=== PATIENT | female | born 1960 | race Caucasian/White ===

== ENCOUNTER → 2017-03-05 | Outpatient (REF) ==
--- NOTE | 2017-03-05 16:40 | REP ---
Lumbar spine series: Limited study: Three views: History: Degenerative disc disease. Comparison study: 06/11/2014. Findings: Lumbar vertebral body heights are preserved. Discogenic spurring is seen at L3-4 L4-5 and to a lesser extent L1-2 and L2-3. Alignment is normal. Pedicles and posterior elements are intact. There is evidence of bilateral L5 spondylolysis and a grade 1, 3-4 mm L5-S1 spondylolisthesis is seen unchanged from prior study. There is vascular calcification in a normal caliber aorta. Bowel gas pattern normal. Clips are noted in the right upper quadrant consistent with post-cholecystectomy. Impression: Bilateral L5 spondylolysis with grade 1 L5-S1 spondylolisthesis unchanged from the 2013 study. Mild diffuse degenerative disc disease also unchanged radiographically. Signed by Torres Honeycutt MD 03/05/2017 04:48 P
--- NOTE | 2017-03-05 16:41 | REP ---
Right knee series: Five views: History: Degenerative disc disease. No comparison radiographs. Findings: Five views of the right knee demonstrate moderate three compartment osteoarthritis. There is medial compartment joint space narrowing and spur formation. Patellofemoral and to a lesser extent lateral compartment spurring is also noted. Extensive vascular calcification is noted. There are posteromedial periarticular soft tissue calcifications. I cannot exclude loose body formation posteriorly. No evidence of joint effusion. There is some diffuse osteopenia. Impression: Moderate three compartment osteoarthritis most pronounced in the medial compartment. Question loose body. Vascular calcification. Signed by Torres Honeycutt MD 03/05/2017 04:48 P
== END ==
LOC: M SMT 14:33
PROVIDERS: ATTEND Internal Medicine
DX: M54.5 Low back pain (principal)

== ENCOUNTER 2017-05-29 21:16 | Inpatient (IN) | payer OTHER ==
[~2017-05-29] VITALS: Ht 157.5 cm; Wt 88.1 kg
[~2017-05-29 21:16] MED LIST: RIVAROXABAN 15 MG TAB (XARELTO) PO SCH
[2017-05-29] MEDS ORDERED: INSUHUMDS SC (21:38)
[2017-05-29] MEDS ORDERED: METO1TAB33 PO (21:38)
[2017-05-29] MEDS ORDERED: LIPI80TA PO (21:38)
[2017-05-29] MEDS ORDERED: METO-398 PO (21:38)
[2017-05-29] MEDS ORDERED: XARE15TA PO (21:38)
[2017-05-29] MEDS ORDERED: FENO145T PO (21:38)
[2017-05-29] MEDS ORDERED: [UNRECOGNIZED DRUG - OTHER] PO (21:38)
[2017-05-29] MEDS ORDERED: LASI20TA PO (21:38)
[2017-05-29] MEDS ORDERED: FISH100049 PO (21:38)
[2017-05-29] MEDS ORDERED: INSULANT SC (21:38)
[2017-05-29] MEDS ORDERED: DIGO0.12 PO (21:38)
[2017-05-29] MEDS ORDERED: LABETALOL HCL 100 MG/20 ML VIAL IV STA (22:20)
--- NOTE | 2017-05-29 22:32 | REP ---
Clinical: Diabetic ketoacidosis . Comparison: 06/13/2015 . Findings: The mediastinum and cardiac silhouette are stable and within normal limits for portable technique. The lung cameron are clear without acute consolidation, effusion, or pneumothorax. Skeletal structures are intact. Impression: No acute cardiopulmonary process appreciated. Signed by Guille Robins MD 05/29/2017 10:23 P
[2017-05-29 22:35] LABS: VENOUS O2 SATURATION 69.6 % (60.0-80.0); VENOUS PARTIAL PRESSURE CO2 45.9 mmHg (38.0-50.0); VENOUS PARTIAL PRESSURE O2 40.3 mmHg (30.0-50.0); VENOUS STANDARD HCO3 21.5 MEQ/L; VENOUS TOTAL CO2 24.5 MEQ/L (24.0-28.0)
[2017-05-29 22:42] LABS: BASO % 0.5 % (0.0-1.0); EOS # 0.2 K/mm3 (0.0-0.50); EOS % 2.5 % (0.0-3.0); LARGE UNSTAINED CELL # 0.1 K/mm3 (0.0-0.4); LARGE UNSTAINED CELL % 0.8 % (0.0-4.0); MEAN CORPUSCULAR HEMOGLOBIN 28.3 pg (27.0-33.0); MEAN CORPUSCULAR HGB CONC 30.6 g/dl (32.0-36.5); MEAN CORPUSCULAR VOLUME 92.5 fl (80.0-96.0); MONO # 0.3 K/mm3 (0.0-0.8); MONO % 3.4 % (0.0-5.0); NEUTROPHILS # 6.6 K/mm3 (1.8-7.7); NEUTROPHILS % 80.9 % (36.0-66.0); PLATELET COUNT, AUTOMATED 241 k/mm3 (150-450); RED CELL DISTRIBUTION WIDTH 14.5 % (11.5-14.5); WHITE BLOOD COUNT 8.1 K/mm3 (4.0-10.0)
[2017-05-29 22:52] LABS: INR 1.1
[2017-05-29 22:58] LABS: OSMOLALITY SERUM 320 MOSM/KG (275-295)
[2017-05-29 23:20] LABS: ALBUMIN 2.1 GM/DL (3.2-5.2); ALBUMIN/GLOBULIN RATIO 0.53 (1.00-1.93); ALKALINE PHOSPHATASE 44 U/L (45-117); ALT/SGPT 17 U/L (12-78); ANION GAP 9 MEQ/L (8-16); AST/SGOT 11 U/L (15-37); BILIRUBIN,DIRECT < 0.1 MG/DL (0.0-0.2); BILIRUBIN,TOTAL 0.2 MG/DL (0.2-1.0); BLOOD UREA NITROGEN 39 MG/DL (7-18); CALCIUM LEVEL 8.5 MG/DL (8.5-10.1); CARBON DIOXIDE LEVEL 25 MEQ/L (21-32); CHLORIDE LEVEL 98 MEQ/L (98-107); CREATININE FOR GFR 2.96 MG/DL (0.55-1.02); GLOMERULAR FILTRATION RATE 17.4 (>51); MAGNESIUM LEVEL 1.9 MG/DL (1.8-2.4); PHOSPHORUS LEVEL 4.4 MG/DL (2.5-4.9); POTASSIUM SERUM 4.1 MEQ/L (3.5-5.1); SODIUM LEVEL 132 MEQ/L (136-145); TOTAL PROTEIN 6.1 GM/DL (6.4-8.2)
[2017-05-29 23:24] LABS: GLUCOSE, FASTING 640 MG/DL (70-105)
[2017-05-29] MEDS ORDERED: HumuLIN R (REGULAR) INSULIN (NovoLIN R) **100U/ML** PER UNIT IV ONE (23:45)
[2017-05-30] MEDS ORDERED: METO100T5 PO ×2 (00:16)
[2017-05-30] MEDS ORDERED: FENO160T10 PO (00:16)
[2017-05-30] MEDS ORDERED: FISH1000 PO (00:16)
[2017-05-30] MEDS ORDERED: TRAD5TAB PO (00:16)
--- NOTE | 2017-05-30 01:12 | HPEPDOC ---
General Date of Admission Primary Care Physician: Joanna Swan PA-C, LAC Other Providers Admitting Attending: Ramakrishna Baron MD Attending Physician: DELANEY AYALA DO Chief Complaint The patient is a 56-year-old female admitted with a reason for visit of DKA. Source: Patient Exam Limitations: No limitations Timing/Duration: Day(s) (3-4) Associated Symptoms: Nausea History of Present Illness Ms. Gibbons is a 56 y/o female with past medical history of IDDM, a. fib, htn. dlp who present to the ED with CC of fatigue and nausea. The pt states that since Saturday (five days ago) she has been out of her insulin, she states that she attempted to phone her PCP but the office was closed for the holiday . The pt states that four days ago she began having nausea and experiencing fatigue. She denies pain with urination or defecation, blood in urine or stool, abdominal pain, or vomiting, denies CP, palpitations nor SOB. She states her insurance company would not refill her medications without approval and this had her very upset. She has no further active complaints on exam. Home Medications Scheduled Atorvastatin Calcium (Lipitor) 80 Mg Tab, 80 MG PO DAILY, (Reported) Digoxin (Digoxin) 0.125 Mg Tab, 0.125 MG PO DAILY, (Reported) Fenofibrate (Fenofibrate) 160 Mg Tab, 160 MG PO DAILY, (Reported) Fish Oil (Fish Oil) 1,000 Mg Cap, 2,000 MG PO BID, (Reported) Furosemide (Lasix) 20 Mg Tab, 20 MG PO DAILY, (Reported) Insulin Glargine (Lantus) 1 Units/0.01 Ml Susp, 40 UNITS SC BID, (Reported) Insulin Human Lispro (Humalog) 1 Units/0.01 Ml Inj, 7 UNITS SC AC, (Reported) Linagliptin Base (Tradjenta) 5 Mg Tab, 5 MG PO DAILY, (Reported) NORMALLY TAKES IN MORNING, HAD RX REFILLED TONIGHT Metoprolol Tartrate (Metoprolol Tartrate) 100 Mg Tab, 200 MG PO DAILY, (Reported ) Metoprolol Tartrate (Metoprolol Tartrate) 100 Mg Tab, 100 MG PO QHS, (Reported) Rivaroxaban (Xarelto) 15 Mg Tab, 15 MG PO QHS, (Reported) Allergies Coded Allergies: Contrast Media (Verified Allergy, Severe, anaphylaxsis, 05/29/17) Aspirin (Verified Allergy, Unknown, hallucinations, 05/29/17) Pentazocine (Verified Allergy, Unknown, hallucinations, 05/29/17) Uncoded Allergies: opiates (Allergy, Intermediate, hives, lips swell, 05/29/17) Past Medical History Medical History a. fib IDDM htn DLP Family History Significant Family History: No pertinent family hx Social History * Smoker: Denies Alcohol: Denies Drugs: denies Review of Symptoms Constitutional: Reports: Malaise, Weakness, Fatigue, Denies: Chills, Fever, Night Sweats Eyes: Denies: Vision change, Conjunctivae inflammation ENT: Denies: Head Aches Pulmonary: Denies: Dyspnea, Cough Cardiovascular: Denies: Chest Pain, Palpitations, Orthopnea Gastrointestinal: Reports: Nausea, Denies: Vomiting, Abdominal Pain, Diarrhea, Constipation, Melena, Hematochezia Neurological: Reports: Weakness Psych: Reports: Mood Normal Physical Examination General Exam: Positive: Alert, Cooperative, No Acute Distress Eye Exam: Positive: Conjunctiva & lids normal, EOMI, Negative: Sclera icteric ENT Exam: Positive: Pharynx Normal Neck Exam: Positive: Supple Chest Exam: Positive: Clear to auscultation, Normal air movement, Negative: Rales, Rhonchi, Wheezing, Diminished Heart Exam: Positive: Rate Normal, Normal S1, Normal S2, Negative: Gallops, Murmurs Telemetry: Positive: No significant arrhythmia Abdomen Exam: Positive: Normal bowel sounds, Soft, Negative: Tenderness, Hepatospenomegaly Extremity Exam: Positive: Edema (+1 b/l LE) Skin Exam: Negative: Rash Neuro Exam: Positive: Normal Gait, Normal Speech Vital Signs Vital Signs Date Time Temp Pulse Resp B/P (MAP) Pulse Ox O2 Delivery O2 Flow Rate FiO2 05/29/17 23:31 64 148/76 (100) 94 05/29/17 21:17 97.7 18 Room Air Laboratory Data Labs 24H Laboratory Tests 2 05/29/17 22:12: Blood Gas Bicarbonate Standard 21.5, Venous Blood pH 7.320L, Venous Blood Partial Pressure CO2 45.9, Venous Blood Partial Pressure O2 40.3, Venous Blood Total Carbon Dioxide 24.5, Venous Blood HCO3 23.1, Venous Blood Oxygen Saturation 69.6, Venous Blood Base Excess -3.0L 05/29/17 22:13: White Blood Count 8.1, Red Blood Count 3.66L, Hemoglobin 10.4L, Hematocrit 33.9L , Mean Corpuscular Volume 92.5, Mean Corpuscular Hemoglobin 28.3, Mean Corpuscular Hemoglobin Concent 30.6L, Red Cell Distribution Width 14.5, Platelet Count 241, Neutrophils (%) (Auto) 80.9H, Lymphocytes (%) (Auto) 12.0L, Monocytes (%) (Auto) 3.4, Eosinophils (%) (Auto) 2.5, Basophils (%) (Auto) 0.5, Neutrophils # (Auto) 6.6, Lymphocytes # (Auto) 1.0L, Monocytes # (Auto) 0.3, Eosinophils # (Auto) 0.2, Basophils # (Auto) 0.0, Large Unclassified Cells % 0.8 , Large Unclassified Cells # 0.1, Estimated Mean Plasma Glucose 246H, Hemoglobin A1c 10.2H 05/29/17 22:14: Prothrombin Time 14.4, Prothromb Time International Ratio 1.10, Activated Partial Thromboplast Time 26.0L, Anion Gap 9, Glomerular Filtration Rate 17.4L, Osmolality 320H, Calcium Level 8.5, Phosphorus Level 4.4, Magnesium Level 1.9, Aspartate Amino Transf (AST/SGOT) 11L, Alanine Aminotransferase (ALT/SGPT) 17, Alkaline Phosphatase 44L, Total Bilirubin 0.2, Direct Bilirubin < 0.1, Total Protein 6.1L, Albumin 2.1L, Albumin/Globulin Ratio 0.53L, Lipase 228, Digoxin Level 1.0, B-Hydroxybutyrate 1.73 CBC/BMP Laboratory Tests 05/29/17 22:13 Red Blood Count 3.66 L, Mean Corpuscular Volume 92.5, Mean Corpuscular Hemoglobin 28.3, Mean Corpuscular Hemoglobin Concent 30.6 L, Red Cell Distribution Width 14.5, Neutrophils (%) (Auto) 80.9 H, Lymphocytes (%) (Auto) 12.0 L, Monocytes (%) (Auto) 3.4, Eosinophils (%) (Auto) 2.5, Basophils (%) ( Auto) 0.5, Neutrophils # (Auto) 6.6, Lymphocytes # (Auto) 1.0 L, Monocytes # ( Auto) 0.3, Eosinophils # (Auto) 0.2, Basophils # (Auto) 0.0 05/29/17 22:14 Problems (1) Type 2 diabetes mellitus with hyperosmolarity without nonketotic hyperglycemic-hyperosmolar coma (NKHHC) Problem Text: 640 glucose in ED 10.2 HgA1C in ED AG 9 pt received 5 units Insulin in ED Sliding scale 10 Levemir and 20 Lispro x1 (2) Acute renal failure Status: Acute Response to Treatment: Stable Problem Text: 2.96 creatine, baseline around 1-1.5 will hold digoxin, xaralto and diuretic for now fluids NS @ 100 (3) HTN (hypertension) Status: Chronic Response to Treatment: Stable Problem Text: continue home medication (4) Hyperlipidemia Status: Chronic Response to Treatment: Stable Problem Text: continue home medications (5) DVT prophylaxis Status: Acute Response to Treatment: Stable Problem Text: scd teds Plan / VTE VTE Prophylaxis Ordered?: Yes GME ATTESTATION GME ATTESTATION My preceptor for this patient encounter was physically present in the building during the encounter and was fully available. As needed, all aspects of the patient interview, examination, medical decision making process, and medical care plan development were reviewed and approved by the preceptor. Preceptor is aware and concurs with the plan as stated in the body of this note and will attest to such by his/her cosignature. ATTENDING NOTE Pt seen and examined by me. Findings and plan reviewed with resident. Resident note reviewed and agree with documented findings and plan. 1. HHS While pt not acidotic, her persistent hypergylcemia will have made her relatively insulin resistant. Unfortunately, pt has only received 10U of humalog coverage in the ED for her glucose of >500. Pt will need aggressive fluid rescusitation. Will bolus NS 1L and put fluids at 125. Have started humalog SS, but will administer humalog 20U x1 to get her FS closer to 200. (Pt has received 20U with FS going from 550 to 420). Continue tradjenta Pt at baseline has poor glucose control (hba1c is 10.2) 2. LIZANDRO Likely MF from osmotic diuresis, on top of being on lasix Continue fluid rescusitation Avoid nephrotoxic meds (acei/arbs/nsaids) Pt lasix held Serial bmp dose meds to renal fxn 3. Chronic afib Continue bb Dig held will check level before restarting and confirming cre improving Xarelto also held for now due to lizandro ORQUIDEA KELLEY DO May 30, 2017 01:12 Ramakrishna Baron MD May 30, 2017 07:19
[2017-05-30] MEDS ORDERED: GLUCAGON FOR INJ 1 MG VIAL (J1610) SC PRN (02:30)
[2017-05-30] MEDS ORDERED: GLUCOSE 4 GM CHEW TABLET PO PRN (02:30)
[2017-05-30] MEDS ORDERED: DEXTROSE 50% 50 ML SYRINGE IV PRN (02:30)
[2017-05-30 02:35] VITALS: BP 134/74
[2017-05-30] MEDS ORDERED: LEVEMIR (INSULIN DETEMIR) 1 UNITS/0.01ML SC ONE ×2 (03:00→10:45)
[2017-05-30] MEDS ORDERED: HumaLOG INSULIN (NovoLOG) PER UNIT SC ONE ×2 (03:00→05:30)
[2017-05-30 03:20] LABS: BASO % 0.4 % (0.0-1.0); EOS # 0.3 K/mm3 (0.0-0.50); EOS % 3.3 % (0.0-3.0); LARGE UNSTAINED CELL # 0.1 K/mm3 (0.0-0.4); LARGE UNSTAINED CELL % 0.9 % (0.0-4.0); LYMPH # 1.2 K/mm3 (1.5-4.5); LYMPH % 12.5 % (24.0-44.0); MEAN CORPUSCULAR HEMOGLOBIN 27.8 pg (27.0-33.0); MEAN CORPUSCULAR HGB CONC 31.5 g/dl (32.0-36.5); MEAN CORPUSCULAR VOLUME 88.3 fl (80.0-96.0); MONO # 0.4 K/mm3 (0.0-0.8); MONO % 4.9 % (0.0-5.0); NEUTROPHILS # 6.8 K/mm3 (1.8-7.7); PLATELET COUNT, AUTOMATED 212 k/mm3 (150-450); RED CELL DISTRIBUTION WIDTH 14.7 % (11.5-14.5); WHITE BLOOD COUNT 8.8 K/mm3 (4.0-10.0)
[2017-05-30 03:31] LABS: CALCIUM LEVEL 7.9 MG/DL (8.5-10.1); CREATININE FOR GFR 2.86 MG/DL (0.55-1.02); GLOMERULAR FILTRATION RATE 18.1 (>51); POTASSIUM SERUM 3.8 MEQ/L (3.5-5.1)
[2017-05-30] MEDS ORDERED: NS 1,000 ML IV SCH (05:15)
[2017-05-30 05:54] LABS: DIGOXIN LEVEL 0.9 NG/ML (0.5-2.0)
[2017-05-30 06:00] VITALS: BP 124/64
[2017-05-30] MEDS ORDERED: NS 1,000 ML IV ONE (06:45)
[2017-05-30] MEDS: HumaLOG INSULIN (NovoLOG) PER UNIT SC SCH ×4 (08:30→21:55)
[2017-05-30] MEDS: ATORVASTATIN 20 MG TAB PO SCH (08:31)
[2017-05-30] MEDS: METOPROLOL TARTRATE 100 MG TAB PO SCH ×2 (08:57→21:54)
[2017-05-30] MEDS ORDERED: DIGOXIN 0.125 MG TAB PO SCH (09:00)
[2017-05-30] MEDS ORDERED: FUROSEMIDE 20 MG TAB PO SCH (09:00)
[2017-05-30] MEDS: ACETAMINOPHEN TAB 650MG DOSE (2X325MG) PO PRN ×2 (12:25→21:54)
[2017-05-30 14:00] VITALS: BP 145/68
--- NOTE | 2017-05-30 14:28 | IPN ---
DATE: 05/30/2017 SUBJECTIVE: The patient is seen and examined in the room today. The patient stated that she ran out of insulin since last week. The patient has been without insulin for 5 days due to insurance issues. At the time of the encounter, the patient stated the nausea and vomiting is improving. The patient is noted to have lower extremity swelling since the primary care provider discontinued the Lasix. OBJECTIVE: VITAL SIGNS: Temperature 97.5, pulse is 61, respirations 20, blood pressure 124/64, pulse oximetry is 97% on room air. GENERAL: Obese. No acute distress. Alert and oriented times three. HEENT: Normocephalic, atraumatic. Extraocular motors grossly intact. CARDIOVASCULAR: Positive S1, S2. Regular rate. LUNGS: Clear to auscultation bilaterally. ABDOMEN: Soft, nontender, nondistended. Bowel sounds present. No rebound or guarding. EXTREMITIES: Positive edema bilaterally. No sign of cyanosis. LABORATORY DATA: WBC 8.8, hemoglobin 9.4, hematocrit 29.9, platelet count is 212. Sodium is 134, potassium 3.8, chloride is 101, carbon dioxide 25, BUN 40, creatinine 2.86, GFR is 18.1, fasting glucose is 508. Calcium is 7.9. BNP is 360. ASSESSMENT AND PLAN: 1. Severe hyperglycemia for uncontrolled type 2 diabetes. The patient has no supply of insulin for 5 days prior to admission. The patient's A1/c is 10.2. There is no anion gap. We will start the patient back on her long-acting insulin and covered with sliding scale. The patient will be on consistent carbohydrate diet. 2. Acute on chronic renal failure. The patient has a creatinine of 1.14 in October 2016. Currently, the patient's creatinine is 2.86. Due to fluid overload, we will try to adjust the patient's fluid status currently. 3. History of congestive heart failure (CHF). The patient was diagnosed in [place] in December. Echocardiogram was performed. We will follow. 4. History of atrial fibrillation. Currently, heart rate is in satisfactory range. The patient is taking metoprolol tartrate. Xarelto is on hold due to acute kidney injury. 5. History of hypertension. The patient came in with severe hypertensive urgency. Currently, the patient's blood pressure is in the satisfactory range. The patient is on metoprolol. 6. Dyslipidemia. The patient is on Lipitor 80 mg. 7. Deep vein thrombosis (DVT) prophylaxis. The patient is on TEDs and sequential compression device (SCD).
[2017-05-30] MEDS ORDERED: MOM 30ML SUSPENSION UDC PO ONE (21:00)
[2017-05-30] MEDS: APIXABAN 5 MG TAB (ELIQUIS) PO SCH (21:54)
[2017-05-30] MEDS: LEVEMIR (INSULIN DETEMIR) 1 UNITS/0.01ML SC SCH (21:56)
[2017-05-30 22:00] VITALS: BP 164/82
[2017-05-31 06:00] VITALS: BP 117/76
[2017-05-31 06:49] LABS: BASO % 0.4 % (0.0-1.0); EOS # 0.2 K/mm3 (0.0-0.50); EOS % 3.8 % (0.0-3.0); LARGE UNSTAINED CELL # 0.1 K/mm3 (0.0-0.4); LARGE UNSTAINED CELL % 1.1 % (0.0-4.0); LYMPH # 1.4 K/mm3 (1.5-4.5); LYMPH % 20.6 % (24.0-44.0); MEAN CORPUSCULAR HEMOGLOBIN 28.5 pg (27.0-33.0); MEAN CORPUSCULAR HGB CONC 32.9 g/dl (32.0-36.5); MEAN CORPUSCULAR VOLUME 86.6 fl (80.0-96.0); MONO # 0.3 K/mm3 (0.0-0.8); MONO % 4.7 % (0.0-5.0); NEUTROPHILS # 4.6 K/mm3 (1.8-7.7); NEUTROPHILS % 69.3 % (36.0-66.0); PLATELET COUNT, AUTOMATED 219 k/mm3 (150-450); RED CELL DISTRIBUTION WIDTH 14.8 % (11.5-14.5); WHITE BLOOD COUNT 6.6 K/mm3 (4.0-10.0)
[2017-05-31 06:58] LABS: ANION GAP 9 MEQ/L (8-16); BLOOD UREA NITROGEN 43 MG/DL (7-18); CALCIUM LEVEL 8.4 MG/DL (8.5-10.1); CARBON DIOXIDE LEVEL 24 MEQ/L (21-32); CHLORIDE LEVEL 105 MEQ/L (98-107); CHOLESTEROL LEVEL 164 MG/DL (<200); CREATININE FOR GFR 2.76 MG/DL (0.55-1.02); GLOMERULAR FILTRATION RATE 18.9 (>51); GLUCOSE, FASTING 143 MG/DL (70-105); POTASSIUM SERUM 3.9 MEQ/L (3.5-5.1); SODIUM LEVEL 138 MEQ/L (136-145); TRIGLYCERIDES LEVEL 437 MG/DL (<150)
[2017-05-31] MEDS ORDERED: ENOXAPARIN 100MG/1ML SYRINGE (J1650) SC SCH (08:00)
[2017-05-31] MEDS: APIXABAN 5 MG TAB (ELIQUIS) PO SCH ×2 (09:45→20:53)
[2017-05-31] MEDS: ATORVASTATIN 20 MG TAB PO SCH (09:45)
[2017-05-31] MEDS: HumaLOG INSULIN (NovoLOG) PER UNIT SC SCH ×4 (09:46→20:17)
[2017-05-31] MEDS: METOPROLOL TARTRATE 100 MG TAB PO SCH ×2 (09:46→20:53)
[2017-05-31] MEDS: LEVEMIR (INSULIN DETEMIR) 1 UNITS/0.01ML SC SCH ×2 (09:46→20:53)
[2017-05-31 14:00] VITALS: BP 102/55
[2017-05-31] MEDS ORDERED: BASA100I SC (14:57)
--- NOTE | 2017-05-31 15:31 | IPN ---
DATE: 05/31/2017 SUBJECTIVE: The patient is seen and examined in the room today. The patient states she feels weak, low energy; otherwise, no overnight events reported. OBJECTIVE: VITAL SIGNS: Temperature 97.3, pulse is 59, respirations 18, blood pressure 117/76, pulse oximetry 96% on room air. GENERAL: No sign of acute distress. HEENT: Normocephalic, atraumatic. Extraocular motor grossly intact. Decreased visual acuity. CARDIOVASCULAR: Positive S1, S2. Regular rate. LUNGS: Clear to auscultation bilaterally. ABDOMEN: Soft, nontender, nondistended. Bowel sounds present. No rebound, no guarding. EXTREMITIES: Pitting edema bilaterally. No sign of cyanosis. LABORATORY DATA: WBC 6.6, hemoglobin 8.9, hematocrit 27, platelet count is 219. Sodium 138, potassium 3.9, chloride 105, carbon dioxide 24, BUN 43, creatinine 2.76, GFR is 18.9, fasting glucose 143, calcium 8.4. Triglycerides 437. Total cholesterol is 164. ASSESSMENT AND PLAN: 1. Severe hyperglycemia secondary to uncontrolled type 2 diabetes. The patient had A1c of 10.2. The patient did not have a supply of insulin at home due to insurance reason. Also a social media executive has been assisting on the issue, and will try to contact a local pharmacy to see which insulin will be more affordable for the patient. Once the patient has a sufficient supply, then I will discharge the patient home. The patient currently will be on consistent carbohydrate diet. 2. Acute on chronic renal failure. The patient has a baseline creatinine of 1.14 in October 2016. Currently the patient's creatinine is 2.76, and is improving. Will continue to monitor. 3. History of congestive heart failure. It was diagnosed in [place] in December. We do not have an echocardiogram report available. We will follow the report. 4. History of atrial fibrillation, taking metoprolol tartrate currently with Eliquis. The patient's heart rate is in the satisfactory range. 5. History of hypertension. The patient came in with severe hypertensive urgency. With current blood pressure medication regimen, the patient's blood pressure is improving. 6. Dyslipidemia. On Lipitor 80 mg. 7. Deep venous thrombosis (DVT) prophylaxis. The patient is on thromboembolism deterrent stockings (TEDs) and sequential compression devices.
[2017-05-31 20:00] VITALS: BP 175/89
[2017-05-31] MEDS: ACETAMINOPHEN TAB 650MG DOSE (2X325MG) PO PRN (20:54)
[2017-06-01 05:30] VITALS: BP 137/74
[2017-06-01 05:53] LABS: BASO % 0.5 % (0.0-1.0); EOS # 0.2 K/mm3 (0.0-0.50); EOS % 2.8 % (0.0-3.0); LARGE UNSTAINED CELL # 0.1 K/mm3 (0.0-0.4); LARGE UNSTAINED CELL % 1.2 % (0.0-4.0); LYMPH # 1.4 K/mm3 (1.5-4.5); LYMPH % 24.9 % (24.0-44.0); MEAN CORPUSCULAR HEMOGLOBIN 28.5 pg (27.0-33.0); MEAN CORPUSCULAR HGB CONC 32.1 g/dl (32.0-36.5); MEAN CORPUSCULAR VOLUME 88.8 fl (80.0-96.0); MONO # 0.2 K/mm3 (0.0-0.8); MONO % 4.2 % (0.0-5.0); NEUTROPHILS # 3.7 K/mm3 (1.8-7.7); NEUTROPHILS % 66.5 % (36.0-66.0); PLATELET COUNT, AUTOMATED 200 k/mm3 (150-450); WHITE BLOOD COUNT 5.5 K/mm3 (4.0-10.0)
[2017-06-01 06:06] LABS: CALCIUM LEVEL 8.1 MG/DL (8.5-10.1); CREATININE FOR GFR 2.84 MG/DL (0.55-1.02); GLOMERULAR FILTRATION RATE 18.2 (>51)
[2017-06-01] MEDS: METOPROLOL TARTRATE 100 MG TAB PO SCH ×2 (07:53→21:39)
[2017-06-01] MEDS: APIXABAN 5 MG TAB (ELIQUIS) PO SCH ×2 (07:54→21:38)
[2017-06-01] MEDS: ATORVASTATIN 20 MG TAB PO SCH (07:54)
[2017-06-01] MEDS: LEVEMIR (INSULIN DETEMIR) 1 UNITS/0.01ML SC SCH ×2 (07:55→21:39)
[2017-06-01] MEDS: HumaLOG INSULIN (NovoLOG) PER UNIT SC SCH ×4 (07:55→21:40)
[2017-06-01] MEDS ORDERED: ELIQ5TAB PO (11:17)
[2017-06-01] MEDS ORDERED: INSUHUMDS SC (11:17)
--- NOTE | 2017-06-01 12:33 | IPN ---
DATE OF VISIT: 06/01/2017 SUBJECTIVE: Patient seen and examined in the room today. According to the patient, patient has some issue with not only the long-acting but also the short-acting insulin. No overnight events reported. Tolerating diabetic diet well. However, patient does not know how to count the carbohydrates at home. OBJECTIVE: VITAL SIGNS: Temperature 97.4, pulse is 65, respirations 16, blood pressure 137/74, pulse oximetry 97% on room air. GENERAL: No acute distress. Alert and oriented times three. HEENT: Normocephalic, atraumatic. Extraocular motor grossly intact. CARDIOVASCULAR: Positive S1, S2. Regular rate. LUNGS: Clear to auscultation bilaterally. ABDOMEN: Soft, nontender, nondistended. Bowel sounds present. No rebound, no guarding. EXTREMITIES: Pitting edema bilaterally. No sign of cyanosis. LABORATORY DATA: WBC 5.5, hemoglobin 8.6, hematocrit 26.8, platelet count is 200. Sodium is 140, potassium 4, chloride 108, carbon dioxide 24, BUN 44, creatinine is 2.84, GFR is 18.2, fasting glucose 207, calcium is 8.1. ASSESSMENT AND PLAN: 1. Severe hyperglycemia secondary to uncontrolled diabetes. Patient's A1c of 10.2. According to the patient, patient has insurance issue resulting in not able to obtain a supply for long-acting and short-acting insulin. I spoke to [facility] pharmacy, stated she only needs to pay a 3 dollar copay for her short-acting insulin. I also adjusted the long-acting insulin prescription to [facility], should be available upon patients discharge. 2. Acute on chronic renal failure. Patient has a baseline creatinine of 1.14 in October 2016. For the past few days, patient's renal function does not show any significant improvement, is a possibility that due to uncontrolled diabetes, patient has a new baseline. Will continue to monitor. 3. Atrial fibrillation. Patient's rate controlled with some metoprolol tartrate. Due to renal function, Xarelto was discontinued. Patient was switched to Eliquis. The patient has a new creatinine baseline, and Xarelto may not be a good option for patient's anticoagulation. I will send a prescription for Eliquis to the pharmacy, and patient may need preauthorization. 4. History of congestive heart failure, diagnosed in [place] in December. We do not have an echocardiogram report available. Will follow. 5. Dyslipidemia. On Lipitor. 6. Deep venous thrombosis (DVT) prophylaxis. Patient is on thromboembolism deterrent stockings (TEDs) and sequential compression devices. MTDD
[2017-06-01 14:00] VITALS: BP 139/70
[2017-06-01 22:00] VITALS: BP 147/73
[2017-06-02 06:00] VITALS: BP 133/65
[2017-06-02 06:21] LABS: BASO % 0.3 % (0.0-1.0); EOS # 0.2 K/mm3 (0.0-0.50); EOS % 3.4 % (0.0-3.0); LARGE UNSTAINED CELL # 0.1 K/mm3 (0.0-0.4); LARGE UNSTAINED CELL % 0.9 % (0.0-4.0); LYMPH # 1.4 K/mm3 (1.5-4.5); LYMPH % 20.3 % (24.0-44.0); MEAN CORPUSCULAR HEMOGLOBIN 28.7 pg (27.0-33.0); MEAN CORPUSCULAR HGB CONC 32.2 g/dl (32.0-36.5); MEAN CORPUSCULAR VOLUME 89.1 fl (80.0-96.0); MONO # 0.3 K/mm3 (0.0-0.8); NEUTROPHILS # 4.8 K/mm3 (1.8-7.7); NEUTROPHILS % 70.1 % (36.0-66.0); PLATELET COUNT, AUTOMATED 217 k/mm3 (150-450); RED CELL DISTRIBUTION WIDTH 14.7 % (11.5-14.5); WHITE BLOOD COUNT 6.8 K/mm3 (4.0-10.0)
[2017-06-02 06:38] LABS: CALCIUM LEVEL 8.6 MG/DL (8.5-10.1); CREATININE FOR GFR 2.62 MG/DL (0.55-1.02); POTASSIUM SERUM 4.1 MEQ/L (3.5-5.1)
[2017-06-02] MEDS: LEVEMIR (INSULIN DETEMIR) 1 UNITS/0.01ML SC SCH ×2 (09:00→21:18)
[2017-06-02] MEDS: ATORVASTATIN 20 MG TAB PO SCH (09:32)
[2017-06-02] MEDS: APIXABAN 5 MG TAB (ELIQUIS) PO SCH ×2 (09:32→21:16)
[2017-06-02] MEDS: METOPROLOL TARTRATE 100 MG TAB PO SCH ×2 (09:32→21:17)
[2017-06-02] MEDS: HumaLOG INSULIN (NovoLOG) PER UNIT SC SCH ×4 (09:33→21:26)
--- NOTE | 2017-06-02 11:56 | REP ---
Clinical: Acute renal failure. Technique: Real time vuong scale ultrasound examination using curved array transducer. Findings: Bilateral kidneys are normal in contour, size, echogenicity, and reniform shape without hydronephrosis, nephrolithiasis, cystic or renal mass lesion. No perinephric fluid collection identified. Right kidney measures 13.1 x 5.6 x 6.0 cm. Left kidney measures 12.6 x 5.2 x 4.9 cm. Bladder is incompletely distended. Impression: Normal renal ultrasound. No hydronephrosis. Signed by Guille Robins MD 06/02/2017 11:47 A
--- NOTE | 2017-06-02 12:44 | IPN ---
DATE: 06/02/2017 SUBJECTIVE: Patient seen and examined in the room today. Patient stated she is feeling fine, does not have any acute pain. She thinks she still has low extremity swelling, but it is not worsening. No overnight events reported. OBJECTIVE: VITAL SIGNS: Temperature 97.8, pulse 53, respirations 18, blood pressure 133/65, pulse oximetry 96% in room air. GENERAL: No signs of acute distress. Alert and oriented times three. HEENT: Normocephalic, atraumatic. Extraocular motor grossly intact. CARDIOVASCULAR: Positive S1, S2. Regular rate. LUNGS: Clear to auscultation bilaterally. ABDOMEN: Soft, nontender, nondistended. Bowel sounds present. No rebound. No guarding. EXTREMITIES: Patient has compression on there. Still signs of swelling. LABORATORY DATA: WBC 6.8, hemoglobin 8.7, hematocrit 26.9, platelet count 217. Sodium 141, potassium 4.1, chloride 110, carbon dioxide 24, BUN 44, creatinine 2.62, GFR 20, fasting glucose 104, calcium 8.6. ASSESSMENT AND PLAN: 1. Sever hyperglycemia secondary to uncontrolled diabetes. Patient's A1c of 10.2. I am talking to the off-site pharmacy to make sure patient has enough insulin supply and patient is able to afford the medication with a reasonable co-pay. 2. Acute on chronic renal failure. I have consulted nephrology to see if we can improve patient's renal function. Patient currently has a creatinine of 2.62. Patient's Xarelto has been adjusted. Patient's digoxin was also discontinued. 3. Atrial fibrillation. Even without the digoxin, patient's heart rate is able to maintain a satisfactory range with some metoprolol tartrate. Due to the impaired renal function, patient's Xarelto has been discontinued. Patient was switched to Eliquis. We initiated the preauthorization for the Eliquis and will page me for the results. 4. History of congestive heart failure, diagnosed in [place] in December. No echocardiogram report is available. At this point, we will continue to follow. 5. Dyslipidemia. On Lipitor. 6. Deep venous thrombosis (DVT) prophylaxis. On compression devices.
[2017-06-02] MEDS: FUROSEMIDE 40 MG TAB PO SCH (13:21)
[2017-06-02 13:33] LABS: COMPLEMENT C3 165 MG/DL (90-180); COMPLEMENT C4 34.4 MG/DL (10-40); TOTAL PROTEIN 5.3 GM/DL (6.4-8.2)
--- NOTE | 2017-06-02 13:59 | CR ---
DATE OF CONSULTATION: 06/02/2017 REQUESTING PHYSICIAN: Carrie Mcgee DO CONSULTING PHYSICIAN: Beto Masters MD REASON FOR CONSULTATION: Management of acute kidney injury in this patient with a history of diabetes. CHIEF COMPLAINT: Gem Gibbons is a 56-year-old female with a past medical history of insulin dependent diabetes, hypertension, history of hemolytic anemia and hematuria in the past. Patient was admitted to [facility] on May 30, 2017 because of hyperglycemia after missing her insulin dose. She was found to have a creatinine of 2.9 on admission, which was attributed to hyperglycemia and dehydration. Creatinine has been fluctuating around 2.6 to 2.7 ever since her admission. Her hyperglycemia has improved. Her base creatinine as per records was 1.1 in October 2016. Nephrology service was called for further help in the management of acute kidney disease superimposed on chronic kidney disease stage 3. The patient was seen and examined at the bedside today morning. She was sitting on the sofa in no apparent distress at this time. She told me that she was having hematuria in the . At that time, she was seen by Dr. Castellon at [facility]. She got all the workup including imaging with IVP dye that caused a severe reaction. She got a cystoscopy done as well. No particular reason for hematuria was found at that time, that later on self resolved. The patient reports that she never got a biopsy of the kidney done and she does not followup with any manager talent at this time. Of note, the patient is independent diabetic with peripheral neuropathy and diabetic retinopathy causing legal blindness. PAST MEDICAL HISTORY: Patient has a past medical history of insulin dependent diabetes, hematuria in the past, hypertension, history of hemolytic anemia, and she follows up with hematology. History of cancer of the uterus status post hysterectomy. History of mediastinal lymphadenopathy in the past. Biopsy did not show any pathology. Psoriasis. History of atrial fibrillation and atrial flutter. Arthritis. PAST SURGICAL HISTORY: The patient had right ovarian surgery status post total hysterectomy for CA uterus and gallbladder surgery. ALLERGIES: Patient is allergic to: 1. ASPIRIN. 2. IV CONTRAST MEDIA. 3. PENTAZOCINE. 4. OPIATES. 5. CIPROFLOXACIN. FAMILY HISTORY: The patient's father had congenital horseshoe kidney with kidney stones and the patient's mother had end stage renal disease, but she never got dialysis. HOME MEDICATIONS: The patient home medications include atorvastatin 80 mg daily, digoxin 0.125 mg by mouth daily, fenofibrate 160 mg daily, fish oil 2 grams by mouth twice a day, Lasix 20 mg by mouth daily, Lantus 40 units twice a day, lispro 7 units three times a day, Tradjenta 5 mg by mouth daily, metoprolol 200 mg in the morning and 100 mg at nighttime, Xarelto 15 mg by mouth at nighttime. REVIEW OF SYSTEMS: CONSTITUTIONAL: Patient denies any fatigue, fever, or chills. EYES: Patient has legal blindness. ENT: She denies any dysphagia, odynophagia or ear discharge. CARDIOVASCULAR: Patient reports a history of atrial fibrillation and atrial flutter, but she denies any chest pain or palpitations at this time. RESPIRATORY: Patient denies any cough, wheezing or shortness of breath. GASTROINTESTINAL (GI): Patient reports nausea and decreased appetite, but she denies any constipation or melena. WEB SPECIALIST: Patient reports some weakness, but she denies any history of seizures or strokes. She does report legal blindness. PSYCH: Denies any history of anxiety or depression. SKIN: She denies any rashes or ulcers. HEMATOLOGICAL/ONCOLOGIC: Patient reports a history of hemolytic anemia in the past and history of uterine cancer in the past. Right now she denies any easy bruising or bleeding. All other review of systems is negative. PHYSICAL EXAMINATION: GENERAL: Patient is awake, alert and oriented times three, sitting on the sofa in no apparent distress. VITAL SIGNS: Temperature is 97.8 degrees Fahrenheit, blood pressure is 133/65, pulse is 53, respiratory rate of 18, saturating 96% on room air. INTAKE AND OUTPUT: Urine output recorded as 400 mL yesterday, 1350 mL so far today since overnight. Weight on the bed scale is 89.6 kg. HEAD/NECK EXAM: Patient is legally blind. Head is atraumatic, normocephalic. Mucous membranes are moist. Neck is supple. There is no jugular venous distention (JVD). CARDIOVASCULAR: S1 and S2, regular rate. No murmur, rub or gallop. RESPIRATORY: Chest is clear to auscultation bilaterally, bilateral equal air entry. No rales or rhonchi. ABDOMEN: Soft. Positive bowel sounds. Old surgical scars from previous hysterectomy and sections. No organomegaly at this time. MUSCULOSKELETAL: Pulses are 2+. Patient has 1+ edema of the bilateral lower extremities up the thighs. She is wears compression stockings at this time. WEB SPECIALIST: No focal deficit at this time except bilateral legal blindness. Power is 5/5 in all extremities. PSYCH: Normal mood and affect. SKIN: Patient has a psoriatic rash on the back and the scalp. LABORATORY REVIEW: CBC showed WBC 6.8, hemoglobin 8.7, platelets 217. Urinalysis done four days ago on 05/29/2017 showed protein was 3+, glucose was 3+, 1+ ketones, leukocyte esterase and nitrite was negative. BMP done today showed sodium 141, potassium 4.1, chloride 110, bicarb 24, BUN 44, creatinine is 2.6, GFR is 20, glucose 104, calcium is 8.6, BNP was 213 on 05/31/2017. Microbiology: Urine culture done on 05/29/2017 was negative. IMAGING: A renal ultrasound done today showed bilateral kidneys are normal in size and contour. There was no hydronephrosis. CURRENT INPATIENT MEDICATIONS: Patient's inpatient medications include: - Tylenol as needed - Eliquis 5 mg by mouth twice a day - Lipitor 80 mg daily - I have started the patient on Lasix 40 mg by mouth daily - Levemir 40 units subcu twice a day - insulin lispro sliding scale - metoprolol 200 mg by mouth in the morning and 100 mg at bedtime ASSESSMENT: 56-year-old female with past medical history of insulin dependent diabetes, hypertension, psoriasis, remote history of hematuria in past, admitted this time with hyperosmolar nonketotic hyperglycemia. Nephrology service was called for management of acute kidney injury superimposed on chronic kidney disease. Baseline creatinine was around 1.1 six months ago. PLAN: 1. Acute kidney injury superimposed on chronic kidney disease stage 3. Patient does not followup with nephrology as an outpatient, however she has a significant elevation of her creatinine within six months. Her creatinine is fluctuating at 2.6 at this time. There are no signs of dehydration. If anything, patient looks slightly volume overloaded. I have started the patient on Lasix 40 mg daily. Given the patient's 3+ proteinuria on admission, I have ordered a repeat urinalysis and urine protein creatinine ratio. It might be worsening of the diabetic nephropathy since she has severely uncontrolled diabetes with an A1c of 10.2 on admission and diabetic retinopathy, however, given remote history of hematuria in the past and worsening renal function with proteinuria and hematuria, I have also ordered all the proteinuria workup including 24 hour urine protein, SPEP, UPEP, hepatitis, GLORIA, ANCA, antidouble stranded DNA, compliment 3 and compliment 4 levels. Ultrasound is normal. If autoimmune serology is negative, we might consider doing a renal biopsy on this patient. Patient is otherwise hemodynamically stable. No signs or symptoms of uremia and electrolytes are within acceptable limits. 2. Atrial fibrillation/atrial flutter. Currently it is rate controlled with metoprolol 200 mg in the morning, 100 mg in the evening. Okay to continue Eliquis at this time. 3. Insulin dependent diabetes. It is uncontrolled at this time. The patient was not taking insulin. She reports that her insurance was not covering that, however glucose levels have improved now with the current dose of insulin. Rest of the management is as per primary team. 4. Hyperlipidemia. Okay to continue atorvastatin at this time. Patient should not get further doses of fenofibrate because GFR is less than 30 at this time. 5. Lower extremity edema and history of congestive heart failure (CHF). Patient's albumin is also low and that might be contributing to her edema. I have started the patient on Lasix 40 mg by mouth daily. Thank you for involving us in the care of this patient. We shall be happy to follow the patient along with you tomorrow morning. Plan of care was discussed with the hospitalist, Dr. Carrie Mcgee.
[2017-06-02 14:00] VITALS: BP 149/87
[2017-06-02 22:00] VITALS: BP 148/92
[2017-06-03 06:00] VITALS: BP 130/68
[2017-06-03 06:11] LABS: CALCIUM LEVEL 8.3 MG/DL (8.5-10.1); CREATININE FOR GFR 2.9 MG/DL (0.55-1.02); GLOMERULAR FILTRATION RATE 17.8 (>51); POTASSIUM SERUM 4.4 MEQ/L (3.5-5.1)
[2017-06-03 06:23] LABS: BASO % 0.5 % (0.0-1.0); EOS # 0.2 K/mm3 (0.0-0.50); EOS % 2.2 % (0.0-3.0); LARGE UNSTAINED CELL # 0.1 K/mm3 (0.0-0.4); LARGE UNSTAINED CELL % 1.1 % (0.0-4.0); LYMPH # 1.6 K/mm3 (1.5-4.5); LYMPH % 19.9 % (24.0-44.0); MEAN CORPUSCULAR HEMOGLOBIN 28.6 pg (27.0-33.0); MEAN CORPUSCULAR HGB CONC 31.9 g/dl (32.0-36.5); MEAN CORPUSCULAR VOLUME 89.7 fl (80.0-96.0); MONO # 0.4 K/mm3 (0.0-0.8); MONO % 5.1 % (0.0-5.0); NEUTROPHILS # 5.3 K/mm3 (1.8-7.7); NEUTROPHILS % 71.2 % (36.0-66.0); PLATELET COUNT, AUTOMATED 239 k/mm3 (150-450); RED CELL DISTRIBUTION WIDTH 15.1 % (11.5-14.5); WHITE BLOOD COUNT 7.5 K/mm3 (4.0-10.0)
[2017-06-03] MEDS: LEVEMIR (INSULIN DETEMIR) 1 UNITS/0.01ML SC SCH ×2 (08:47→22:02)
[2017-06-03] MEDS: HumaLOG INSULIN (NovoLOG) PER UNIT SC SCH ×4 (08:47→22:01)
[2017-06-03] MEDS: APIXABAN 5 MG TAB (ELIQUIS) PO SCH ×2 (08:48→22:01)
[2017-06-03] MEDS: FUROSEMIDE 40 MG TAB PO SCH (08:48)
[2017-06-03] MEDS: ATORVASTATIN 20 MG TAB PO SCH (08:48)
[2017-06-03] MEDS: METOPROLOL TARTRATE 100 MG TAB PO SCH ×2 (08:48→22:01)
[2017-06-03 10:28] LABS: HEPATITIS B SURFACE ANTIBODY NEGATIVE (POSITIVE)
[2017-06-03 10:38] LABS: ALBUMIN 1.9 GM/DL (3.2-5.2); MAGNESIUM LEVEL 2.3 MG/DL (1.8-2.4); PHOSPHORUS LEVEL 5.3 MG/DL (2.5-4.9)
[2017-06-03 13:43] LABS: ALBUMIN % 49.9 % (55.8-66.1)
[2017-06-03 13:44] LABS: ALBUMIN 2.64 GM/DL (3.29-5.55); GAMMA GLOBULIN % 8.5 % (11.1-18.8)
[2017-06-03 14:00] VITALS: BP 128/65
--- NOTE | 2017-06-03 14:53 | IPN ---
DATE: 06/03/2017 SUBJECTIVE: Patient seen and examined in the room today. Patient stated she has a good appetite. No overnight events are reported. No acute complaints. When I discussed with the patient about her medications, I told her that I found prescription for her to have a low copay for her insulin; however, the patient stated that she has some financial issues and has difficulty affording medications and she might have an issue with maintaining her house (trailer), and she says that life has been difficult for her. She is overwhelmed. OBJECTIVE: VITAL SIGNS: Temperature 96.8, pulse 53, respirations 16, blood pressure 131/68, pulse oximetry 95% in room air. GENERAL: Mildly depressed. No acute distress. Alert and oriented times three. HEENT: Normocephalic, atraumatic. Extraocular motor grossly intact. CARDIOVASCULAR: Positive S1, S2. Regular rate. LUNGS: Clear to auscultation bilaterally. ABDOMEN: Soft, nontender, nondistended. Bowel sounds present. No rebound. No guarding. EXTREMITIES: Slight edema bilaterally. No sign of cyanosis. LABORATORY DATA: WBC 7.5, hemoglobin 8.4, hematocrit 26.4, platelet count is 239. Sodium is 141, potassium 4.4, chloride is 109, carbon dioxide 23, BUN 46, creatinine 2.9, GFR 17.8, fasting glucose 113, calcium 8.3, phosphorous 5.3, magnesium 2.3, albumin 1.9. ASSESSMENT AND PLAN: 1. Acute on chronic renal failure. The patient has a baseline creatinine of 1.14 in October 25, 2016 and within half of a year the patient has shown significant decrease of renal function, not sure whether or not the patient has a new baseline. Besides diabetes, nephrology has been assisting to rule out other possible causes for the patient's decompensation of renal function. Urine studies show the patient may have a nephrotic syndrome. We will refer the diuretic regimen to the nephrology team. 2. Severe hypoglycemia secondary to uncontrolled diabetes. The patient had an A1/c of 10.2. The patient has a history of not able to afford insulin for a long duration. I sent a new prescription to her pharmacy and I found a regimen that is only requirement of a copay for the patient; however, the patient stated that even that she cannot afford the medications. If the patient is not able to continue using her insulin regimen, it will create significant risk for the patient. 3. Atrial fibrillation. The patient's digoxin is on hold because the patient's heart rate has been maintained very well with metoprolol tartrate. Due to impaired renal function, the patient's Xarelto has been switched to Eliquis and we have initiated Eliquis preauthorization. We are waiting for nursing home social worker to assist on the issue. 4. History of congestive heart failure, diagnosed in [place]. We do not have echocardiogram report available. Not certain whether the patient has systolic or diastolic dysfunction. Currently, front office manager is helping assist on the diuretic regimen. 5. Dyslipidemia. On Lipitor. 6. Question of depression. The patient has significant financial issues and there is a lot of changes for the patient. The patient was under significant stress. 7. Deep venous thrombosis (DVT) prophylaxis. On compression devices. Currently the patient is on Eliquis.
[2017-06-03] MEDS: ACETAMINOPHEN TAB 650MG DOSE (2X325MG) PO PRN ×2 (16:09→22:07)
[2017-06-03 22:00] VITALS: BP 148/75
--- NOTE | 2017-06-03 23:05 | IPN ---
DATE: 06/03/2017 SUBJECTIVE: The patient was seen and examined at the bedside today in the morning. She denies any new complaints. The patient was started on Lasix yesterday but creatinine is slightly worse as compared with yesterday. It was 2.6 yesterday; it is up to 2.9 now. Initial labs showed the patient has a protein- creatine ratio of 22 grams. Autoimmune serology is still pending. REVIEW OF SYSTEMS: The patient denies any fever, chills, rigors, headache, nausea, vomiting, chest pain, shortness of breath, pain in abdomen, constipation or diarrhea. The rest of the review of systems is negative. OBJECTIVE: VITAL SIGNS: Temperature is 96.8 degrees Fahrenheit, blood pressure is 130/68, pulse is 63, respiratory rate of 16, saturating 95% on room air. INTAKE/OUTPUT: Urine output recorded as 2.8 liters yesterday, 1300 mL so far today since overnight. Weight on the bed scale is 89.4 kg. PHYSICAL EXAMINATION: GENERAL: The patient is awake, alert, oriented times three, sitting on the sofa, in no apparent distress. HEAD AND NECK EXAM: The patient is legally blind. Mucous membranes are moist. Neck is supple. There is no jugular venous distention (JVD). CARDIOVASCULAR: S1, S2, regular rate. No murmur, rub or gallop. RESPIRATORY: Chest is clear to auscultation bilaterally. Bilateral equal air entry. No rales or rhonchi. ABDOMEN: Abdomen is soft. Positive bowel sounds. Old surgical scars from hysterectomy and section (). No organomegaly. MUSCULOSKELETAL: Pulses are 2+. No cyanosis. The patient has clubbing of the fingernails, and she has trace edema of the bilateral lower extremities and she is wearing compression stockings at this time. CENTRAL NERVOUS SYSTEM: No focal neurological deficit except bilateral legal blindness. Power is 5/5 in bilateral upper extremities. LAB REVIEW: CBC showed a WBC of 7.5, hemoglobin 8.4, platelets are 239. Random protein-creatinine ratio shows a proteinuria of 22 grams. 24-hour urine protein shows 14.8 grams of proteinuria. BNP done today showed sodium 141, potassium 4.4, chloride 109, bicarbonate 23, BUN 46, creatinine is 2.9; it was 2.6 yesterday, calcium 8.3., phosphorus is 5.3. Complementary level is 165, C4 is 34.4, the rest of the autoimmune serology is pending. Hepatitis B surface antigen is negative. Hepatitis C antibody is negative. IMAGING: A renal ultrasound done yesterday showed normal renal ultrasound. No hydronephrosis. CURRENT INPATIENT MEDICATIONS: The patient's medications were all reviewed by me. I have stopped the patient's Lasix 40 mg daily, and I have decreased it to 20 mg by mouth daily. There is no other change in the medications today as compared with yesterday. ASSESSMENT: A 56-year-old female with a past medical history of insulin-dependent diabetes, which is uncontrolled, complicated by diabetic retinopathy and blindness, hypertension, psoriasis, remote history of hematuria in the past, admitted at this time with hyperosmolar nonketotic hyperglycemia. Nephrology service was called for management of acute kidney injury superimposed on chronic kidney disease. The patient was found to have 14 grams of protein on 24-hour urine. PLAN: 1. Acute kidney injury superimposed on chronic kidney disease, stage III. The patient had a baseline creatinine of 1.1 about 6 months ago. It looks like the patient has worsening diabetic nephropathy; however, given nephrotic-range proteinuria, hypoalbuminemia, I am going to work her up for nephrotic syndrome. Autoimmune serology is pending. Hepatitis serology is negative so far. The patient was started on Lasix yesterday that caused a bump in the creatinine. I have decreased the Lasix dose to 20 mg by mouth daily. If no other etiology of renal failure and proteinuria is found, then the patient needs a kidney biopsy. 2. Insulin-dependent diabetes. The patient was likely noncompliant with her insulin. Her A1c was very high when she came in. She was not taking her insulin. She has diabetic retinopathy and most likely she has diabetic nephropathy as well. Continue the insulin as per primary team. Glucose is well controlled in the hospital at this time. She is not a candidate for angiotensin-converting enzyme (IVONNE) inhibitor therapy at this time because of worsening renal function. 3. Atrial fibrillation and atrial flutter. Rate is controlled at this time. Continue current dose of metoprolol. Okay to continue Eliquis for now. 4. Lower extremity edema and history of congestive heart failure. The patient was started on diuretics because of nephrotic-range proteinuria and hypoalbuminemia. However, that caused a bump in creatinine. I have decreased the Lasix dose to 20 mg by mouth daily. The plan of care was discussed with the hospitalist, Dr. Carrie Mcgee. Once the social issues are taken care of, the patient can be discharged home. She needs to followup with nephrology as an outpatient for further workup of nephrotic-range proteinuria.
[2017-06-04 06:00] VITALS: BP 126/64
[2017-06-04 06:35] LABS: BASO % 0.4 % (0.0-1.0); EOS # 0.2 K/mm3 (0.0-0.50); EOS % 3.1 % (0.0-3.0); LARGE UNSTAINED CELL # 0.1 K/mm3 (0.0-0.4); LYMPH # 1.4 K/mm3 (1.5-4.5); LYMPH % 23.6 % (24.0-44.0); MEAN CORPUSCULAR HEMOGLOBIN 30.1 pg (27.0-33.0); MEAN CORPUSCULAR HGB CONC 33.3 g/dl (32.0-36.5); MEAN CORPUSCULAR VOLUME 90.3 fl (80.0-96.0); MONO # 0.3 K/mm3 (0.0-0.8); MONO % 4.6 % (0.0-5.0); NEUTROPHILS # 3.7 K/mm3 (1.8-7.7); NEUTROPHILS % 67.3 % (36.0-66.0); PLATELET COUNT, AUTOMATED 219 k/mm3 (150-450); RED CELL DISTRIBUTION WIDTH 15.2 % (11.5-14.5); WHITE BLOOD COUNT 5.6 K/mm3 (4.0-10.0)
[2017-06-04 06:55] LABS: CALCIUM LEVEL 8.3 MG/DL (8.5-10.1); CREATININE FOR GFR 2.56 MG/DL (0.55-1.02); GLOMERULAR FILTRATION RATE 20.6 (>51); POTASSIUM SERUM 4.3 MEQ/L (3.5-5.1)
[2017-06-04] MEDS: HumaLOG INSULIN (NovoLOG) PER UNIT SC SCH ×2 (08:16→12:25)
[2017-06-04] MEDS ORDERED: FUROSEMIDE 20 MG TAB PO SCH (09:00)
[2017-06-04] MEDS: LEVEMIR (INSULIN DETEMIR) 1 UNITS/0.01ML SC SCH (09:52)
[2017-06-04] MEDS: ATORVASTATIN 20 MG TAB PO SCH (09:53)
[2017-06-04] MEDS: APIXABAN 5 MG TAB (ELIQUIS) PO SCH (09:53)
[2017-06-04 09:54] VITALS: BP 170/79
[2017-06-04] MEDS: METOPROLOL TARTRATE 100 MG TAB PO SCH (09:54)
--- NOTE | 2017-06-04 12:41 | DS.PDOC ---
Discharge Summary General Date of Admission May 30, 2017 at 01:16 Date of Discharge 06/04/17 Specialist/Consultants Involve: NOAM QUAN MD Discharge Summary PROCEDURES PERFORMED DURING STAY: None. ADMITTING DIAGNOSES: 1. . Hyperosmolar nonketotic hyperglycemia 2/2 nonadherence to insulin regimen 2. . Acute renal failure 3. . Nephrotic range proteinuria DISCHARGE DIAGNOSES: 1. . Hyperosmolar nonketotic hyperglycemia 2/2 nonadherence to insulin regimen 2. . Acute renal failure 3. . Nephrotic range proteinuria COMPLICATIONS/CHIEF COMPLAINT: Type Ii Diabetes W Hypersmolar Nonketotic Hypergly. HISTORY OF PRESENT ILLNESS: . 56-year-old female with past medical history of insulin-dependent diabetes mellitus, peripheral neuropathy, diabetic retinopathy, hypertension, atrial fibrillation, and dyslipidemia presented to the ER with a chief complaint of nausea with associated fatigue. The patient noted that she had not taken her insulin medications over the last 4 days prior to her presentation to ER because she ran out of her medications and could not get renewals as it was a holiday weekend. The patient denied any acute complaints of fevers, chills, chest pain, shortness of breath, palpitations, abdominal pain, or any diarrhea/ vomiting. In the ER, the patient was noted to be significantly hyperglycemic (HHNK) with a blood sugar level of 640. In addition the patient did have acute renal failure with a serum creatinine of 2.96 (Baseline 1.1 approximately 6 months ago ). The patient was admitted to the hospitalist service for further evaluation and management. During hospitalization, the patient's blood sugar levels were stabilized with an insulin regimen. In addition the patient was given IV fluid hydration and a nephrology consult was obtained for the acute renal failure. During workup, the patient was noted to have nephrotic range proteinuria. Although the patient's nephrotic proteinuria is likely secondary to underlying diabetes, an autoimmune workup has been ordered to rule out other etiologies in view of the patient's sharp decline in renal function over the last 6 months. Acute hepatitis studies have been negative, and an autoimmune workup is still pending. The patient's renal function has stabilized with a serum creatinine around 2.6. The patient has been advised to follow-up with nephrology as an outpatient for possible renal biopsy for further delineation of other causative sources of progression of kidney disease. Of note, the patient's Xarelto was changed to Eliquis in view of the patient's worsening renal function. At this time, the patient states that she is feeling much better and is eager to return home. Patient has cleared physical therapy. I have advised the patient to follow-up with her primary care physician within one week, in addition the patient is to follow-up with nephrology within 2-3 weeks for further investigation of her nephrotic range proteinuria. DISCHARGE MEDICATIONS: Please see below. ALLERGIES: Please see below. PHYSICAL EXAMINATION ON DISCHARGE: VITAL SIGNS: Please see below. GENERAL: Awake, alert, oriented HEENT: Normocephalic, atraumatic NECK: No JVD CARDIOVASCULAR EXAMINATION: Irregular rhythm, normal S1, S2 RESPIRATORY EXAMINATION: Clear to auscultation bilaterally ABDOMINAL EXAMINATION: Soft, nontender, nondistended EXTREMITIES: No erythema or tenderness LABORATORY DATA: Please see below. IMAGING: Clinical: Acute renal failure. Technique: Real time vuong scale ultrasound examination using curved array transducer. Findings: Bilateral kidneys are normal in contour, size, echogenicity, and reniform shape without hydronephrosis, nephrolithiasis, cystic or renal mass lesion. No perinephric fluid collection identified. Right kidney measures 13.1 x 5.6 x 6.0 cm. Left kidney measures 12.6 x 5.2 x 4.9 cm. Bladder is incompletely distended. Impression: Normal renal ultrasound. No hydronephrosis. PROGNOSIS: Medically stable ACTIVITY: As tolerated. DIET: . 2 g low sodium diet, renal diet DISCHARGE PLAN: DISPOSITION: . Home DISCHARGE INSTRUCTIONS: 1. . Follow-up with primary care physician within one 2. . Follow up with nephrology within 2-3 weeks 3. . Return to the ER if symptoms return or worsen DISCHARGE CONDITION: Stable. TIME SPENT ON DISCHARGE: Greater than 30 minutes. Vital Signs/I&Os Vital Signs Date Time Temp Pulse Resp B/P (MAP) Pulse Ox O2 Delivery O2 Flow Rate FiO2 06/04/17 09:54 74 170/79 06/04/17 06:00 96.4 19 97 Room Air I&O- Last 24 Hours up to 6 AM 06/04/17 06:00 Intake Total 1495 ml Output Total 1000 ml Balance 495 ml Laboratory Data Labs 24H Laboratory Tests 2 06/03/17 16:52: Bedside Glucose (Misc Panel) 211H 06/03/17 19:46: Bedside Glucose (Misc Panel) 276H 06/04/17 06:06: White Blood Count 5.6, Red Blood Count 2.86L, Hemoglobin 8.6L, Hematocrit 25.8L , Mean Corpuscular Volume 90.3, Mean Corpuscular Hemoglobin 30.1, Mean Corpuscular Hemoglobin Concent 33.3, Red Cell Distribution Width 15.2H, Platelet Count 219, Neutrophils (%) (Auto) 67.3H, Lymphocytes (%) (Auto) 23.6L, Monocytes (%) (Auto) 4.6, Eosinophils (%) (Auto) 3.1H, Basophils (%) (Auto) 0.4 , Neutrophils # (Auto) 3.7, Lymphocytes # (Auto) 1.4L, Monocytes # (Auto) 0.3, Eosinophils # (Auto) 0.2, Basophils # (Auto) 0.0, Large Unclassified Cells % 1.0 , Large Unclassified Cells # 0.1, Anion Gap 7L, Glomerular Filtration Rate 20.6L , Blood Urea Nitrogen 47H, Creatinine 2.56H, Sodium Level 141, Potassium Level 4.3, Chloride Level 110H, Carbon Dioxide Level 24, Calcium Level 8.3L 06/04/17 09:48: Bedside Glucose (Misc Panel) 169H CBC/BMP Laboratory Tests 06/04/17 06:06 Red Blood Count 2.86 L, Mean Corpuscular Volume 90.3, Mean Corpuscular Hemoglobin 30.1, Mean Corpuscular Hemoglobin Concent 33.3, Red Cell Distribution Width 15.2 H, Neutrophils (%) (Auto) 67.3 H, Lymphocytes (%) (Auto ) 23.6 L, Monocytes (%) (Auto) 4.6, Eosinophils (%) (Auto) 3.1 H, Basophils (%) (Auto) 0.4, Neutrophils # (Auto) 3.7, Lymphocytes # (Auto) 1.4 L, Monocytes # ( Auto) 0.3, Eosinophils # (Auto) 0.2, Basophils # (Auto) 0.0, Calcium Level 8.3 L FSBS Laboratory Tests Test 06/03/17 16:52 06/03/17 19:46 06/04/17 09:48 Range/Units Bedside Glucose (Misc Panel) 211 276 169 70-105 MG/DL Microbiology Microbiology 05/29/17 Urine Culture - Final, Complete Discharge Medications Scheduled (Jeffery Fernández) 100 Unit/Ml Inj, 40 UNIT SC BID Apixaban Base (Eliquis) 5 Mg Tab, 5 MG PO BID Atorvastatin Calcium (Lipitor) 80 Mg Tab, 80 MG PO DAILY, (Reported) Digoxin (Digoxin) 0.125 Mg Tab, 0.125 MG PO DAILY, (Reported) Fish Oil (Fish Oil) 1,000 Mg Cap, 2,000 MG PO BID, (Reported) Furosemide (Lasix) 20 Mg Tab, 20 MG PO DAILY, (Reported) Insulin Human Lispro (Humalog) 1 Units/0.01 Ml Inj, 7 UNITS SC AC Linagliptin Base (Tradjenta) 5 Mg Tab, 5 MG PO DAILY, (Reported) NORMALLY TAKES IN MORNING, HAD RX REFILLED TONIGHT Metoprolol Tartrate (Metoprolol Tartrate) 100 Mg Tab, 200 MG PO DAILY, (Reported ) Metoprolol Tartrate (Metoprolol Tartrate) 100 Mg Tab, 100 MG PO QHS, (Reported) Allergies Coded Allergies: Contrast Media (Verified Allergy, Severe, anaphylaxsis, 05/29/17) Unclassified Drugs (Verified Allergy, Severe, OPIATES - HIVES AND LIPS SWELL, 06/03/17) Aspirin (Verified Adverse Reaction, Mild, hallucinations, 06/03/17) Pentazocine (Verified Adverse Reaction, Mild, hallucinations, 06/03/17) ERICKA JENNINGS MD Jun 04, 2017 12:41
--- NOTE | 2017-06-04 16:02 | IPN ---
DATE: 06/04/2017 SUBJECTIVE: The patient was seen and examined at the bedside today in the morning. She was sitting on the sofa. No apparent distress at this time. Her renal function is slightly better. Creatinine is down to 2.5 today. REVIEW OF SYSTEMS: The patient denies any fever, chills, rigors, headache, nausea, vomiting, chest pain, shortness of breath, pain in abdomen. She does report slight lower extremity edema. The rest of the review of systems is negative. OBJECTIVE: VITAL SIGNS: Temperature is 96.4 degrees Fahrenheit, blood pressure is 126/64, pulse is 61, respiratory rate of 18, saturating 97% on room air. INTAKE/OUTPUT: Urine output recorded as 1300 mL yesterday, 100 so far today since overnight. Weight on the bed scale is 88.1 kg. PHYSICAL EXAMINATION: GENERAL: The patient is awake, alert, oriented times three, sitting on the sofa, in no apparent distress. HEAD AND NECK EXAM: The patient is legally blind. Mucous membranes are moist. Neck is supple. There is no jugular venous distention (JVD). CARDIOVASCULAR: S1, S2, regular rate. No murmur, rub or gallop. RESPIRATORY: Chest is clear to auscultation bilaterally. Bilateral equal air entry. No rales or rhonchi. ABDOMEN: Abdomen is soft. Positive bowel sounds. Old surgical scars from hysterectomy and section (). No organomegaly. MUSCULOSKELETAL: Pulses are 2+. No cyanosis. The patient has clubbing of the fingernails, and she has trace edema of the bilateral lower extremities and she is wearing compression stockings. CENTRAL NERVOUS SYSTEM: No focal neurological deficit. Power is 5/5 in bilateral upper extremities. The patient is legally blind. LAB REVIEW: CBC showed a WBC of 5.6, hemoglobin 8.6, platelets are 219. Basic metabolic panel (BMP) showed sodium 141, potassium 4.3, chloride 110, bicarbonate 24, BUN 47, creatinine is 2.5; it was 2.9 yesterday, calcium 8.3. Autoimmune serology is pending. CURRENT INPATIENT MEDICATION : The patient's medications are all reviewed by me. Her Lasix has been changed to 20 mg by mouth daily. There is no other change in the medications today as compared with yesterday. ASSESSMENT: A 56-year-old female with a past medical history of insulin-dependent diabetes, which is uncontrolled because of chronic noncompliance. Diabetes is complicated by diabetic retinopathy and legal blindness. She also has hypertension, psoriasis, and remote history of hematuria in the past, admitted to the hospital at this time with hyperosmolar nonketotic hyperglycemia. Nephrology service is managing the patient for acute kidney injury superimposed on chronic kidney disease and nephrotic range proteinuria. PLAN: 1. Acute kidney injury superimposed on chronic kidney disease, stage III. The patient's baseline creatinine was 1.1 six months ago. Creatinine is up to 2.5 now. Most likely worsening diabetic nephropathy, but given nephrotic-range proteinuria, I have ordered all the proteinuria workup. Autoimmune serology is still pending. The patient can be discharged from nephrology standpoint. She can followup as an outpatient. If we need to do a biopsy, it could be done as an outpatient. We will have to hold the anticoagulation as well. 2. Insulin-dependent diabetes. The patient has a history of noncompliance with insulin. Insulin is being arranged as an outpatient. The patient is not a candidate for gadnobormow-tqdghfefet-gbzueo (IVONNE) inhibitor at this time because of worsening renal function. 3. Atrial fibrillation and atrial flutter. It is rate controlled at this time. Okay to continue metoprolol. Okay to continue Eliquis for now. 4. Lower extremity edema and history of congestive heart failure. Continue current dose of Lasix 20 mg by mouth daily. DISCHARGE PLANNING: It is okay to discharge the patient from nephrology standpoint. She will need to followup with nephrology service as an outpatient within 1 to 2 weeks after discharge.
== END 2017-06-04 14:03 | disposition home or self-care (01) | DRG 420 ==
LOC: M ED 21:16 → M ED INP 05-30 01:16 → M MSPAV 05-30 02:30
PROVIDERS: ATTEND Internal Medicine
DX: E11.00 Type 2 diabetes mellitus with hyperosmolarity without nonketotic hyperglycemic-hyperosmolar coma (NKHHC) (principal); N17.9 Acute kidney failure, unspecified; I13.0 Hypertensive heart and chronic kidney disease with heart failure and stage 1 through stage 4 chronic kidney disease, or unspecified chronic kidney disease; N04.9 Nephrotic syndrome with unspecified morphologic changes; I50.9 Heart failure, unspecified; N18.3 Chronic kidney disease, stage 3 (moderate); E11.21 Type 2 diabetes mellitus with diabetic nephropathy; E11.42 Type 2 diabetes mellitus with diabetic polyneuropathy; I48.91 Unspecified atrial fibrillation; E11.22 Type 2 diabetes mellitus with diabetic chronic kidney disease; E78.5 Hyperlipidemia, unspecified; E11.65 Type 2 diabetes mellitus with hyperglycemia; H54.8 Legal blindness, as defined in USA; F32.9 Major depressive disorder, single episode, unspecified; L40.9 Psoriasis, unspecified; I16.0 Hypertensive urgency; Z79.4 Long term (current) use of insulin; Z79.899 Other long term (current) drug therapy; Z91.14 Patient's other noncompliance with medication regimen; Z88.6 Allergy status to analgesic agent; Z91.041 Radiographic dye allergy status; Z88.8 Allergy status to other drugs, medicaments and biological substances; Z88.5 Allergy status to narcotic agent; Z79.01 Long term (current) use of anticoagulants; Z88.1 Allergy status to other antibiotic agents; Z85.42 Personal history of malignant neoplasm of other parts of uterus; Z90.710 Acquired absence of both cervix and uterus; E11.319 Type 2 diabetes mellitus with unspecified diabetic retinopathy without macular edema

== ENCOUNTER → 2017-06-25 | Outpatient (REF) | payer OTHER ==
[~2017-06-25] MED LIST changes: +AMLO5TAB2 PO; +BASA100I SC; +CALC1CAP31 PO; +DIGO0.12 PO; +ELIQ5TAB PO; +FENO145T PO; +FENO160T10 PO; +FERR32TA PO; +FISH1000 PO; +FISH100049 PO; +HUMA100I3 SC; +HYDR25TAB PO; +IMOD2TAB16 PO; +INSUDET SC; +INSUHUMDS SC; +INSULANT SC; +LASI20TA PO; +LIPI80TA PO; +LISI2.5T3 PO; +METO-398 PO; +METO100T5 PO; +METO1TAB33 PO; +NIAC1TAB5 PO; +PANT40TA2 PO; +PEPC10TA6 PO; +POLY150C4 PO; -RIVAROXABAN 15 MG TAB (XARELTO) PO SCH; +SODI325T9 PO; +SUCR1TA PO; +TORS20TA2 PO; +TRAD5TAB PO; +TYLE500T78 PO; +VITA1CAP40 PO; +XARE15TA PO; +[UNRECOGNIZED DRUG - CODE] XX; +[UNRECOGNIZED DRUG - OTHER] PO
[2017-06-25 19:00] LABS: FOLATE > 24.0 NG/ML (>5.4); VITAMIN B12 LEVEL 471 PG/ML (247-911)
[2017-06-25 19:32] LABS: FERRITIN 53 NG/ML (8-252); PERCENT SATURATION 14.8 % (13.2-45.0); TOTAL IRON BINDING CAPACITY 270 UG/DL (250-450)
== END ==
LOC: M LAB REF 16:58
PROVIDERS: ATTEND Internal Medicine Nephrology
DX: D64.9 Anemia, unspecified (principal)

== ENCOUNTER 2017-08-28 21:43 | Inpatient (IN) | payer OTHER ==
[~2017-08-28] VITALS: Ht 157.5 cm; Wt 87.0 kg
[~2017-08-28 21:43] MED LIST changes: -AMLO5TAB2 PO; -CALC1CAP31 PO; -FERR32TA PO; -HUMA100I3 SC; -HYDR25TAB PO; -IMOD2TAB16 PO; -INSUDET SC; -LISI2.5T3 PO; -NIAC1TAB5 PO; -PANT40TA2 PO; -PEPC10TA6 PO; -POLY150C4 PO; -SODI325T9 PO; -SUCR1TA PO; -TORS20TA2 PO; -TYLE500T78 PO; -VITA1CAP40 PO; -[UNRECOGNIZED DRUG - CODE] XX
[2017-08-28] MEDS ORDERED: NS 500 ML IV ONE (22:30)
[2017-08-28] MEDS ORDERED: ONDANSETRON 4MG/2ML VIAL (J2405) IV ONE (22:45)
[2017-08-28 22:55] LABS: BASO # 0.1 10^3/uL (0.0-0.2); BASO % 0.4 % (0.0-1.0); EOS # 0.1 10^3/uL (0.0-0.50); IMMATURE GRANULOCYTE % 0.8 % (0-0); LYMPH # 1.6 10^3/uL (1.5-4.5); MEAN CORPUSCULAR HEMOGLOBIN 27.4 pg (27.0-33.0); MEAN CORPUSCULAR HGB CONC 32.1 g/dl (32.0-36.5); MEAN CORPUSCULAR VOLUME 85.2 fl (80.0-96.0); MONO # 0.4 10^3/uL (0.0-0.8); MONO % 3.2 % (0.0-5.0); NEUTROPHILS % 81.6 % (36.0-66.0); PLATELET COUNT, AUTOMATED 290 10^3/uL (150-450); RED CELL DISTRIBUTION WIDTH 15.5 % (11.5-14.5); WHITE BLOOD COUNT 12.2 10^3/uL (4.0-10.0)
[2017-08-28 23:26] LABS: ALBUMIN 2.5 GM/DL (3.2-5.2); ALBUMIN/GLOBULIN RATIO 0.52 (1.00-1.93); ALKALINE PHOSPHATASE 70 U/L (45-117); ALT/SGPT 23 U/L (12-78); AMYLASE 52 U/L (25-115); ANION GAP 10 MEQ/L (8-16); AST/SGOT 16 U/L (15-37); BILIRUBIN,DIRECT < 0.1 MG/DL (0.0-0.2); BILIRUBIN,TOTAL 0.4 MG/DL (0.2-1.0); BLOOD UREA NITROGEN 59 MG/DL (7-18); CALCIUM LEVEL 9.1 MG/DL (8.5-10.1); CARBON DIOXIDE LEVEL 24 MEQ/L (21-32); CHLORIDE LEVEL 103 MEQ/L (98-107); CREATININE FOR GFR 3.52 MG/DL (0.55-1.02); DIGOXIN LEVEL 0.9 NG/ML (0.5-2.0); GLOMERULAR FILTRATION RATE 14.2 (>51); GLUCOSE, FASTING 351 MG/DL (70-105); POTASSIUM SERUM 3.7 MEQ/L (3.5-5.1); SODIUM LEVEL 137 MEQ/L (136-145); TOTAL PROTEIN 7.3 GM/DL (6.4-8.2)
[2017-08-29] MEDS ORDERED: NS 500 ML IV ONE (01:15)
[2017-08-29] MEDS ORDERED: HumuLIN R (REGULAR) INSULIN (NovoLIN R) **100U/ML** PER UNIT IV ONE (01:15)
[2017-08-29] MEDS ORDERED: CALC1CAP31 PO (02:23)
[2017-08-29] MEDS ORDERED: NIAC1TAB5 PO (02:23)
[2017-08-29] MEDS ORDERED: POLY150C4 PO (02:23)
[2017-08-29] MEDS ORDERED: LISI2.5T3 PO (02:23)
[2017-08-29] MEDS ORDERED: HUMA100I3 SC (02:23)
[2017-08-29] MEDS ORDERED: ELIQ5TAB PO (02:23)
[2017-08-29] MEDS ORDERED: IMOD2TAB16 PO (02:23)
[2017-08-29] MEDS ORDERED: TYLE500T78 PO (02:23)
[2017-08-29] MEDS ORDERED: PEPC10TA6 PO (02:23)
[2017-08-29] MEDS ORDERED: VITA1CAP40 PO (02:23)
[2017-08-29] MEDS ORDERED: TORS20TA2 PO (02:23)
[2017-08-29] MEDS ORDERED: BASA100I SC (02:23)
[2017-08-29] MEDS ORDERED: METOCLOPRAMIDE INJ 10MG/2ML VIAL (J2765) IV ONE (04:30)
[2017-08-29 07:28] LABS: BASO % 0.3 % (0.0-1.0); EOS # 0.1 10^3/uL (0.0-0.50); EOS % 0.9 % (0.0-3.0); IMMATURE GRANULOCYTE % 0.8 % (0-0); LYMPH # 1.3 10^3/uL (1.5-4.5); LYMPH % 11.8 % (24.0-44.0); MEAN CORPUSCULAR HEMOGLOBIN 27.2 pg (27.0-33.0); MEAN CORPUSCULAR HGB CONC 32.1 g/dl (32.0-36.5); MEAN CORPUSCULAR VOLUME 84.8 fl (80.0-96.0); MONO # 0.4 10^3/uL (0.0-0.8); MONO % 3.9 % (0.0-5.0); NEUTROPHILS % 82.3 % (36.0-66.0); PLATELET COUNT, AUTOMATED 221 10^3/uL (150-450); RED CELL DISTRIBUTION WIDTH 15.4 % (11.5-14.5); WHITE BLOOD COUNT 10.9 10^3/uL (4.0-10.0)
[2017-08-29 07:54] LABS: ALBUMIN 2.1 GM/DL (3.2-5.2); ALBUMIN/GLOBULIN RATIO 0.54 (1.00-1.93); BILIRUBIN,TOTAL 0.3 MG/DL (0.2-1.0); CREATININE FOR GFR 3.14 MG/DL (0.55-1.02); GLOMERULAR FILTRATION RATE 16.2 (>51); POTASSIUM SERUM 3.2 MEQ/L (3.5-5.1)
[2017-08-29] MEDS ORDERED: DEXTROSE 50% 50 ML SYRINGE IV PRN (09:30)
--- NOTE | 2017-08-29 09:43 | HPEPDOC ---
General Date of Admission Aug 29, 2017 at 03:29 Primary Care Physician: NOAM QUAN MD Attending Physician: KATHRYN RAMIREZ MD Chief Complaint The patient is a 56-year-old female admitted with a reason for visit of Acute Renal Failure. Source: Patient, Family Timing/Duration: 24 hours Associated Symptoms: Loss of appetite, Malaise, Nausea, Vomiting History of Present Illness 56-year-old female, history of diabetes mellitus, atrial fibrillation on Eliquis CHF, presented with nausea, vomiting, abdominal pain. She has history of uterine cancer status post hysterectomy. She denies any noncompliance with medicines in our physician follow-up. Denies any constipation or diarrhea or chest pain, shortness of breath, palpitation. He denies any recent travel or sick contact. And denies any dysuria, hematuria, hemoptysis, hematemesis, melena. Home Medications Scheduled (Basaglar Kwikpen) 100 Unit/Ml Inj, 40 UNIT SC BID, (Reported) Apixaban Base (Eliquis) 5 Mg Tab, 5 MG PO BID, (Reported) Atorvastatin Calcium (Lipitor) 80 Mg Tab, 80 MG PO DAILY, (Reported) Calcitriol (Calcitriol) 0.25 Mcg Cap, 0.25 MCG PO ASDIRECTED, (Reported) TAKES SATURDAY, SATURDAY AND SATURDAY IN THE MORNING Digoxin (Digoxin) 0.125 Mg Tab, 0.125 MG PO ASDIRECTED, (Reported) TAKES EVERY OTHER DAY IN THE MORNING Ergocalciferol (Vitamin D) 50,000 Unit Cap, 50,000 UNIT PO ASDIRECTED, (Reported ) TAKES ON THURSDAYS IN THE MORNING Fish Oil (Fish Oil) 1,000 Mg Cap, 2,000 MG PO BID, (Reported) Insulin Human Lispro (Humalog) 100 Unit/Ml Inj, 7 UNITS SC AC, (Reported) Lisinopril (Lisinopril) 2.5 Mg Tab, 2.5 MG PO DAILY, (Reported) Metoprolol Tartrate (Metoprolol Tartrate) 100 Mg Tab, 200 MG PO DAILY, (Reported ) Metoprolol Tartrate (Metoprolol Tartrate) 100 Mg Tab, 100 MG PO QHS, (Reported) Niacin (Niacin ER) 1,000 Mg Tab, 1,000 MG PO DAILY, (Reported) Polysaccharide Iron (Poly-Iron 150) 150 Mg Cap, 150 MG PO DAILY, (Reported) Torsemide (Torsemide) 20 Mg Tab, 20 MG PO BID, (Reported) Scheduled PRN Acetaminophen (Tylenol Extra Strength) 500 Mg Tab, 1,000 MG PO Q6H PRN for PAIN, (Reported) Famotidine (Pepcid AC) 10 Mg Tab, 10 MG PO DAILY PRN for ACID REFLUX, (Reported) Loperamide Hcl (Imodium A-D) 2 Mg Tab, 2 MG PO ASDIRECTED PRN for DIARRHEA, ( Reported) Allergies Coded Allergies: Contrast Media (Verified Allergy, Severe, anaphylaxsis, 05/29/17) Unclassified Drugs (Verified Allergy, Severe, OPIATES - HIVES AND LIPS SWELL, 06/03/17) Ciprofloxacin (Verified Allergy, Unknown, 08/28/17) Citalopram (Unverified Adverse Reaction, Intermediate, NAUSEA, VOMITING, DIARRHEA, 08/29/17) Aspirin (Verified Adverse Reaction, Mild, hallucinations, 06/03/17) Pentazocine (Verified Adverse Reaction, Mild, hallucinations, 06/03/17) Past Medical History Medical History Active fremitus and uterine cancer, diabetes mellitus CHF Surgical History Hysterectomy, cholecystectomy Family History Significant Family History: Diabetes, Heart disease Social History * Smoker: Denies Alcohol: Denies Drugs: denies Recent Travel/Sick Contacts: Denies: Recent travel, Recent sick contacts Psychosocial History: No pertinent psych hx Review of Symptoms Constitutional: Denies: Chills, Fever, Night Sweats Eyes: Denies: Pain, Vision change ENT: Denies: Head Aches, Ear Pain, Dysphagia Skin: Denies: Rash, Lesions, Breakdown Pulmonary: Denies: Dyspnea, Cough Cardiovascular: Reports: Palpitations, Orthopnea, Paroxysmal Noc. Dyspnea, Denies: Chest Pain, Lt Headedness Gastrointestinal: Reports: Nausea, Vomiting, Abdominal Pain, Denies: Diarrhea Genitourinary: Denies: Dysuria, Frequency, Incontinence, Retention Hematologic: Denies: Bruising, Bleeding Excessively Musculoskeletal: Denies: Neck Pain, Back Pain, Joint Pain, Muscle Pain, Spasms Neurological: Denies: Weakness, Numbness, Change in speech, Confusion Psych: Reports: Mood Normal, Denies: Depression, Memory Issues Physical Examination General Exam: Positive: Alert, Moderate Distress Eye Exam: Positive: PERRLA, Conjunctiva & lids normal, EOMI, Negative: Sclera icteric ENT Exam: Positive: Atraumatic, Mucous membr. moist/pink, Pharynx Normal Neck Exam: Positive: Supple, Negative: JVD, thyromegaly Chest Exam: Positive: Rhonchi, Wheezing, Diminished Heart Exam: Positive: Rate Normal, Regular Rhythm, Normal S1, Normal S2, Negative: Murmurs, Rubs Telemetry: Positive: No significant arrhythmia Abdomen Exam: Positive: BS Hypoactive, Soft, Tenderness, Other (diffusely tender), Negative: Hepatospenomegaly Extremity Exam: Positive: Normal pulses, Negative: Clubbing, Cyanosis, Edema Skin Exam: Positive: Nl turgor and temperature, Negative: Breakdown, Lesion Neuro Exam: Positive: Normal Speech, Cranial Nerves 3-12 NL, Reflexes 2+ Psych Exam: Positive: Mental status NL, Mood NL, Oriented x 3 Vital Signs Vital Signs Date Time Temp Pulse Resp B/P (MAP) Pulse Ox O2 Delivery O2 Flow Rate FiO2 08/29/17 04:42 98.0 78 18 134/63 (86) 97 Room Air Laboratory Data Labs 24H Laboratory Tests 2 08/28/17 22:36: Immature Granulocyte % (Auto) 0.8H, White Blood Count 12.2H, Red Blood Count 3.91L, Hemoglobin 10.7L, Hematocrit 33.3L, Mean Corpuscular Volume 85.2, Mean Corpuscular Hemoglobin 27.4, Mean Corpuscular Hemoglobin Concent 32.1, Red Cell Distribution Width 15.5H, Platelet Count 290, Neutrophils (%) (Auto) 81.6H, Lymphocytes (%) (Auto) 13.0L, Monocytes (%) (Auto) 3.2, Eosinophils (%) (Auto) 1.0, Basophils (%) (Auto) 0.4, Neutrophils # (Auto) 10.0H, Lymphocytes # (Auto) 1.6, Monocytes # (Auto) 0.4, Eosinophils # (Auto) 0.1, Basophils # (Auto) 0.1, Immature Granulocyte # (Auto) 0.1H, Nucleated Red Blood Cells % (auto) 0.0, Anion Gap 10, Glomerular Filtration Rate 14.2L, Calcium Level 9.1, Aspartate Amino Transf (AST/SGOT) 16, Alanine Aminotransferase (ALT/SGPT) 23, Alkaline Phosphatase 70, Total Bilirubin 0.4, Direct Bilirubin < 0.1, Total Protein 7.3, Albumin 2.5L, Albumin/Globulin Ratio 0.52L, Amylase Level 52, Lipase 509H, Digoxin Level 0.9 08/28/17 22:38: Lactic Acid Level 1.4 08/29/17 02:35: Bedside Glucose (Misc Panel) 237H 08/29/17 07:03: Immature Granulocyte % (Auto) 0.8H, White Blood Count 10.9H, Red Blood Count 3.49L, Hemoglobin 9.5L, Hematocrit 29.6L, Mean Corpuscular Volume 84.8, Mean Corpuscular Hemoglobin 27.2, Mean Corpuscular Hemoglobin Concent 32.1, Red Cell Distribution Width 15.4H, Platelet Count 221, Neutrophils (%) (Auto) 82.3H, Lymphocytes (%) (Auto) 11.8L, Monocytes (%) (Auto) 3.9, Eosinophils (%) (Auto) 0.9, Basophils (%) (Auto) 0.3, Neutrophils # (Auto) 9.0H, Lymphocytes # (Auto) 1.3L, Monocytes # (Auto) 0.4, Eosinophils # (Auto) 0.1, Basophils # (Auto) 0.0, Immature Granulocyte # (Auto) 0.1H, Nucleated Red Blood Cells % (auto) 0.0, Anion Gap 14, Glomerular Filtration Rate 16.2L, Calcium Level 8.0L, Aspartate Amino Transf (AST/SGOT) 13L, Alanine Aminotransferase (ALT/SGPT) 20, Alkaline Phosphatase 54, Total Bilirubin 0.3, Total Protein 6.0L, Albumin 2.1L, Albumin/ Globulin Ratio 0.54L, Blood Urea Nitrogen 57H, Creatinine 3.14H, Sodium Level 141, Potassium Level 3.2L, Chloride Level 107, Carbon Dioxide Level 20L CBC/BMP Laboratory Tests 08/28/17 22:36 Red Blood Count 3.91 L, Mean Corpuscular Volume 85.2, Mean Corpuscular Hemoglobin 27.4, Mean Corpuscular Hemoglobin Concent 32.1, Red Cell Distribution Width 15.5 H, Neutrophils (%) (Auto) 81.6 H, Lymphocytes (%) (Auto ) 13.0 L, Monocytes (%) (Auto) 3.2, Eosinophils (%) (Auto) 1.0, Basophils (%) ( Auto) 0.4, Neutrophils # (Auto) 10.0 H, Lymphocytes # (Auto) 1.6, Monocytes # ( Auto) 0.4, Eosinophils # (Auto) 0.1, Basophils # (Auto) 0.1 08/29/17 07:03 Red Blood Count 3.49 L, Mean Corpuscular Volume 84.8, Mean Corpuscular Hemoglobin 27.2, Mean Corpuscular Hemoglobin Concent 32.1, Red Cell Distribution Width 15.4 H, Neutrophils (%) (Auto) 82.3 H, Lymphocytes (%) (Auto ) 11.8 L, Monocytes (%) (Auto) 3.9, Eosinophils (%) (Auto) 0.9, Basophils (%) ( Auto) 0.3, Neutrophils # (Auto) 9.0 H, Lymphocytes # (Auto) 1.3 L, Monocytes # ( Auto) 0.4, Eosinophils # (Auto) 0.1, Basophils # (Auto) 0.0, Calcium Level 8.0 L , Aspartate Amino Transf (AST/SGOT) 13 L, Alanine Aminotransferase (ALT/SGPT) 20 , Alkaline Phosphatase 54, Total Bilirubin 0.3, Total Protein 6.0 L, Albumin 2.1 L Assessment/Plan 46-year-old female, history of diverticulitis, atrial fibrillation on Eliquis CHF on torsemide, presented to the emergency room for nausea, vomiting, abdominal pain and generalized weakness Plan / VTE VTE Prophylaxis Ordered?: Yes Plan Plan Acute on chronic kidney injury BU and 59, creatinine 2.5 to get nephrology consult renal ultrasound. Follow creatinine. Restriction due to history of CHF. Diabetes mellitus type 2, uncontrolled blood glucose 351. Continue Levemir 20 units every 12 and sliding scale insulin. Pancreatitis. Lipase was 509. Get CT scan of the abdomen and pelvis without contrast due to high creatinine. Follow-up lipase, triglycerides, TSH, ultrasound of the abdomen. Chronic atrial fibrillation, rate controlled with the Lopressor and digoxin and to anticoagulation with Eliquis. CHF. Continue with Lopressor, lisinopril IV Lasix. Continue with fluid restriction. Daily intake and output get echocardiogram. Leukocytosis, elevated 12.2. We will get the chest x-ray, urinalysis and CT scan of the abdomen and pelvis to find out the source of infection hold antibiotics for now. DVT prophylaxis heparin subcutaneous. 10. Cardiac diabetic diet Disposition Pending PT and OT evaluation and medical stability IVF: Discontinue Diet: Continue Current Activity: Continue Current Diagnostics: TTE Anticipated Discharge: Home With Services BONNY NICOLE MD Aug 29, 2017 09:43
[2017-08-29] MEDS ORDERED: FUROSEMIDE 40 MG/4 ML VIAL (J1940) IV SCH (10:00)
[2017-08-29] MEDS: DIGOXIN 0.125 MG TAB PO SCH (10:25)
[2017-08-29] MEDS: LEVEMIR (INSULIN DETEMIR) 1 UNITS/0.01ML SC SCH ×2 (10:25→22:02)
[2017-08-29] MEDS: APIXABAN 5 MG TAB (ELIQUIS) PO SCH ×2 (10:27→22:03)
[2017-08-29] MEDS: LISINOPRIL *2.5 MG* TAB PO SCH (10:27)
[2017-08-29] MEDS: METOPROLOL TARTRATE 100 MG TAB PO SCH ×2 (10:27→22:02)
[2017-08-29] MEDS: ATORVASTATIN 20 MG TAB PO SCH (10:27)
--- NOTE | 2017-08-29 10:47 | REP ---
Portable chest x-ray: Sitting AP view. History: Leukocytosis. Comparison study: May 29, 2017. Findings: EKG monitoring electrodes overlie the chest. The heart size is borderline unchanged. Pulmonary vasculature is not increased. Pleural angles are sharp. There is a linear opacity in the left base along the left heart border which appears to be present although less prominently on the June 13, 2017 study. This is consistent with an area of linear fibrosis. No acute infiltrate. Impression: No acute infiltrate seen. Linear fibrosis left base. Borderline heart size unchanged. Signed by Torres Honeycutt MD 08/29/2017 11:24 A
--- NOTE | 2017-08-29 10:54 | REP ---
CT abdomen and pelvis without IV or oral contrast: Renal stone protocol. History: Leukocytosis. Abdominal pain. Comparison study: June 13, 2015. CT findings: Digital preliminary neon tube bender radiograph demonstrates central abdominal small bowel nondilated air-filled loops and right upper quadrant clips. The lung bases are clear. On axial CT images, there is a small quantity of pericardial fluid. This is a new finding. A small sliding-type hiatal hernia is noted. No pleural effusion is seen. No focal hepatic or splenic lesion is observed. No adrenal lesion is observed. Pancreas is unremarkable. Gallbladder is surgically absent. There is vascular calcification bilaterally in the renal arteries. No hydronephrosis or calculus is seen. Small and large intestinal bowel loops are normal in the abdomen and pelvis. There are scattered left colonic diverticulosis changes without CT evidence of diverticulitis. Uterus is surgically absent. Postoperative changes are seen in the anterior midline. No abdominal wall defect is observed. Bilateral L5 spondylolysis and a grade 1 L5-S1 spondylolisthesis are again noted unchanged from June 13, 2015 prior study. No bony destructive lesion is seen. Impression: Post cholecystectomy and hysterectomy. Small sliding-type hiatal hernia. Vascular calcification and left colonic diverticulosis changes. No acute intra-abdominal abnormality. Small pericardial effusion. Signed by Torres Honeycutt MD 08/29/2017 11:25 A
[2017-08-29 11:25] LABS: CHOLESTEROL LEVEL 197 MG/DL (<200); TRIGLYCERIDES LEVEL 489 MG/DL (<150)
[2017-08-29] MEDS: HumaLOG INSULIN (NovoLOG) PER UNIT SC SCH ×2 (12:38→17:58)
[2017-08-29 14:30] VITALS: BP 137/70
[2017-08-29] MEDS: POTASSIUM CHLORIDE 10% LIQ 20 MEQ/15 ML UDC PO ONE ×2 (14:30→14:39)
[2017-08-29] MEDS: ACETAMINOPHEN TAB 650MG DOSE (2X325MG) PO PRN (14:39)
[2017-08-29] MEDS ORDERED: POTASSIUM CHLORIDE 10 MEQ SR TABLET PO ONE (15:00)
--- NOTE | 2017-08-29 15:52 | REP ---
ULTRASOUND ABDOMEN: Real-time sonographic evaluation of the abdomen is performed. The patient has had a prior cholecystectomy. There is not significant biliary dilatation. Common bile duct has a maximum diameter of 7 mm. The liver is grossly unremarkable. Visualized pancreas is grossly unremarkable but not optimally seen due to overlying bowel gas. There is mild splenomegaly, the spleen measuring 12.4 x 5.2 x 13.0 cm, splenic index is 838 mL. The kidneys are normal in size and echotexture, the right kidney measuring 13.2 x 5.8 x 6.2 cm and the left kidney 11.0 x 5.4 x 6.7 cm. Calcified renal vasculature is noted without evidence of hydronephrosis. Proximal abdominal aorta is obscured by bowel gas. Mid and distal abdominal aorta are normal in caliber with no evidence of aneurysm measuring 1.9 x 1.8 cm. No free fluid is seen in the abdomen or pelvis. IMPRESSION: Status post cholecystectomy. Mild splenomegaly. No biliary dilatation or free fluid. Signed by Ant Butt MD 08/29/2017 07:16 P
[2017-08-29 16:00] VITALS: BP 128/60
[2017-08-29 20:10] VITALS: BP 176/90
[2017-08-30] VITALS (7 sets, daily range): BP systolic 135–180; BP diastolic 65–94
--- NOTE | 2017-08-30 02:23 | CR ---
DATE OF CONSULTATION: 08/29/2017 REQUESTING PROVIDER: Maxine Herring MD. REASON FOR CONSULTATION: Management of progressive renal insufficiency with nephrotic syndrome in this patient with a history of longstanding diabetes. HISTORY OF PRESENT ILLNESS: Gem Gibbons is a 57-year-old female with a past medical history of insulin-dependent diabetes, longstanding, diagnosed with diabetes age 35 with subsequent diabetic neuropathy, history of hypertension, history of hemolytic anemia and hematuria in the past. She is legally blind. She has recently been admitted to [facility] in May 2017 for acute kidney injury. Her creatinine was in the high 2s at that time. She had a baseline creatinine in the low 1s previously. During that admission, the patient had nephrotic range proteinuria. She had a 24-hour urine collection with 14 grams of protein. Serologies were sent out including GLORIA, double stranded deoxyribonucleic acid (DNA), serum protein electrophoresis (SPEP), urine protein electrophoresis (UPEP), ANCA, hepatitis B, hepatitis C, glomerular basement membrane antibody, C3, and C4. Serologies all returned back negative. The patient was discharged with a creatinine in the mid 2s for outpatient setup of kidney biopsy, which she has not had as of yet. This is all complicated by the fact that she is on chronic Eliquis. The patient now presents to the emergency room with complaint of nausea, vomiting, and abdominal pain. Labs reveal worsening of her renal function and nephrology is consulted for the same. She received a bolus of normal saline and her creatinine did improve from 3.5 to 3.1. PAST MEDICAL HISTORY: Patient has a past medical history of: 1. Longstanding diabetes, insulin-dependent diabetic since age 35. 2. History of remote episode of hematuria with workup in the with no particular etiology found. 3. Hypertension. 4. History of hemolytic anemia. 5. History of uterine cancer status post hysterectomy. 6. History of mediastinal lymph adenopathy in the past with unrevealing biopsy. 7. History of atrial fibrillation on Eliquis. 8. Legally blind PAST SURGICAL HISTORY: 1. Status post total hysterectomy for uterine cancer. 2. Gallbladder surgery. ALLERGIES: Patient is allergic to ASPIRIN, CIPROFLOXACIN, CITALOPRAM, CONTRAST, PENTAZOCINE. FAMILY HISTORY: The patient's father had a congenital horseshoe kidney with kidney stones. Patient's mother had end-stage renal disease and refused dialysis. HOME MEDICATIONS: Include: - Eliquis 5 mg by mouth twice a day - atorvastatin - insulin - calcitriol 0.25 mcg Saturday, Saturday, Saturday - digoxin 0.125 every other day - lisinopril 2.5 mg daily - fish oil - metoprolol 200 mg in the morning, 100 mg in the evening - iron - torsemide 20 mg by mouth twice a day PHYSICAL EXAMINATION: Temperature 97.2, pulse 72, blood pressure 121/64, saturating 98% on room air. GENERAL: Awake, alert, oriented, in no acute distress. HEAD AND NECK: Legally blind. Moist mucous membranes. Neck is supple. No jugular venous distention (JVD). CHEST: S1, S2, irregular, trace to 1+ edema in the lower extremities. RESPIRATORY: Bilateral audible air entry diminished at bases without rale. ABDOMEN: Soft, obese, nontender. + bowel sounds NEUROLOGIC: Appropriately interactive and conversational. No focal deficit. PSYCHIATRIC: Appropriate mood and affect. EXTREMITIES: no edema REVIEW OF SYSTEMS: Positive for nausea, vomiting, abdominal discomfort. Negative for chest pain, palpitations, headache, dizziness, diarrhea. Remainder of review of systems is negative. LABORATORIES: White count 10.9, hemoglobin 9.5, platelets 221. Sodium 141, potassium 3.2, bicarbonate 20, BUN 57, creatinine 3.1, glucose 233, A1c 8.4%, corrected calcium 9.7, albumin 2.1. IMAGING: CT of the abdomen and pelvis no hydronephrosis. Small and large intestinal bowel loops are normal. Chest x-ray 08/29: No acute infiltrate. INPATIENT MEDICATIONS: - patient received a bolus of normal saline - she is on Eliquis 5 mg by mouth twice a day - atorvastatin 80 mg by mouth daily - calcitriol 0.25 mcg by mouth Saturday, Saturday, Saturday - digoxin 0.125 mg every other day - her intravenous (IV) Lasix is discontinued by myself - she continues on insulin - continues on lisinopril 2.5 mg by mouth daily - metoprolol 200 mg by mouth every morning and 100 mg by mouth nightly ASSESSMENT AND PLAN: 57-year-old female with past medical history of longstanding poorly controlled diabetes with A1c over the summer of 10.2% and current A1c 8.4%, diabetic neuropathy, diabetic retinopathy, legally blind, atrial fibrillation on Eliquis, who has had over the past year progressive impairment of her renal function from baseline creatinine in the mid 1s to currently in the low 3s. 1. Nephrotic syndrome. The patient's urine studies are ordered and pending. Record review shows 24-hour urine collection in May with 14 grams of proteinuria. Patient had a serological workup at the time with GLORIA, ANCA, double stranded deoxyribonucleic acid (DNA), serum protein electrophoresis (SPEP), urine protein electrophoresis (UPEP), C3, C4, anti-glomerular basement membrane (GBM) antibody. Serologic workup was negative. With her marked proteinuria, patient is experiencing a progressive decline in renal function. Her creatinine currently 3.1 from 2.5 three months ago. It may very well likely all be from diabetic nephropathy; however, she needs a renal biopsy given the rapidity with which her renal function has declined and the marked nature of her proteinuria. She would have to stop Eliquis 3 days prebiopsy and remain off of it 3 days postbiopsy. I expect her biopsy should be scheduled within the next 2 weeks. Further treatment of her nephrotic syndrome will depend upon the results of the renal biopsy. Prior serologic workup did not include [place]/ lambda ratio and I have ordered that now. Continue low-dose lisinopril for now for proteinuric chronic kidney disease. 2. Insulin-dependent diabetes, longstanding with diabetic neuropathy. A1c has improved from 10.2% in May to 8.4% currently. Likely due to the longer half-life of insulin with worsening renal insufficiency. Patient continues on insulin. She likely has gastroparesis as well. She received a dose of Reglan for her nausea and vomiting. 3. Atrial fibrillation, rate controlled with metoprolol and on Eliquis 5 mg twice a day. Continue Eliquis for now. We will instruct the patient to hold the Eliquis once a definitive date for her renal biopsy is set up. 4. Lower extremity edema and history of congestive heart failure. Will continue patient's home diuretic regimen at this time, torsemide 20 mg by mouth twice a day. Hold off on intravenous (IV) diuretics at this time given nausea, vomiting and improvement in renal function with gentle hydration earlier. Thank you for involving us in the care of this patient. We will continue to follow the patient with you. DAYNA
[2017-08-30] MEDS ORDERED: SLF 3 ML SYR IV PRN (04:00)
[2017-08-30] MEDS ORDERED: GLUCAGON FOR INJ 1 MG VIAL (J1610) SC PRN (04:15)
[2017-08-30] MEDS ORDERED: GLUCOSE 4 GM CHEW TABLET PO PRN (04:15)
[2017-08-30] MEDS: ONDANSETRON 4MG/2ML VIAL (J2405) IV PRN (04:56)
[2017-08-30] MEDS: SLF 3 ML SYR IV SCH ×3 (04:57→20:44)
[2017-08-30 06:10] LABS: MEAN CORPUSCULAR HEMOGLOBIN 27.3 pg (27.0-33.0); MEAN CORPUSCULAR HGB CONC 31.3 g/dl (32.0-36.5); MEAN CORPUSCULAR VOLUME 87.3 fl (80.0-96.0); RED CELL DISTRIBUTION WIDTH 15.8 % (11.5-14.5); WHITE BLOOD COUNT 7.7 10^3/uL (4.0-10.0)
[2017-08-30 06:23] LABS: INR 1.41
[2017-08-30 06:44] LABS: ALBUMIN 2.2 GM/DL (3.2-5.2); ALBUMIN/GLOBULIN RATIO 0.55 (1.00-1.93); BILIRUBIN,TOTAL 0.3 MG/DL (0.2-1.0); CALCIUM LEVEL 8.4 MG/DL (8.5-10.1); CREATININE FOR GFR 3.36 MG/DL (0.55-1.02); MAGNESIUM LEVEL 1.7 MG/DL (1.8-2.4); POTASSIUM SERUM 3.9 MEQ/L (3.5-5.1); TOTAL PROTEIN 6.2 GM/DL (6.4-8.2)
[2017-08-30] MEDS: SUCRALFATE 1 GM TAB PO SCH ×4 (07:30→20:43)
[2017-08-30] MEDS ORDERED: METOCLOPRAMIDE 5 MG TAB PO SCH (07:30)
[2017-08-30] MEDS: PANTOPRAZOLE 40MG INJ (PROTONIX) (C9113) IV SCH ×2 (08:16→20:44)
[2017-08-30] MEDS: LEVEMIR (INSULIN DETEMIR) 1 UNITS/0.01ML SC SCH ×2 (08:16→20:44)
[2017-08-30] MEDS: HumaLOG INSULIN (NovoLOG) PER UNIT SC SCH ×3 (08:16→17:26)
--- NOTE | 2017-08-30 08:16 | REP ---
Chest x-ray: Two views. History: Shortness of breath. Comparison study: August 29, 2017. Findings: There is a small zone of linear fibrosis in the left lower lung zone unchanged. Lungs are otherwise well inflated and clear. Pleural angles are sharp. Cardiomediastinal silhouette is unremarkable. There are clips in the right upper quadrant of the abdomen. Impression: Mild linear fibrosis left base. Otherwise no acute disease. Signed by Torres Honeycutt MD 08/30/2017 08:41 A
[2017-08-30] MEDS: METOPROLOL TARTRATE 100 MG TAB PO SCH ×2 (08:17→20:43)
[2017-08-30] MEDS: CALCITRIOL 0.25 MCG CAP (S0169) PO SCH (08:18)
[2017-08-30] MEDS: LISINOPRIL *2.5 MG* TAB PO SCH (08:18)
[2017-08-30] MEDS: APIXABAN 5 MG TAB (ELIQUIS) PO SCH (08:18)
[2017-08-30] MEDS: ATORVASTATIN 20 MG TAB PO SCH (08:18)
[2017-08-30] MEDS ORDERED: TORSEMIDE 20 MG TAB PO SCH (09:00)
[2017-08-30] MEDS ORDERED: NS 0.45% 1,000 ML IV SCH (09:30)
[2017-08-30] MEDS ORDERED: MAG SULF 1GM/100ML (MAG RUN) 1 GM in APPROPRIATE DILUENT 1 EA IV ONE (10:00)
--- NOTE | 2017-08-30 10:02 | IPN ---
DATE OF SERVICE: 08/30/2017 SUBJECTIVE: Patient seen and examined at the bedside. Chart has been reviewed. This morning, the patient complains of epigastric abdominal pain. CT of abdomen and pelvis yesterday showed hiatal hernia. The patient was offered Protonix and Carafate. She has declined Reglan as well for gastroparesis. She has no complaints of chest pain, pressure or tightness, but still with some shortness of breath. Urine output overnight was 350. VITALS: Temperature 97, pulse 74, respiratory rate 18, blood pressure 180/94, 96% in room air. GENERAL: Awake, alert, oriented to person, place and time. Answering questions appropriately. No jugular venous distention. No thyromegaly. No cervical lymphadenopathy. Moist mucous membranes. LUNGS: Diminished. No wheezing or rales. HEART: S1, S2, sinus rhythm. ABDOMEN: Soft. Slightly tender epigastric region. No rebound, guarding. Positive bowel sounds. EXTREMITIES: 1+ pitting edema. LABORATORY DATA: CBC and metabolic panel have been reviewed. ASSESSMENT AND PLAN: This is a 57-year-old female with history of long standing diabetes insulin dependent since age 35, hypertension, hemolytic anemia, mediastinal lymphadenopathy with negative biopsy, on chronic Eliquis, status post hysterectomy for uterine cancer and gallbladder surgery, with baseline creatinine of 2 since May 2017 that had previously been 1, with nephrotic range proteinuria on 24-hour urine of 14 grams of protein. The patient presented to the emergency room with abdominal pain, nausea and vomiting and worsening renal function. The patient was on normal saline. Creatinine improved to 3.1. CURRENT ISSUES: 1. Nephrotic syndrome. The patient had a full workup, SPEP, UPEP, complement levels, serologic workup which were all negative. The patient will need a renal biopsy at some point and will need to hold her Eliquis three days before biopsy and three days post biopsy, which can be scheduled in the next two weeks by nephrology. 2. Defer to Dr. Reid for management of the patient's chronic failure with acute decompensation. 3. Abdominal pain. Small hiatal hernia found on CT. The patient will be given Carafate, proton pump inhibitor (PPI). She most likely also has gastroparesis, although she is declining Reglan at this time. Encourage small frequent meals, liquid to pureed diet if worsens. 4. Insulin dependent diabetes with diabetic neuropathy, retinopathy and legally blind. A1c has improved to 8.4 in May. The patient has declined using Reglan as she feels it gives her diarrhea. She is currently on Levemir insulin with glucose of 237 to 250 with goal preprandial of 90 to 130 and postprandial at 180 or lower. 5. Anemia of chronic disease. No acute indication for red blood cell transfusion. 6. Hypernatremia and worsening renal dysfunction. Defer to nephrology for management of fluids and diuretics.
[2017-08-30] MEDS: APIXABAN 2.5 MG TAB (ELIQUIS) PO SCH (20:43)
--- NOTE | 2017-08-30 22:30 | IPN ---
DATE: 08/30/2017 SUBJECTIVE: The patient was seen this morning at the bedside. She complains of recurrent nausea and vomiting, three episodes of vomiting reported overnight. She is tearful throughout the entire encounter, and when I ask her if she is depressed, she replies back, "yes, very depressed." she ambulated to the bathroom with no respiratory distress, although she did have issue due to being in a new environment and being blind. She also reports thirstiness. REVIEW OF SYSTEMS: Positive for nausea, vomiting, thirst, and depression. Negative for shortness of breath, chest pain, palpitations, diarrhea. Remainder of review of systems is negative. OBJECTIVE: VITAL SIGNS: Blood pressure is noted to be labile, systolic from 130s to 180s, and diastolic 70s to 80s. Pulse 74, saturating 98% on room air. INTAKE AND OUTPUT: Not fully recorded. Weight in the bed scale today 84.3 kg. PHYSICAL EXAMINATION: GENERAL: The patient is awake, alert, and oriented, tearful and in mild emotional distress. She is tearful during the encounter. HEAD/NECK: Legally blind. Moist mucous membranes. Neck is supple without jugular venous distention. LUNGS: No crackle or wheeze. Symmetrical air entry seen on room air. HEART: S1, S2. Two plus radial pulse. One plus pitting edema in the feet and calves. ABDOMEN: Soft, tender in the epigastrium. Positive bowel sounds. EXTREMITIES: One plus pitting edema below the knees. No dependent edema. NEUROLOGIC: No focal deficit. PSYCHIATRIC: Depressed, tearful. LABORATORY DATA: White count 7.7, platelets 216. Sodium 147 increased from 141 yesterday, potassium 3.9, bicarbonate 23, creatinine 3.3, BUN 56, corrected calcium 9.9, magnesium 1.7, albumin 2.2. Urine studies are pending for spot ratio for proteinuria. Glucose 222. IMAGING: Chest x-ray today: Lungs are inflated and clear with sharp pleural angles. INPATIENT MEDICATIONS: The patient's torsemide is discontinued by myself, and she is placed on half normal saline at 50 mL an hour. I have reduced her Eliquis dose to 2.5 mg by mouth twice a day, and given her a dose of intravenous (IV) magnesium. The remainder of her medications are unchanged in the past 24 hours. ASSESSMENT AND PLAN: 1. Nephrotic syndrome. The patient has had much proteinuria for the past several months with an expected progressive decline in renal function. This is most likely a sequela of diabetic nephropathy; however, given the rapidity of the decline in renal function and the marked nature of proteinuria, a renal biopsy is being planned for tentatively 09/05 or 09/12, depending on scheduling availability. This can be done as an outpatient with a three-day hold of Eliquis pre and postbiopsy. If he biopsy is consistent with diabetic nephropathy, she will likely be dialysis dependent within the next six months or so. Alternative diagnoses include membranous nephropathy and minimal change disease. Continue lisinopril 2.5 mg for now. Urine [id number] ratio was ordered yesterday and is still pending collection. [place]/ lambda ratio pending. 2. Recurrent nausea and vomiting, likely diabetic gastroparesis. The patient does seem to have spikes in her blood pressure with episodic nausea and vomiting. She also complains of diarrhea from Reglan and complains of thirst. She is being started on gentle hypotonic fluid. 3. Hypernatremia due to nausea, vomiting, reported diarrhea, impaired access to oral fluids as she is legally blind. Place beverages within easy reach of the patient and encourage oral intake. For now we will put her on half normal saline (NS) at 50 mL an hour for one liter. 4. Atrial fibrillation, rate controlled with metoprolol. Eliquis dose reduced to 2.5 mg by mouth twice a day, given glomerular filtration rate (GFR) of about 15 mL per minute at this time. 5. Lower extremity edema and history of congestive heart failure. Hold diuretics given free water deficit, nausea, vomiting, reported diarrhea, decreased oral intake. The patient is respiring comfortably on room air with clear lungs. Will start hypotonic fluid for one liter. The patient will be reassessed daily for resumption of diuretic. Plan for renal biopsy has been discussed with Dr. Masters, the patient's primary mold holder. DAYNA
[2017-08-31] MEDS: ONDANSETRON 4MG/2ML VIAL (J2405) IV PRN (05:12)
[2017-08-31] MEDS: SLF 3 ML SYR IV SCH ×3 (05:12→21:09)
[2017-08-31 05:41] LABS: INR 0.93
[2017-08-31 06:00] VITALS: BP 156/90
[2017-08-31] MEDS ORDERED: MAG SULF 1GM/100ML (MAG RUN) 1 GM in APPROPRIATE DILUENT 1 EA IV ONE (07:00)
[2017-08-31] MEDS: PANTOPRAZOLE 40MG INJ (PROTONIX) (C9113) IV SCH ×2 (07:55→21:09)
[2017-08-31] MEDS: LEVEMIR (INSULIN DETEMIR) 1 UNITS/0.01ML SC SCH ×2 (07:55→21:09)
[2017-08-31] MEDS: SUCRALFATE 1 GM TAB PO SCH ×4 (07:55→21:09)
[2017-08-31] MEDS: HumaLOG INSULIN (NovoLOG) PER UNIT SC SCH ×4 (07:55→22:42)
[2017-08-31] MEDS: METOPROLOL TARTRATE 100 MG TAB PO SCH ×2 (07:56→21:09)
[2017-08-31] MEDS: APIXABAN 2.5 MG TAB (ELIQUIS) PO SCH ×2 (07:56→21:09)
[2017-08-31] MEDS: ATORVASTATIN 20 MG TAB PO SCH (07:56)
[2017-08-31] MEDS: DIGOXIN 0.125 MG TAB PO SCH (07:56)
[2017-08-31] MEDS: LISINOPRIL *2.5 MG* TAB PO SCH (07:57)
[2017-08-31 09:18] LABS: CALCIUM LEVEL 8.1 MG/DL (8.5-10.1); CREATININE FOR GFR 2.98 MG/DL (0.55-1.02); GLOMERULAR FILTRATION RATE 17.2 (>51); POTASSIUM SERUM 3.4 MEQ/L (3.5-5.1)
[2017-08-31] MEDS ORDERED: POTASSIUM CHLORIDE 10% LIQ 20 MEQ/15 ML UDC PO ONE (11:00)
[2017-08-31 14:00] VITALS: BP 140/60
[2017-08-31] MEDS ORDERED: POTASSIUM CHLORIDE 10 MEQ SR TABLET PO ONE (15:00)
--- NOTE | 2017-08-31 21:58 | IPN ---
DATE: 08/31/2017 SUBJECTIVE: The patient is seen this morning at the bedside. Her and her son are both present. I had a long discussion with the patient and her family regarding kidney biopsy. We will schedule her for kidney biopsy on 09/04. The patient and her both agree for biopsy at this time. She complains of ongoing nausea and vomiting. Her renal function improved back to her current baseline with intravenous (IV) fluids. REVIEW OF SYSTEMS: Positive for depression, nausea, vomiting. Negative for shortness of breath, chest pain, palpitations, diarrhea. Remainder or review of systems is negative. OBJECTIVE: VITAL SIGNS: Temperature 98.7, pulse 78, respiratory rate 18, blood pressure 156/90, saturating 96% on room air. INTAKE AND OUTPUT: Oral input 1.2 liters. Urine output 2.6 liters. Weight in the bed scale 84.3 kg yesterday. No weight recorded today. PHYSICAL EXAMINATION: GENERAL: The patient is awake, alert, oriented. Her and her son are both present in the room. She is in no acute distress. HEAD/NECK: Legally blind. Moist mucous membranes. Neck is supple. No jugular venous distention. LUNGS: Clear without crackle or wheezes. She is comfortable on room air. HEART: S1, S2. Two plus radial pulse. She has 1+ pitting edema in the feet and lower extremities. No dependent edema. ABDOMEN: Soft, tender in the epigastrium. Positive bowel sounds. EXTREMITIES: One plus pitting edema below the knee. NEUROLOGIC: Legally blind. Otherwise no focal deficit. PSYCHIATRIC: Depressed. LABORATORY DATA: Sodium 141, potassium 3.4, bicarbonate 21, BUN 47, creatinine 2.9, calcium 8.1, lipase down trending 428. WBC 7.7, hemoglobin 9.0, platelets 216. Glucose 340. INPATIENT MEDICATIONS: Reviewed by myself. Her Eliquis dose was reduced to 2.5 mg by mouth twice a day by myself. She received supplementation of potassium. Her insulin was adjusted by the primary team. She was started on Protonix 40 mg IV twice a day. There are no other changes in the previous 24 hours. ASSESSMENT AND PLAN: 1. Nephrotic syndrome, most likely due to diabetic nephropathy. Alternative diagnoses include membranous nephropathy and minimal change disease. The patient is scheduled for a needle renal biopsy on Saturday, 09/04. She and her both consent for the same. I have discussed her long-term renal prognosis with her if the biopsy is consistent with diabetic nephropathy. She remains on low-dose lisinopril. The urine studies I ordered were canceled. They are reordered now. [place] lambda ratio is pending. 2. Acute on chronic renal failure. The patient's creatinine has returned to her known baseline from May of 2017. We will hold IV fluids at this time as well as hold her home diuretics, given that she is still with nausea and vomiting. 3. Nausea, vomiting, abdominal pain. The patient remains on proton pump inhibitor (PPI). She likely has diabetic gastroparesis. Her lipase level is down trending. 4. Longstanding type 2 diabetes poorly controlled with multiple sequelae. Her sugars are labile from 200 to 300. She is on insulin. 5. Atrial fibrillation, rate controlled with metoprolol. Her last dose of Eliquis will be on the morning of 09/01, and her Eliquis will be resumed on 09/07, status post planned renal biopsy on 09/04. 6. Lower extremity edema with history of congestive heart failure. Hold further IV fluids. Renal function has returned to baseline. Will continue to hold her diuretics at this time as well, however, given that patient has nausea and vomiting. The patient remains respiring comfortably on room air with clear lungs. MTDD
[2017-08-31 22:00] VITALS: BP 137/87
[2017-09-01 00:06] LABS: FREE KAPPA LIGHT CHAINS SERUM 1114.8 mg/L (3.3-19.4); FREE LAMBDA LIGHT CHAINS SERUM 35.4 mg/L (5.7-26.3); KAPPA/LAMBDA RATIO SERUM 31.49 (0.26-1.65)
[2017-09-01] MEDS: SLF 3 ML SYR IV SCH ×3 (05:28→20:11)
[2017-09-01 06:00] VITALS: BP 161/84
[2017-09-01 06:26] LABS: INR 1.06
[2017-09-01 07:15] LABS: BASO % 0.3 % (0.0-1.0); EOS # 0.2 10^3/uL (0.0-0.50); EOS % 1.9 % (0.0-3.0); IMMATURE GRANULOCYTE % 0.8 % (0-0); LYMPH # 1.3 10^3/uL (1.5-4.5); LYMPH % 17.2 % (24.0-44.0); MEAN CORPUSCULAR HEMOGLOBIN 27.2 pg (27.0-33.0); MEAN CORPUSCULAR HGB CONC 31.4 g/dl (32.0-36.5); MEAN CORPUSCULAR VOLUME 86.9 fl (80.0-96.0); MONO # 0.4 10^3/uL (0.0-0.8); MONO % 4.5 % (0.0-5.0); NEUTROPHILS # 5.8 10^3/uL (1.8-7.7); NEUTROPHILS % 75.3 % (36.0-66.0); PLATELET COUNT, AUTOMATED 188 10^3/uL (150-450); RED CELL DISTRIBUTION WIDTH 15.9 % (11.5-14.5); WHITE BLOOD COUNT 7.7 10^3/uL (4.0-10.0)
[2017-09-01] MEDS: ACETAMINOPHEN TAB 650MG DOSE (2X325MG) PO PRN ×2 (07:15→20:14)
[2017-09-01 07:21] LABS: ADD MANUAL DIFFER NO; DIFF SLIDE NUMBER 96
[2017-09-01 07:22] LABS: CALCIUM LEVEL 8.6 MG/DL (8.5-10.1); CREATININE FOR GFR 2.68 MG/DL (0.55-1.02); GLOMERULAR FILTRATION RATE 19.4 (>51)
[2017-09-01] MEDS: HumaLOG INSULIN (NovoLOG) PER UNIT SC SCH ×4 (08:25→20:23)
[2017-09-01] MEDS: SUCRALFATE 1 GM TAB PO SCH ×4 (08:25→20:11)
[2017-09-01] MEDS: APIXABAN 2.5 MG TAB (ELIQUIS) PO SCH ×2 (08:26→20:11)
[2017-09-01] MEDS: PANTOPRAZOLE 40MG INJ (PROTONIX) (C9113) IV SCH ×2 (08:26→20:11)
[2017-09-01] MEDS: LEVEMIR (INSULIN DETEMIR) 1 UNITS/0.01ML SC SCH ×2 (08:26→20:14)
[2017-09-01] MEDS: ATORVASTATIN 20 MG TAB PO SCH (08:27)
[2017-09-01 08:28] LABS: RETIC HEMOGLOBIN EQUIVALENT 35.4 pg (24-36); RETICULOCYTE % 3.2 % (0.5-1.5)
[2017-09-01] MEDS: LISINOPRIL *2.5 MG* TAB PO SCH (08:31)
[2017-09-01] MEDS: METOPROLOL TARTRATE 100 MG TAB PO SCH ×2 (08:31→20:12)
[2017-09-01] MEDS ORDERED: ACETAMINOPHEN 500 MG TAB PO ONE (09:00)
[2017-09-01 09:02] LABS: REASON FOR REVIEW COMPREHENSIVE REVIEW
[2017-09-01 09:14] LABS: PERCENT SATURATION 14.2 % (13.2-45.0)
[2017-09-01 11:29] LABS: IMMUNOGLOBULIN G 392 MG/DL (681-1648); IMMUNOGLOBULIN M 35.8 MG/DL (40-230); TOTAL PROTEIN 4.9 GM/DL (6.4-8.2)
--- NOTE | 2017-09-01 11:39 | IPN ---
DATE: 09/01/2017 The patient's urine light chains were abnormal, concerning for multiple myeloma. Therefore, we will consult Dr. Sarah Maynard for bone marrow biopsy. We will also obtain skeletal survey, quantitative immunoglobulin, beta 2 microglobulin, 24 hour urine protein, and we will repeat the urine protein electrophoresis, serum protein electrophoresis, as well as urine immunofixation.
--- NOTE | 2017-09-01 11:39 | IPN ---
DATE: 08/31/2017 SUBJECTIVE: Patient seen and examined at the bedside. Chart has been reviewed. The patient continues to complain of feeling nauseated with low mood. No chest pain, pressure, abdominal pain. Noted to have a hiatal hernia but refusing Reglan, as it causes her diarrhea. VITALS: Temperature 98.7, pulse 78, respiratory rate 18, blood pressure 156/90. 96% in room air. GENERAL: THe patient appears to be in low mood, very soft voice when she speaks but appropriate. No respiratory distress. No jugular venous distention (JVD). No thyromegaly. No cervical lymphadenopathy. Dry mucous membranes. LUNGS: Clear. No wheezing or rales. HEART: S1, S2, sinus rhythm. ABDOMEN: Soft. Slightly tender epigastric region. No rebound, guarding. Positive bowel sounds times four quadrants. EXTREMITIES: No cyanosis or clubbing. No dependent edema. Laboratory data and imaging studies have been reviewed. ASSESSMENT AND PLAN: This is a 57-year-old female with history of diabetes since age 35, hypertension, hemolytic anemia, mediastinal lymphadenopathy with negative biopsy, on chronic Eliquis, status post hysterectomy for uterine cancer and gallbladder surgery, with nephrotic range proteinuria and depression presented to the emergency room with abdominal pain, nausea and vomiting and worsening renal function. CURRENT ISSUES: 1. Nephrotic syndrome. Had a full workup as an outpatient. The patient will need a renal biopsy at some point and will need to hold her Eliquis three days prior and after the biopsy. Defer to Dr. Reid for management of the patient's chronic renal failure with acute decompensation. 2. Hiatal hernia with possible gastritis. The patient has refused Reglan for gastroparesis. She is currently on proton pump inhibitor and Carafate, Zofran. Encourage small frequent meals, liquid to pureed diet if worsens. 3. Insulin dependent diabetes with diabetic neuropathy, retinopathy and legally blind. A1c is 8.4. Glucose levels are uncontrolled, peak of 250. Currently on Levemir at 22 units subcutaneous twice a day. We will adjust for better glycemic control. Goal glucose of 90 to 130 preprandial and postprandial of less than 180. 4. Anemia of chronic disease, stable and asymptomatic. No acute indication for red blood cell transfusion. 5. Depression. No suicidal or homicidal thoughts. Psychiatric consult, the patient is agreeable for starting low dose selective serotonin reuptake inhibitors (SSRIs).
--- NOTE | 2017-09-01 11:43 | IPN ---
DATE: 09/01/2017 SUBJECTIVE: The patient is seen this morning at the bedside. Chart has been reviewed. The patient still complains of abdominal pain, better slightly with Tylenol. She was found to have abnormal light chains, concerning for myeloma. No other issues per nursing overnight. OBJECTIVE: VITAL SIGNS: Temperature 98.2, pulse 73, respiratory rate 17, blood pressure 161/84, 97% on room air. GENERAL: The patient is awake, alert, oriented. Answering questions appropriately. LUNGS: Clear to auscultation. No wheezing, rales or rhonchi. HEART: S1, S2. Sinus rhythm. ABDOMEN: Soft, slightly tender in the epigastric region. No rebound or guarding. Positive bowel sounds times four quadrants. EXTREMITIES: No significant edema. Laboratory data, microbiology and imaging studies have been reviewed and notable for positive light chains with elevated free [place] light chains, concerning for myeloma. ASSESSMENT AND PLAN: This is a 57-year-old female with history of diabetes, hypertension, hemolytic anemia, mediastinal lymphadenopathy with negative biopsy, on chronic Eliquis, hysterectomy for uterine cancer and gallbladder surgery, with baseline creatinine of 2 since May 2017 that had previously been 1, with nephrotic range proteinuria on 24-hour urine of 14 grams of protein. The patient presented to the emergency room with abdominal pain, nausea and vomiting and worsening renal function. CURRENT ISSUES: 1. Nephrotic syndrome. Rule out multiple myeloma due to positive findings of elevated light chains. We will obtain a repeat SPEP and UPEP, 24 hour urine for protein, beta 2 microglobulin, skeletal survey. Calcium appears to be normal. Urine immunofixation, quantitative immunoglobulin and hematology/oncology consult for bone marrow biopsy, which will be done tomorrow by Dr. Sarah Maynard. Eliquis has been held prior to renal biopsy. 2. Small hiatal hernia with abdominal pain on proton pump inhibitor. Carafate for declining Reglan for gastroparesis. 3. Insulin-dependent diabetes. Levemir insulin. Goals are for preprandial glucose of 90 to 130 and postprandial 180. 4. Anemia of chronic disease. Most likely secondary to multiple myeloma. Obtain skeletal survey and repeat SPEP and UPEP. No acute indication for RBC transfusion. No signs of infection. Calcium level is normal. No complaints of bone pain.
--- NOTE | 2017-09-01 13:31 | ECHO ---
DATE OF PROCEDURE: 08/31/2017 DATE OF : 1960 AGE: 57 REFERRING PROVIDER: Dr. Tariq Morocho PATIENT LOCATION: Room 4236 REASON FOR THE ECHOCARDIOGRAM: Shortness of breath. 2D MEASUREMENTS: IVS: 1.2 cm LV: 4.5 cm LVPW: 1.2 cm LA: 4.1 cm Aorta: 3.1 cm IVC: 2.1 cm DOPPLER MEASUREMENTS: Peak velocity across the aortic valve: 1.3 m/s Peak velocity across the LVOT: 0.87 m/s Mitral E: 1.1, Mitral A: 0.42, with a ratio of 2.6 Maximum tricuspid valve velocity: 3.0 m/s 2D COMMENTS: 1. Normal left ventricular size, wall thickness, and global left ventricular systolic function. The estimated left ventricular systolic ejection fraction is 65-70%. 2. Mildly enlarged left atrium. The right atrium and the right ventricle appear to be normal. 3. The atrial septum appeared to be normal without evidence of defect or shunt. 4. Normal aortic root. 5. Small pericardial effusion was noted, no evidence of cardiac tamponade. 6. Normal aortic valve. Mildly calcified mitral annulus with normal anterior mitral valve leaflet motion. Normal tricuspid valve and pulmonic valve. The proximal pulmonary artery branches were not well visualized. 7. The inferior vena cava was mildly enlarged, central venous pressure might be elevated. DOPPLER: It detects mild mitral regurgitation and mild tricuspid regurgitation. The calculated pulmonary artery systolic pressure however, varied between 40-50 mmHg. Assessment of the left ventricular diastolic function appeared to be normal. IMPRESSION: 1. Normal global left ventricular systolic function. Left ventricular diastolic function also appeared to be normal. 2. Mildly dilated left atrium with mild mitral regurgitation. 3. Mild tricuspid regurgitation, probably moderate pulmonary hypertension. 4. There were findings consistent with elevated central venous pressure. 5. Small pericardial effusion noted. No evidence of cardiac tamponade. [facility]
[2017-09-01 14:00] VITALS: BP 169/88
--- NOTE | 2017-09-01 14:05 | REP ---
REASON: Assess for lytic lesions. The patient has renal failure. AP LATERAL VIEWS OF THE SKULL: FINDINGS: No acute fracture or destructive osseous lesion. AP LATERAL VIEWS OF THE CERVICAL SPINE: FINDINGS: No acute fracture or destructive osseous lesion. AP LEFT HUMERUS: FINDINGS: No acute fracture or destructive osseous lesion. RIGHT HUMERUS: FINDINGS: No acute fracture or destructive osseous lesion. AP PELVIS: A single AP view of the pelvis was performed. The hip joint spaces are symmetric and relatively well maintained. There is no acute fracture or destructive osseous lesion. There are soft tissue calcifications. AP RIGHT FEMUR: FINDINGS: No acute fracture or destructive osseous lesion. Degenerative changes seen involving the knee. AP LEFT FEMUR: FINDINGS: No acute fracture or destructive osseous lesion. Degenerative changes seen involving the knee. AP LATERAL VIEWS LUMBAR SPINE: There is bilateral L5 spondylolysis and a grade 1 L5 upon S1 spondylolisthesis. There is posterior disc space narrowing at every level. Vertebral body height is within normal limits. There are no lytic lesions. AP LATERAL VIEWS OF THE THORACIC SPINE: There is anterior lipping and disc space narrowing at every level. Vertebral body height and alignment is within normal limits. There are no lytic lesions. OVERALL IMPRESSION OF THE SKELETAL SURVEY: Findings as described above. No evidence of a lytic lesion. Signed by Jake Lock DO 09/01/2017 02:10 P
[2017-09-01 22:00] VITALS: BP 150/72
[2017-09-02] MEDS: SLF 3 ML SYR IV SCH ×3 (05:05→22:00)
[2017-09-02 05:49] LABS: MEAN CORPUSCULAR HGB CONC 30.9 g/dl (32.0-36.5); MEAN CORPUSCULAR VOLUME 87.4 fl (80.0-96.0); RED CELL DISTRIBUTION WIDTH 15.7 % (11.5-14.5)
[2017-09-02 06:00] VITALS: BP 149/82
[2017-09-02 06:08] LABS: INR 1.05
[2017-09-02 06:15] LABS: CALCIUM LEVEL 8.7 MG/DL (8.5-10.1); CREATININE FOR GFR 2.78 MG/DL (0.55-1.02); GLOMERULAR FILTRATION RATE 18.6 (>51); POTASSIUM SERUM 4.3 MEQ/L (3.5-5.1)
[2017-09-02] MEDS: HumaLOG INSULIN (NovoLOG) PER UNIT SC SCH ×4 (08:05→21:00)
[2017-09-02] MEDS: PANTOPRAZOLE 40MG INJ (PROTONIX) (C9113) IV SCH ×2 (08:06→20:42)
[2017-09-02] MEDS: LISINOPRIL *2.5 MG* TAB PO SCH (08:06)
[2017-09-02] MEDS: CALCITRIOL 0.25 MCG CAP (S0169) PO SCH (08:06)
[2017-09-02] MEDS: METOPROLOL TARTRATE 100 MG TAB PO SCH ×2 (08:07→20:41)
[2017-09-02] MEDS: ATORVASTATIN 20 MG TAB PO SCH (08:07)
[2017-09-02] MEDS: DIGOXIN 0.125 MG TAB PO SCH (08:07)
[2017-09-02] MEDS: SUCRALFATE 1 GM TAB PO SCH ×4 (08:08→20:41)
[2017-09-02] MEDS: APIXABAN 2.5 MG TAB (ELIQUIS) PO SCH (08:08)
[2017-09-02] MEDS: LEVEMIR (INSULIN DETEMIR) 1 UNITS/0.01ML SC SCH ×2 (08:08→20:48)
--- NOTE | 2017-09-02 08:44 | IPN ---
DATE: 09/01/2017 SUBJECTIVE: The patient is seen this morning at the bedside. I discussed the results of some further blood work testing with her including abnormal paraproteinemia and need for bone marrow biopsy. She is scheduled for a bone marrow biopsy tomorrow with hematology/oncology. The patient otherwise has no specific complaints. She remains nauseated on and off, but reports tolerating oral intake. She denies any shortness of breath. REVIEW OF SYSTEMS: Positive for depression, nausea and abdominal pain. Negative for shortness of breath. Remainder of review of systems is negative. VITAL SIGNS: Temperature 98.2, pulse 73, respiratory rate 17, blood pressure 161/84, saturating 97% on room air. INTAKE AND OUTPUT: Urine output yesterday 1900 mL. PHYSICAL EXAMINATION: The patient is seen at the bedside, awake, alert, oriented, conversational. She is depressed. She asked appropriate questions regarding her condition. CARDIOVASCULAR: S1, S2. 2+ radial pulse. Trace pedal edema. LUNGS: Clear to auscultation without crackle or wheeze. ABDOMEN: Soft. Tender in the epigastrium. Positive bowel sounds. EXTREMITIES: With pedal edema. NEUROLOGIC: Legally blind. Otherwise no focal deficits. PSYCHIATRIC: Depressed. LABS: White count 7.7, hemoglobin 8.5, platelets 188. Sodium 139, potassium 4.0, creatinine 2.6, BUN 46, calcium 8.6. Protein on spot ratio about 22 grams. Elevated kappa lambda ratio of 31. IMAGING: Bone survey with no evidence of lytic lesion. INPATIENT MEDICATIONS: Reviewed by myself. There are no significant changes in the last 24 hours. ASSESSMENT/PLAN: 57-year-old female with history of long standing diabetes, hypertension, history of hemolytic anemia, mediastinal lymphadenopathy with reported negative biopsy, history of uterine cancer, with nephrotic range proteinuria and progressive deterioration in renal function. 1. Nephrotic syndrome. The patient has an elevated kappa lambda ratio. Repeat SPEP, UPEP with immunofixation and electrophoresis is ordered. She is pending evaluation by safety aide and bone marrow biopsy, plan for renal biopsy likely 09/04/17. Eliquis to be held. 2. History of congestive heart failure. The patient is currently without any signs of volume overload. Her renal function has returned to her baseline in May of 2017. Her diuretics remain on hold at this time. 3. Atrial fibrillation. The patient continues on Eliquis for anticoagulation and metoprolol for rate control. MTDD
[2017-09-02 10:52] LABS: ALBUMIN 2.39 GM/DL (3.29-5.55); ALBUMIN % 48.7 % (55.8-66.1); GAMMA GLOBULIN % 8.8 % (11.1-18.8)
[2017-09-02 14:00] VITALS: BP 176/82
--- NOTE | 2017-09-02 14:08 | IPN ---
DATE: 09/02/2017 Patient seen and examined at the bedside. Chart has been reviewed. This morning, the patient has persistent complaints of abdominal discomfort slightly improved with Carafate and Protonix. She has a history of hiatal hernia and possible gastroparesis, but denies any nausea or vomiting. The patient has no bony complaints. Denies any bone pain. Afebrile overnight. Temperature 98.7, pulse 76, respiratory rate 16, blood pressure 149/82, 95% on room air. Generally, patient appears to be depressed with low mood. Speaks very softly. No respiratory distress. Speaks in full sentences. Lungs are clear to auscultation. No wheezing, rales or rhonchi. Heart: S1, S2. Sinus rhythm. No murmurs, rubs or gallops. Abdomen is soft, slightly tender epigastric region. No rebound or guarding. Positive bowel sounds times four quadrants. No hepatosplenomegaly. Extremities: No edema. Laboratory data, microbiology and imaging studies have been reviewed. ASSESSMENT AND PLAN: This is a 57-year-old female with history of diabetes, hypertension, hemolytic anemia and mediastinal lymphadenopathy with negative biopsy, on chronic Eliquis which has been held for a bone marrow biopsy today, hysterectomy for uterine cancer, gallbladder surgery, with baseline creatinine of 2 since May 2017 and previously had been 1, with nephrotic range proteinuria with abnormal light chain suspicious for multiple myeloma. The patient presented to the emergency room (ER) with abdominal pain, nausea, vomiting, and worsening renal dysfunction. CURRENT ISSUES: 1. Nephrotic syndrome, rule out multiple myeloma due to positive findings of elevated light chains. We have repeated patient's serum protein electrophoresis , urine protein electrophoresis, 24-hour urine for protein, beta 2 microglobulin. Skeletal survey negative for lytic lesions. Calcium is normal. She has no complaints of bone pain. Awaiting bone marrow biopsy today with Dr. Sarah Maynard, hematology/oncology. We are also awaiting urine immunofixation and quantitative immunoglobulin levels. Eliquis has been held for bone marrow biopsy. 2. Small hiatal hernia with abdominal pain. On proton pump inhibitor (PPI), Carafate, declining Reglan for gastroparesis. 3. Insulin dependent type 2 diabetes. Levemir insulin, preprandial glucose of 98-130, postprandial 180. 4. Anemia of chronic disease most likely secondary to multiple myeloma. Skeletal survey is negative. Await bone marrow biopsy. No acute indication for red blood cell transfusion at this time as patient is asymptomatic. 5. Acute on chronic renal failure secondary to most likely multiple myeloma. To renal dose all medications. Managed by explosive ordnance handler, Dr. Reid. Avoid nephrotoxins. Obtaining a bone marrow biopsy today to rule out multiple myeloma. Defer to Dr. Sarah Maynard for treatment as outpatient. Physical therapy (PT) evaluation and treat. MTDD
--- NOTE | 2017-09-02 18:34 | CR ---
DATE OF CONSULTATION: 09/02/2017 Maxine Herring MD requested inpatient oncology/hematology consult in a 57-year-old woman with elevated free light chain ratio, acute renal insufficiency, and nephrotic proteinuria. Gem Gibbons is a 57-year-old woman with long history of type 2 diabetes, legally blind from same, history of congestive heart failure (CHF), renal insufficiency, atrial fibrillation for many years on anticoagulation. She presented to the emergency room August 29, with complaint of anorexia, malaise, nausea and vomiting. She has been found to have nephrotic range proteinuria up to 14 grams over 24 hours, anemia, hemoglobin 10 on admission, renal insufficiency, creatinine 3.52 without hypercalcemia. Albumin is 2.2 to 2.5. According to Gem, for many years she has had CHF. She sleeps with two pillows. She can say exactly why. She does not attribute it to orthopnea. She gets leg swelling. This is also for many years. She has had atrial fibrillation for many years. She lives in [place] with her and son and has primary care in [place]. She has a personal history notable for uterine cancer diagnosed about 20 years ago status post total hysterectomy with bilateral salpingo-oophorectomy (THBSO) and a family history notable for uterine and colon cancer in her maternal grandmother, colon cancer in some other relatives, and a blood cancer in her mother. During this admission creatinine has ranged from 3.52 to 2.78 currently with hydration. Echocardiogram shows normal left ventricular size, wall thickness and global the left ventricular function with ejection fraction (EF) 65% mildly enlarged left atrium normal appearing right atrium and ventricle and a small pericardial effusion not consistent with CHF. After discussing the case yesterday with Dr. Herring, additional labs were obtained including quantitative immunoglobulins notable for elevated IgE 144, mild elevation of IgM 35, negative urine immunofixation, serum free kappa at 1114, free lambda 35 and kappa lambda ratio 31. Quantitative IgG mildly low at 392, serum protein electrophoresis is nonspecific consistent with hypogammaglobulinemia, no M spike and serum immunofixation is negative. UPEP has not clearly been done or is pending. The patient has a normocytic anemia, hemoglobin currently 8.6, normal WBC and normal platelets, mild reticulocytosis. Skeletal survey is negative for lytic lesions. Abdomen and pelvis CT shows a hiatal hernia, some diverticulosis, no other suspicious abnormality, though small pericardial effusion seen. Chest x-ray is negative for infiltrate or effusions. The borderline heart size is stable. On exam vital signs are normal save for blood pressure of 176/82, otherwise the patient has been afebrile with normal heart rate good oxygenation. At the bedside she is an overweight middle aged woman speaking in a rather flat monotone voice answers all questions articulately. Struggles to remember details. There is 1+ pitting edema involving the legs. No splenomegaly and a regular pulse on abdominal exam. IMPRESSION: Nereyda Gibbons is a 57-year-old woman presenting with acute renal failure, nephrotic range proteinuria, evidence of clinical mild fluid overload or third spacing, no evidence of heart failure or cardiomyopathy. Her labs are quite notable for normocytic anemia, hypoalbuminemia without hypercalcemia, negative SPEP and serum immunofixation in the setting of elevated serum free kappa light chains. [place]/lambda ratio is elevated but not to a lesser degree than might be expected in poorly controlled multiple myeloma , and there is no evidence of bone related myeloma lytic lesions at least on plain X-ray. Interestingly, quantitative immunoglobulin E is elevated. The overall clinical picture to me is suggestive of amyloidosis more than multiple myeloma though they can coexist. I spoke with Dr. Reid of nephrology recommending renal biopsy. In amyloidosis, the affected organ has the highest yield for biopsy--in this case the kidney. [place] red stain must be done to rule out birefringent amyloid. The second most sensitive test this in this clinical setting would be a fat pad biopsy. Involved organ biopsies by far are the most sensitive specific and much preferred. Because multiple myeloma can coexist with amyloidosis, I recommend bone marrow biopsy and will work with pathology department and nursing to schedule this. The patient is anticoagulated will need to have a brief hiatus of anticoagulation for renal biopsy, not necessarily for bone marrow biopsy. The risk of hematoma is greater but it remains a fairly safe procedure on anticoagulation. RECOMMENDATIONS: As outlined above. 1. Renal biopsy with [place] red stain to rule out amyloidosis. 2. Bone marrow biopsy. I will work with path department and nursing to schedule this. 3. Will continue to follow this interesting case. [facility]
[2017-09-02] MEDS: ACETAMINOPHEN TAB 650MG DOSE (2X325MG) PO PRN (20:41)
[2017-09-02 22:00] VITALS: BP 159/77
--- NOTE | 2017-09-02 23:44 | IPN ---
DATE: 09/02/2017 SUBJECTIVE: The patient is seen this morning at the bedside. She denies any acute complaints overnight. She continues to have some nausea on and off and loose stool. She denies any shortness of breath. There was no family present at the bedside today during my visit. REVIEW OF SYSTEMS: Negative for chest pain, palpitations, shortness of breath. Positive for nausea, unsettled stomach. Remainder of review of systems is negative. VITAL SIGNS: Temperature 98.7, pulse 76, respiratory rate 16, blood pressure 149/82, saturating 95% on room air. INTAKE AND OUTPUT: Oral intake 840 mL, urine output 1750 mL, in net negative fluid balance. PHYSICAL EXAMINATION: General: The patient is lying inj bed. She appears depressed. She is oriented, in no acute distress. Soft, low voice. Head and Neck: Legally blind. Moist tongue. No jugular venous distention. Respiratory: Lungs are clear to auscultation. Heart: S1, S2. Trace edema in the extremities. Abdomen: Soft, tender in the epigastrium. Neurologic: No focal deficit, appropriately interactive, conversational. Psychiatric: Depressed. LABORATORY: White count 7.0, hemoglobin 8.6, platelets 180. Sodium 140, potassium 4.3, bicarbonate 21, BUN 44, creatinine 2.7, calcium 8.7. Serum immunotyping: No monoclonal bands, kappa lambda ratio 31. Urine 24-hour collection pending. INPATIENT MEDICATIONS: The patient's Eliquis is held. There are no other changes in the past 24 hours. ASSESSMENT AND PLAN: 1. Nephrotic syndrome. I had a discussion with the consulting twenty one dealer, Dr. Sarah Maynard, today. The plan is for the patient to have both a renal and bone marrow biopsy. The patient's Eliquis is held. Plan for renal biopsy is on . Given her severe proteinuria and elevated kappa-lambda ratio with negative UPEP and SPEP in the past she may likely have a kappa light chain amyloidosis. Further prognosis and treatment will depend upon the results of her bone marrow and renal biopsies. [facility]
[2017-09-03] MEDS: SLF 3 ML SYR IV SCH ×3 (05:58→22:28)
[2017-09-03 06:00] VITALS: BP 138/57
[2017-09-03 07:15] LABS: MEAN CORPUSCULAR HEMOGLOBIN 27.7 pg (27.0-33.0); MEAN CORPUSCULAR HGB CONC 31.5 g/dl (32.0-36.5); MEAN CORPUSCULAR VOLUME 87.9 fl (80.0-96.0)
[2017-09-03 07:29] LABS: INR 1.02
[2017-09-03 07:37] LABS: CALCIUM LEVEL 8.9 MG/DL (8.5-10.1); CREATININE FOR GFR 2.6 MG/DL (0.55-1.02); GLOMERULAR FILTRATION RATE 20.1 (>51)
[2017-09-03] MEDS: HumaLOG INSULIN (NovoLOG) PER UNIT SC SCH ×4 (08:01→20:50)
[2017-09-03] MEDS: SUCRALFATE 1 GM TAB PO SCH ×4 (08:04→20:33)
[2017-09-03 08:15] VITALS: BP 140/90
[2017-09-03] MEDS: PANTOPRAZOLE 40MG INJ (PROTONIX) (C9113) IV SCH ×2 (08:58→20:33)
[2017-09-03] MEDS: ATORVASTATIN 20 MG TAB PO SCH (08:58)
[2017-09-03] MEDS: METOPROLOL TARTRATE 100 MG TAB PO SCH ×2 (08:59→20:32)
[2017-09-03] MEDS: LEVEMIR (INSULIN DETEMIR) 1 UNITS/0.01ML SC SCH ×2 (08:59→20:42)
[2017-09-03] MEDS ORDERED: LIDOCAINE 2% MDV 20 ML VIAL SC SCH (10:15)
[2017-09-03] MEDS: LISINOPRIL *2.5 MG* TAB PO SCH (11:16)
[2017-09-03 14:00] VITALS: BP 130/76
--- NOTE | 2017-09-03 15:23 | IPN ---
DATE: 09/03/2017 SUBJECTIVE: The patient is seen and examined in the room today. The patient is complaining about nonspecific left ear pain. Otherwise, denies any acute complaints or acute changes. Vital signs within normal range. OBJECTIVE: VITAL SIGNS: Temperature is 97.9, pulse is 74, respirations 19, blood pressure is 140/90, pulse oximetry is 98% on room air. GENERAL: No sign of acute distress. Alert and oriented times three. HEENT: Normocephalic, atraumatic. Extraocular movements are grossly intact. CARDIOVASCULAR: Positive S1, S2. Irregularly irregular. LUNGS: Clear to auscultation bilaterally. ABDOMEN: Soft, nontender, nondistended. Bowel sounds present. EXTREMITIES: No edema. LABORATORY DATA: WBC 9, hemoglobin 8.7, hematocrit 27.6, platelet count is 184. Sodium is 141, potassium 5, chloride is 112, carbon dioxide 21, BUN is 43, creatinine 2.6, GFR is 20.1, fasting glucose 202, calcium is 8.9. ASSESSMENT AND PLAN: 1. Nephrotic syndrome. The patient had a finding of elevated light chains. [place] Flaker and chicken boner/oncologist have been consulted. There is a plan for a bone marrow biopsy and renal biopsy. The patient's Eliquis has been on hold since yesterday morning. The patient had a skeletal survey, which is negative for lytic lesions. 2. Anemia of chronic disease. Hemoglobin and hematocrit are stable. No indication for blood transfusion at this moment. The patient is asymptomatic. Continue to follow. 3. Acute on chronic renal failure. The patient is scheduled for the renal biopsy and bone marrow biopsy. In the process of ruling out amyloidosis versus multiple myeloma. 4. Insulin dependent diabetes. On Levemir. On sliding scale and consistent carbohydrate diet. 5. History of hiatal hernia with abdominal pain. The patient is on proton pump inhibitor, Carafate. 6. History of atrial fibrillation. Eliquis is on hold in preparation for the renal and bone marrow biopsies. Heart rate in the satisfactory range. The patient is on metoprolol and Digoxin. 7. Deep vein thrombosis (DVT) prophylaxis. Eliquis will be on hold. The patient will be on TEDs, sequential compression device (SCD). [facility]
[2017-09-03] MEDS: ACETAMINOPHEN TAB 650MG DOSE (2X325MG) PO PRN (20:34)
[2017-09-03 20:36] VITALS: BP 210/110
[2017-09-03 22:10] VITALS: BP 210/110
[2017-09-03] MEDS ORDERED: METOPROLOL TART 25 MG TABLET PO ONE (22:30)
[2017-09-03 23:58] VITALS: BP 162/90
[2017-09-04] MEDS ORDERED: METOPROLOL TART 25 MG TABLET PO ONE (00:15)
[2017-09-04 00:20] LABS: BETA 2 MICROGLOBULIN 6.3 mg/L (0.6-2.4); IMMUNOGLOBULIN D 3.01 mg/dL (<14.11)
[2017-09-04 02:29] VITALS: BP 160/90
--- NOTE | 2017-09-04 06:20 | IPN ---
DATE: 09/03/2017 SUBJECTIVE: The patient is seen this morning at the bedside. She complains of nasal congestion. She otherwise denies any complaints. I had a discussion with her regarding renal biopsy planned on . REVIEW OF SYSTEMS: Negative for headaches, dizziness, vomiting, chest pain, palpitations, shortness of breath. Review of systems positive for nasal congestion, nausea. Remainder of review of systems is negative. VITAL SIGNS: Temperature 97.4, pulse 74, respiratory rate 19, blood pressure 138/57, saturating 98% on room air. INTAKE AND OUTPUT: Remains in net negative fluid balance. PHYSICAL EXAMINATION: The patient is seen at the bedside. She is in no acute distress lying in bed. HEAD AND NECK: Legally blind. Moist mucous membranes. No jugular venous distention. CARDIOVASCULAR: S1, S2. 2+ radial pulse. No edema in the extremities. LUNGS: Clear to auscultation bilaterally. ABDOMEN: Soft. Nontender. Positive bowel sounds. NEUROLOGIC: Legally blind. Otherwise no focal deficits. PSYCHIATRIC: She remains quiet and soft spoken, but generally asks appropriate questions regarding her medical issues. LABS: White count 9.0, hemoglobin 8.7 and platelets 184. Sodium 141, potassium 5.0, bicarbonate 21, BUN 43, creatinine 2.6, glucose 202, calcium 8.9. 24-hour urine collection with approximately 25 grams of protein. ASSESSMENT AND PLAN: 1. Nephrotic syndrome. The patient's 24-hour urine collection seemed to be appropriately corrected with a urine creatinine of 1 gram which is appropriate given her weight in kg. She had an immense amount of protein, 25 grams, on collection. Her Eliquis has been held and she is scheduled for pilot station kidney biopsy on , 09/05/2017, at 10:00 a.m. 2. Progressive deterioration renal function over the course of several months in the setting of nephrotic range proteinuria. Further treatment will depend upon kidney biopsy results. The patient continues on low dose IVONNE inhibitor. 3. History of atrial fibrillation. Eliquis can be resumed on 09/08/2017, three days post kidney biopsy. The patient remains on metoprolol and digoxin. 5. Hyperkalemia - mild, K of 5.0. Pt's diet is changed to 2gm potassium. MTDD
[2017-09-04] MEDS: SLF 3 ML SYR IV SCH ×3 (06:44→21:05)
[2017-09-04 08:19] LABS: INR 0.96
[2017-09-04] MEDS: SUCRALFATE 1 GM TAB PO SCH ×4 (08:41→21:04)
[2017-09-04] MEDS: HumaLOG INSULIN (NovoLOG) PER UNIT SC SCH ×4 (08:41→21:00)
[2017-09-04] MEDS: CALCITRIOL 0.25 MCG CAP (S0169) PO SCH (08:42)
[2017-09-04] MEDS: ATORVASTATIN 20 MG TAB PO SCH (08:42)
[2017-09-04] MEDS: METOPROLOL TARTRATE 100 MG TAB PO SCH ×2 (08:42→21:05)
[2017-09-04] MEDS: LEVEMIR (INSULIN DETEMIR) 1 UNITS/0.01ML SC SCH ×2 (08:43→21:05)
[2017-09-04] MEDS: DIGOXIN 0.125 MG TAB PO SCH (08:43)
[2017-09-04] MEDS: PANTOPRAZOLE 40MG INJ (PROTONIX) (C9113) IV SCH ×2 (08:44→21:05)
[2017-09-04] MEDS ORDERED: LISINOPRIL 5 MG TAB PO SCH (09:00)
[2017-09-04] MEDS ORDERED: LORazepam 1 MG TAB As Ordered ONE (10:41)
[2017-09-04] MEDS ORDERED: LORazepam 0.5 MG TAB PO SCH (11:00)
--- NOTE | 2017-09-04 11:42 | IPN ---
MEDICAL ONCOLOGY PROCEDURE NOTE: DATE OF SERVICE: 09/04/2017 Bone marrow aspirate and biopsy attempt. The patient was given information regarding risks, benefits and side effects of bone marrow aspirate and biopsy. Written and informed consent was obtained after explaining risks of infection, bleeding or pain at the site. The patient was prepped and draped in usual sterile fashion in a left lateral decubitus position. Time-out was taken to identify site. PROCEDURE: Bone marrow aspirate was performed at the right posterior superior iliac crest without complication. Bone marrow biopsy was attempted three times and despite subjective contact with bone and penetration into cortex, no core was obtained in trochanter. Overall, the patient tolerated procedure well with slight bleeding and slight pain. A pressure bandage was placed she was placed in supine position for 15 to 20-minute rest period. Specimens sent to lab. I have also spoke with lab about absence of core and differential diagnosis including amyloidosis. 09/05/[address] Vaughn of pathology confirms no core obtained but marrow was retrieved in aspirate. NO EVIDENCE of amyloid fibril/ deposition. Marrow appeared hypercellular, normal trilinear hematepoeisis. Final molecular and heme-path results to follow likely next week. I still recommend renal biopsy based on clinical suspicion for amyloidosis and high yield of affected organ. [facility]
[2017-09-04] MEDS: ACETAMINOPHEN TAB 650MG DOSE (2X325MG) PO PRN (13:49)
[2017-09-04 14:00] VITALS: BP 167/88
[2017-09-04 15:58] VITALS: BP 170/90
--- NOTE | 2017-09-04 18:00 | IPN ---
DATE: 09/04/2017 SUBJECTIVE: The patient is seen and examined in the room today. The patient is complaining about significant fatigue, not able to stay awake in the morning, but does not complain about any specific pain. Yesterday evening time, the patient did have uncontrolled blood pressure, systolic blood pressure was above 200s. OBJECTIVE: VITAL SIGNS: Temperature is 98.5, pulse is 72, respirations 18, blood pressure is 160/90, pulse oximetry 100% on room air. GENERAL: Fatigued, no sign of distress, alert and oriented times three, having difficulty maintaining prolonged wakefulness. HEENT: Normocephalic, atraumatic. Extraocular muscles intact. CARDIOVASCULAR : Positive S1, S2. Irregularly irregular heart rate in the target range. LUNGS: Clear to auscultation bilaterally. ABDOMEN: Soft, nontender, nondistended. Bowel sounds present. EXTREMITIES: No edema. ASSESSMENT AND PLAN: 1. Nephrotic syndrome. The patient had a finding of elevated light chains. Computer Help Desk Specialist and hematology/oncology have been consulted. The patient had a bone marrow biopsy today. The patient is scheduled to have a renal biopsy tomorrow. Eliquis has been on hold since Saturday. The patient had a skeletal survey, which showed negative for lytic lesions. Currently we are trying to rule out amyloidosis. 2. Anemia of chronic disease. Hemoglobin and hematocrit have been stable. Follow with a complete blood count (CBC) tomorrow. 3. Uncontrolled hypertension. The patient is already on significant metoprolol tartrate, which includes 200 mg by mouth in the morning and metoprolol tartrate 100 mg by mouth at night. The patient is also on Lisinopril. [facility] today to see if we can get better control of the patient's blood pressures. 4. History of hiatal hernia with abdominal pain. On proton pump inhibitor and Carafate. 5. History of atrial fibrillation. Eliquis has been on hold for the preparation of biopsy. Rate is in the satisfactory range. The patient is currently on metoprolol and digoxin. 6. Deep vein thrombosis (DVT) prophylaxis. Eliquis is on hold in preparation for the biopsy. The patient is currently on thromboembolic compression stockings (TEDS), sequential compression device (SCD).
[2017-09-04 21:00] VITALS: BP 164/92
[2017-09-04] MEDS: amLODIPine 5 MG TAB PO SCH (21:05)
[2017-09-05] VITALS (9 sets, daily range): BP systolic 142–168; BP diastolic 72–92
[2017-09-05] MEDS: ACETAMINOPHEN TAB 650MG DOSE (2X325MG) PO PRN ×2 (05:37→19:37)
[2017-09-05] MEDS: SLF 3 ML SYR IV SCH ×3 (05:38→20:58)
--- NOTE | 2017-09-05 06:23 | IPN ---
DATE: 09/04/2017 SUBJECTIVE: The patient is seen this morning at the bedside. She is having a bone marrow biopsy with Dr. Maynard. She denies any acute complaints. She is scheduled for kidney biopsy tomorrow at 10 a.m. her platelets and hemoglobin and international normalized ratio (INR) are all stable and she remains off Eliquis. REVIEW OF SYSTEMS: Positive for fatigue. Otherwise, no chest pain, palpitations, shortness of breath, vomiting or diarrhea. Review of systems is positive for chronic nausea, unchanged from prior. OBJECTIVE: VITAL SIGNS: Temperature 98.8, pulse 80, respiratory rate 18, blood pressure 167/88, saturating 100% on room air. INTAKE AND OUTPUT: Urine output yesterday 2300 mL. Weight in the bed scale today 82.9 kg. PHYSICAL EXAMINATION: GENERAL: The patient is seen lying prone, about to have a bone marrow biopsy in no acute distress. HEAD/NECK: Legally blind. Moist mucous membranes. Neck is supple. CARDIOVASCULAR: S1, S2.. 2+ radial pulse. No edema in the extremities. LUNGS: Clear to auscultation bilaterally. ABDOMEN: Soft, obese, doughy, nontender with bowel sounds. EXTREMITIES: No edema. LABORATORY DATA: White count 9.0, hemoglobin 8.7, platelets 184. Sodium 141, potassium 5.0, bicarbonate 21, calcium 8.9. ASSESSMENT AND PLAN: 1. Nephrotic syndrome. The patient is status post bone marrow biopsy today. She is scheduled for kidney biopsy tomorrow at 10 a.m. her oral Eliquis can be resumed on Saturday, barring any complications from biopsy. 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 2. Chronic kidney disease in the setting of nephrotic syndrome. Over the past several months, the patient has had steady deterioration in glomerular filtration rate (GFR) with concomitant nephrotic range proteinuria. Her GFR remains fairly stable at present. 3. Anemia of chronic kidney disease. Hemoglobin has been in the eight's. Her platelet count is stable and her INR is not elevated. Daily CBC after renal biopsy. 4. History of atrial fibrillation. Rate is well controlled. Eliquis is currently on hold. [facility]
[2017-09-05 06:53] LABS: MEAN CORPUSCULAR HEMOGLOBIN 27.5 pg (27.0-33.0); MEAN CORPUSCULAR HGB CONC 31.8 g/dl (32.0-36.5); MEAN CORPUSCULAR VOLUME 86.6 fl (80.0-96.0); RED CELL DISTRIBUTION WIDTH 16.1 % (11.5-14.5); WHITE BLOOD COUNT 8.3 10^3/uL (4.0-10.0)
[2017-09-05 07:04] LABS: INR 0.94
[2017-09-05 07:19] LABS: ALBUMIN 1.8 GM/DL (3.2-5.2); ALBUMIN/GLOBULIN RATIO 0.5 (1.00-1.93); BILIRUBIN,TOTAL 0.3 MG/DL (0.2-1.0); CALCIUM LEVEL 8.9 MG/DL (8.5-10.1); CREATININE FOR GFR 3.05 MG/DL (0.55-1.02); GLOMERULAR FILTRATION RATE 16.7 (>51); POTASSIUM SERUM 5.1 MEQ/L (3.5-5.1); TOTAL PROTEIN 5.4 GM/DL (6.4-8.2)
[2017-09-05] MEDS: SUCRALFATE 1 GM TAB PO SCH ×4 (07:52→20:52)
[2017-09-05] MEDS: LEVEMIR (INSULIN DETEMIR) 1 UNITS/0.01ML SC SCH ×2 (07:53→20:56)
[2017-09-05] MEDS: ATORVASTATIN 20 MG TAB PO SCH (08:14)
[2017-09-05] MEDS: HumaLOG INSULIN (NovoLOG) PER UNIT SC SCH ×4 (08:14→20:54)
[2017-09-05] MEDS: METOPROLOL TARTRATE 100 MG TAB PO SCH ×2 (08:14→20:53)
[2017-09-05] MEDS: PANTOPRAZOLE 40MG INJ (PROTONIX) (C9113) IV SCH ×2 (08:15→22:02)
[2017-09-05] MEDS ORDERED: LISINOPRIL 10 MG TAB PO SCH (09:00)
--- NOTE | 2017-09-05 12:22 | IPN ---
DATE OF SERVICE: 09/05/2017 Ms. Gibbons is seen this morning on her bedside. She is feeling well and denies any new complaints other than discomfort at this site of her bone marrow biopsy yesterday. The patient has worsening kidney function and nephrotic syndrome. She is felt to have either multiple myeloma amyloidosis in view of elevated light chains of gammaglobulins. The patient denies any dyspnea or chest pain. She has no nausea, vomiting, headache, fever or chills. PHYSICAL EXAMINATION: Temperature 98.8 degrees Fahrenheit, heart rate 72 per minute and respiratory rate 18 per minute. Blood pressure 156/80 mmHg and oxygen saturation 98% on room air. Head is atraumatic. She is pale looking but not in any acute distress. Pupils are equal and reactive to light. Sclera is anicteric. Heart sounds are regular and lungs clear to auscultation. Abdomen soft and nontender. There is no palpable organomegaly and bowel sounds are normal. Extremities have no cyanosis or clubbing. Skin has no rash or ulcers. Neurologically she is awake, alert and oriented times three. She is legally blind due to diabetic retinopathy. Today's labs show WBC count 8.3, hemoglobin 8.4 and hematocrit 26.4. Platelets 199. Sodium 137 and potassium 5.1. BUN 47 and creatinine 3.0. Glucose 164 and calcium 8.9. Her albumin is only 1.8 and total protein 5.4. PROBLEMS: 1. Acute kidney injury superimposed on chronic kidney disease. The patient does have significant underlying chronic kidney disease. Her creatinine was 3.5 on admission which improved to 2.6. However, it is back to 3.0 again today. She has no uremic symptoms. She is likely to require dialysis in near future unless we find a treatable cause of her kidney failure. 2. Nephrotic syndrome. The patient has elevated light chains and we suspect multiple myeloma or amyloidosis. A diagnostic kidney biopsy is scheduled for today. 3. Hypertension. Blood pressure control is somewhat suboptimal. Lisinopril dose is being increased to 10 mg daily. She is already on high-dose beta radhika and calcium channel radhika. We will continue to monitor her blood pressure closely and make further adjustments. 4. Anemia. This is a chronic issue and she does have iron deficiency. Iron supplement will need to be continued. She is currently not on any iron supplement, so I am adding it.
[2017-09-05] MEDS: FERROUS GLUCONATE 324 MG TAB PO SCH ×2 (13:37→20:54)
--- NOTE | 2017-09-05 17:43 | IPN ---
DATE: 09/05/2017 SUBJECTIVE: The patient is seen and examined in the room after her renal biopsy. The patient stated she tolerated the renal biopsy well. No significant pain afterwards. The patient does still complain about some soreness at the bone biopsy site. Denies any acute complaint or acute changes. OBJECTIVE: VITAL SIGNS: Temperature is 97.9, pulse is 66, respirations 18, blood pressure is 168/86, pulse oximetry is 99% in room air. GENERAL: No sign of distress, alert and oriented times three. HEENT: Normocephalic, atraumatic. Extraocular motor grossly intact. CARDIOVASCULAR : Positive S1, S2, irregularly irregular. LUNGS: Clear to auscultation bilaterally. ABDOMEN: Soft, nontender, nondistended. Bowel sounds present. EXTREMITIES: No edema. No sign of cyanosis. LABORATORY DATA: WBC is 8.3, hemoglobin is 8.4, hematocrit is 26.4, platelet count is 199. Sodium is 137, potassium is 5.1, carbon dioxide 20, BUN is 47, creatinine 3.07, GFR is 16.7, fasting glucose 164, calcium is 8.9, total bilirubin 0.3, AST is 13, ALT is 17, alkaline phosphatase is 46, total protein is 5.4, albumin 1.8. ASSESSMENT AND PLAN: 1. Nephrotic syndrome. The patient had a bone marrow biopsy performed on 09/04/2017. The patient had a renal biopsy performed on 09/05/2017. We will follow with the pathologist's report. The patient's Eliquis has been on hold. The patient had a skeletal survey which showed negative for lesion. Currently, we will try to rule out amyloidosis. 2. Uncontrolled hypertension. Blood pressure medications are being adjusted. The patient is on metoprolol tartrate, lisinopril and Norvasc. 3. History of hiatal hernia with abdominal pain. Continue with proton pump inhibitor (PPI) and Carafate. 4. History of atrial fibrillation. Eliquis on hold in preparation for the biopsy. Rate in the satisfactory range. The patient is currently on metoprolol and digoxin. 5. Deep vein thrombosis (DVT) prophylaxis. The patient is on thromboembolic compression stockings (TEDS), sequential compression device (SCD).
--- NOTE | 2017-09-05 19:06 | RO ---
DATE OF PROCEDURE: 09/05/2017 PREPROCEDURE DIAGNOSIS: Nephrotic syndrome. POSTPROCEDURE DIAGNOSIS: Nephrotic syndrome. SURGEON: Ghada Reid MD STUDENT CAREER DEVELOPMENT SPECIALIST: ANESTHESIA: PROCEDURE: Left kidney biopsy under ultrasound guidance. DESCRIPTION: Informed consent is obtained from the patient for a left kidney biopsy. Procedure was explained to her. The patient was brought to ultrasound room and put in prone position. Left kidney was identified with ultrasound. Skin was cleaned and prepped in usual sterile fashion. 1% lidocaine was used for local anesthesia. Under direct ultrasound guidance, left kidney biopsy was performed and good sample of kidney tissue was obtained, which is being sent to pathology. The patient tolerated the procedure very well. There were no immediate complications. After the procedure, ultrasound was done and only minimal amount of perinephric hematoma was noted. The patient is being transferred to recovery room and back to her room.
[2017-09-05] MEDS: amLODIPine 5 MG TAB PO SCH (20:54)
[2017-09-06 04:57] VITALS: BP 148/62
[2017-09-06] MEDS: SLF 3 ML SYR IV SCH ×3 (05:22→20:38)
[2017-09-06 06:59] LABS: MEAN CORPUSCULAR HEMOGLOBIN 27.3 pg (27.0-33.0); MEAN CORPUSCULAR HGB CONC 31.5 g/dl (32.0-36.5); MEAN CORPUSCULAR VOLUME 86.7 fl (80.0-96.0); RED CELL DISTRIBUTION WIDTH 15.8 % (11.5-14.5)
[2017-09-06 07:10] LABS: CREATININE FOR GFR 3.06 MG/DL (0.55-1.02); GLOMERULAR FILTRATION RATE 16.7 (>51)
[2017-09-06 07:11] LABS: POTASSIUM SERUM 5.7 MEQ/L (3.5-5.1)
[2017-09-06] MEDS ORDERED: SOD POLYSTYRENE SULFONATE SUSP 15 GM/60 ML UD PO ONE (08:00)
[2017-09-06] MEDS: PANTOPRAZOLE 40MG INJ (PROTONIX) (C9113) IV SCH ×2 (08:42→20:37)
[2017-09-06] MEDS: FERROUS GLUCONATE 324 MG TAB PO SCH ×2 (08:42→20:36)
[2017-09-06] MEDS: HumaLOG INSULIN (NovoLOG) PER UNIT SC SCH ×4 (08:42→20:38)
[2017-09-06] MEDS: ATORVASTATIN 20 MG TAB PO SCH (08:43)
[2017-09-06] MEDS: hydroCHLOROthiazide 12.5 MG CAPSULE PO SCH (08:43)
[2017-09-06] MEDS: SUCRALFATE 1 GM TAB PO SCH ×4 (08:43→20:36)
[2017-09-06] MEDS: CALCITRIOL 0.25 MCG CAP (S0169) PO SCH (08:44)
[2017-09-06] MEDS: METOPROLOL TARTRATE 100 MG TAB PO SCH ×2 (08:44→20:37)
[2017-09-06] MEDS: LEVEMIR (INSULIN DETEMIR) 1 UNITS/0.01ML SC SCH ×2 (08:45→20:38)
[2017-09-06] MEDS: DIGOXIN 0.125 MG TAB PO SCH (08:47)
--- NOTE | 2017-09-06 13:39 | IPN ---
DATE: 09/06/2017 Ms. Gibbons is seen this morning on her bedside. She underwent left kidney biopsy yesterday without any complications. She is feeling well and denies any pain at the site of biopsy. She did not have any gross hematuria. She denies any nausea, vomiting, dyspnea or chest pain. She is legally blind and her activities are limited. She remains mostly in her bed. On physical examination, temperature 98.9 degrees Fahrenheit, heart rate 74 per minute and respiratory rate 18 per minute. Blood pressure 148/62 mmHg and oxygen saturation 99% on room air. Her head is atraumatic. Neck is supple and jugular venous distention (JVD) seems to be mildly elevated. Ears, nose and throat are unremarkable. Heart sounds are regular and lungs clear to auscultation. Abdomen is soft, obese and nontender. On the back, she has a dressing at the site of bone marrow biopsy and at the site of kidney biopsy. Both dressings are intact and dry. There is no hematoma or bleeding noticed. Extremities have no cyanosis or clubbing. Neurologically, she has no focal deficit. Today's labs show WBC count 8.0, hemoglobin 9.0 and hematocrit 28.6. Sodium 137 and potassium is 5.7. BUN 51 and creatinine 3.06. Glucose 206 and calcium 9.0. PROBLEMS: 1. Acute kidney injury superimposed on chronic kidney disease. This is most likely related to elevated free light chains. We suspect that she might have amyloidosis or multiple myeloma. The patient underwent a diagnostic kidney biopsy yesterday and results are pending. She is currently not being treated pending biopsy results. She is not dehydrated and she is currently not on any nephrotoxic medication. 2. Hyperkalemia. Most likely this is a result of IVONNE inhibitor use and probably some hematoma caused by kidney biopsy yesterday. I am going to stop her lisinopril for now and will give her one dose of Kayexalate 15 grams today. Electrolytes will be checked again tomorrow morning. I am also starting her on low dose of hydrochlorothiazide 25 mg daily which will help with hypertension in addition to prevention of hyperkalemia. 3. Hypertension. Blood pressure seems to be better controlled with increased dose of lisinopril given yesterday; however, she has developed hyperkalemia. Lisinopril is being stopped and hydrochlorothiazide 25 mg once a day is being added. She will continue with amlodipine and metoprolol as previously. 4. Anemia. Her anemia is stable and we will continue to monitor closely. This is most likely related to bone marrow problem in addition to her chronic kidney disease. She had a bone marrow biopsy done a couple of days ago and I will defer any further treatment to oncology. She has been started on ferrous gluconate due to iron deficiency. 5. Disposition. At this point, the patient is not completely ready for discharge. We will recheck her electrolytes tomorrow and consider for discharge. 6. Proteinuria. The patient is known to have massive proteinuria with elevated free light chains in her serum. We have a suspicion for amyloidosis or multiple myeloma. The patient underwent kidney biopsy yesterday. Unfortunately, she is not suitable for IVONNE inhibitor or angiotensin receptor radhika due to hyperkalemia. She is not receiving any other therapies for proteinuria pending biopsy results.
[2017-09-06 14:00] VITALS: BP 140/71
--- NOTE | 2017-09-06 17:16 | IPN ---
DATE: 09/06/2017 SUBJECTIVE: The patient is seen and examined in the room today. The patient continues to complain about persistent fatigue. Denies any acute changes. The pain at the bone marrow biopsy site has improved. Tolerated the diet well. No issues with bowel movement or urination. OBJECTIVE: VITAL SIGNS: Temperature is 98.9, pulse is 74, respirations 18, blood pressure 148/62, pulse oximetry is 99% in room air. GENERAL: Fatigued. No sign of acute distress. Alert and oriented times three. HEENT: Normocephalic, atraumatic. Extraocular motor grossly intact. CARDIOVASCULAR: Positive S1, S2, irregular irregular. LUNGS: Clear to auscultation bilaterally. ABDOMEN: Soft, nontender, nondistended. Bowel sounds present. No rebound, no guarding. EXTREMITIES: No edema, no cyanosis. LABORATORY DATA: WBC 8, hemoglobin 9, hematocrit 28.6, platelet count is 216. Sodium is 137, potassium 5.7, chloride is 110, carbon dioxide 20, BUN 51, creatinine 3.06, GFR is 16.7, fasting glucose is 206, calcium is 9. ASSESSMENT AND PLAN: 1. Nephrotic syndrome. Patient had a bone marrow biopsy performed on 09/04/2017. Renal biopsy performed on 09/05/2017. Will continue to follow with pathology report. Patient's Eliquis has been on hold. Currently, we are in the process of ruling out amyloidosis versus multiple myelomas. 2. Uncontrolled blood pressure. Currently the patient's blood pressure medication is being adjusted actively. We appreciate the shactor helper's assistance for patient's medication adjustment. 3. History of hiatal hernia with abdominal pain. On proton pump inhibitor (PPI) and Carafate and currently does not have a complaint about abdominal pain. 4. Atrial fibrillation. Eliquis was on hold in preparation of the biopsy. We will resume at appropriate time. The patient's heart rate is in satisfactory range. The patient is on metoprolol and digoxin. 5. Deep vein thrombosis (DVT) prophylaxis. On thromboembolism deterrents (TEDs), sequential compression device.
[2017-09-06 20:34] VITALS: BP 145/74
[2017-09-06] MEDS: amLODIPine 5 MG TAB PO SCH (20:36)
[2017-09-07] MEDS: SLF 3 ML SYR IV SCH ×3 (05:33→21:58)
[2017-09-07 06:00] VITALS: BP 153/80
[2017-09-07 06:40] LABS: MEAN CORPUSCULAR HEMOGLOBIN 27.7 pg (27.0-33.0); MEAN CORPUSCULAR VOLUME 86.5 fl (80.0-96.0); RED CELL DISTRIBUTION WIDTH 15.9 % (11.5-14.5); WHITE BLOOD COUNT 8.2 10^3/uL (4.0-10.0)
[2017-09-07 07:06] LABS: CREATININE FOR GFR 3.23 MG/DL (0.55-1.02); GLOMERULAR FILTRATION RATE 15.7 (>51)
[2017-09-07] MEDS: PANTOPRAZOLE 40MG INJ (PROTONIX) (C9113) IV SCH (08:29)
[2017-09-07] MEDS: FERROUS GLUCONATE 324 MG TAB PO SCH ×2 (08:30→21:56)
[2017-09-07] MEDS: LEVEMIR (INSULIN DETEMIR) 1 UNITS/0.01ML SC SCH ×2 (08:30→21:58)
[2017-09-07] MEDS: HumaLOG INSULIN (NovoLOG) PER UNIT SC SCH ×4 (08:30→21:58)
[2017-09-07] MEDS: hydroCHLOROthiazide 12.5 MG CAPSULE PO SCH (08:30)
[2017-09-07] MEDS: SUCRALFATE 1 GM TAB PO SCH ×4 (08:31→21:56)
[2017-09-07] MEDS: METOPROLOL TARTRATE 100 MG TAB PO SCH ×2 (08:31→21:57)
[2017-09-07] MEDS: ATORVASTATIN 20 MG TAB PO SCH (08:31)
--- NOTE | 2017-09-07 11:56 | REP ---
Ultrasound guidance for left renal biopsy. Sonographic guidance is provided to Dr. Reid who performed ultrasound-guided needle biopsy of the lower pole left kidney. Signed by Torres Honeycutt MD 09/07/2017 02:18 P
[2017-09-07 14:55] VITALS: BP 130/58
--- NOTE | 2017-09-07 15:03 | IPN ---
DATE: 09/07/2017 SUBJECTIVE: Patient seen and examined in the room today. Patient continues to complain of persistent fatigue and low energy. No issues with oral intake. No fever. No chills. No chest pain. No difficulty breathing. No issues with urination or bowel movements. OBJECTIVE: VITAL SIGNS: Temperature is 98.8, pulse 77, respirations 16, blood pressure is 153/80, pulse oximetry 98% in room air. Morbidly obese. No acute distress. Alert and oriented times three. HEENT: Normocephalic, atraumatic. Extraocular motor grossly intact. CARDIOVASCULAR: Positive S1, S2, irregularly irregular. LUNGS: Clear to auscultation bilaterally. ABDOMEN: Soft, nontender, nondistended. Bowel sounds present. EXTREMITIES: No edema. No sign of cyanosis. LABORATORY DATA: WBC is 8.2, hemoglobin is 8.2, hemoglobin 25.6, platelet count is 193. Sodium is 138, potassium 5, chloride 110, carbon dioxide 20, BUN 63, creatinine is 2.23, GFR is 15.7, fasting glucose is 170, calcium is 9. ASSESSMENT AND PLAN: 1. Nephrotic syndrome. Patient continues to have slow decline of renal function. Bone marrow biopsy was performed 09/04/2017, and renal biopsy performed 09/05/2017. They are waiting for official report. Patient's Eliquis has been on hold. Currently we are in the process ruling out amyloidosis versus multiple myeloma. 2. Uncontrolled blood pressure. Medication has been adjusted actively. The patient's blood pressure is improving. Appreciate nephrology's assistance. 3. History of hiatal hernia with abdominal pain. On proton pump inhibitor (PPI) and Carafate. Currently does not complain about any abdominal pain. 4. Atrial fibrillation. Eliquis on hold. Will restart at appropriate time. Rate in the satisfactory range on metoprolol and digoxin. 5. Deep vein thrombosis (DVT) prophylaxis. Thromboembolic deterrents (TEDs) and sequential compression devices. DISPOSITION: Currently we are still waiting for the pathology report for the bone marrow biopsy and renal biopsy. Patient had physical therapy on 09/06/2017; however, patient still determined not safe for discharge.
--- NOTE | 2017-09-07 21:33 | IPN ---
DATE: 09/07/2017 SUBJECTIVE: Ms. Gibbons is seen this morning on her bedside. She is lying in the bed comfortably. She denies any nausea, vomiting, fever, chills, dyspnea, chest pain or leg edema. She denies any pain at the kidney biopsy or bone marrow biopsy site. PHYSICAL EXAMINATION: VITAL SIGNS: Temperature 98.8 degrees Fahrenheit, heart rate 77 per minute and respiratory rate 16 per minute. Blood pressure 153/80 mmHg and oxygen saturation 98% on room air. HEENT: Head is atraumatic. She is blind from both eyes. Neck veins are not abnormally distended. Her neck is supple and without any thyroid enlargement. Trachea is midline. CARDIORESPIRATORY: Heart sounds are regular and lungs sound clear to auscultation. ABDOMEN: Soft, nontender and without a palpable organomegaly. She has dressing on the back where she had her kidney biopsy and bone marrow biopsy and both dressings are dry and intact. EXTREMITIES: Have no cyanosis or clubbing. NEUROLOGIC: She is awake, alert and oriented times three. She is blind from both eyes. LABORATORY DATA: Today's labs show hemoglobin 8.2 and hematocrit 25.6. Platelets 193. Sodium 138 and potassium 5.0. BUN 63 and creatinine 3.26. Glucose 117, calcium 9.0. PROBLEMS: 1. Acute kidney injury superimposed on chronic kidney disease. Kidney function has worsened slightly since yesterday. Her angiotension-converting enzyme (IVONNE) inhibitor has already been stopped and she is not on any nephrotoxic medications. Low-dose hydrochlorothiazide was started yesterday and her urine output was only 900 mL while intake was 1330 mL. At this point we will recheck her kidney function tomorrow. She has no uremic symptoms and there is no indication for urgent dialysis. 2. Hyperkalemia most likely related to acute and chronic kidney disease and use of use of IVONNE inhibitor. We stopped lisinopril yesterday and she was treated with Kayexelate. Electrolytes will be checked again tomorrow morning. 3. Anemia. There is no blood loss. Anemia is stable at about baseline. Iron supplement has already been started due to iron deficiency. 4. Hypertension. Blood pressure is reasonably well-controlled on current antihypertensive medications. 5. Disposition: The patient is not stable for discharge due to worsening kidney function.
[2017-09-07] MEDS: PANTOPRAZOLE 40MG TAB (PROTONIX) PO SCH (21:56)
[2017-09-07] MEDS: amLODIPine 5 MG TAB PO SCH (21:57)
[2017-09-07 22:00] VITALS: BP 147/66
[2017-09-08 06:00] VITALS: BP 130/60
[2017-09-08] MEDS: SLF 3 ML SYR IV SCH ×3 (06:00→21:50)
[2017-09-08 06:24] LABS: MEAN CORPUSCULAR HEMOGLOBIN 26.9 pg (27.0-33.0); MEAN CORPUSCULAR HGB CONC 30.9 g/dl (32.0-36.5); MEAN CORPUSCULAR VOLUME 86.9 fl (80.0-96.0); RED CELL DISTRIBUTION WIDTH 15.9 % (11.5-14.5); WHITE BLOOD COUNT 8.2 10^3/uL (4.0-10.0)
[2017-09-08 06:36] LABS: CALCIUM LEVEL 8.6 MG/DL (8.5-10.1); CREATININE FOR GFR 3.29 MG/DL (0.55-1.02); GLOMERULAR FILTRATION RATE 15.3 (>51)
[2017-09-08] MEDS: HumaLOG INSULIN (NovoLOG) PER UNIT SC SCH ×4 (07:30→21:50)
[2017-09-08] MEDS: LEVEMIR (INSULIN DETEMIR) 1 UNITS/0.01ML SC SCH ×2 (09:00→21:00)
[2017-09-08 09:17] LABS: REASON FOR REVIEW COMPREHENSIVE REVIEW
[2017-09-08 09:27] LABS: MAGNESIUM LEVEL 1.9 MG/DL (1.8-2.4); PERCENT SATURATION 17.3 % (13.2-45.0); RETIC HEMOGLOBIN EQUIVALENT 33.4 pg (24-36)
[2017-09-08] MEDS: PANTOPRAZOLE 40MG TAB (PROTONIX) PO SCH ×2 (09:30→21:48)
[2017-09-08] MEDS: DIGOXIN 0.125 MG TAB PO SCH (09:30)
[2017-09-08] MEDS: ATORVASTATIN 20 MG TAB PO SCH (09:30)
[2017-09-08] MEDS: METOPROLOL TARTRATE 100 MG TAB PO SCH ×2 (09:30→21:47)
[2017-09-08] MEDS: FERROUS GLUCONATE 324 MG TAB PO SCH ×2 (09:31→21:47)
[2017-09-08] MEDS: SUCRALFATE 1 GM TAB PO SCH ×4 (09:33→21:48)
[2017-09-08] MEDS: ONDANSETRON 4MG/2ML VIAL (J2405) IV PRN (12:07)
[2017-09-08] MEDS: hydroCHLOROthiazide 12.5 MG CAPSULE PO SCH (12:07)
[2017-09-08] MEDS: SODIUM BICARBONATE 325 MG TAB PO SCH ×2 (15:02→21:47)
--- NOTE | 2017-09-08 16:54 | IPN ---
DATE: 09/08/2017 SUBJECTIVE: Ms. Gibbons is seen this afternoon on her bedside. She is feeling tired and is currently receiving blood transfusion. She denies any nausea or vomiting. However, did have some abdominal discomfort this morning. She denies any rectal bleeding or history of hemorrhoids. She has no dyspnea, chest pain, fever or chills. PHYSICAL EXAMINATION: VITAL SIGNS: Temperature 97.5 degrees Fahrenheit, heart rate 69 per minute and respiratory rate 16 per minute. Blood pressure 130/60 mmHg this morning and 162/76 mmHg at 09:30 a.m. HEAD/NECK: Her head is atraumatic. Neck is supple and without jugular venous distention (JVD) or thyroid enlargement. Ears, nose and throat are unremarkable. CARDIORESPIRATORY: Heart sounds are regular and lungs clear to auscultation bilaterally. ABDOMEN: Soft, nontender and without a palpable organomegaly. Bowel sounds are normal. EXTREMITIES: Have no cyanosis or clubbing. She has no peripheral edema at present. LABORATORY DATA: Today's labs show WBC count 8.2, hemoglobin 7.6 and hematocrit 24.6. Platelets 190. Reticulocyte count is 80.7. Her chemistry showed a sodium level 136 and potassium 5.0. BUN is up to 69 and creatinine 3.29. Calcium 8.6, magnesium 1.9, iron 44, saturation 17.9 and ferritin 97. LDH is normal at 216. PROBLEMS: 1. Acute kidney injury superimposed on chronic kidney disease. She has gradual worsening of kidney function. She does have history of proteinuria with elevated free light chains. We suspect that she has multiple myeloma or amyloidosis causing her worsening kidney function. Kidney biopsy has been performed and results are pending. At this point, she does not have any overt uremic symptoms and there is no urgent indication for dialysis. It is quite possible that she might require dialysis in near future. 2. Metabolic acidosis. Her acidosis is getting worse as the kidney function is declining. Sodium bicarbonate 650 mg twice a day is being started by mouth. 3. Anemia. She has worsening anemia without any evidence of acute blood loss. Lactate dehydrogenase (LDH) is normal and her liver function tests (LFTs) were normal just couple of days ago. She had a bone marrow biopsy done and results are pending. There is no clinical evidence for hemolysis or acute blood loss. Stool for occult blood has already been ordered. Worsening anemia is also possibly related to bone marrow issues. We will wait for bone biopsy results. She also has iron deficiency and continues with oral iron supplement. 4. Hypertension. Blood pressure is reasonable and we will continue with current antihypertensive medications. I do not feel that low-dose hydrochlorothiazide is affecting her kidney function. DISPOSITION: At this point the patient is not safe for discharge. She has declining kidney function and worsening anemia and it is quite possible that she might require dialysis soon.
--- NOTE | 2017-09-08 17:25 | IPN ---
DATE: 09/08/2017 SUBJECTIVE: Patient is seen and examined in the room today. Patient continues to complain about fatigue. Patient does not know the color of her stool because of visual impairment. Patient did mention that she had a low hemoglobin and hematocrit previously and patient was diagnosed with a hemolytic anemia by Dr. May many years ago. No overnight events reported. OBJECTIVE: VITAL SIGNS: Temperature 97.5, pulse 69, respirations 16, blood pressure 130/60, pulse oximetry 96% in room air. GENERAL: Fatigued, no sign of acute distress, alert and oriented times three. HEENT: Normocephalic, atraumatic. Extraocular motors grossly intact. CARDIOVASCULAR: Irregularly irregular, positive S1, S2. LUNGS: Clear to auscultation bilaterally. ABDOMEN: Soft, nontender, nondistended. Bowel sounds present. EXTREMITIES: No edema. No cyanosis. LABORATORY DATA: WBC 8.2, hemoglobin 7.6, hematocrit 24.6, platelet count 190. Sodium 136, potassium 5, chloride 109, carbon dioxide 17, BUN 69, creatinine 3.29, GFR 15.3, fasting glucose 217, calcium 8.6, magnesium 1.9, iron 44, TIBC 255, ferritin 97, LDH 216. ASSESSMENT AND PLAN: 1. Symptomatic anemia. Blood consent was obtained from the patient. Patient will receive one pack of red blood cell transfusion in the morning. Patient's hemoglobin is 7.6, hematocrit of 24.6. Peripheral smear is ordered. Anemia workup is also ordered. 2. Nephrotic syndrome. Currently, patient had a renal biopsy performed on 09/05/2017, and patient also had a bone marrow biopsy performed on 09/04/2017. Awaiting for the official report. Currently, will try to rule out amyloidosis versus multiple myeloma. 3. Uncontrolled blood pressure. Blood pressures show better improvement. On 09/03/2017, patient had multiple episodes of blood pressure over 210. Currently, systolic blood pressure is wandering between 130-160s. 4. History of hiatal hernia with abdominal pain. Patient is on proton pump inhibitor (PPI) and Carafate. No recurrence of abdominal pain. 5. Atrial fibrillation. Eliquis has been on hold in preparation for the biopsy. Currently, with concern for acute bleeding, will continue to hold Eliquis. Patient is currently rate controlled with metoprolol and digoxin. 6. Deep venous thrombosis (DVT) prophylaxis. On thromboembolism deterrents (TEDs) and sequential compression device.
[2017-09-08] MEDS: ACETAMINOPHEN TAB 650MG DOSE (2X325MG) PO PRN (21:48)
[2017-09-08] MEDS: amLODIPine 5 MG TAB PO SCH (21:48)
[2017-09-08 22:00] VITALS: BP 150/76
[2017-09-09] MEDS: SLF 3 ML SYR IV SCH ×3 (05:22→21:36)
[2017-09-09 06:00] VITALS: BP 114/60
[2017-09-09 06:06] LABS: MEAN CORPUSCULAR HEMOGLOBIN 27.2 pg (27.0-33.0); MEAN CORPUSCULAR HGB CONC 31.3 g/dl (32.0-36.5); RED CELL DISTRIBUTION WIDTH 15.9 % (11.5-14.5); WHITE BLOOD COUNT 6.9 10^3/uL (4.0-10.0)
[2017-09-09 06:22] LABS: CALCIUM LEVEL 8.7 MG/DL (8.5-10.1); CREATININE FOR GFR 3.39 MG/DL (0.55-1.02); GLOMERULAR FILTRATION RATE 14.8 (>51)
[2017-09-09 06:26] LABS: POTASSIUM SERUM 5.4 MEQ/L (3.5-5.1)
[2017-09-09] MEDS: HumaLOG INSULIN (NovoLOG) PER UNIT SC SCH ×4 (08:17→21:35)
[2017-09-09] MEDS: SUCRALFATE 1 GM TAB PO SCH ×4 (08:17→21:34)
[2017-09-09] MEDS: SODIUM BICARBONATE 325 MG TAB PO SCH ×2 (08:18→21:34)
[2017-09-09] MEDS: PANTOPRAZOLE 40MG TAB (PROTONIX) PO SCH ×2 (08:18→21:35)
[2017-09-09] MEDS: FERROUS GLUCONATE 324 MG TAB PO SCH ×2 (08:18→21:35)
[2017-09-09] MEDS: CALCITRIOL 0.25 MCG CAP (S0169) PO SCH (08:18)
[2017-09-09] MEDS: ATORVASTATIN 20 MG TAB PO SCH (08:18)
[2017-09-09] MEDS: LEVEMIR (INSULIN DETEMIR) 1 UNITS/0.01ML SC SCH ×2 (08:18→21:00)
[2017-09-09] MEDS: METOPROLOL TARTRATE 100 MG TAB PO SCH ×2 (08:20→21:34)
[2017-09-09] MEDS: hydroCHLOROthiazide 12.5 MG CAPSULE PO SCH (08:35)
[2017-09-09 09:27] LABS: FOLATE 11.3 NG/ML (>5.4)
--- NOTE | 2017-09-09 12:25 | IPN ---
DATE OF VISIT: 09/09/2017 Ms. Gibbons is seen this morning on her bedside. She is lying in the bed without any acute distress. She reports feeling tired but denies any nausea, vomiting, dyspnea or chest pain. On physical exam, temperature 97.7 degrees Fahrenheit, heart rate 72 per minute and respiratory rate 16 per minute. Blood pressure 114/60 mmHg and oxygen saturation 99% on room air. Intake and output records from yesterday showed total intake 1330 and output 2500. Her head is atraumatic. Neck is supple and without jugular venous distention (JVD) or thyroid enlargement. She is legally blind. Heart sounds are regular and without a pericardial friction rub. Lungs sound clear to auscultation bilaterally. Abdomen soft and nontender and without palpable organomegaly. Bowel sounds are normal. Extremities have no cyanosis or clubbing. Skin has no rash or ulcers. Neurologically she is awake, alert and oriented times three. Today's labs show WBC count 6.9, hemoglobin 8.8 and hematocrit 28.1. Platelets 210. Sodium 139 and potassium 5.4, CO2 19, BUN 73 and creatinine 3.39. Calcium level 8.7. PROBLEMS: 1. Acute kidney injury superimposed on chronic kidney disease. She has gradual decline in her kidney function. She has no overt uremic symptoms. However, her glomerular filtration rate (GFR) is now less than 15. I have discussed with the patient about potential need for dialysis unless her kidney function starts improving. We will continue to monitor closely. We are waiting for results of her kidney biopsy. 2. Hyperkalemia. This is mild and most likely related to blood transfusion that she received yesterday. At this point. we will monitor without any intervention. She is already on low-dose diuretic, which will be continued. Electrolytes will be checked again tomorrow morning. 3. Metabolic acidosis related to acute and chronic kidney disease. She is on sodium bicarbonate supplement and her acidosis is stable. 4. Recurrent anemia. Patient received 1 unit of packed red blood cells (RBCs) yesterday. Complete blood count (CBC) be checked again tomorrow morning. At this point, there is no need for further transfusion. She has remote history of hemolytic anemia, however does not have any evidence for hemolysis at this point. Stool occult blood was negative on 09/02/2017. 5. Hypertension. Blood pressure is very well controlled on current antihypertensive medications. No changes are being made today. 6. Proteinuria. Patient has significant amount of proteinuria and a kidney biopsy has been done. Results are pending. She does have elevated free light chains. We suspect amyloidosis or multiple myeloma. She also had a bone marrow biopsy done and results that are also pending.
[2017-09-09 14:00] VITALS: BP 130/62
[2017-09-09 15:28] LABS: MEAN CORPUSCULAR HEMOGLOBIN 28.3 pg (27.0-33.0); MEAN CORPUSCULAR HGB CONC 32.1 g/dl (32.0-36.5); MEAN CORPUSCULAR VOLUME 88.2 fl (80.0-96.0); RED CELL DISTRIBUTION WIDTH 16.1 % (11.5-14.5); WHITE BLOOD COUNT 8.4 10^3/uL (4.0-10.0)
--- NOTE | 2017-09-09 16:54 | IPN ---
DATE: 09/09/2017 SUBJECTIVE: The patient is seen and examined in the room today. Still complained about fatigue. No acute events reported. OBJECTIVE: VITAL SIGNS: Temperature 97.7, pulse is 73, respirations 16, blood pressure 114/60, pulse oximetry is 99% in room air. GENERAL: No sign of acute distress, alert and oriented times three. HEENT: Normocephalic, atraumatic. Extraocular motor grossly intact. Sign of visual impairment. CARDIOVASCULAR: Irregularly irregular, positive S1, S2. LUNGS: Clear to auscultation bilaterally. ABDOMEN: Soft, nontender, nondistended. Bowel sounds present. EXTREMITIES: No edema. No sign of cyanosis. LABORATORY DATA: WBC 8.4, hemoglobin 9.8, hematocrit 30.5, platelet count is 237. Sodium is 139, potassium 5.4, chloride is 112, carbon dioxide 19, BUN is 73, creatinine is 3.39, GFR is 14.8, fasting glucose 180. ASSESSMENT AND PLAN: 1. Acute on chronic kidney failure. Now, the patient's glomerular filtration rate (GFR) is only 14%. The patient continues to have decreased renal functions. Per Dr. Reid, renal biopsy result came back for diabetic nephropathy. I have consulted Dr. Mansfield for temporary dialysis catheter placement and for arteriovenous (AV) fistula. The patient will be planned for hemodialysis in the near future. Due to the finding for the light chains, we will try to rule out amyloidosis versus multiple myeloma. Bone marrow biopsy was performed. We will also followup with the result of the official report. 2. Symptomatic anemia. Consent received. The patient received one pack of red blood cell. We will follow with a repeat hemoglobin and hematocrit. 3. Uncontrolled blood pressure. The patient still has a large fluctuation of blood pressure. Today, blood pressure is under better improvement than previously. We will continue to monitor. 4. Atrial fibrillation. Eliquis was on hold a few days before and after the procedure. Now, we will restart the patient's Eliquis. The patient rate is controlled with metoprolol and digoxin. 5. Hiatal hernia with abdominal pain. Proton pump inhibitor (PPI) and Carafate. No recurrence. 6. Deep venous thrombosis (DVT) prophylaxis. The patient has thromboembolism deterrents (TEDs) and sequential compression device and the patient was restarted on Eliquis.
[2017-09-09] MEDS: APIXABAN 5 MG TAB (ELIQUIS) PO SCH (21:34)
[2017-09-09] MEDS: amLODIPine 5 MG TAB PO SCH (21:35)
[2017-09-09 22:00] VITALS: BP 168/90
[2017-09-10] MEDS: SLF 3 ML SYR IV SCH ×3 (05:13→21:56)
[2017-09-10 06:00] VITALS: BP 132/60
[2017-09-10 06:14] LABS: MEAN CORPUSCULAR HEMOGLOBIN 27.9 pg (27.0-33.0); MEAN CORPUSCULAR HGB CONC 32.1 g/dl (32.0-36.5); RED CELL DISTRIBUTION WIDTH 15.7 % (11.5-14.5); WHITE BLOOD COUNT 7.2 10^3/uL (4.0-10.0)
[2017-09-10 06:43] LABS: CALCIUM LEVEL 9.1 MG/DL (8.5-10.1); CREATININE FOR GFR 3.33 MG/DL (0.55-1.02); GLOMERULAR FILTRATION RATE 15.1 (>51)
[2017-09-10 06:45] LABS: POTASSIUM SERUM 5.3 MEQ/L (3.5-5.1)
[2017-09-10] MEDS: HumaLOG INSULIN (NovoLOG) PER UNIT SC SCH ×4 (07:30→21:00)
[2017-09-10] MEDS: ATORVASTATIN 20 MG TAB PO SCH (08:36)
[2017-09-10] MEDS: FERROUS GLUCONATE 324 MG TAB PO SCH ×2 (08:36→21:54)
[2017-09-10] MEDS: SODIUM BICARBONATE 325 MG TAB PO SCH ×2 (08:37→21:54)
[2017-09-10] MEDS: METOPROLOL TARTRATE 100 MG TAB PO SCH ×2 (08:37→21:55)
[2017-09-10] MEDS: SUCRALFATE 1 GM TAB PO SCH ×4 (08:37→21:55)
[2017-09-10] MEDS: LEVEMIR (INSULIN DETEMIR) 1 UNITS/0.01ML SC SCH ×2 (08:38→21:00)
[2017-09-10] MEDS: hydroCHLOROthiazide 12.5 MG CAPSULE PO SCH (08:38)
[2017-09-10] MEDS: PANTOPRAZOLE 40MG TAB (PROTONIX) PO SCH ×2 (08:38→21:54)
[2017-09-10] MEDS: DIGOXIN 0.125 MG TAB PO SCH (08:38)
[2017-09-10] MEDS: APIXABAN 5 MG TAB (ELIQUIS) PO SCH ×2 (09:00→21:54)
[2017-09-10 14:00] VITALS: BP 158/72
--- NOTE | 2017-09-10 16:54 | IPN ---
DATE: 09/10/2017 SUBJECTIVE: The patient tells me she is feeling well. She feels tired. She is a little bit down, as this morning she found out she was evicted from her apartment. She denies any chest pain, fevers, chills, nausea, vomiting, or diarrhea. OBJECTIVE: VITAL SIGNS: Temperature 97.3, pulse 71, respiratory rate 18, blood pressure 132/60, oxygen saturation 99% on room air. GENERAL: She is a middle aged female laying in bed flat on her left side. She does not appear to be in any distress whatsoever. She does appear to be pale. HEENT: Cranial nerves II-XII are grossly intact. She has moist mucous membranes. No appreciable elevation in central venous pressure (CVP). CARDIOVASCULAR: S1, S2, regularly irregular. No additional heart sounds appreciated. She is not tachycardic. RESPIRATORY EXAM: Clear. ABDOMINAL EXAM: Quite benign. EXTREMITIES: No clubbing, cyanosis, or edema. LABORATORY STUDIES: WBC 7.2, hemoglobin 9.2, hematocrit 28.7, platelet count 206. Chemistry panel: Sodium 138, potassium 5.3, stable from yesterday, chloride 112, bicarbonate 19, BUN 72, creatinine 3.3, stable. Stool occult for blood from 09/09/2017 was positive, on 09/02/2017 it was negative. No new imaging. No new pathology. ASSESSMENT AND PLAN: This is a 57-year-old female with acute on chronic kidney injury. 1. Acute on chronic kidney injury. She had significant proteinuria. There was concern for amyloidosis, multiple myeloma versus light chain deposition disease. Preliminary biopsy results are revealing for diabetic nephropathy. As such, Dr. Reid is contacting Dr. Mansfield for potential placement of an arteriovenous (AV) fistula. She does not have an emergent need for hemodialysis at this time. Should that need arise, would consider placement of a hemodialysis catheter if needed. For the time being, we will continue to monitor her potassium. Continue her on sodium bicarbonate, diuretic, calcitriol. Control her blood pressure. 2. Hyperkalemia, felt to be related to blood transfusion, is relatively stable. We will continue to monitor. 3. Hypertension. Fairly well controlled at the present time with hydrochlorothiazide, amlodipine, and metoprolol. Should she be hypertensive, would recommend increasing her amlodipine to 10 mg. 4. Anemia, likely multifactorial, improved with transfusions. No further need for transfusion at this time. Likely related to chronic kidney disease as well as possibly some iron deficiency. Nephrology's help is appreciated. 5. Atrial fibrillation. We have restarted her Eliquis. She did have an occult stool for blood that was positive. For the time being, we will simply monitor her hemoglobin and hematocrit as she is remaining in hospital. She is rate controlled with metoprolol. The patient is on digoxin as well. 6. Hiatal hernia. She is on a proton pump inhibitor and Carafate. She does not have any symptoms at the present time. 7. Deep venous thrombosis (DVT) prophylaxis. She is on Eliquis. 8. Type 2 diabetes. She is on sliding scale insulin and hypoglycemic protocol. DISPOSITION: Pending placement of her fistula, arrangement for hemodialysis outpatient potentially, and arranging for a new living environment as she is now homeless.
--- NOTE | 2017-09-10 19:12 | IPN ---
DATE: 09/10/2017 Ms. Gibbons is seen this morning on her bedside. She is feeling very depressed today as she heard the news about conviction of her family. She reports that her son and has no place to live anymore and she does not have any place to go her self. She remains weak and more depressed today. She has no dyspnea, chest pain, nausea or vomiting. She has no fever or chills. Her kidney biopsy results were reported over the phone with a preliminary results. She has basically diabetic nephropathy. There was no evidence of amyloidosis or light chain deposition disease. I have reviewed her kidney biopsy results with her and answered her questions. PHYSICAL EXAMINATION: Temperature 97.3 degrees Fahrenheit, heart rate 70 per minute and respiratory rate 18 per minute. Blood pressure 132/60 mmHg and oxygen saturation 99% on room air. Head: Is atraumatic. She is blind from both eyes. Neck: is supple and without JVD or thyroid enlargement. Heart: Sounds are regular and lungs clear to auscultation. Abdomen: Soft and nontender and without a palpable organomegaly. Bowel sounds are normal. Extremities: Have no cyanosis or clubbing. She has no peripheral edema. Neurologically: She is awake, alert and oriented times three. She is blind from both eyes. Today's labs show WBC count 7.2, hemoglobin 9.2 and hematocrit 28.7. Platelets 206. Sodium 138 and potassium 5.3. BUN 72 and creatinine 3.39. Glucose 223 and calcium 9.1. PROBLEMS: 1. Acute renal failure superimposed on chronic kidney disease. The patient has known history of advanced stage IV of chronic kidney disease at baseline. Her serum creatinine has fluctuated between 3.0 and 3.4. Her kidney function is only slightly worse than her baseline. Kidney biopsy is consistent with diabetic nephropathy. Unfortunately, at this point there is no reversible element to her kidney function. I have discussed with the patient and explained to her about potential need for dialysis in near future. She is not a suitable candidate for IVONNE inhibitor or angiotensin receptor radhika due to hyperkalemia and advanced chronic kidney disease. 2. Hyperkalemia. She does have mild hyperkalemia with slight improvement since yesterday. This is related to advanced chronic kidney disease and recent blood transfusion. At this point, we will continue to monitor without any intervention as her hyperkalemia is likely to improve over next few days. She continues with low-dose diuretic. 3. Hypertension. Blood pressure is now well-controlled on current antihypertensive medications. No changes are being made today. 4. Anemia. Most likely her anemia is related to iron deficiency and advanced chronic kidney disease. We will give her one dose of intravenous Venofer 400 mg and continue with oral iron supplement. We will also consider giving her a dose of Aranesp 100 mcg once a week.
[2017-09-10 21:00] VITALS: BP 170/86
[2017-09-10] MEDS: amLODIPine 5 MG TAB PO SCH (21:55)
[2017-09-11] MEDS: SLF 3 ML SYR IV SCH ×3 (05:54→20:46)
[2017-09-11 06:00] VITALS: BP 131/60
[2017-09-11 06:13] LABS: MEAN CORPUSCULAR HEMOGLOBIN 27.4 pg (27.0-33.0); MEAN CORPUSCULAR VOLUME 85.5 fl (80.0-96.0); RED CELL DISTRIBUTION WIDTH 15.6 % (11.5-14.5); WHITE BLOOD COUNT 6.5 10^3/uL (4.0-10.0)
[2017-09-11 06:32] LABS: CALCIUM LEVEL 9.3 MG/DL (8.5-10.1); CREATININE FOR GFR 3.17 MG/DL (0.55-1.02); POTASSIUM SERUM 5.1 MEQ/L (3.5-5.1)
[2017-09-11] MEDS: LEVEMIR (INSULIN DETEMIR) 1 UNITS/0.01ML SC SCH ×2 (08:46→20:45)
[2017-09-11] MEDS: PANTOPRAZOLE 40MG TAB (PROTONIX) PO SCH ×2 (08:58→20:44)
[2017-09-11] MEDS: METOPROLOL TARTRATE 100 MG TAB PO SCH ×2 (08:59→20:44)
[2017-09-11] MEDS: SODIUM BICARBONATE 325 MG TAB PO SCH ×2 (08:59→20:44)
[2017-09-11] MEDS: FERROUS GLUCONATE 324 MG TAB PO SCH ×2 (09:00→20:44)
[2017-09-11] MEDS: SUCRALFATE 1 GM TAB PO SCH ×4 (09:00→20:44)
[2017-09-11] MEDS: hydroCHLOROthiazide 12.5 MG CAPSULE PO SCH (09:00)
[2017-09-11] MEDS: ATORVASTATIN 20 MG TAB PO SCH (09:00)
[2017-09-11] MEDS: APIXABAN 5 MG TAB (ELIQUIS) PO SCH ×2 (09:00→20:44)
[2017-09-11] MEDS: CALCITRIOL 0.25 MCG CAP (S0169) PO SCH (09:00)
[2017-09-11] MEDS: HumaLOG INSULIN (NovoLOG) PER UNIT SC SCH ×4 (09:01→20:45)
[2017-09-11] MEDS ORDERED: IRON SUCROSE 25 MG in NS 50 ML IV ONE (10:00)
[2017-09-11] MEDS ORDERED: IRON SUCROSE 375 MG in NS 250 ML IV ONE (11:15)
--- NOTE | 2017-09-11 12:25 | IPN ---
DATE: 09/11/2017 Ms. Gibbons is seen this morning on her bedside. She is lying in the bed as usual without any distress. She denies any nausea, vomiting, dyspnea or chest pain. PHYSICAL EXAMINATION: Temperature 97.9 degrees Fahrenheit, heart rate 72 per minute and respiratory rate 18 per minute. Blood pressure 136/75 mmHg and oxygen saturation 97% on room air. Head is atraumatic. Neck is supple and without jugular venous distention (JVD) or thyroid enlargement. Ears, nose and throat are unremarkable. She is legally blind in both eyes. Heart sounds are regular and without a pericardial friction rub. Lungs sound clear to auscultation bilaterally. Abdomen is soft, obese and nontender and without palpable organomegaly. Bowel sounds are normal. Extremities have no cyanosis or clubbing. Skin has no rash or ulcers. Neurologically, she is awake, alert and oriented times three. Today's labs show WBC count 6.5, hemoglobin 9.1 and hematocrit 29.4. Sodium 141 and potassium 5.1. CO2 of 20, BUN 70 and creatinine 3.17. Glucose 146 and calcium 9.3. PROBLEMS: 1. Acute renal failure superimposed on chronic kidney disease. The patient has slight improvement in her kidney function since yesterday. She has no uremic symptoms at this point and there is no emergent indication for dialysis. I have talked to Dr. Mansfield and have requested to go ahead and schedule her for AV fistula creation, as she has advanced disease and likely to require dialysis in near future. 2. Hyperkalemia. Her hyperkalemia has improved and potassium is in normal range. We will continue to monitor her electrolytes as needed. 3. Anemia. Anemia is stable since her recent transfusion. At this point, we will treat her with Aranesp 100 mcg once a week and also give her a dose of intravenous Venofer 400 mg. Her anemia is at least partly related to advanced chronic kidney disease and iron deficiency. 4. Hypertension. Blood pressure is well-controlled on current antihypertensive medications. No changes are being made today. 5. Proteinuria, most likely she has significant proteinuria related to diabetic nephropathy. However, she did have elevated free light chain. She also had a bone marrow biopsy done, the results of which are pending. Her kidney biopsy is consistent with diabetic nephropathy.
--- NOTE | 2017-09-11 12:54 | IPNPDOC ---
Date Seen The patient was seen on 09/11/17. Progress Note SUBJECTIVE: Patient reports feeling well she denies any complaints at this time she is in a better mood than she was yesterday she is currently working on obtaining housing for her and the rest of her family OBJECTIVE PHYSICAL EXAMINATION: VITAL SIGNS: Please see below. GENERAL: [Pleasant female appears older than stated age lying on her left side she does not appear to be in any acute distress] HEENT: Pupils equally round she does not appear to have any elevation in her central venous pressure she has moist mucous membranes CARDIOVASCULAR: S1-S2 regular. RESPIRATORY: Clear to auscultation. ABDOMINAL: Obese benign exam EXTREMITIES: no cyanosis or edema LABORATORY DATA: Please see below. MICROBIOLOGY: Please see below. Echocardiogram: [1. Normal global left ventricular systolic function. Left ventricular diastolic function also appeared to be normal. 2. Mildly dilated left atrium with mild mitral regurgitation. 3. Mild tricuspid regurgitation, probably moderate pulmonary hypertension. 4. There were findings consistent with elevated central venous pressure. 5. Small pericardial effusion noted. No evidence of cardiac tamponade.]. DVT prophylaxis ordered?: [Eliquis] ASSESSMENT AND PLAN: This is a 57-year-old female with acute on chronic kidney injury. 1. Acute on chronic kidney injury. She had significant proteinuria. There was concern for amyloidosis, multiple myeloma versus light chain deposition disease. Preliminary biopsy results are revealing for diabetic nephropathy. As such, Dr. Reid is contacting Dr. Mansfield for potential placement of an arteriovenous (AV) fistula. She does not have an emergent need for hemodialysis at this time. Should that need arise, would consider placement of a hemodialysis catheter Continue her on sodium bicarbonate, diuretic, calcitriol. Control her blood pressure. 2. Hyperkalemia, improving, felt to be related to blood transfusion, is relatively stable. We will continue to monitor. 3. Hypertension. Fairly well controlled at the present time with hydrochlorothiazide, amlodipine, and metoprolol. Nephrologies help is greatly appreciated 4. Anemia, likely multifactorial, improved with transfusions. No further need for transfusion at this time. Likely related to chronic kidney disease as well as possibly some iron deficiency. She is set to start aranesp and IV iron. Nephrology's help is appreciated. 5. Atrial fibrillation. We have restarted her Eliquis. She did have an occult stool for blood that was positive. For the time being, we will simply monitor her hemoglobin and hematocrit as she is remaining in hospital. She is rate controlled with metoprolol. The patient is on digoxin as well. 6. Hiatal hernia. She is on a proton pump inhibitor and Carafate. She does not have any symptoms at the present time. 7. Deep venous thrombosis (DVT) prophylaxis. She is on Eliquis. 8. Type 2 diabetes. She is on sliding scale insulin and hypoglycemic protocol. DISPOSITION: Pending placement of her fistula, arrangement for hemodialysis outpatient potentially, and arranging for a new living environment as she is now homeless. VS, I&O, 24H, Fishbone Vital Signs/I&O Vital Signs Date Time Temp Pulse Resp B/P (MAP) Pulse Ox O2 Delivery O2 Flow Rate FiO2 09/11/17 08:59 72 136/75 09/11/17 06:00 97.9 18 97 09/10/17 14:00 Room Air I&O- Last 24 Hours up to 6 AM 09/12/17 06:00 Intake Total 480 ml Output Total 0 ml Balance 480 ml Laboratory Data 24H LABS Laboratory Tests 2 09/10/17 16:56: Bedside Glucose (Misc Panel) 202H 09/10/17 20:34: Bedside Glucose (Misc Panel) 214H 09/11/17 06:04: Nucleated Red Blood Cells % (auto) 0.0, Anion Gap 7L, Glomerular Filtration Rate 16.0L, Blood Urea Nitrogen 70H, Creatinine 3.17H, Sodium Level 141, Potassium Level 5.1, Chloride Level 114H, Carbon Dioxide Level 20L, Calcium Level 9.3 CBC/BMP Laboratory Tests 09/11/17 06:04 Red Blood Count 3.32 L, Mean Corpuscular Volume 85.5, Mean Corpuscular Hemoglobin 27.4, Mean Corpuscular Hemoglobin Concent 32.0, Red Cell Distribution Width 15.6 H, Calcium Level 9.3 Microbiology Microbiology 09/09/17 Stool Occult Blood ([facility]) - Final, Complete 09/02/17 Stool Occult Blood ([facility]) - Final, Complete GARY SOTOMAYOR MD Sep 11, 2017 12:54
[2017-09-11] MEDS: DARBEPOETIN 100 MCG/0.5 ML *NON-DIALYSIS* SYRINGE (J0881) SC SCH (13:52)
[2017-09-11 14:00] VITALS: BP 144/74
[2017-09-11] MEDS: amLODIPine 5 MG TAB PO SCH (20:44)
[2017-09-11 22:00] VITALS: BP 160/98
[2017-09-11 23:00] VITALS: BP 146/73
[2017-09-12] MEDS: SLF 3 ML SYR IV SCH ×3 (05:19→21:20)
[2017-09-12 06:00] VITALS: BP 130/64
[2017-09-12 06:11] LABS: MEAN CORPUSCULAR HEMOGLOBIN 27.4 pg (27.0-33.0); MEAN CORPUSCULAR HGB CONC 31.9 g/dl (32.0-36.5); MEAN CORPUSCULAR VOLUME 85.7 fl (80.0-96.0); RED CELL DISTRIBUTION WIDTH 15.5 % (11.5-14.5); WHITE BLOOD COUNT 6.6 10^3/uL (4.0-10.0)
[2017-09-12 06:23] LABS: CALCIUM LEVEL 8.9 MG/DL (8.5-10.1); CREATININE FOR GFR 3.22 MG/DL (0.55-1.02); GLOMERULAR FILTRATION RATE 15.7 (>51); POTASSIUM SERUM 4.8 MEQ/L (3.5-5.1)
[2017-09-12] MEDS: ATORVASTATIN 20 MG TAB PO SCH (08:16)
[2017-09-12] MEDS: SODIUM BICARBONATE 325 MG TAB PO SCH ×2 (08:16→21:20)
[2017-09-12] MEDS: DIGOXIN 0.125 MG TAB PO SCH (08:17)
[2017-09-12] MEDS: PANTOPRAZOLE 40MG TAB (PROTONIX) PO SCH ×2 (08:17→21:19)
[2017-09-12] MEDS: FERROUS GLUCONATE 324 MG TAB PO SCH ×2 (08:17→21:19)
[2017-09-12] MEDS: SUCRALFATE 1 GM TAB PO SCH ×4 (08:17→21:19)
[2017-09-12] MEDS: METOPROLOL TARTRATE 100 MG TAB PO SCH ×2 (08:17→21:21)
[2017-09-12] MEDS: hydroCHLOROthiazide 12.5 MG CAPSULE PO SCH (08:17)
[2017-09-12] MEDS: APIXABAN 5 MG TAB (ELIQUIS) PO SCH ×2 (08:18→21:19)
[2017-09-12] MEDS: HumaLOG INSULIN (NovoLOG) PER UNIT SC SCH ×4 (08:18→21:14)
[2017-09-12] MEDS: LEVEMIR (INSULIN DETEMIR) 1 UNITS/0.01ML SC SCH ×2 (08:19→21:20)
[2017-09-12] MEDS: ACETAMINOPHEN TAB 650MG DOSE (2X325MG) PO PRN ×2 (08:47→21:19)
--- NOTE | 2017-09-12 10:58 | IPN ---
DATE OF VISIT: 09/12/2017 Ms. Gibbons is seen this morning on her bedside. She is feeling better today but does complain of arthritic pains and aches. She denies any nausea, vomiting, dyspnea or chest pain. On physical exam, temperature 97.8 degrees Fahrenheit, heart rate 68 per minute and respiratory rate 18 per minute. Blood pressure 130/64 mmHg and oxygen saturation 96% on room air. Head is atraumatic. Neck is supple and without jugular venous distention (JVD) or thyroid enlargement. She is blind from both eyes. Ears, nose and throat are unremarkable. Heart sounds regular and lungs clear to auscultation. Abdomen soft and nontender. Bowel sounds are normal. Extremities have no cyanosis or clubbing. Neurologically she is awake, alert and oriented times three. Today's labs show WBC count 6.6, hemoglobin 9.2 and hematocrit 28.8. Platelets 206. Sodium 138 and potassium 4.8. BUN 65 and creatinine 3.22. PROBLEMS: 1. Acute on chronic kidney disease. Mostly her kidney dysfunction is chronic and related to diabetic nephropathy according to her kidney biopsy. She did have slight fluctuations in kidney function but overall it has been essentially unchanged. She does not have any uremic symptoms and there is no urgent indication for dialysis. We are hoping to get an AV fistula created during this admission. 2. Anemia. Her anemia is stable and does not need transfusion at this point. She does have borderline iron deficiency and has been on iron supplement. We also give her Aranesp 100 mcg once a week. 3. Hypertension. Blood pressure is reasonably well-controlled on current antihypertensive medications. 4. Proteinuria. Mostly related to diabetic nephropathy. She also had elevated free light chains but no evidence of amyloidosis, multiple myeloma or light chain deposition on the kidney biopsy. DISPOSITION: Patient is likely to stay here in the hospital as she has no place to go at this point.
--- NOTE | 2017-09-12 13:03 | IPNPDOC ---
Date Seen The patient was seen on 09/12/17. Progress Note SUBJECTIVE: Patient reports feeling well she denies any complaints at this time. OBJECTIVE PHYSICAL EXAMINATION: VITAL SIGNS: Please see below. GENERAL: Pleasant female appears older than stated age lying on her left side as she usually does, she does not appear to be in any acute distress HEENT: Pupils equally round she does not appear to have any elevation in her central venous pressure she has moist mucous membranes CARDIOVASCULAR: S1-S2 regular. RESPIRATORY: Clear to auscultation. ABDOMINAL: Obese benign exam EXTREMITIES: no cyanosis or edema LABORATORY DATA: Please see below. MICROBIOLOGY: Please see below. Echocardiogram: 1. Normal global left ventricular systolic function. Left ventricular diastolic function also appeared to be normal. 2. Mildly dilated left atrium with mild mitral regurgitation. 3. Mild tricuspid regurgitation, probably moderate pulmonary hypertension. 4. There were findings consistent with elevated central venous pressure. 5. Small pericardial effusion noted. No evidence of cardiac tamponade.. DVT prophylaxis ordered?: Eliquis ASSESSMENT AND PLAN: This is a 57-year-old female with acute on chronic kidney injury. 1. Acute on chronic kidney injury. She had significant proteinuria. Preliminary biopsy results are revealing for diabetic nephropathy. As such, Dr. Reid is contacting Dr. Mansfield for potential placement of an arteriovenous (AV) fistula this admission. She does not have an emergent need for hemodialysis at this time. Should that need arise, would consider placement of a hemodialysis catheter Continue her on sodium bicarbonate, diuretic, calcitriol. 2. Hyperkalemia, related to blood transfusion, resolved. We will continue to monitor. 3. Hypertension. Fairly well controlled at the present time with hydrochlorothiazide, amlodipine, and metoprolol. Nephrologies help is greatly appreciated 4. Anemia, likely multifactorial, improved with transfusions. No further need for transfusion at this time. Likely related to chronic kidney disease as well as possibly some iron deficiency. She is set to start aranesp weekly and IV iron. Nephrology's help is appreciated. 5. Atrial fibrillation. We have restarted her Eliquis. She did have an occult stool for blood that was positive. For the time being, we will simply monitor her hemoglobin and hematocrit as she is remaining in hospital thus far has been quite stable. She is rate controlled with metoprolol. The patient is on digoxin as well. 6. Hiatal hernia. She is on a proton pump inhibitor and Carafate. She does not have any symptoms at the present time. 7. Deep venous thrombosis (DVT) prophylaxis. She is on Eliquis. 8. Type 2 diabetes. She is on sliding scale insulin and hypoglycemic protocol. DISPOSITION: Pending placement of her fistula, she can be dispositioned to a hotel where her and son are currently living, when she is ready fro discharge. VS, I&O, 24H, Fishbone Vital Signs/I&O Vital Signs Date Time Temp Pulse Resp B/P (MAP) Pulse Ox O2 Delivery O2 Flow Rate FiO2 09/12/17 08:17 68 167/77 09/12/17 06:00 97.8 17 96 Room Air I&O- Last 24 Hours up to 6 AM 09/13/17 05:59 Intake Total 660 ml Output Total 1000 ml Balance -340 ml Laboratory Data 24H LABS Laboratory Tests 2 09/11/17 16:36: Bedside Glucose (Misc Panel) 263H 09/12/17 05:38: Nucleated Red Blood Cells % (auto) 0.0, Anion Gap 9, Glomerular Filtration Rate 15.7L, Blood Urea Nitrogen 65H, Creatinine 3.22H, Sodium Level 138, Potassium Level 4.8, Chloride Level 109H, Carbon Dioxide Level 20L, Calcium Level 8.9 CBC/BMP Laboratory Tests 09/12/17 05:38 Red Blood Count 3.36 L, Mean Corpuscular Volume 85.7, Mean Corpuscular Hemoglobin 27.4, Mean Corpuscular Hemoglobin Concent 31.9 L, Red Cell Distribution Width 15.5 H, Calcium Level 8.9 Microbiology Microbiology 09/09/17 Stool Occult Blood (ZAIRA) - Final, Complete 09/02/17 Stool Occult Blood (ZAIRA) - Final, Complete GARY SOTOMAYOR MD Sep 12, 2017 13:03
[2017-09-12 14:00] VITALS: BP 140/85
[2017-09-12] MEDS: amLODIPine 5 MG TAB PO SCH (21:21)
[2017-09-12 22:00] VITALS: BP 150/82
[2017-09-13] MEDS: SLF 3 ML SYR IV SCH ×3 (05:42→21:18)
[2017-09-13 06:00] VITALS: BP 140/78
[2017-09-13] MEDS: SODIUM BICARBONATE 325 MG TAB PO SCH ×2 (07:56→20:48)
[2017-09-13] MEDS: SUCRALFATE 1 GM TAB PO SCH ×4 (07:56→20:49)
[2017-09-13] MEDS: ATORVASTATIN 20 MG TAB PO SCH (07:56)
[2017-09-13] MEDS: PANTOPRAZOLE 40MG TAB (PROTONIX) PO SCH ×2 (07:57→20:48)
[2017-09-13] MEDS: APIXABAN 5 MG TAB (ELIQUIS) PO SCH ×2 (07:57→20:49)
[2017-09-13] MEDS: hydroCHLOROthiazide 12.5 MG CAPSULE PO SCH (07:57)
[2017-09-13] MEDS: METOPROLOL TARTRATE 100 MG TAB PO SCH ×2 (07:57→20:50)
[2017-09-13] MEDS: FERROUS GLUCONATE 324 MG TAB PO SCH ×2 (07:57→20:49)
[2017-09-13] MEDS: CALCITRIOL 0.25 MCG CAP (S0169) PO SCH (07:58)
[2017-09-13] MEDS: HumaLOG INSULIN (NovoLOG) PER UNIT SC SCH ×4 (07:58→20:52)
[2017-09-13] MEDS: LEVEMIR (INSULIN DETEMIR) 1 UNITS/0.01ML SC SCH ×3 (07:58→20:52)
[2017-09-13 09:39] LABS: MEAN CORPUSCULAR HEMOGLOBIN 27.5 pg (27.0-33.0); MEAN CORPUSCULAR HGB CONC 31.9 g/dl (32.0-36.5); PLATELET COUNT, AUTOMATED 207 10^3/uL (150-450); RED CELL DISTRIBUTION WIDTH 15.4 % (11.5-14.5); WHITE BLOOD COUNT 6.8 10^3/uL (4.0-10.0)
[2017-09-13 10:17] LABS: CALCIUM LEVEL 8.7 MG/DL (8.5-10.1); CREATININE FOR GFR 3.27 MG/DL (0.55-1.02); GLOMERULAR FILTRATION RATE 15.4 (>51)
[2017-09-13 10:20] LABS: POTASSIUM SERUM 5.2 MEQ/L (3.5-5.1)
--- NOTE | 2017-09-13 11:57 | IPN ---
DATE: 09/13/2017 Ms. Gibbons is seen this morning on her bedside. She denies any dyspnea, chest pain, nausea or vomiting. She has no fever or chills. Her only complaint is pain in her knees and hands. REVIEW OF SYSTEMS: Otherwise is unremarkable. PHYSICAL EXAMINATION: Temperature 97.4 degrees Fahrenheit, heart rate 64 per minute and respiratory rate 18 per minute. Blood pressure 168/94 mmHg and oxygen saturation 96% on room air. Head: Is atraumatic. 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 Neck is supple and JVD is moderately elevated today. Nose and throat are unremarkable. Heart: Sounds are regular and lungs sound clear to auscultation. Abdomen: Soft and benign. Bowel sounds are normal. Extremities have no cyanosis or clubbing. Neurologically she is at her baseline mentation without a focal deficit. She is legally blind due to diabetic retinopathy. Today's labs show WBC count 6.8, hemoglobin 9.2 and hematocrit 28.8. Sodium 138 and potassium 5.2. BUN is 62 and creatinine 3.27. Calcium level is 8.7. PROBLEMS: 1. Advanced chronic kidney disease. The patient is almost in stage V of chronic kidney disease. Her kidney biopsy was consistent with diabetic nephropathy. There is no emergent need for dialysis at this point, however, she is likely to require dialysis in near future. We have requested Dr. Mansfield to place an AV fistula. 2. Anemia. Her anemia is mostly related to iron deficiency and advanced renal failure. She is now on iron supplement and Aranesp which will be continued. Her anemia seems to be stable. 3. Hypertension. Blood pressure control is slightly suboptimal. Her volume status also seems to be slightly decompensated. I am going to increase her hydrochlorothiazide dose to 25 mg daily. 4. Arthritis. This is chronic degenerative arthritis and she is using Tylenol as needed. 5. Proteinuria with elevated free light chains. We are waiting for bone marrow biopsy results. Her kidney biopsy was negative for amyloidosis or light chain deposition disease. 6. Diabetes. Her diabetes seems reasonably well-controlled and she will continue with current management.
--- NOTE | 2017-09-13 12:37 | IPNPDOC ---
Date Seen The patient was seen on 09/13/17. Progress Note SUBJECTIVE: Patient reports feeling well she complains of some arthritic pain this AM but otherwise well. OBJECTIVE PHYSICAL EXAMINATION: VITAL SIGNS: Please see below. GENERAL: Pleasant female appears older than stated age lying on her left side as she usually does, not appear to be in any acute distress HEENT: Pupils equally round, she does not appear to have any elevation in her central venous pressure she has moist mucous membranes CARDIOVASCULAR: S1-S2 regular. RESPIRATORY: Clear to auscultation. ABDOMINAL: Obese benign exam EXTREMITIES: no cyanosis or edema LABORATORY DATA: Please see below. MICROBIOLOGY: Please see below. Echocardiogram: 1. Normal global left ventricular systolic function. Left ventricular diastolic function also appeared to be normal. 2. Mildly dilated left atrium with mild mitral regurgitation. 3. Mild tricuspid regurgitation, probably moderate pulmonary hypertension. 4. There were findings consistent with elevated central venous pressure. 5. Small pericardial effusion noted. No evidence of cardiac tamponade.. DVT prophylaxis ordered?: Eliquis ASSESSMENT AND PLAN: This is a 57-year-old female with acute on chronic kidney injury. 1. Acute on chronic kidney injury. She had significant proteinuria. Preliminary biopsy results are revealing for diabetic nephropathy. As such, Dr. Reid is contacting Dr. Mansfield for potential placement of an arteriovenous (AV) fistula this admission. She does not have an emergent need for hemodialysis at this time. Should that need arise, would consider placement of a hemodialysis catheter Continue her on sodium bicarbonate, diuretic, calcitriol. 2. Hyperkalemia, mild stable We will continue to monitor. 3. Hypertension. Fairly well controlled at the present time. Nephrology has increased hydrochlorothiazide con't with amlodipine, and metoprolol. Nephrologies help is greatly appreciated 4. Anemia, likely multifactorial, improved with transfusions. No further need for transfusion at this time. Likely related to chronic kidney disease as well as possibly some iron deficiency. She is on aranesp weekly and IV iron. Nephrology's help is appreciated. 5. Atrial fibrillation. We have restarted her Eliquis. She did have an occult stool for blood that was positive. For the time being, we will simply monitor her hemoglobin and hematocrit as she is remaining in hospital thus far has been quite stable. She is rate controlled with metoprolol. The patient is on digoxin as well. 6. Hiatal hernia. She is on a proton pump inhibitor and Carafate. She does not have any symptoms at the present time. 7. Deep venous thrombosis (DVT) prophylaxis. She is on Eliquis. 8. Type 2 diabetes. She is on sliding scale insulin and hypoglycemic protocol. DISPOSITION: Pending placement of her fistula, she can be dispositioned to a hotel where her and son are currently living, when she is ready fro discharge. VS, I&O, 24H, Fishbone Vital Signs/I&O Vital Signs Date Time Temp Pulse Resp B/P (MAP) Pulse Ox O2 Delivery O2 Flow Rate FiO2 09/13/17 07:57 64 168/94 09/13/17 06:00 97.4 18 96 Room Air I&O- Last 24 Hours up to 6 AM 09/14/17 06:00 Intake Total 340 ml Output Total 800 ml Balance -460 ml Laboratory Data 24H LABS Laboratory Tests 2 09/12/17 16:34: Bedside Glucose (Misc Panel) 203H 09/12/17 20:46: Bedside Glucose (Misc Panel) 216H 09/13/17 09:11: Nucleated Red Blood Cells % (auto) 0.0, Anion Gap 9, Glomerular Filtration Rate 15.4L, Blood Urea Nitrogen 62H, Creatinine 3.27H, Sodium Level 138, Potassium Level 5.2H, Chloride Level 109H, Carbon Dioxide Level 20L, Calcium Level 8.7 09/13/17 11:40: Bedside Glucose (Misc Panel) 200H CBC/BMP Laboratory Tests 09/13/17 09:11 Red Blood Count 3.35 L, Mean Corpuscular Volume 86.0, Mean Corpuscular Hemoglobin 27.5, Mean Corpuscular Hemoglobin Concent 31.9 L, Red Cell Distribution Width 15.4 H, Calcium Level 8.7 Microbiology Microbiology 09/09/17 Stool Occult Blood (ZAIRA) - Final, Complete GARY SOTOMAYOR MD Sep 13, 2017 12:37
[2017-09-13 14:00] VITALS: BP 144/80
[2017-09-13] MEDS: CAPSAICIN 0.025% CR 60 GM TOP SCH ×2 (14:34→20:49)
--- NOTE | 2017-09-13 15:53 | REP ---
BILATERAL UPPER EXTREMITY DOPPLER VENOUS ULTRASOUND 09/12/2017: Clinical history: Evaluate upper extremity vessels for AVF creation. Findings: No prior study. The deep venous system bilaterally was studied. RIGHT BASILIC CEPHALIC Upper humerus 3 mm 3 mm Lower humerus 2.6 mm 2.6 mm Antecubital 2.8 mm 4.6 mm. Upper forearm 1.6 mm 2 mm. Lower forearm 0.7 mm 2.2 mm Wrist 0.9 mm 2.0 mm Median cubital basilic 4.9 mm ARTERIAL PSV WAVE FORM SIZE Axillary 92.5 cm/s Triphasic 6.7 mm Brachial 113 cm/s Triphasic 4.6 mm Radial 94.1 cm/s Triphasic 1.4 mm Ulnar 64.1 cm/s Triphasic 1.5 mm LEFT BASILIC CEPHALIC Upper humerus 2.3 mm 3.4 mm Lower humerus 1.9 mm 2.6 mm Antecubital 2.1 mm 3.8 mm Upper forearm 1.0 mm 2.9 mm Lower forearm 1.1 mm 2.2 mm Wrist 1.6 mm 1.3 mm Median cubital 5.4 mm ARTERIAL PSV WAVE FORM SIZE Axillary 73.2 cm/s Triphasic 5.5 mm Brachial 83.2 cm/s Triphasic 3.8 mm Radial 75.2 cm/s Triphasic 1.5 mm Ulnar 93.6 cm/s Triphasic 1.7 mm Signed by Abdoulaye Carson MD 09/13/2017 05:06 P
--- NOTE | 2017-09-13 20:26 | IPNPDOC ---
Text Note Date of Service The patient was seen on 09/13/17. NOTE Evening resident and attending were contacted regarding patient having chest pain with shortness of breath. A stat CXR and EKG was ordered and a cardiac marker was added as well. Chart was reviewed. Patient was examined at beside. She stated she started having chest tightness while she was about to sleep and also started having shortness of breath, it has improve at this point. She stated she had chest tightness in the past when she had heart failure, and she had some stomach cramp earlier today. EKG did showed non-specific ST-T changes in the inferior leads and she has atrial fibrillation with VR of 70 which is not new for her. Will repeat another EKG in half an hour to see if there is any more marked ST-T waves changes. Otherwise, continue to monitor will give patient a trail of Zantac to see if this is GI in nature. CXR didn't show abnormality either. Otherwise, vital signs stable, no change in BP, no fever, no increased RR. Addendum: Patient's EKG after half hour was reviewed and again showed non- specific ST changes. Will repeat another EKG in the morning and follow up with cardiac markers. Patient has been discussed with Dr. Jennings. GME ATTESTATION My preceptor for this patient encounter was physically present in the building during the encounter and was fully available. As needed, all aspects of the patient interview, examination, medical decision making process, and medical care plan development were reviewed and approved by the preceptor. Preceptor is aware and concurs with the plan as stated in the body of this note and will attest to such by his/her cosignature. VS,Fishbone, I+O VS, Fishbone, I+O Laboratory Tests 09/13/17 09:11 Red Blood Count 3.35 L, Mean Corpuscular Volume 86.0, Mean Corpuscular Hemoglobin 27.5, Mean Corpuscular Hemoglobin Concent 31.9 L, Red Cell Distribution Width 15.4 H, Calcium Level 8.7 Vital Signs Date Time Temp Pulse Resp B/P (MAP) Pulse Ox O2 Delivery O2 Flow Rate FiO2 09/13/17 14:00 97.3 63 16 144/80 (101) 97 Room Air I&O- Last 24 Hours up to 6 AM 09/14/17 06:00 Intake Total 1960 ml Output Total 1800 ml Balance 160 ml FARIDA LEMON DO Sep 13, 2017 20:26 ERICKA JENNINGS MD Sep 22, 2017 16:04
[2017-09-13] MEDS ORDERED: raNITIdine SYRUP 150 MG/10 ML UDC PO ONE (20:30)
[2017-09-13] MEDS ORDERED: FAMOTIDINE 20 MG TAB PO ONE (20:45)
[2017-09-13] MEDS: amLODIPine 5 MG TAB PO SCH (20:49)
[2017-09-13] MEDS ORDERED: ASPIRIN 81 MG CHEW TABLET PO ONE (21:00)
[2017-09-13] MEDS ORDERED: NITROGLYCERIN 0.4 MG SUBL TABLET SL PRN (21:00)
--- NOTE | 2017-09-13 21:00 | REPUSA ---
CLINICAL HISTORY; CHEST TIGHTNESS. TECHNIQUE; frontal portable chest x-ray.. FINDINGS; The heart is borderline enlarged but there is no evidence of failure. Aorta is tortuous. No mediastinal mass lesion is seen. Lung cameron are clear of acute alveolar infiltrates. . IMPRESSION: Borderline cardiomegaly without failure or acute alveolar infiltrates .
[2017-09-13 21:40] VITALS: BP 140/80
[2017-09-14 03:39] LABS: MEAN CORPUSCULAR HEMOGLOBIN 27.7 pg (27.0-33.0); MEAN CORPUSCULAR HGB CONC 32.3 g/dl (32.0-36.5); PLATELET COUNT, AUTOMATED 209 10^3/uL (150-450); RED CELL DISTRIBUTION WIDTH 15.3 % (11.5-14.5); WHITE BLOOD COUNT 7.2 10^3/uL (4.0-10.0)
[2017-09-14 04:03] LABS: CALCIUM LEVEL 9.2 MG/DL (8.5-10.1); CREATININE FOR GFR 3.09 MG/DL (0.55-1.02); GLOMERULAR FILTRATION RATE 16.5 (>51)
[2017-09-14 05:15] VITALS: BP 140/78
[2017-09-14] MEDS: SLF 3 ML SYR IV SCH ×3 (05:45→21:11)
[2017-09-14] MEDS: ATORVASTATIN 20 MG TAB PO SCH (08:16)
[2017-09-14] MEDS: HumaLOG INSULIN (NovoLOG) PER UNIT SC SCH ×4 (08:16→20:49)
[2017-09-14] MEDS: LEVEMIR (INSULIN DETEMIR) 1 UNITS/0.01ML SC SCH ×2 (08:16→20:50)
[2017-09-14] MEDS: PANTOPRAZOLE 40MG TAB (PROTONIX) PO SCH ×2 (08:17→20:48)
[2017-09-14] MEDS: FERROUS GLUCONATE 324 MG TAB PO SCH ×2 (08:17→20:48)
[2017-09-14] MEDS: hydroCHLOROthiazide 25 MG TAB PO SCH (08:17)
[2017-09-14] MEDS: DIGOXIN 0.125 MG TAB PO SCH (08:17)
[2017-09-14] MEDS: SUCRALFATE 1 GM TAB PO SCH ×4 (08:17→20:48)
[2017-09-14] MEDS: APIXABAN 5 MG TAB (ELIQUIS) PO SCH ×2 (08:17→20:48)
[2017-09-14] MEDS: SODIUM BICARBONATE 325 MG TAB PO SCH ×2 (08:17→20:47)
[2017-09-14] MEDS: CAPSAICIN 0.025% CR 60 GM TOP SCH ×2 (08:20→20:49)
[2017-09-14] MEDS: METOPROLOL TARTRATE 100 MG TAB PO SCH ×2 (08:20→20:48)
--- NOTE | 2017-09-14 11:35 | ECGEPIP ---
Stationary ECG Study [facility] Test Date: 2017-09-13 Pat Name: JOSE GAY Department: Room: [place] [address] Gender: F Collaborating Supervising Physician: : 1960 Requested By: FARIDA LEMON Order Number: [id number] Reading MD: Keyonna Kwok Measurements Intervals [place] Rate: 64 P: [place]: 0 QRS: -35 QRSD: 98 T: 69 QT: 402 QTc: 416 Interpretive Statements ATRIAL FIBRILLATION POOR R WAVE PROGRESSION CANNOT R/O ANTERIOR AND INFERIOR MYOCARDIAL INFARCTION OF INDETERMINED AGE SINCE 06/13/2015 ATRIAL FIBRILLATION IS NEW Electronically Signed On 09-14-2017 11:34:48 EDT by Keyonna Kwok
--- NOTE | 2017-09-14 11:37 | ECGEPIP ---
Stationary ECG Study [facility] Test Date: 2017-09-14 Pat Name: JOSE GAY Department: Room: [place] [address] Gender: F Unit Aide: : 1960 Requested By: FARIDA LEMON Order Number: [id number] Reading MD: Keyonna Kwok Measurements Intervals [place] Rate: 58 P: [place]: 0 QRS: -14 QRSD: 96 T: 77 QT: 416 QTc: 411 Interpretive Statements ATRIAL FIBRILLATION WITH SLOW VENTRICULAR RESPONSE POOR R WAVE PROGRESSION CANNOT R/O INFERIOR AND ANTERIOR [place] SINCE 09/13/17 HR IS SLOWER Electronically Signed On 09-14-2017 11:36:50 EDT by Keyonna Kwok
--- NOTE | 2017-09-14 13:17 | IPNPDOC ---
Date Seen The patient was seen on 09/14/17. Progress Note SUBJECTIVE: Patient reports feeling well she says overnight she had some chest tightness that was short lived, not exertional, spontaneously resolved after some Zantac. She tells me she did not have any associated shortness of breath and that now she has a dry cough and sore throat. OBJECTIVE PHYSICAL EXAMINATION: VITAL SIGNS: Please see below. GENERAL: Pleasant female appears older than stated age lying on her left side as she usually does, not appear to be in any acute distress HEENT: Pupils equally round, she does not appear to have any elevation in her central venous pressure she has moist mucous membranes, no cervical LAD CARDIOVASCULAR: S1-S2 irregular. RESPIRATORY: Clear to auscultation. ABDOMINAL: Obese benign exam EXTREMITIES: no cyanosis or edema LABORATORY DATA: Please see below. MICROBIOLOGY: Please see below. Echocardiogram: 1. Normal global left ventricular systolic function. Left ventricular diastolic function also appeared to be normal. 2. Mildly dilated left atrium with mild mitral regurgitation. 3. Mild tricuspid regurgitation, probably moderate pulmonary hypertension. 4. There were findings consistent with elevated central venous pressure. 5. Small pericardial effusion noted. No evidence of cardiac tamponade.. DVT prophylaxis ordered?: Eliquis ASSESSMENT AND PLAN: This is a 57-year-old female with acute on chronic kidney injury. 1. Acute on chronic kidney injury. She had significant proteinuria. Preliminary biopsy results are revealing for diabetic nephropathy. As such, Dr. Reid is contacting Dr. Mansfield for potential placement of an arteriovenous (AV) fistula this admission, I did reach out to him today and he will try to place this, this coming week. She does not have an emergent need for hemodialysis at this time. Should that need arise, would consider placement of a hemodialysis catheter Continue her on sodium bicarbonate, diuretic, calcitriol. 2. Hyperkalemia, mild We will continue to monitor. 3. Hypertension. Fairly well controlled at the present time. Nephrology has increased hydrochlorothiazide con't with amlodipine, and metoprolol. Nephrologies help is greatly appreciated 4. Anemia, likely multifactorial, improved with transfusions. No further need for transfusion at this time. Likely related to chronic kidney disease as well as possibly some iron deficiency. She is on aranesp weekly and IV iron. Nephrology's help is appreciated. 5. Atrial fibrillation. We have restarted her Eliquis. She did have an occult stool for blood that was positive. For the time being, we will simply monitor her hemoglobin and hematocrit as she is remaining in hospital thus far has been quite stable. She is rate controlled with metoprolol. The patient is on digoxin as well. 6. Hiatal hernia. She is on a proton pump inhibitor and Carafate. She does not have any symptoms at the present time. 7. Deep venous thrombosis (DVT) prophylaxis. She is on Eliquis. 8. Type 2 diabetes. She is on sliding scale insulin and hypoglycemic protocol. 9. Cough and sore throat: Will provide her with cepacol and check resp pcr. This does not sound cardiac, I do not appreciate significant ekg changes and she has 2 sets of negative cardiac enzymes. DISPOSITION: Pending placement of her fistula, she can be dispositioned to a hotel where her and son are currently living, when she is ready fro discharge. VS, I&O, 24H, Fishbone Vital Signs/I&O Vital Signs Date Time Temp Pulse Resp B/P (MAP) Pulse Ox O2 Delivery O2 Flow Rate FiO2 09/14/17 08:20 63 152/90 09/14/17 08:15 Room Air 09/14/17 05:15 98.0 16 96 I&O- Last 24 Hours up to 6 AM 09/15/17 06:00 Intake Total 580 ml Output Total 1000 ml Balance -420 ml Laboratory Data 24H LABS Laboratory Tests 2 09/13/17 16:37: Bedside Glucose (Misc Panel) 231H 09/13/17 20:20: Total Creatine Kinase 66, Creatine Kinase MB 3.6, Creatine Kinase MB Relative Index 5.45H, Troponin I < 0.02 09/14/17 03:34: Total Creatine Kinase 51, Creatine Kinase MB 2.7, Creatine Kinase MB Relative Index 5.29H, Troponin I 0.02, Nucleated Red Blood Cells % (auto) 0.0, Anion Gap 8, Glomerular Filtration Rate 16.5L, Blood Urea Nitrogen 63H, Creatinine 3.09H, Sodium Level 140, Potassium Level 5.0, Chloride Level 111H, Carbon Dioxide Level 21, Calcium Level 9.2 09/14/17 11:42: Bedside Glucose (Misc Panel) 200H CBC/BMP Laboratory Tests 09/14/17 03:34 Red Blood Count 3.28 L, Mean Corpuscular Volume 86.0, Mean Corpuscular Hemoglobin 27.7, Mean Corpuscular Hemoglobin Concent 32.3, Red Cell Distribution Width 15.3 H, Calcium Level 9.2, Total Creatine Kinase 51 Microbiology Microbiology 09/09/17 Stool Occult Blood (ZAIRA) - Final, Complete GARY SOTOMAYOR MD Sep 14, 2017 13:17
[2017-09-14 14:00] VITALS: BP 132/86
[2017-09-14] MEDS: CEPACOL LOZENGE PO PRN ×2 (14:32→20:56)
[2017-09-14] MEDS: amLODIPine 5 MG TAB PO SCH (20:48)
[2017-09-14 22:00] VITALS: BP 148/82
[2017-09-15] MEDS: SLF 3 ML SYR IV SCH ×3 (05:00→20:55)
[2017-09-15 06:00] VITALS: BP 156/82
[2017-09-15 06:22] LABS: MEAN CORPUSCULAR HEMOGLOBIN 27.9 pg (27.0-33.0); MEAN CORPUSCULAR HGB CONC 32.3 g/dl (32.0-36.5); MEAN CORPUSCULAR VOLUME 86.5 fl (80.0-96.0); PLATELET COUNT, AUTOMATED 206 10^3/uL (150-450); RED CELL DISTRIBUTION WIDTH 15.4 % (11.5-14.5)
[2017-09-15 06:55] LABS: CALCIUM LEVEL 9.2 MG/DL (8.5-10.1); CREATININE FOR GFR 3.1 MG/DL (0.55-1.02); GLOMERULAR FILTRATION RATE 16.4 (>51)
[2017-09-15 06:57] LABS: POTASSIUM SERUM 5.4 MEQ/L (3.5-5.1)
[2017-09-15] MEDS: SUCRALFATE 1 GM TAB PO SCH ×4 (08:30→20:50)
[2017-09-15] MEDS: ATORVASTATIN 20 MG TAB PO SCH (08:31)
[2017-09-15] MEDS: SODIUM BICARBONATE 325 MG TAB PO SCH ×3 (08:31→20:50)
[2017-09-15] MEDS: HumaLOG INSULIN (NovoLOG) PER UNIT SC SCH ×4 (08:31→20:54)
[2017-09-15] MEDS: METOPROLOL TARTRATE 100 MG TAB PO SCH ×2 (08:32→20:51)
[2017-09-15] MEDS: PANTOPRAZOLE 40MG TAB (PROTONIX) PO SCH ×2 (08:32→20:51)
[2017-09-15] MEDS: hydroCHLOROthiazide 25 MG TAB PO SCH (08:32)
[2017-09-15] MEDS: APIXABAN 5 MG TAB (ELIQUIS) PO SCH ×2 (08:32→20:51)
[2017-09-15] MEDS: FERROUS GLUCONATE 324 MG TAB PO SCH ×2 (08:32→20:51)
[2017-09-15] MEDS: LEVEMIR (INSULIN DETEMIR) 1 UNITS/0.01ML SC SCH ×2 (08:33→20:52)
[2017-09-15] MEDS: CAPSAICIN 0.025% CR 60 GM TOP SCH ×2 (08:33→20:52)
[2017-09-15] MEDS ORDERED: SOD POLYSTYRENE SULFONATE SUSP 15 GM/60 ML UD PO ONE (09:30)
--- NOTE | 2017-09-15 13:22 | IPNPDOC ---
Date Seen The patient was seen on 09/15/17. Progress Note SUBJECTIVE: Patient reports that her sugars shortness of breath chest tightness or throat and stuffiness is all resolved she has had no further symptoms of that since yesterday she does not complain of having diarrhea early this morning several episodes but is now slow down. She is otherwise well without any acute complaints OBJECTIVE PHYSICAL EXAMINATION: VITAL SIGNS: Please see below. GENERAL: Pleasant female appears older than stated age lying on her left side as she usually does, not appear to be in any acute distress HEENT: Pupils equally round, she does not appear to have any elevation in her central venous pressure she has moist mucous membranes, no cervical LAD CARDIOVASCULAR: S1-S2 irregular. RESPIRATORY: Clear to auscultation. ABDOMINAL: Obese benign exam EXTREMITIES: no cyanosis or edema LABORATORY DATA: Please see below. MICROBIOLOGY: Please see below. Echocardiogram: 1. Normal global left ventricular systolic function. Left ventricular diastolic function also appeared to be normal. 2. Mildly dilated left atrium with mild mitral regurgitation. 3. Mild tricuspid regurgitation, probably moderate pulmonary hypertension. 4. There were findings consistent with elevated central venous pressure. 5. Small pericardial effusion noted. No evidence of cardiac tamponade.. DVT prophylaxis ordered?: Eliquis ASSESSMENT AND PLAN: This is a 57-year-old female with acute on chronic kidney injury. 1. Acute on chronic kidney injury. She had significant proteinuria. Preliminary biopsy results are revealing for diabetic nephropathy. As such, Dr. Reid is contacting Dr. Mansfield for potential placement of an arteriovenous (AV) fistula this admission, I did reach out to him and he will try to place this, this coming week. She does not have an emergent need for hemodialysis at this time. Should that need arise, would consider placement of a hemodialysis catheter Continue her on sodium bicarbonate, diuretic, calcitriol. 2. Hyperkalemia, mild We will continue to monitor.Nephrologies help is appreciated 3. Hypertension. Fairly well controlled at the present time. Nephrology has increased hydrochlorothiazide con't with amlodipine, and metoprolol. Nephrologies help is greatly appreciated 4. Anemia, likely multifactorial, improved with transfusions. No further need for transfusion at this time. Likely related to chronic kidney disease as well as possibly some iron deficiency. She is on aranesp weekly and IV iron. Nephrology's help is appreciated. 5. Atrial fibrillation. We have restarted her Eliquis. She did have an occult stool for blood that was positive. For the time being, we will simply monitor her hemoglobin and hematocrit as she is remaining in hospital thus far has been quite stable. She is rate controlled with metoprolol. The patient is on digoxin as well. 6. Hiatal hernia. She is on a proton pump inhibitor and Carafate. She does not have any symptoms at the present time. 7. Deep venous thrombosis (DVT) prophylaxis. She is on Eliquis. 8. Type 2 diabetes. She is on sliding scale insulin and hypoglycemic protocol. 9. Cough and sore throat: resolved 10: Diarrhe: Will check a GI PCR panel, if negative would consider immodium however at this time does appear to be spontaneously be resolving. DISPOSITION: Pending placement of her fistula, she can be dispositioned to a hotel where her and son are currently living, when she is ready fro discharge. VS, I&O, 24H, Fishbone Vital Signs/I&O Vital Signs Date Time Temp Pulse Resp B/P (MAP) Pulse Ox O2 Delivery O2 Flow Rate FiO2 09/15/17 08:32 64 156/82 09/15/17 06:00 97.1 18 100 09/14/17 20:00 Room Air Laboratory Data 24H LABS Laboratory Tests 2 09/14/17 16:41: Bedside Glucose (Misc Panel) 303H 09/14/17 20:34: Bedside Glucose (Misc Panel) 334H 09/15/17 06:12: Nucleated Red Blood Cells % (auto) 0.0, Anion Gap 7L, Glomerular Filtration Rate 16.4L, Blood Urea Nitrogen 61H, Creatinine 3.10H, Sodium Level 137, Potassium Level 5.4H, Chloride Level 110H, Carbon Dioxide Level 20L, Calcium Level 9.2 09/15/17 11:48: Bedside Glucose (Misc Panel) 187H CBC/BMP Laboratory Tests 09/15/17 06:12 Red Blood Count 3.40 L, Mean Corpuscular Volume 86.5, Mean Corpuscular Hemoglobin 27.9, Mean Corpuscular Hemoglobin Concent 32.3, Red Cell Distribution Width 15.4 H, Calcium Level 9.2 Microbiology Microbiology 09/09/17 Stool Occult Blood ([facility]) - Final, Complete 09/14/17 Respiratory Virus Panel (PCR) ([facility]) - Final, Complete GARY SOTOMAYOR MD Sep 15, 2017 13:22
[2017-09-15 14:00] VITALS: BP 136/74
--- NOTE | 2017-09-15 20:38 | IPN ---
DATE: 09/15/2017 SUBJECTIVE: The patient is seen this morning at the bedside. She has no acute complaints except for diarrhea overnight, two episodes. She denies any shortness of breath or dyspnea on exertion. Her potassium was elevated at 5.4 this morning and she received a dose of Kayexalate. REVIEW OF SYSTEMS: Negative for headache, dizziness, chest pain, palpitations, shortness of breath, nausea, vomiting. Positive for diarrhea. Remainder of review of systems is negative. PHYSICAL EXAMINATION: Temperature 97.1, pulse 64, respiratory rate 18, blood pressure 156/82, saturating 100% on room air. Intake and output: Urine output yesterday 1250 mL with three recorded bowel movements. GENERAL: The patient is seen lying in bed in no acute distress. She was awake, alert, oriented times three. HEAD and NECK: Legally blind. Moist tongue. Neck supple. Jugular veins are not distended. CARDIAC: S1, S2. 2+ pulse. No edema in the peripheries or in the dependent areas. LUNGS: Clear to auscultation bilaterally. ABDOMEN: Soft, nontender, nondistended. Bowel sounds are present. EXTREMITIES: Without edema. NEUROLOGIC: She is oriented, legally blind, no focal deficits. PSYCHIATRIC: Appropriate mood and affect. LABORATORY DATA: White count 8.0, hemoglobin 9.5, platelets 206. Sodium 137, potassium 5.4, bicarbonate 20, creatinine 3.1, BUN 61, calcium 9.2. Microbiology: Gastrointestinal (GI) tract polymerase chain reaction (PCR) is pending. INPATIENT MEDICATIONS: Reviewed by myself. No changes in the past 24 hours except sodium bicarbonate is increased to 650 mg by mouth three times a day and the patient received a one time dose of 15 grams of Kayexalate. ASSESSMENT AND PLAN: 1. Advanced chronic kidney disease (CKD). The patient is approaching chronic kidney disease (CKD) stage V. Potassium has been an intermittent issue. As an outpatient we will start her on Veltassa. She is no longer on lisinopril due to recurrent hyperkalemia. She continues to have a mild metabolic acidosis likely due to advanced chronic kidney disease (CKD) and recurrent diarrhea. I have increased her oral sodium bicarbonate for the same reason. The patient is pending fistula placement with Dr. Mansfield this week, likely in the left upper extremity. Vein mapping was completed last week in anticipation of fistula creation. 2. Hypertension. The patient's blood pressure remains close to goal with most systolics being in the 130s and 140s. She continued on hydrochlorothiazide 25 mg daily along with amlodipine 5 mg and metoprolol. Despite her proteinuric chronic kidney disease, angiotensin converting enzyme (IVONNE) inhibitor had to be discontinued due to recurrent hyperkalemia. 2. Anemia of chronic kidney disease. The patient continues on oral iron and weekly Aranesp. Hemoglobin is close to goal. 3. Non gapped metabolic acidosis due to advanced chronic kidney disease as well as recurrent diarrhea. The patient's sodium bicarbonate was increased to 650 mg three times a day. 4. Hyperkalemia, intermittent. Patient continues on hydrochlorothiazide for kaliuresis. She is on a 2 gram potassium restricted diet. We will start her on Veltassa as an outpatient. She received a one time dose of Kayexalate today. MTDD
[2017-09-15] MEDS: amLODIPine 5 MG TAB PO SCH (20:51)
[2017-09-15 22:00] VITALS: BP 146/70
[2017-09-16] MEDS: SLF 3 ML SYR IV SCH ×3 (05:48→21:04)
[2017-09-16 06:00] VITALS: BP 145/70
[2017-09-16 06:14] LABS: MEAN CORPUSCULAR HEMOGLOBIN 27.6 pg (27.0-33.0); MEAN CORPUSCULAR HGB CONC 31.8 g/dl (32.0-36.5); MEAN CORPUSCULAR VOLUME 86.9 fl (80.0-96.0); PLATELET COUNT, AUTOMATED 201 10^3/uL (150-450); RED CELL DISTRIBUTION WIDTH 15.8 % (11.5-14.5); WHITE BLOOD COUNT 7.3 10^3/uL (4.0-10.0)
[2017-09-16 06:22] LABS: CREATININE FOR GFR 3.13 MG/DL (0.55-1.02); GLOMERULAR FILTRATION RATE 16.2 (>51); POTASSIUM SERUM 4.2 MEQ/L (3.5-5.1)
[2017-09-16] MEDS: CAPSAICIN 0.025% CR 60 GM TOP SCH ×2 (09:00→21:04)
[2017-09-16] MEDS: LEVEMIR (INSULIN DETEMIR) 1 UNITS/0.01ML SC SCH ×2 (09:00→21:04)
[2017-09-16] MEDS: ACETAMINOPHEN TAB 650MG DOSE (2X325MG) PO PRN (09:30)
[2017-09-16] MEDS: HumaLOG INSULIN (NovoLOG) PER UNIT SC SCH ×4 (09:31→20:49)
[2017-09-16] MEDS: SUCRALFATE 1 GM TAB PO SCH ×4 (09:32→21:02)
[2017-09-16] MEDS: PANTOPRAZOLE 40MG TAB (PROTONIX) PO SCH ×2 (09:33→21:02)
[2017-09-16] MEDS: ATORVASTATIN 20 MG TAB PO SCH (09:33)
[2017-09-16] MEDS: SODIUM BICARBONATE 325 MG TAB PO SCH ×3 (09:33→21:02)
[2017-09-16] MEDS: CALCITRIOL 0.25 MCG CAP (S0169) PO SCH (09:33)
[2017-09-16] MEDS: hydroCHLOROthiazide 25 MG TAB PO SCH (09:34)
[2017-09-16] MEDS: FERROUS GLUCONATE 324 MG TAB PO SCH ×2 (09:34→21:02)
[2017-09-16] MEDS: APIXABAN 5 MG TAB (ELIQUIS) PO SCH ×2 (09:34→21:02)
[2017-09-16] MEDS: DIGOXIN 0.125 MG TAB PO SCH (10:41)
[2017-09-16] MEDS: METOPROLOL TARTRATE 100 MG TAB PO SCH ×2 (10:42→21:03)
--- NOTE | 2017-09-16 12:38 | IPNPDOC ---
Date Seen The patient was seen on 09/16/17. Progress Note SUBJECTIVE: Patient reports feeling well, no diarrhea, no CP, SBO, n/v/d, no sore throat this AM either. OBJECTIVE PHYSICAL EXAMINATION: VITAL SIGNS: Please see below. GENERAL: Pleasant female appears older than stated age lying on her left side as she usually does, not appear to be in any acute distress HEENT: Pupils equally round, she does not appear to have any elevation in her central venous pressure she has moist mucous membranes, no cervical LAD CARDIOVASCULAR: S1-S2 irregular. RESPIRATORY: Clear to auscultation. ABDOMINAL: Obese benign exam EXTREMITIES: no cyanosis or edema LABORATORY DATA: Please see below. MICROBIOLOGY: Please see below. Echocardiogram: 1. Normal global left ventricular systolic function. Left ventricular diastolic function also appeared to be normal. 2. Mildly dilated left atrium with mild mitral regurgitation. 3. Mild tricuspid regurgitation, probably moderate pulmonary hypertension. 4. There were findings consistent with elevated central venous pressure. 5. Small pericardial effusion noted. No evidence of cardiac tamponade.. DVT prophylaxis ordered?: Eliquis ASSESSMENT AND PLAN: This is a 57-year-old female with acute on chronic kidney injury. 1. Acute on chronic kidney injury. She had significant proteinuria secondary to diabetic nephropathy. Dr. Mansfield plans on placing AV fistula early this week. The patient is progressing to ESRD and will likely require HD in the near future, no indication that this time. con't to monitor. 2. Hyperkalemia, mild We will continue to monitor.Nephrologies help is appreciated 3. Hypertension. Fairly well controlled at the present time. Nephrology has increased hydrochlorothiazide con't with amlodipine, and metoprolol. Nephrologies help is greatly appreciated 4. Anemia, likely multifactorial, improved with transfusions. No further need for transfusion at this time. Likely related to chronic kidney disease as well as possibly some iron deficiency. She is on aranesp weekly and IV iron. Nephrology's help is appreciated. 5. Atrial fibrillation. We have restarted her Eliquis. She did have an occult stool for blood that was positive. For the time being, we will simply monitor her hemoglobin and hematocrit as she is remaining in hospital thus far has been quite stable. She is rate controlled with metoprolol. The patient is on digoxin as well. 6. Hiatal hernia. She is on a proton pump inhibitor and Carafate. She does not have any symptoms at the present time. 7. Deep venous thrombosis (DVT) prophylaxis. She is on Eliquis. 8. Type 2 diabetes. She is on sliding scale insulin and hypoglycemic protocol. DISPOSITION: Pending placement of her fistula VS, I&O, 24H, Fishbone Vital Signs/I&O Vital Signs Date Time Temp Pulse Resp B/P (MAP) Pulse Ox O2 Delivery O2 Flow Rate FiO2 09/16/17 10:42 72 138/78 09/16/17 09:00 Room Air 09/16/17 06:00 97.7 18 99 I&O- Last 24 Hours up to 6 AM 09/17/17 06:00 Intake Total 360 ml Output Total 650 ml Balance -290 ml Laboratory Data 24H LABS Laboratory Tests 2 09/15/17 16:55: Bedside Glucose (Misc Panel) 208H 09/15/17 20:31: Bedside Glucose (Misc Panel) 279H 09/16/17 05:46: Nucleated Red Blood Cells % (auto) 0.0, Anion Gap 10, Glomerular Filtration Rate 16.2L, Blood Urea Nitrogen 61H, Creatinine 3.13H, Sodium Level 139, Potassium Level 4.2#, Chloride Level 109H, Carbon Dioxide Level 20L, Calcium Level 9.0 09/16/17 11:57: Bedside Glucose (Misc Panel) 230H CBC/BMP Laboratory Tests 09/16/17 05:46 Red Blood Count 3.44 L, Mean Corpuscular Volume 86.9, Mean Corpuscular Hemoglobin 27.6, Mean Corpuscular Hemoglobin Concent 31.8 L, Red Cell Distribution Width 15.8 H, Calcium Level 9.0 Microbiology Microbiology 09/15/17 Gastrointestinal Tract Panel (PCR) - Final, Complete 09/09/17 Stool Occult Blood ([facility]) - Final, Complete 09/14/17 Respiratory Virus Panel (PCR) ([facility]) - Final, Complete GARY SOTOMAYOR MD Sep 16, 2017 12:38
[2017-09-16 14:00] VITALS: BP 127/67
[2017-09-16] MEDS: amLODIPine 5 MG TAB PO SCH (21:03)
[2017-09-16 22:00] VITALS: BP 170/102
--- NOTE | 2017-09-16 23:28 | IPN ---
DATE: 09/16/2017 SUBJECTIVE: The patient is seen at the bedside. She complains of transient chest tightness overnight. She received a dose of aspirin and Zantac per the primary team. The discomfort spontaneously resolved and did not recur. She otherwise feels well with no acute complaint. REVIEW OF SYSTEMS: Positive for depression, resolved sensation of chest tightness. Her review of systems is negative for headache, dizziness, palpitations, chest pressure, nausea, vomiting, dysuria. Remainder of review of systems is negative. VITAL SIGNS: Temperature 96.5, pulse 64, respiratory rate 16, blood pressure 132/86, saturating 100% on room air. Intake and output: Urine output yesterday was 3500 mL with two recorded bowel movements. There is no weight recorded today. The patient was net negative 1 liter in the past 24 hours. PHYSICAL EXAMINATION: The patient is seen lying in bed, comfortable. No acute distress. Lateral recumbent. Head and neck: Legally blind. Moist tongue. No jugular venous distention. Cardiovascular: S1, S2. Irregular. 2+ radial pulse. No edema in the lower extremities or in the dependent area. Respiratory: Clear to auscultation bilaterally. Abdomen: Soft, obese. Nontender. Positive bowel sounds. Extremities: Are without cyanosis or edema. Neurological: Legally blind, otherwise no focal deficits. Psychiatric: Depressed. LABS: White count 7.2, hemoglobin 9.1, platelet 209. Sodium 140, potassium 5.0, bicarbonate 21, BUN 63, creatinine 3.0. Microbiology: Respiratory panel: Negative 09/14/2017. Imaging: Chest x-ray 09/13. Clear lung cameron without acute infiltrate. INPATIENT MEDICATIONS: Reviewed by myself. The patient received a dose of aspirin and Zantac yesterday per the primary team as well as Depakote as needed (p.r.n.) . Her hydrochlorothiazide dose is increased to 25 mg daily. There is otherwise no significant change in the medications. ASSESSMENT AND PLAN: 1. Advance chronic kidney disease, approaching chronic kidney disease (CKD), stage V. Biopsies consistent with diabetic nephropathy and the patient has marked proteinuria with progressive deterioration and GFR over the past several months. She is pending fistula placement with Dr. Mansfield next week. Her electrolytes are fairly stable at this time and there is no acute indication for dialysis at present. Her volume status is fairly compensated on a thiazide diuretic. The patient understands her renal prognosis and the certainty of dialysis in the upcoming future well. 2. Anemia. The patient continues on oral iron supplements and weekly Aranesp. Her hemoglobin has been fairly stable in the 9s. Target hemoglobin is 10 to 11. 3. Hypertension. Blood pressure is acceptable at this time. She is on hydrochlorothiazide 25 mg daily. Will also help with kaliuresis. 4. Non-gapped metabolic acidosis secondary to advanced chronic kidney disease (CKD) and chronic diarrhea. The patient is on a sodium bicarbonate supplement. 5. 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 Her kidney biopsy was consistent with advanced diabetic changes and podocyte effacement and was negative for amyloids or light chain deposition. Her lisinopril is on hold at this time due to intermittent hyperkalemia. MTDD
--- NOTE | 2017-09-16 23:36 | IPN ---
DATE: 09/16/2017 SUBJECTIVE: The patient is seen this morning at the bedside. Her is present at the time of my visit. She complains of fatigue, otherwise no complaints, no recurrent diarrhea. She has been ambulating to the bathroom without any dyspnea on exertion. She is pending fistula placement with Dr. Mansfield tomorrow. Her potassium is stable this morning at 4.2. REVIEW OF SYSTEMS: Negative for headache, dizziness, chest pain, palpitations, shortness of breath, dyspnea on exertion, nausea, vomiting, abdominal pain, dysuria. Review of systems positive for fatigue and depression. Remainder of the review of systems is negative. PHYSICAL EXAMINATION: Temperature 97.7, pulse 72, respiratory rate 18, blood pressure 145/70, saturating 99% on room air. INTAKE AND OUTPUT: Urine output yesterday was 2050, oral intake was 1120, net negative fluid balance 930 mL; there were 3 recorded bowel movements. PHYSICAL EXAMINATION: The patient is seen in bed in no acute distress. Her is present. HEAD AND NECK: Extraocular muscles are intact. She is legally blind. Her tongue is moist. Neck veins are not elevated. CARDIOVASCULAR: S1, S2, irregular, 2+ radial pulse. No edema in the dependent areas or in the lower extremities. ABDOMEN: Soft, obese, nontender. LUNGS: Clear to auscultation bilaterally. The patient is seen on room air. NEUROLOGIC: She is legally blind; otherwise no focal deficits. PSYCHIATRIC: She appears depressed. LABORATORY: White count 7.3, hemoglobin 9.5, platelets 201. Sodium 139, potassium 4.2, bicarbonate 20, BUN 61, creatinine 3.1, calcium 9.0, glucose 147. Microbiology: Gastrointestinal (GI) tract PCR negative. INPATIENT MEDICATION: Reviewed by myself. No significant changes in the past 24 hours. ASSESSMENT AND PLAN: 1. Advanced chronic kidney disease, approaching chronic kidney disease V but no indication for urgent hemodialysis at this time. The patient is pending fistula placement with Dr. Mansfield tomorrow. She has had progressive deterioration in renal function over the past several months associated with marked proteinuria. Recent renal biopsy was consistent with advanced diabetic changes. She is expected to be hemodialysis dependent in the near future. At present, her electrolytes are fairly stable. She does have mild recurrent hyperkalemia. On discharge, we will prescribe her with Veltassa. She also has mild non-gap acidosis and continues on sodium bicarbonate for the same. 2. Hyperkalemia. The patient received a dose of Kayexalate yesterday. I am loath to give her Kayexalate because she already has chronic intermittent diarrhea. She was counseled regarding renal diet and potassium restriction, and to continue with the same when ultimately discharged. [facility]. 3. Hypertension. Blood pressure is acceptable at this time, and the patient continues on amlodipine 5 mg, hydrochlorothiazide 25 mg daily and metoprolol. Her angiotensin-converting enzyme (IVONNE) inhibitor is held due to advanced chronic kidney disease and recurrent hyperkalemia. 4. Anemia of chronic kidney disease. The patient continues on iron supplementation and weekly Aranesp. Hemoglobin is "to goal." 5. Atrial fibrillation. The patient continues on rate control with metoprolol, as well as every other day digoxin, and she is being anticoagulated with apixaban. 6. 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 The patient will followup with hematology/oncology as an outpatient for further evaluation.
[2017-09-16] MEDS ORDERED: cloNIDine 0.1 MG TAB PO ONE (23:45)
[2017-09-16 23:57] VITALS: BP 180/90
[2017-09-17 00:45] VITALS: BP 170/80
[2017-09-17 03:20] VITALS: BP 156/82
[2017-09-17] MEDS: SLF 3 ML SYR IV SCH ×3 (05:29→21:09)
[2017-09-17 06:00] VITALS: BP 134/76
[2017-09-17 06:03] LABS: MEAN CORPUSCULAR HEMOGLOBIN 28.2 pg (27.0-33.0); MEAN CORPUSCULAR HGB CONC 32.6 g/dl (32.0-36.5); MEAN CORPUSCULAR VOLUME 86.5 fl (80.0-96.0); PLATELET COUNT, AUTOMATED 204 10^3/uL (150-450); RED CELL DISTRIBUTION WIDTH 15.6 % (11.5-14.5); WHITE BLOOD COUNT 7.4 10^3/uL (4.0-10.0)
[2017-09-17 06:24] LABS: CALCIUM LEVEL 8.9 MG/DL (8.5-10.1); CREATININE FOR GFR 3.16 MG/DL (0.55-1.02); GLOMERULAR FILTRATION RATE 16.1 (>51); POTASSIUM SERUM 4.3 MEQ/L (3.5-5.1)
--- NOTE | 2017-09-17 08:38 | ECGEPIP ---
Stationary ECG Study [facility] Test Date: 2017-09-16 Pat Name: JOSE GAY Department: Room: [place] [address] Gender: F [employer]: : 1960 Requested By: FARIDA LEMON Order Number: [id number] Reading MD: Darwin Maria Measurements Intervals [place] Rate: 62 P: SD: 0 QRS: -43 QRSD: 95 T: 78 QT: 413 QTc: 422 Interpretive Statements Underlying atrial fibrillation with controlled ventricular response Marked leftward axis - left anterior hemiblock Low voltages with slow precordial R-wave progression, persistent S waves in V5 and V6, and inferior Q waves; body habitus versus pulmonary disease. Rule out prior AWMI/IWMI. Nonspecific ST/T-wave abnormalities. No change from 09/14/17 Electronically Signed On 09-17-2017 8:38:03 EDT by Darwin Maria
[2017-09-17] MEDS: CAPSAICIN 0.025% CR 60 GM TOP SCH ×2 (08:57→21:09)
[2017-09-17] MEDS: SUCRALFATE 1 GM TAB PO SCH ×4 (09:00→21:08)
[2017-09-17] MEDS: PANTOPRAZOLE 40MG TAB (PROTONIX) PO SCH ×2 (09:00→21:08)
[2017-09-17] MEDS: LEVEMIR (INSULIN DETEMIR) 1 UNITS/0.01ML SC SCH ×2 (09:00→21:00)
[2017-09-17] MEDS: ATORVASTATIN 20 MG TAB PO SCH (09:01)
[2017-09-17] MEDS: FERROUS GLUCONATE 324 MG TAB PO SCH ×2 (09:01→21:07)
[2017-09-17] MEDS: SODIUM BICARBONATE 325 MG TAB PO SCH ×3 (09:01→21:06)
[2017-09-17] MEDS: hydroCHLOROthiazide 25 MG TAB PO SCH (09:02)
[2017-09-17] MEDS: APIXABAN 5 MG TAB (ELIQUIS) PO SCH ×3 (09:02→21:08)
[2017-09-17] MEDS: HumaLOG INSULIN (NovoLOG) PER UNIT SC SCH ×4 (09:03→21:09)
[2017-09-17] MEDS: METOPROLOL TARTRATE 100 MG TAB PO SCH ×2 (09:03→21:08)
[2017-09-17] MEDS: ACETAMINOPHEN TAB 650MG DOSE (2X325MG) PO PRN (10:47)
--- NOTE | 2017-09-17 11:25 | IPN ---
DATE OF SERVICE: 09/17/2017 SUBJECTIVE: The patient is seen this morning at the bedside. Her blood pressure was elevated overnight 180/90 at midnight. She received a dose of clonidine 0.1 mg. This morning, she complained of dizziness while she was toileting in the bathroom, which subsequently resolved. No other acute events. No chest tightness or chest pain. She is eating breakfast at the time of my visit and is planned for fistula creation later this afternoon as an add on case. REVIEW OF SYSTEMS: Positive for elevated blood pressure overnight and dizziness this morning which was transient. Negative for headache, chest pain, palpitations, shortness of breath at rest, dyspnea on exertion, nausea, vomiting. Remainder of review of systems is negative. VITAL SIGNS: Temperature this morning 97.5, pulse 67, respiratory rate 18, blood pressure this morning 134/76, saturating 98% on room air. INTAKE AND OUTPUT: Urine output yesterday was 2400 mL, net negative 1680, with no recorded bowel movements. PHYSICAL EXAMINATION: The patient is seen in bed lying in bed in no acute distress. HEAD AND NECK: She is legally blind. Her tongue is moist. There is no distention of the jugular veins. CARDIAC: S1, S2. 2+ radial pulse. Trace edema in the lower extremities. LUNGS: Diminished breath sounds at bases, otherwise clear air entry. ABDOMEN: Soft. Obese. Nontender on exam. Bowel sounds are present. EXTREMITIES: Trace edema bilaterally in the lower extremities. NEUROLOGIC: Legally blind, but otherwise with no focal deficit. PSYCHIATRIC: Depressed, but otherwise mood is appropriate as is affect. LABORATORY: White count 7.4, hemoglobin 9.4, platelets 204. Sodium 141, potassium 4.3, bicarbonate 24, BUN 55, creatinine 3.1, glucose 143, calcium 8.9. Troponin overnight 0.02. INPATIENT MEDICATIONS: Reviewed by myself. The patient received a dose of clonidine 0.1 mg overnight when blood pressure was elevated. There is otherwise no change in her medications. ASSESSMENT AND PLAN: 1. Advanced chronic kidney disease, approaching chronic kidney disease V secondary to biopsy proven diabetic nephropathy. The patient is pending fistula placement with Dr. Mansfield this afternoon. She is expected to be hemodialysis dependent in the near future. At present, her electrolytes remain fairly stable. She does have mild recurrent hyperkalemia. Her IVONNE inhibitor was discontinued. She is on a 2 gram potassium diet and she is on sodium bicarbonate to help with acidosis and hyperkalemia. She will follow up closely as an outpatient for optimum initiation of hemodialysis and for close monitoring of her electrolytes and volume status. 2. Hypertension. Blood pressure was elevated overnight. The patient received a one time dose of clonidine. Blood pressure subsequently improved. She continues on amlodipine, hydrochlorothiazide and metoprolol. She intermittently receives a loop diuretic as needed for compensation of her volume status. 3. Anemia of chronic kidney disease. The patient continues on iron supplementation and weekly Aranesp. Goal hemoglobin in advanced CKD is 10 to 11. The patient continues with current therapy. 4. Atrial fibrillation. The patient continues on rate control with metoprolol and every other day digoxin. She is being anticoagulated with apixaban. 5. 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 No significant monoclonal deposition was seen on recent renal biopsy. The patient will followup with hematology/oncology as an outpatient for further evaluation and treatment as indicated.
[2017-09-17 14:00] VITALS: BP 143/71
--- NOTE | 2017-09-17 15:36 | IPN ---
please return to the full note MTDD
--- NOTE | 2017-09-17 15:56 | IPN ---
DATE: 09/17/2017 The patient is seen and examined. No acute events overnight. Reported generalized weakness and lightheadedness with physical therapy. Denies any chest pain, pressure or discomfort, fever, or chills. VITAL SIGNS: Temperature 97.1, pulse 63, respirations 18, blood pressure 143/71, pulse oximetry 96% on room air. LABORATORY DATA: WBC 7.4, hemoglobin and hematocrit 9.4/28.8, platelets 204. Chemistry: Sodium 141, potassium 4.3, chloride 108, bicarbonate 24, BUN 55, creatinine 3.16. PHYSICAL EXAMINATION: GENERAL: The patient is frail, alert and oriented times three, in no acute distress. HEENT: Normocephalic, atraumatic. PULMONARY: Bilaterally clear to auscultation. CARDIAC: Irregular, S1, S2. ABDOMEN: Soft, obese. EXTREMITIES: No clubbing, cyanosis, or edema. ASSESSMENT AND PLAN: This is a 57-year-old female patient with underlying medical history of diabetes insulin-dependent since age 35, hypertension, hemolytic anemia, mediastinal lymphadenopathy with negative biopsy, on chronic Eliquis status post hysterectomy for uterine cancer, bladder surgery, baseline chronic kidney disease (CKD) with baseline creatinine of 4 with proteinuria who presented with abdominal pain, nausea, vomiting, worsening renal function. PROBLEMS: 1. Acute on chronic renal failure, currently chronic kidney disease (CKD) stage V. The patient has significant proteinuria secondary to diabetic nephropathy. Nephrology has been consulted. Dr. Mansfield has been consulted for arteriovenous (AV) fistula arrangements. Currently cannot be done due to no operating room (OR) availability. As per Dr. Mansfield, procedure can be done as inpatient or outpatient. Followup nephrology recommendation. Continue Norvasc, clonidine, sodium bicarbonate, hydrochlorothiazide, Lopressor. Followup urine output. Followup blood urea nitrogen (BUN) and creatinine. 2. Hyperkalemia. Nephrology consulted. Continue to monitor. 3. Hypertension. The patient is currently on Norvasc, hydrochlorothiazide, metoprolol, and clonidine. Appreciate nephrology's assistance. Blood pressure controlled. 4. Anemia, likely multifactorial. The patient was transfused. The patient was on Aranesp. Likely anemia of chronic disease due to chronic kidney disease. Followup nephrology recommendation. 5. Atrial fibrillation. The patient is on Eliquis. Occult blood was positive. Monitor hemoglobin and hematocrit which has been quite stable in the hospital course. Continue digoxin and metoprolol. 6. Hiatal hernia. Proton pump inhibitor (PPI), Carafate. 7. Diabetes. Insulin as per protocol. 8. Deep vein thrombosis (DVT) prophylaxis. The patient is on Eliquis. DISPOSITION: The patient is homeless, social work has been consulted, physical therapy, possible discharge over the next 24 hours.
[2017-09-17] MEDS ORDERED: TORSEMIDE 5MG TABLET PO ONE (18:00)
[2017-09-17] MEDS: amLODIPine 5 MG TAB PO SCH (21:08)
[2017-09-17 22:00] VITALS: BP 152/80
[2017-09-18] MEDS: SLF 3 ML SYR IV SCH ×2 (05:43→13:22)
[2017-09-18 05:55] LABS: MEAN CORPUSCULAR HGB CONC 32.1 g/dl (32.0-36.5); PLATELET COUNT, AUTOMATED 221 10^3/uL (150-450); RED CELL DISTRIBUTION WIDTH 15.6 % (11.5-14.5); WHITE BLOOD COUNT 9.1 10^3/uL (4.0-10.0)
[2017-09-18 06:00] VITALS: BP 132/70
[2017-09-18 06:28] LABS: CALCIUM LEVEL 9.2 MG/DL (8.5-10.1); CREATININE FOR GFR 3.42 MG/DL (0.55-1.02); DIGOXIN LEVEL 0.7 NG/ML (0.5-2.0); GLOMERULAR FILTRATION RATE 14.7 (>51); POTASSIUM SERUM 4.3 MEQ/L (3.5-5.1)
[2017-09-18] MEDS: HumaLOG INSULIN (NovoLOG) PER UNIT SC SCH ×2 (08:22→12:26)
[2017-09-18] MEDS: LEVEMIR (INSULIN DETEMIR) 1 UNITS/0.01ML SC SCH (08:23)
[2017-09-18] MEDS: CALCITRIOL 0.25 MCG CAP (S0169) PO SCH (08:24)
[2017-09-18] MEDS: CAPSAICIN 0.025% CR 60 GM TOP SCH (08:24)
[2017-09-18] MEDS: ATORVASTATIN 20 MG TAB PO SCH (08:24)
[2017-09-18] MEDS: APIXABAN 5 MG TAB (ELIQUIS) PO SCH (08:25)
[2017-09-18] MEDS: SUCRALFATE 1 GM TAB PO SCH ×2 (08:25→12:26)
[2017-09-18] MEDS: hydroCHLOROthiazide 25 MG TAB PO SCH (08:25)
[2017-09-18] MEDS: PANTOPRAZOLE 40MG TAB (PROTONIX) PO SCH (08:25)
[2017-09-18] MEDS: DIGOXIN 0.125 MG TAB PO SCH (08:25)
[2017-09-18 08:26] VITALS: BP 132/70
[2017-09-18] MEDS: SODIUM BICARBONATE 325 MG TAB PO SCH (08:26)
[2017-09-18] MEDS: FERROUS GLUCONATE 324 MG TAB PO SCH (08:26)
[2017-09-18] MEDS: METOPROLOL TARTRATE 100 MG TAB PO SCH (08:26)
[2017-09-18] MEDS ORDERED: [UNRECOGNIZED DRUG - CODE] XX (11:12)
[2017-09-18] MEDS ORDERED: INSUDET SC (11:12)
[2017-09-18] MEDS ORDERED: HYDR25TAB PO (11:12)
[2017-09-18] MEDS ORDERED: PANT40TA2 PO (11:12)
[2017-09-18] MEDS ORDERED: SUCR1TA PO (11:12)
[2017-09-18] MEDS ORDERED: AMLO5TAB2 PO (11:12)
[2017-09-18] MEDS ORDERED: FERR32TA PO (11:12)
[2017-09-18] MEDS ORDERED: SODI325T9 PO (11:12)
[2017-09-18] MEDS: DARBEPOETIN 100 MCG/0.5 ML *NON-DIALYSIS* SYRINGE (J0881) SC SCH (12:27)
[2017-09-18] MEDS ORDERED: BASA100I SC (13:25)
[2017-09-18 14:00] VITALS: BP 131/62
--- NOTE | 2017-09-19 11:53 | IPN ---
DATE: 09/18/2017 SUBJECTIVE: The patient is seen this morning at the bedside. She is discharge pending. She is tearful at the time of my visit. We had a lengthy discussion regarding what the future holds for her in terms of her renal prognosis and anticipated dialysis needs and with plan for outpatient placement of fistula. Her family recently lost their home last week due to foreclosure and the patient will go to stay with her and son in a motel. The patient denies any headache, dizziness, chest pain, shortness of breath, palpitations, nausea, vomiting, abdominal pain, dysuria. She complains of chronic depression. The remainder of the review of systems is negative. VITAL SIGNS: Temperature 97, pulse 64, respiratory rate 18, blood pressure 132/70, saturating 98% on room air. Intake and output: Urine output yesterday was 1500 mL. PHYSICAL EXAMINATION: The patient is seen in bed in mild emotional distress, tearful. Extraocular muscles intact. Legally blind. Neck is supple. No jugular venous distention. Oral mucosal is moist. Cardiac: S1, S2, irregularly irregular. 2+ radial pulse. No edema in the extremities. Abdomen is soft, obese, nontender. Lungs are clear to auscultation. She is seen on room air. Neurologic: No focal deficits. Legally blind. Psychiatric: Depressed. LABS: White count 9.1, hemoglobin 9.9, platelet 221. Sodium 139, potassium 4.3, bicarbonate 23, BUN 59, creatinine 3.4, calcium 9.2, glucose 181. Digoxin 0.7. Inpatient medications reviewed by myself. No significant change in the past 24 hours. ASSESSMENT/PLAN: Advanced chronic kidneys disease secondary to biopsy proven diabetic nephropathy approaching hemodialysis needs in the near future. The patient is cleared for discharge from renal point of view today. She will followup with me in the office on 09/23/2017 with repeat blood work. Her discharge medications are reviewed by myself and appropriately include: Hydrochlorothiazide 25 mg by mouth daily, sodium bicarbonate 650 mg by mouth three times a day for control of her hyperkalemia and control of acidemia. I discussed a 2 gram potassium diet with the patient. She will also see Dr. Mansfield for fistula placement. She may require hemodialysis prior to the fistula maturation at which point, we would place a PermaCath. Hypertension: Blood pressure is controlled at this time. Her discharge antihypertensive regimen is reviewed by myself and includes amlodipine, hydrochlorothiazide and metoprolol. Given her advanced chronic kidney disease (CKD), IVONNE is held. Anemia chronic kidney disease: The patient continues on iron supplementation and she will receive erythropoietin stimulating agent in the outpatient clinic until she is hemodialysis dependent. Atrial fibrillation: The patient continues on metoprolol and digoxin. Her digoxin level was appropriate. She is being anticoagulated with Eliquis. 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 Sarah Reno as an outpatient. Non-gap metabolic acidosis secondary to intermittent diarrhea and chronic renal failure. The patient is optimized on oral sodium bicarbonate. Intermittent hyperkalemia: The patient's potassium level has been stable on thiazide and 2 gram potassium diet and control of acidemia. We will provide her with Veltassa samples as an outpatient. Plan of care was discussed with Dr. Dawson Laura. DAYNA
--- NOTE | 2017-09-20 08:29 | IPN ---
MEDICAL ONCOLOGY BRIEF NOTE, BONE MARROW BIOPSY FOLLOWUP: DATE OF SERVICE: 09/13/2017. The final addendum to 09/04/2017 bone marrow biopsy notes a small population of kappa restricted plasma cells (approximately 2%) with numerous cytogenetics/ FISH abnormalities supporting diagnosis of plasma cell dyscrasia. The presence of a 17p deletion suggestive of adverse course. The correct interpretation of this is a possible very low grade MGUS and/or extremely early finding of a CLL. This does not require urgent re-evaluation. I repeat this does not require urgent hematologic reassessment or followup. It does, however, mean that in the future, on an outpatient basis, Gem should be referred for routine hematologic surveillance following this up unless her other comorbidities vastly out strip in acuity her clinical situation. Currently, she is being planned for AVR placement for dialysis for diabetic nephropathy. This clearly takes precedence. I view the bone marrow findings as incidental, not of primary clinical importance currently. DAYNA
== END 2017-09-18 17:16 | disposition home health service (06) | DRG 468 ==
LOC: M ED 21:43 → M ED INP 08-29 03:29 → M PCU 08-29 20:06 → M MSPAV 08-30 10:53 → M MS4PR 09-03 08:23 → M MSPAV 09-07 14:32
PROVIDERS: ADMIT Internal Medicine; ATTEND Hospitalist
PROC: 0QB23ZX Excision of Right Pelvic Bone, Percutaneous Approach, Diagnostic (ICD-10-PCS; 2017-09-04)
PROC: 0TB13ZX Excision of Left Kidney, Percutaneous Approach, Diagnostic (ICD-10-PCS; principal; 2017-09-05)
PROC: 30233N1 Transfusion of Nonautologous Red Blood Cells into Peripheral Vein, Percutaneous Approach (ICD-10-PCS; 2017-09-08)
DX: E11.21 Type 2 diabetes mellitus with diabetic nephropathy (principal); K85.90 Acute pancreatitis without necrosis or infection, unspecified; N17.9 Acute kidney failure, unspecified; E87.0 Hyperosmolality and hypernatremia; E87.2 Acidosis; N18.4 Chronic kidney disease, stage 4 (severe); I50.9 Heart failure, unspecified; E11.43 Type 2 diabetes mellitus with diabetic autonomic (poly)neuropathy; I13.0 Hypertensive heart and chronic kidney disease with heart failure and stage 1 through stage 4 chronic kidney disease, or unspecified chronic kidney disease; E87.5 Hyperkalemia; I48.2 Chronic atrial fibrillation; D75.9 Disease of blood and blood-forming organs, unspecified; D63.1 Anemia in chronic kidney disease; H54.8 Legal blindness, as defined in USA; Z85.42 Personal history of malignant neoplasm of other parts of uterus; Z90.710 Acquired absence of both cervix and uterus; Z91.14 Patient's other noncompliance with medication regimen; Z79.01 Long term (current) use of anticoagulants; Z79.4 Long term (current) use of insulin; Z79.899 Other long term (current) drug therapy; Z88.1 Allergy status to other antibiotic agents; Z88.6 Allergy status to analgesic agent; Z88.8 Allergy status to other drugs, medicaments and biological substances; Z91.041 Radiographic dye allergy status; Z90.49 Acquired absence of other specified parts of digestive tract; E11.319 Type 2 diabetes mellitus with unspecified diabetic retinopathy without macular edema

== ENCOUNTER → 2017-09-05 | Outpatient (CLI) | payer OTHER ==
[~2017-09-05] MED LIST changes: -BASA100I SC; -DIGO0.12 PO; -ELIQ5TAB PO; -FENO145T PO; -FENO160T10 PO; -FISH1000 PO; -FISH100049 PO; -INSUHUMDS SC; -INSULANT SC; -LASI20TA PO; +LIDOCAINE 1% MDV 20ML VIAL As Ordered; -LIPI80TA PO; -METO-398 PO; -METO100T5 PO; -METO1TAB33 PO; -TRAD5TAB PO; -XARE15TA PO; -[UNRECOGNIZED DRUG - OTHER] PO
== END ==
LOC: M RADPRO 10:00
DX: E11.21 Type 2 diabetes mellitus with diabetic nephropathy (principal); Z53.9 Procedure and treatment not carried out, unspecified reason

== ENCOUNTER 2017-10-07 13:50 | Emergency (ER) | payer OTHER ==
[~2017-10-07] VITALS: Ht 157.5 cm; Wt 81.8 kg
[~2017-10-07 13:50] MED LIST changes: +AMLO5TAB2 PO; +BASA100I SC; +CALC1CAP31 PO; +DIGO0.12 PO; +ELIQ5TAB PO; +FENO145T PO; +FENO160T10 PO; +FERR32TA PO; +FISH1000 PO; +FISH100049 PO; +HUMA100I3 SC; +HYDR25TAB PO; +IMOD2TAB16 PO; +INSUDET SC; +INSUHUMDS SC; +INSULANT SC; +LASI20TA PO; -LIDOCAINE 1% MDV 20ML VIAL As Ordered; +LIPI80TA PO; +LISI2.5T3 PO; +METO-398 PO; +METO100T5 PO; +METO1TAB33 PO; +NIAC1TAB5 PO; +PANT40TA2 PO; +PEPC10TA6 PO; +POLY150C4 PO; +SODI325T9 PO; +SUCR1TA PO; +TORS20TA2 PO; +TRAD5TAB PO; +TYLE500T78 PO; +VITA1CAP40 PO; +XARE15TA PO; +[UNRECOGNIZED DRUG - CODE] XX; +[UNRECOGNIZED DRUG - OTHER] PO
[2017-10-07] MEDS ORDERED: ONDANSETRON 4MG/2ML VIAL (J2405) IV ONE (14:45)
[2017-10-07] MEDS ORDERED: NS 1,000 ML IV ONE (14:45)
[2017-10-07] MEDS ORDERED: NS 250 ML IV ONE (15:00)
[2017-10-07 15:31] LABS: BASO % 0.3 % (0.0-1.0); EOS # 0.2 10^3/uL (0.0-0.50); EOS % 2.7 % (0.0-3.0); IMMATURE GRANULOCYTE % 1.2 % (0-0); LYMPH # 0.9 10^3/uL (1.5-4.5); LYMPH % 13.6 % (24.0-44.0); MEAN CORPUSCULAR HEMOGLOBIN 28.3 pg (27.0-33.0); MEAN CORPUSCULAR HGB CONC 31.8 g/dl (32.0-36.5); MONO # 0.6 10^3/uL (0.0-0.8); MONO % 9.5 % (0.0-5.0); NEUTROPHILS # 4.8 10^3/uL (1.8-7.7); NEUTROPHILS % 72.7 % (36.0-66.0); PLATELET COUNT, AUTOMATED 164 10^3/uL (150-450); RED CELL DISTRIBUTION WIDTH 16.1 % (11.5-14.5); WHITE BLOOD COUNT 6.6 10^3/uL (4.0-10.0)
--- NOTE | 2017-10-07 15:42 | REP ---
Chest one-view HISTORY: Vomiting Comparison: 09/13/2017 Linear density is present in the left lower lobe consistent with scar. The right lung is clear. The heart is upper limits of normal in size. The pulmonary vasculature is normal in appearance. Impression: Left lower lobe scar. Signed by Jac Cervantes MD 10/07/2017 03:33 P
[2017-10-07 15:54] LABS: ALBUMIN 1.9 GM/DL (3.2-5.2); ALBUMIN/GLOBULIN RATIO 0.51 (1.00-1.93); BILIRUBIN,DIRECT 0.1 MG/DL (0.0-0.2); BILIRUBIN,TOTAL 0.5 MG/DL (0.2-1.0); CALCIUM LEVEL 8.4 MG/DL (8.5-10.1); CREATININE FOR GFR 2.57 MG/DL (0.55-1.02); GLOMERULAR FILTRATION RATE 20.4 (>51); TOTAL PROTEIN 5.6 GM/DL (6.4-8.2)
[2017-10-07 16:05] LABS: DIGOXIN LEVEL 0.7 NG/ML (0.5-2.0); FREE T4 0.91 NG/DL (0.76-1.46)
[2017-10-07 16:40] VITALS: BP 154/63
--- NOTE | 2017-10-07 18:37 | ECGEPIP ---
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
== END 2017-10-07 17:35 | disposition home or self-care (01) ==
LOC: M ED 13:50 → EDBD 13:50 → M ED 17:35
DX: I10 Essential (primary) hypertension (principal); H54.8 Legal blindness, as defined in USA; I48.91 Unspecified atrial fibrillation; E11.9 Type 2 diabetes mellitus without complications; I25.2 Old myocardial infarction; Z79.4 Long term (current) use of insulin; Z88.1 Allergy status to other antibiotic agents; Z88.8 Allergy status to other drugs, medicaments and biological substances; Z87.891 Personal history of nicotine dependence
CPT/HCPCS: 36415; 71010; 80048; 80076; 80162; 81001; 82550; 82553; 83605; 83690; 84439; 84443; 85025; 87040; 93000; 93041; 96374; 99285; J2405

== ENCOUNTER 2017-10-11 11:11 | Day surgery (SDC) | payer OTHER ==
[~2017-10-11] VITALS: Ht 162.6 cm; Wt 78.5 kg
[2017-10-11] MEDS ORDERED: NS 1,000 ML IV ONE (11:30)
[2017-10-11] MEDS ORDERED: LIDOCAINE 1% MDV 20ML VIAL SQ PRN (11:30)
[2017-10-11] MEDS ORDERED: BUPIVACAINE HCL 0.5% 30 ML VIAL As Ordered ONE (14:15)
[2017-10-11] MEDS ORDERED: BUPIVACAINE HCL 0.25% 30 ML VIAL As Ordered ONE (14:15)
[2017-10-11] MEDS ORDERED: ISOVUE-300 61% 50ML VIAL (Q9967) As Ordered ONE (14:15)
[2017-10-11] MEDS ORDERED: LIDOCAINE 1% SDV INJ 30 ML VIAL As Ordered ONE (14:15)
[2017-10-11] MEDS ORDERED: HEPARIN SOD (PORCINE) 5000 UNITS/ML VIAL As Ordered ONE (14:15)
[2017-10-11] MEDS ORDERED: LIDOCAINE 2% INJ 100 MG/5 ML SDV (FOR ANES.) As Ordered ONE (15:37)
[2017-10-11] MEDS ORDERED: PROPOFOL 200 MG/20 ML VIAL As Ordered ONE (15:37)
[2017-10-11] MEDS ORDERED: ONDANSETRON 4MG/2ML VIAL (J2405) As Ordered ONE (15:37)
[2017-10-11] MEDS ORDERED: KETAMINE HCL 200 MG/20 ML VIAL As Ordered ONE (15:37)
[2017-10-11] MEDS ORDERED: MIDAZOLAM INJ 2 MG/2 ML VIAL (J2250) As Ordered ONE (15:37)
[2017-10-11 16:40] VITALS: BP 120/70
--- NOTE | 2017-11-14 15:24 | RO ---
DATE OF PROCEDURE: 10/11/2017 PREPROCEDURE DIAGNOSIS: Chronic renal insufficiency nearing end stage renal disease. POSTPROCEDURE DIAGNOSIS: Chronic renal insufficiency nearing end stage renal disease. PROCEDURE: Left brachiocephalic arteriovenous fistula creation. ATTENDING SURGEON: Dr. Peyton Mansfield SODA COLUMN OPERATOR: None. INDICATION: The patient is a 57-year-old female with chronic renal insufficiency nearing end stage renal disease, who will require access for hemodialysis in the future. The patient will undergo creation of a left brachiocephalic arteriovenous fistula. Risks, benefits and alternative treatment options were discussed with the patient. ANESTHESIA: Local MAC. ESTIMATED BLOOD LOSS: 30 mL. IV FLUIDS: 50 mL HEPARIN: None. COMPLICATIONS: None. DRAINS: None. SPECIMENS: None. IMPLANTS: None. PROCEDURE: The patient was taken to the operating room and placed supine on the operating room table and the left upper extremity was prepped and draped in the standard surgical fashion. The transverse incision was made at the antecubital fossa after anesthetizing the overlying skin with 1% lidocaine mixed with 0.5% Marcaine. The brachial artery was sharply dissected proximally and distally and encircled with Vesseloops. Cephalic vein was identified, sharply dissected, transected as far distal as possible and ligated with an #0 silk suture. The cephalic vein was then dilated with heparinized saline. Cephalic vein was noted to be fairly sclerotic and small and difficult to dilate with the heparinized saline, but the heparinized saline did flow through the systolic vein with no evidence of obstruction higher in the arm. The cephalic vein was then anastomosed to the brachial artery in an end to side fashion using #6-0 Prolene suture with good flow noted through the cephalic vein with Doppler ultrasound evaluation after completion of the anastomosis. Hemostasis was obtained. The incisions were closed using #2-0 Vicryl to approximate the deeper layers and #3-0 Monocryl to approximate the skin in a running subcuticular fashion. Steri-Strips and dressings were applied. The patient tolerated the procedure well. All instrument, sponge and needle counts were correct at the end of the case. There were no complications. Dr. Mansfield was present for and directed the entire case. The patient was transferred to the recovery room and subsequently discharged in stable condition.
== END 2017-10-11 16:54 | disposition home or self-care (01) ==
LOC: M SDC 11:11
PROVIDERS: ATTEND Surgery Vascular Surgery
DX: N18.5 Chronic kidney disease, stage 5 (principal); I48.0 Paroxysmal atrial fibrillation; R07.9 Chest pain, unspecified; I12.0 Hypertensive chronic kidney disease with stage 5 chronic kidney disease or end stage renal disease; E78.2 Mixed hyperlipidemia; E11.40 Type 2 diabetes mellitus with diabetic neuropathy, unspecified; K21.9 Gastro-esophageal reflux disease without esophagitis; C55 Malignant neoplasm of uterus, part unspecified; R06.02 Shortness of breath; M12.9 Arthropathy, unspecified; H54.8 Legal blindness, as defined in USA; I65.23 Occlusion and stenosis of bilateral carotid arteries; R60.9 Edema, unspecified; R94.31 Abnormal electrocardiogram [ECG] [EKG]; E66.9 Obesity, unspecified; Z88.1 Allergy status to other antibiotic agents; Z88.5 Allergy status to narcotic agent; Z88.6 Allergy status to analgesic agent; Z88.8 Allergy status to other drugs, medicaments and biological substances; Z91.041 Radiographic dye allergy status; Z79.899 Other long term (current) drug therapy; Z79.4 Long term (current) use of insulin; Z79.01 Long term (current) use of anticoagulants; Z96.1 Presence of intraocular lens; Z87.891 Personal history of nicotine dependence

== ENCOUNTER 2017-11-23 16:21 | Inpatient (IN) | payer OTHER ==
[2017-11-23 15:18] LABS: BEDSIDE GLUCOSE 107 MG/DL (70-105)
[2017-11-23 15:59] LABS: BASO % 0.4 % (0.0-1.0); EOS # 0.2 10^3/uL (0.0-0.50); EOS % 2.5 % (0.0-3.0); HEMATOCRIT 25.3 % (36.0-47.0); HEMOGLOBIN 7.5 g/dl (12.0-16.0); IMMATURE GRANULOCYTE % 0.6 % (0-0); LYMPH # 0.8 10^3/uL (1.5-4.5); LYMPH % 11.3 % (24.0-44.0); MEAN CORPUSCULAR HEMOGLOBIN 29.1 pg (27.0-33.0); MEAN CORPUSCULAR HGB CONC 29.6 g/dl (32.0-36.5); MEAN CORPUSCULAR VOLUME 98.1 fl (80.0-96.0); MONO # 0.4 10^3/uL (0.0-0.8); MONO % 5.8 % (0.0-5.0); NEUTROPHILS # 5.8 10^3/uL (1.8-7.7); NEUTROPHILS % 79.4 % (36.0-66.0); PLATELET COUNT, AUTOMATED 228 10^3/uL (150-450); RED BLOOD COUNT 2.58 10^6/uL (4.00-5.40); RED CELL DISTRIBUTION WIDTH 17.6 % (11.5-14.5); WHITE BLOOD COUNT 7.2 10^3/uL (4.0-10.0)
[2017-11-23 16:27] LABS: LACTIC ACID SEPSIS PROTOCOL 0.9 MMOL/L (0.4-2.0)
[2017-11-23 16:30] LABS: ALBUMIN 2.5 GM/DL (3.2-5.2); ALBUMIN/GLOBULIN RATIO 0.64 (1.00-1.93); ALKALINE PHOSPHATASE 72 U/L (45-117); ALT/SGPT 24 U/L (12-78); ANION GAP 8 MEQ/L (8-16); AST/SGOT 10 U/L (7-37); BILIRUBIN,DIRECT < 0.1 MG/DL (0.0-0.2); BILIRUBIN,TOTAL 0.3 MG/DL (0.2-1.0); BLOOD UREA NITROGEN 76 MG/DL (7-18); CALCIUM LEVEL 8.6 MG/DL (8.5-10.1); CARBON DIOXIDE LEVEL 23 MEQ/L (21-32); CHLORIDE LEVEL 113 MEQ/L (98-107); CK-MB VALUE MASS 5.4 NG/ML (0.0-3.6); CPK CREATINE PHOSPHOKINASE 104 U/L (26-192); CREATININE FOR GFR 3.13 MG/DL (0.55-1.02); GLOMERULAR FILTRATION RATE 16.2 (>51); GLUCOSE, FASTING 107 MG/DL (70-105); MB/CK RELATIVE INDEX 5.19 (< OR =4); NT-PRO BNP 17602 PG/ML (<125); SODIUM LEVEL 144 MEQ/L (136-145); TOTAL PROTEIN 6.4 GM/DL (6.4-8.2); TROPONIN I 0.02 NG/ML (< 0.10)
[2017-11-23 16:38] LABS: DIGOXIN LEVEL 0.3 NG/ML (0.5-2.0)
[2017-11-23 17:01] LABS: POTASSIUM SERUM 5.4 MEQ/L (3.5-5.1)
[2017-11-23] MEDS: FUROSEMIDE 20 MG/2 ML VIAL (J1940) IV (18:28)
[2017-11-23] MEDS ORDERED: GLUCOSE 4 GM CHEW TABLET PO (19:45)
[2017-11-23] MEDS ORDERED: GLUCAGON FOR INJ 1 MG VIAL (J1610) SC (19:45)
[2017-11-23] MEDS ORDERED: DEXTROSE 50% 50 ML SYRINGE IV (19:45)
[2017-11-23] MEDS ORDERED: ONDANSETRON 4MG/2ML VIAL (J2405) IV (19:45)
[2017-11-23] MEDS: HumaLOG INSULIN (NovoLOG) PER UNIT SC ×2 (20:26)
[2017-11-23 20:28] LABS: BEDSIDE GLUCOSE 70 MG/DL (70-105)
[2017-11-23] MEDS: ATORVASTATIN 20 MG TAB PO (20:42)
[2017-11-23] MEDS: OMEGA-3 1050MG CAPSULE PO (20:43)
[2017-11-23] MEDS: PANTOPRAZOLE 40MG TAB (PROTONIX) PO (20:43)
[2017-11-23] MEDS: FERROUS GLUCONATE 324 MG TAB PO (20:43)
[2017-11-23] MEDS: APIXABAN 5 MG TAB (ELIQUIS) PO (20:43)
[2017-11-23] MEDS: SOD POLYSTYRENE SULFONATE SUSP 15 GM/60 ML UD PO (20:44)
[2017-11-23] MEDS: ACETAMINOPHEN TAB 650MG DOSE (2X325MG) PO (20:44)
[2017-11-23] MEDS: METOPROLOL SUCC (TopROL XL) 50MG **XL** TAB PO (20:44)
[2017-11-23] MEDS: FUROSEMIDE 100 MG/10 ML VIAL (J1940) IV (20:46)
[2017-11-23] MEDS: SUCRALFATE 1 GM TAB PO (20:49)
[2017-11-23] MEDS: SODIUM BICARBONATE 325 MG TAB PO (20:50)
[2017-11-23] MEDS: NIACIN SR (NIASPAN) 500 MG TAB PO (20:50)
[2017-11-23 21:01] LABS: ESTIMATED AVERAGE GLUCOSE 160 MG/DL (60-110); HEMOGLOBIN A1c 7.2 %
[2017-11-23] MEDS: diphenhydrAMINE 25 MG CAP PO (22:12)
[2017-11-23 22:20] LABS: CK-MB VALUE MASS 6.1 NG/ML (0.0-3.6); CPK CREATINE PHOSPHOKINASE 109 U/L (26-192); MB/CK RELATIVE INDEX 5.59 (< OR =4); TROPONIN I < 0.02 NG/ML (< 0.10)
[2017-11-23 23:12] LABS: ANION GAP 12 MEQ/L (8-16)
[2017-11-23 23:14] LABS: ALBUMIN 2.6 GM/DL (3.2-5.2); BLOOD UREA NITROGEN 76 MG/DL (7-18); CALCIUM LEVEL 8.7 MG/DL (8.5-10.1); CHLORIDE LEVEL 113 MEQ/L (98-107); CREATININE FOR GFR 3.06 MG/DL (0.55-1.02); GLOMERULAR FILTRATION RATE 16.7 (>51); GLUCOSE, FASTING 91 MG/DL (70-105); SODIUM LEVEL 144 MEQ/L (136-145)
[2017-11-23 23:28] LABS: CARBON DIOXIDE LEVEL 19 MEQ/L (21-32); POTASSIUM SERUM 5.2 MEQ/L (3.5-5.1)
[2017-11-24] MEDS ORDERED: SLF 3 ML SYR IV (02:30)
[2017-11-24 04:12] LABS: HEMATOCRIT 23.4 % (36.0-47.0); HEMOGLOBIN 7.1 g/dl (12.0-16.0); MEAN CORPUSCULAR HEMOGLOBIN 29.8 pg (27.0-33.0); MEAN CORPUSCULAR HGB CONC 30.3 g/dl (32.0-36.5); MEAN CORPUSCULAR VOLUME 98.3 fl (80.0-96.0); PLATELET COUNT, AUTOMATED 204 10^3/uL (150-450); RED BLOOD COUNT 2.38 10^6/uL (4.00-5.40); RED CELL DISTRIBUTION WIDTH 17.3 % (11.5-14.5); WHITE BLOOD COUNT 7.5 10^3/uL (4.0-10.0)
[2017-11-24 04:29] LABS: ALBUMIN 2.2 GM/DL (3.2-5.2); ANION GAP 12 MEQ/L (8-16); BLOOD UREA NITROGEN 76 MG/DL (7-18); CALCIUM LEVEL 8.3 MG/DL (8.5-10.1); CARBON DIOXIDE LEVEL 21 MEQ/L (21-32); CHLORIDE LEVEL 111 MEQ/L (98-107); CHOLESTEROL LEVEL 159 MG/DL (<200); CHOLESTEROL RISK RATIO 2.239 (<5); CK-MB VALUE MASS 5.6 NG/ML (0.0-3.6); CPK CREATINE PHOSPHOKINASE 119 U/L (26-192); CREATININE FOR GFR 3.09 MG/DL (0.55-1.02); GLOMERULAR FILTRATION RATE 16.5 (>51); GLUCOSE, FASTING 98 MG/DL (70-105); HDL CHOLESTEROL 71 MG/DL (>40); LDL CHOLESTEROL 45.4 MG/DL (<100); NON-HDL-C 88 MG/DL; PHOSPHORUS LEVEL 7.4 MG/DL (2.5-4.9); POTASSIUM SERUM 4.8 MEQ/L (3.5-5.1); SODIUM LEVEL 144 MEQ/L (136-145); TRIGLYCERIDES LEVEL 213 MG/DL (<150); TROPONIN I 0.02 NG/ML (< 0.10)
[2017-11-24] MEDS: SLF 3 ML SYR IV ×3 (06:00→21:11)
[2017-11-24] MEDS: HumaLOG INSULIN (NovoLOG) PER UNIT SC ×4 (07:13→21:11)
[2017-11-24] MEDS: SUCRALFATE 1 GM TAB PO ×2 (08:15→21:10)
[2017-11-24] MEDS: NIACIN SR (NIASPAN) 500 MG TAB PO (08:15)
[2017-11-24] MEDS: SODIUM BICARBONATE 325 MG TAB PO ×3 (08:15→21:10)
[2017-11-24] MEDS: FERROUS GLUCONATE 324 MG TAB PO ×2 (08:17→21:10)
[2017-11-24] MEDS: ATORVASTATIN 20 MG TAB PO (08:17)
[2017-11-24] MEDS: PANTOPRAZOLE 40MG TAB (PROTONIX) PO (08:17)
[2017-11-24] MEDS: APIXABAN 5 MG TAB (ELIQUIS) PO ×2 (08:17→21:10)
[2017-11-24] MEDS: OMEGA-3 1050MG CAPSULE PO ×2 (08:17→21:10)
[2017-11-24] MEDS: DIGOXIN 0.125 MG TAB PO (08:18)
[2017-11-24] MEDS: METOPROLOL SUCC (TopROL XL) 50MG **XL** TAB PO (08:18)
[2017-11-24] MEDS: FUROSEMIDE 100 MG/10 ML VIAL (J1940) IV ×2 (10:25→17:44)
[2017-11-24 12:35] LABS: BEDSIDE GLUCOSE 135 MG/DL (70-105)
[2017-11-24 17:11] LABS: BEDSIDE GLUCOSE 214 MG/DL (70-105)
[2017-11-24 20:07] LABS: IMMEDIATE SPIN CROSSMATCH 1 3
[2017-11-24 21:12] LABS: BEDSIDE GLUCOSE 281 MG/DL (70-105)
[2017-11-25 05:36] LABS: HEMATOCRIT 30.1 % (36.0-47.0); MEAN CORPUSCULAR HGB CONC 30.9 g/dl (32.0-36.5); MEAN CORPUSCULAR VOLUME 93.8 fl (80.0-96.0); PLATELET COUNT, AUTOMATED 204 10^3/uL (150-450); RED BLOOD COUNT 3.21 10^6/uL (4.00-5.40); RED CELL DISTRIBUTION WIDTH 17.8 % (11.5-14.5); WHITE BLOOD COUNT 6.6 10^3/uL (4.0-10.0)
[2017-11-25 05:46] LABS: HEMOGLOBIN 9.3 g/dl (12.0-16.0)
[2017-11-25 05:57] LABS: ALBUMIN 2.2 GM/DL (3.2-5.2); ANION GAP 9 MEQ/L (8-16); BLOOD UREA NITROGEN 79 MG/DL (7-18); CALCIUM LEVEL 8.5 MG/DL (8.5-10.1); CARBON DIOXIDE LEVEL 20 MEQ/L (21-32); CHLORIDE LEVEL 110 MEQ/L (98-107); CREATININE FOR GFR 3.52 MG/DL (0.55-1.02); GLOMERULAR FILTRATION RATE 14.2 (>51); GLUCOSE, FASTING 240 MG/DL (70-105); PHOSPHORUS LEVEL 6.3 MG/DL (2.5-4.9); POTASSIUM SERUM 4.5 MEQ/L (3.5-5.1); SODIUM LEVEL 139 MEQ/L (136-145)
[2017-11-25] MEDS: SLF 3 ML SYR IV ×3 (06:00→20:45)
[2017-11-25] MEDS: (RENVELA) SEVELAMER **CARBONate** 800 MG TAB PO ×4 (08:00→18:13)
[2017-11-25] MEDS: DARBEPOETIN 100 MCG/0.5 ML *NON-DIALYSIS* SYRINGE (J0881) SC (08:23)
[2017-11-25] MEDS: HumaLOG INSULIN (NovoLOG) PER UNIT SC ×4 (08:24→20:44)
[2017-11-25] MEDS: NIACIN SR (NIASPAN) 500 MG TAB PO (08:24)
[2017-11-25] MEDS: APIXABAN 5 MG TAB (ELIQUIS) PO ×2 (08:25→20:44)
[2017-11-25] MEDS: OMEGA-3 1050MG CAPSULE PO ×2 (08:25→20:44)
[2017-11-25] MEDS: FERROUS GLUCONATE 324 MG TAB PO ×2 (08:25→20:44)
[2017-11-25] MEDS: SODIUM BICARBONATE 325 MG TAB PO ×3 (08:25→20:44)
[2017-11-25] MEDS: CALCITRIOL 0.25 MCG CAP (S0169) PO (08:25)
[2017-11-25] MEDS: SUCRALFATE 1 GM TAB PO ×2 (08:25→20:44)
[2017-11-25] MEDS: ATORVASTATIN 20 MG TAB PO (08:25)
[2017-11-25] MEDS: PANTOPRAZOLE 40MG TAB (PROTONIX) PO (08:25)
[2017-11-25] MEDS: METOPROLOL SUCC (TopROL XL) 50MG **XL** TAB PO (08:27)
[2017-11-25] MEDS: FUROSEMIDE 100 MG/10 ML VIAL (J1940) IV (08:27)
[2017-11-25 11:14] LABS: HEPATITIS B SURFACE ANTIGEN NEGATIVE (NEGATIVE)
[2017-11-25 11:42] LABS: HEPATITIS C VIRUS ABY INDEX < 0.0 INDEX (<0.8)
[2017-11-25 11:42] LABS: HEPATITIS B CORE ANTIBODY IGM NEGATIVE (NEGATIVE)
[2017-11-25 11:43] LABS: HEPATITIS A ANTIBODY IGM NEGATIVE (NEGATIVE)
[2017-11-25 11:52] LABS: BEDSIDE GLUCOSE 160 MG/DL (70-105)
[2017-11-25] MEDS: ACETAMINOPHEN TAB 650MG DOSE (2X325MG) PO (11:53)
[2017-11-25 16:40] LABS: BEDSIDE GLUCOSE 204 MG/DL (70-105)
[2017-11-25 20:47] LABS: BEDSIDE GLUCOSE 220 MG/DL (70-105)
[2017-11-26] MEDS: SLF 3 ML SYR IV ×3 (06:00→20:59)
[2017-11-26 06:38] LABS: HEMOGLOBIN 8.9 g/dl (12.0-16.0); MEAN CORPUSCULAR HEMOGLOBIN 29.3 pg (27.0-33.0); MEAN CORPUSCULAR HGB CONC 31.8 g/dl (32.0-36.5); MEAN CORPUSCULAR VOLUME 92.1 fl (80.0-96.0); PLATELET COUNT, AUTOMATED 186 10^3/uL (150-450); RED BLOOD COUNT 3.04 10^6/uL (4.00-5.40); RED CELL DISTRIBUTION WIDTH 17.5 % (11.5-14.5); WHITE BLOOD COUNT 6.4 10^3/uL (4.0-10.0)
[2017-11-26 06:57] LABS: ALBUMIN 2.2 GM/DL (3.2-5.2); ANION GAP 10 MEQ/L (8-16); BLOOD UREA NITROGEN 70 MG/DL (7-18); CALCIUM LEVEL 8.5 MG/DL (8.5-10.1); CARBON DIOXIDE LEVEL 23 MEQ/L (21-32); CHLORIDE LEVEL 109 MEQ/L (98-107); CREATININE FOR GFR 3.37 MG/DL (0.55-1.02); GLOMERULAR FILTRATION RATE 14.9 (>51); GLUCOSE, FASTING 242 MG/DL (70-105); PHOSPHORUS LEVEL 5.5 MG/DL (2.5-4.9); POTASSIUM SERUM 4.2 MEQ/L (3.5-5.1); SODIUM LEVEL 142 MEQ/L (136-145)
[2017-11-26] MEDS: HumaLOG INSULIN (NovoLOG) PER UNIT SC ×4 (08:18→20:22)
[2017-11-26] MEDS: FERROUS GLUCONATE 324 MG TAB PO ×2 (08:19→20:22)
[2017-11-26] MEDS: ACETAMINOPHEN TAB 650MG DOSE (2X325MG) PO ×2 (08:19→21:51)
[2017-11-26] MEDS: ATORVASTATIN 20 MG TAB PO (08:20)
[2017-11-26] MEDS: METOPROLOL SUCC (TopROL XL) 50MG **XL** TAB PO (08:20)
[2017-11-26] MEDS: APIXABAN 5 MG TAB (ELIQUIS) PO ×2 (08:20→20:22)
[2017-11-26] MEDS: SODIUM BICARBONATE 325 MG TAB PO ×3 (08:20→20:22)
[2017-11-26] MEDS: NIACIN SR (NIASPAN) 500 MG TAB PO (08:20)
[2017-11-26] MEDS: PANTOPRAZOLE 40MG TAB (PROTONIX) PO (08:20)
[2017-11-26] MEDS: OMEGA-3 1050MG CAPSULE PO ×2 (08:20→20:22)
[2017-11-26] MEDS: DIGOXIN 0.125 MG TAB PO (08:21)
[2017-11-26] MEDS: (RENVELA) SEVELAMER **CARBONate** 800 MG TAB PO ×3 (08:21→17:24)
[2017-11-26] MEDS: TORSEMIDE 20 MG TAB PO (08:25)
[2017-11-26] MEDS: SUCRALFATE 1 GM TAB PO ×2 (08:25→17:24)
[2017-11-26 12:24] LABS: BEDSIDE GLUCOSE 198 MG/DL (70-105)
[2017-11-26 12:30] LABS: IMMEDIATE SPIN CROSSMATCH 1 1
[2017-11-26 16:46] LABS: BEDSIDE GLUCOSE 284 MG/DL (70-105)
[2017-11-26 19:55] LABS: BEDSIDE GLUCOSE 265 MG/DL (70-105)
[2017-11-27] MEDS: SLF 3 ML SYR IV ×3 (05:21→20:42)
[2017-11-27 05:42] LABS: HEMATOCRIT 31.2 % (36.0-47.0); HEMOGLOBIN 9.9 g/dl (12.0-16.0); MEAN CORPUSCULAR HEMOGLOBIN 28.9 pg (27.0-33.0); MEAN CORPUSCULAR HGB CONC 31.7 g/dl (32.0-36.5); PLATELET COUNT, AUTOMATED 172 10^3/uL (150-450); RED BLOOD COUNT 3.43 10^6/uL (4.00-5.40); RED CELL DISTRIBUTION WIDTH 17.1 % (11.5-14.5); WHITE BLOOD COUNT 6.3 10^3/uL (4.0-10.0)
[2017-11-27 06:05] LABS: ALBUMIN 2.3 GM/DL (3.2-5.2); ANION GAP 10 MEQ/L (8-16); BLOOD UREA NITROGEN 72 MG/DL (7-18); CALCIUM LEVEL 8.2 MG/DL (8.5-10.1); CARBON DIOXIDE LEVEL 22 MEQ/L (21-32); CHLORIDE LEVEL 109 MEQ/L (98-107); GLOMERULAR FILTRATION RATE 14.8 (>51); GLUCOSE, FASTING 283 MG/DL (70-105); PHOSPHORUS LEVEL 4.6 MG/DL (2.5-4.9); SODIUM LEVEL 141 MEQ/L (136-145)
[2017-11-27] MEDS: HumaLOG INSULIN (NovoLOG) PER UNIT SC ×4 (08:07→20:23)
[2017-11-27] MEDS: SUCRALFATE 1 GM TAB PO ×2 (08:08→17:01)
[2017-11-27] MEDS: TORSEMIDE 20 MG TAB PO (08:08)
[2017-11-27] MEDS: SODIUM BICARBONATE 325 MG TAB PO ×3 (08:08→20:30)
[2017-11-27 08:09] LABS: HEPATITIS B CORE ANTIBODY IGG Negative (Negative)
[2017-11-27] MEDS: NIACIN SR (NIASPAN) 500 MG TAB PO (08:09)
[2017-11-27] MEDS: CALCITRIOL 0.25 MCG CAP (S0169) PO (08:09)
[2017-11-27] MEDS: ATORVASTATIN 20 MG TAB PO (08:09)
[2017-11-27] MEDS: (RENVELA) SEVELAMER **CARBONate** 800 MG TAB PO ×3 (08:09→17:01)
[2017-11-27] MEDS: APIXABAN 5 MG TAB (ELIQUIS) PO ×2 (08:09→20:30)
[2017-11-27] MEDS: METOPROLOL SUCC (TopROL XL) 50MG **XL** TAB PO (08:09)
[2017-11-27] MEDS: FERROUS GLUCONATE 324 MG TAB PO ×2 (08:09→20:30)
[2017-11-27] MEDS: OMEGA-3 1050MG CAPSULE PO ×2 (08:09→20:29)
[2017-11-27] MEDS: PANTOPRAZOLE 40MG TAB (PROTONIX) PO (08:10)
[2017-11-27 11:46] LABS: BEDSIDE GLUCOSE 209 MG/DL (70-105)
[2017-11-27 16:56] LABS: BEDSIDE GLUCOSE 203 MG/DL (70-105)
[2017-11-27] MEDS: ACETAMINOPHEN TAB 650MG DOSE (2X325MG) PO (20:29)
[2017-11-27 20:47] LABS: BEDSIDE GLUCOSE 216 MG/DL (70-105)
[2017-11-28] MEDS: SLF 3 ML SYR IV (05:26)
[2017-11-28 05:49] LABS: HEMATOCRIT 30.8 % (36.0-47.0); HEMOGLOBIN 9.7 g/dl (12.0-16.0); MEAN CORPUSCULAR HEMOGLOBIN 28.8 pg (27.0-33.0); MEAN CORPUSCULAR HGB CONC 31.5 g/dl (32.0-36.5); MEAN CORPUSCULAR VOLUME 91.4 fl (80.0-96.0); PLATELET COUNT, AUTOMATED 179 10^3/uL (150-450); RED BLOOD COUNT 3.37 10^6/uL (4.00-5.40); RED CELL DISTRIBUTION WIDTH 16.8 % (11.5-14.5); WHITE BLOOD COUNT 6.6 10^3/uL (4.0-10.0)
[2017-11-28] MEDS: PANTOPRAZOLE 40MG TAB (PROTONIX) PO (06:01)
[2017-11-28] MEDS: ATORVASTATIN 20 MG TAB PO (06:01)
[2017-11-28] MEDS: FERROUS GLUCONATE 324 MG TAB PO ×2 (06:02→20:50)
[2017-11-28] MEDS: OMEGA-3 1050MG CAPSULE PO ×2 (06:02→20:49)
[2017-11-28] MEDS: (RENVELA) SEVELAMER **CARBONate** 800 MG TAB PO ×3 (06:02→17:17)
[2017-11-28] MEDS: SODIUM BICARBONATE 325 MG TAB PO ×3 (06:02→20:49)
[2017-11-28] MEDS: NIACIN SR (NIASPAN) 500 MG TAB PO (06:03)
[2017-11-28] MEDS: APIXABAN 5 MG TAB (ELIQUIS) PO ×2 (06:03→20:50)
[2017-11-28] MEDS: DIGOXIN 0.125 MG TAB PO (06:03)
[2017-11-28] MEDS: SUCRALFATE 1 GM TAB PO ×2 (06:03→17:17)
[2017-11-28] MEDS: TORSEMIDE 20 MG TAB PO (06:04)
[2017-11-28] MEDS: METOPROLOL SUCC (TopROL XL) 50MG **XL** TAB PO (06:04)
[2017-11-28 06:17] LABS: ALBUMIN 2.1 GM/DL (3.2-5.2); ANION GAP 9 MEQ/L (8-16); BLOOD UREA NITROGEN 66 MG/DL (7-18); CALCIUM LEVEL 8.3 MG/DL (8.5-10.1); CARBON DIOXIDE LEVEL 24 MEQ/L (21-32); CHLORIDE LEVEL 107 MEQ/L (98-107); CREATININE FOR GFR 3.31 MG/DL (0.55-1.02); GLOMERULAR FILTRATION RATE 15.2 (>51); GLUCOSE, FASTING 266 MG/DL (70-105); PHOSPHORUS LEVEL 4.2 MG/DL (2.5-4.9); POTASSIUM SERUM 3.6 MEQ/L (3.5-5.1); SODIUM LEVEL 140 MEQ/L (136-145)
[2017-11-28] MEDS: HumaLOG INSULIN (NovoLOG) PER UNIT SC ×4 (06:56→20:53)
[2017-11-28 07:12] LABS: BEDSIDE GLUCOSE 245 MG/DL (70-105)
[2017-11-28] MEDS ORDERED: HEPARIN 1,000 UNITS/ML 10ML VIAL (FOR RADIOLOGY& DIALYSIS ONLY) As Ordered (07:25)
[2017-11-28] MEDS ORDERED: LIDOCAINE 2% MDV 20 ML VIAL As Ordered (07:59)
[2017-11-28] MEDS: VITAMIN D 50,000 UNITS CAPSULE (ERGOCALCIFEROL 1.25MG) PO (09:02)
[2017-11-28] MEDS: ACETAMINOPHEN TAB 650MG DOSE (2X325MG) PO ×2 (09:54→20:50)
[2017-11-28 11:41] LABS: BEDSIDE GLUCOSE 262 MG/DL (70-105)
[2017-11-28 16:41] LABS: BEDSIDE GLUCOSE 281 MG/DL (70-105)
[2017-11-28 21:05] LABS: BEDSIDE GLUCOSE 254 MG/DL (70-105)
[2017-11-29] MEDS: ACETAMINOPHEN TAB 650MG DOSE (2X325MG) PO (03:51)
[2017-11-29 05:33] LABS: HEMATOCRIT 31.3 % (36.0-47.0); HEMOGLOBIN 9.9 g/dl (12.0-16.0); MEAN CORPUSCULAR HGB CONC 31.6 g/dl (32.0-36.5); MEAN CORPUSCULAR VOLUME 91.8 fl (80.0-96.0); PLATELET COUNT, AUTOMATED 189 10^3/uL (150-450); RED BLOOD COUNT 3.41 10^6/uL (4.00-5.40); RED CELL DISTRIBUTION WIDTH 16.4 % (11.5-14.5); WHITE BLOOD COUNT 7.9 10^3/uL (4.0-10.0)
[2017-11-29 05:46] LABS: ALBUMIN 2.3 GM/DL (3.2-5.2); ANION GAP 10 MEQ/L (8-16); BLOOD UREA NITROGEN 66 MG/DL (7-18); CALCIUM LEVEL 8.2 MG/DL (8.5-10.1); CARBON DIOXIDE LEVEL 23 MEQ/L (21-32); CHLORIDE LEVEL 107 MEQ/L (98-107); GLOMERULAR FILTRATION RATE 15.8 (>51); GLUCOSE, FASTING 238 MG/DL (70-105); PHOSPHORUS LEVEL 3.8 MG/DL (2.5-4.9); POTASSIUM SERUM 3.6 MEQ/L (3.5-5.1); SODIUM LEVEL 140 MEQ/L (136-145)
[2017-11-29] MEDS: SUCRALFATE 1 GM TAB PO ×2 (06:30→19:28)
[2017-11-29] MEDS: APIXABAN 5 MG TAB (ELIQUIS) PO ×2 (06:31→21:33)
[2017-11-29] MEDS: SODIUM BICARBONATE 325 MG TAB PO ×3 (06:31→21:33)
[2017-11-29] MEDS: CALCITRIOL 0.25 MCG CAP (S0169) PO (06:31)
[2017-11-29] MEDS: ATORVASTATIN 20 MG TAB PO (06:31)
[2017-11-29] MEDS: FERROUS GLUCONATE 324 MG TAB PO ×2 (06:31→21:33)
[2017-11-29] MEDS: NIACIN SR (NIASPAN) 500 MG TAB PO (06:31)
[2017-11-29] MEDS: (RENVELA) SEVELAMER **CARBONate** 800 MG TAB PO ×3 (06:32→18:06)
[2017-11-29] MEDS: PANTOPRAZOLE 40MG TAB (PROTONIX) PO (06:32)
[2017-11-29] MEDS: OMEGA-3 1050MG CAPSULE PO ×2 (06:32→21:33)
[2017-11-29] MEDS: METOPROLOL SUCC (TopROL XL) 50MG **XL** TAB PO (07:42)
[2017-11-29] MEDS: HumaLOG INSULIN (NovoLOG) PER UNIT SC ×4 (07:43→21:33)
[2017-11-29 09:42] LABS: FERRITIN 183 NG/ML (8-252); IRON (FE) 44 UG/DL (50-170); PERCENT SATURATION 15.9 % (13.2-45.0); TOTAL IRON BINDING CAPACITY 276 UG/DL (250-450)
[2017-11-29 10:00] LABS: PTH INTACT 131.4 PG/ML (14.0-72.0)
[2017-11-29] MEDS ORDERED: [UNRECOGNIZED DRUG - OTHER] IM (10:00)
[2017-11-29] MEDS: HEPARIN 1,000 UNITS/ML 10ML VIAL (FOR RADIOLOGY& DIALYSIS ONLY) XX (10:30)
[2017-11-29] MEDS: TORSEMIDE 20 MG TAB PO (11:41)
[2017-11-29 11:49] LABS: BEDSIDE GLUCOSE 145 MG/DL (70-105)
[2017-11-29 18:05] LABS: BEDSIDE GLUCOSE 306 MG/DL (70-105)
[2017-11-29 21:07] LABS: BEDSIDE GLUCOSE 297 MG/DL (70-105)
[2017-11-29] MEDS ORDERED: IRON SUCROSE 100MG 5ML VIAL (J1756 PER 1MG) IV (23:00)
[2017-11-30 06:40] LABS: HEMATOCRIT 30.8 % (36.0-47.0); HEMOGLOBIN 9.9 g/dl (12.0-16.0); MEAN CORPUSCULAR HEMOGLOBIN 29.8 pg (27.0-33.0); MEAN CORPUSCULAR HGB CONC 32.1 g/dl (32.0-36.5); MEAN CORPUSCULAR VOLUME 92.8 fl (80.0-96.0); PLATELET COUNT, AUTOMATED 173 10^3/uL (150-450); RED BLOOD COUNT 3.32 10^6/uL (4.00-5.40); RED CELL DISTRIBUTION WIDTH 16.5 % (11.5-14.5); WHITE BLOOD COUNT 7.3 10^3/uL (4.0-10.0)
[2017-11-30 07:07] LABS: ALBUMIN 2.3 GM/DL (3.2-5.2); ANION GAP 6 MEQ/L (8-16); BLOOD UREA NITROGEN 45 MG/DL (7-18); CALCIUM LEVEL 8.9 MG/DL (8.5-10.1); CARBON DIOXIDE LEVEL 28 MEQ/L (21-32); CHLORIDE LEVEL 106 MEQ/L (98-107); CREATININE FOR GFR 2.66 MG/DL (0.55-1.02); GLOMERULAR FILTRATION RATE 19.6 (>51); GLUCOSE, FASTING 255 MG/DL (70-105); POTASSIUM SERUM 3.7 MEQ/L (3.5-5.1); SODIUM LEVEL 140 MEQ/L (136-145)
[2017-11-30] MEDS: PANTOPRAZOLE 40MG TAB (PROTONIX) PO (09:24)
[2017-11-30] MEDS: TORSEMIDE 20 MG TAB PO (09:24)
[2017-11-30] MEDS: (RENVELA) SEVELAMER **CARBONate** 800 MG TAB PO ×3 (09:24→18:00)
[2017-11-30] MEDS: ATORVASTATIN 20 MG TAB PO (09:24)
[2017-11-30] MEDS: DIGOXIN 0.125 MG TAB PO (09:25)
[2017-11-30] MEDS: FERROUS GLUCONATE 324 MG TAB PO (09:25)
[2017-11-30] MEDS: OMEGA-3 1050MG CAPSULE PO ×2 (09:25→20:43)
[2017-11-30] MEDS: APIXABAN 5 MG TAB (ELIQUIS) PO ×2 (09:25→20:43)
[2017-11-30] MEDS: METOPROLOL SUCC (TopROL XL) 50MG **XL** TAB PO (09:25)
[2017-11-30] MEDS: HumaLOG INSULIN (NovoLOG) PER UNIT SC ×4 (09:26→20:43)
[2017-11-30] MEDS: NIACIN SR (NIASPAN) 500 MG TAB PO (09:30)
[2017-11-30 11:41] LABS: BEDSIDE GLUCOSE 228 MG/DL (70-105)
[2017-11-30] MEDS: HEPARIN 1,000 UNITS/ML 10ML VIAL (FOR RADIOLOGY& DIALYSIS ONLY) XX (13:30)
[2017-11-30 20:39] LABS: BEDSIDE GLUCOSE 207 MG/DL (70-105)
[2017-12-01 06:34] LABS: BEDSIDE GLUCOSE 250 MG/DL (70-105)
[2017-12-01] MEDS: HumaLOG INSULIN (NovoLOG) PER UNIT SC ×4 (08:35→21:04)
[2017-12-01] MEDS: APIXABAN 5 MG TAB (ELIQUIS) PO ×2 (08:35→21:04)
[2017-12-01] MEDS: OMEGA-3 1050MG CAPSULE PO ×2 (08:35→21:04)
[2017-12-01] MEDS: NIACIN SR (NIASPAN) 500 MG TAB PO (08:35)
[2017-12-01] MEDS: (RENVELA) SEVELAMER **CARBONate** 800 MG TAB PO ×3 (08:35→17:03)
[2017-12-01] MEDS: PANTOPRAZOLE 40MG TAB (PROTONIX) PO (08:35)
[2017-12-01] MEDS: ATORVASTATIN 20 MG TAB PO (08:35)
[2017-12-01] MEDS: FERROUS GLUCONATE 324 MG TAB PO (08:35)
[2017-12-01] MEDS: METOPROLOL SUCC (TopROL XL) 50MG **XL** TAB PO (08:38)
[2017-12-01] MEDS: TORSEMIDE 20 MG TAB PO (08:39)
[2017-12-01 11:49] LABS: BEDSIDE GLUCOSE 248 MG/DL (70-105)
[2017-12-01 16:36] LABS: BEDSIDE GLUCOSE 318 MG/DL (70-105)
[2017-12-01 20:58] LABS: BEDSIDE GLUCOSE 273 MG/DL (70-105)
[2017-12-01] MEDS: LEVEMIR (INSULIN DETEMIR) 1 UNITS/0.01ML SC (21:04)
[2017-12-02 06:19] LABS: BEDSIDE GLUCOSE 183 MG/DL (70-105)
[2017-12-02 07:46] LABS: HEMATOCRIT 31.1 % (36.0-47.0); HEMOGLOBIN 9.8 g/dl (12.0-16.0); MEAN CORPUSCULAR HEMOGLOBIN 29.4 pg (27.0-33.0); MEAN CORPUSCULAR HGB CONC 31.5 g/dl (32.0-36.5); MEAN CORPUSCULAR VOLUME 93.4 fl (80.0-96.0); PLATELET COUNT, AUTOMATED 150 10^3/uL (150-450); RED BLOOD COUNT 3.33 10^6/uL (4.00-5.40); RED CELL DISTRIBUTION WIDTH 16.3 % (11.5-14.5); WHITE BLOOD COUNT 8.7 10^3/uL (4.0-10.0)
[2017-12-02 08:20] LABS: ALBUMIN 2.3 GM/DL (3.2-5.2); ANION GAP 6 MEQ/L (8-16); BLOOD UREA NITROGEN 35 MG/DL (7-18); CARBON DIOXIDE LEVEL 29 MEQ/L (21-32); CHLORIDE LEVEL 106 MEQ/L (98-107); CREATININE FOR GFR 2.67 MG/DL (0.55-1.02); GLOMERULAR FILTRATION RATE 19.5 (>51); GLUCOSE, FASTING 193 MG/DL (70-105); PHOSPHORUS LEVEL 3.4 MG/DL (2.5-4.9); POTASSIUM SERUM 3.7 MEQ/L (3.5-5.1); SODIUM LEVEL 141 MEQ/L (136-145)
[2017-12-02] MEDS: NIACIN SR (NIASPAN) 500 MG TAB PO (09:12)
[2017-12-02] MEDS: ATORVASTATIN 20 MG TAB PO (09:12)
[2017-12-02] MEDS: OMEGA-3 1050MG CAPSULE PO ×2 (09:12→20:33)
[2017-12-02] MEDS: (RENVELA) SEVELAMER **CARBONate** 800 MG TAB PO ×3 (09:12→18:08)
[2017-12-02] MEDS: APIXABAN 5 MG TAB (ELIQUIS) PO ×2 (09:12→20:33)
[2017-12-02] MEDS: FERROUS GLUCONATE 324 MG TAB PO (09:13)
[2017-12-02] MEDS: PANTOPRAZOLE 40MG TAB (PROTONIX) PO (09:13)
[2017-12-02] MEDS: TORSEMIDE 20 MG TAB PO (09:14)
[2017-12-02] MEDS: DIGOXIN 0.125 MG TAB PO (09:15)
[2017-12-02] MEDS: HumaLOG INSULIN (NovoLOG) PER UNIT SC ×4 (09:16→20:33)
[2017-12-02] MEDS: METOPROLOL SUCC (TopROL XL) 50MG **XL** TAB PO (09:16)
[2017-12-02] MEDS: DARBEPOETIN 100 MCG/0.5 ML *NON-DIALYSIS* SYRINGE (J0881) SC (11:29)
[2017-12-02 12:10] LABS: BEDSIDE GLUCOSE 252 MG/DL (70-105)
[2017-12-02] MEDS: [UNRECOGNIZED DRUG - OTHER] IM (14:02)
[2017-12-02 16:34] LABS: BEDSIDE GLUCOSE 274 MG/DL (70-105)
[2017-12-02 20:31] LABS: BEDSIDE GLUCOSE 305 MG/DL (70-105)
[2017-12-02] MEDS: LEVEMIR (INSULIN DETEMIR) 1 UNITS/0.01ML SC (20:33)
[2017-12-03 07:03] LABS: HEMATOCRIT 30.8 % (36.0-47.0); MEAN CORPUSCULAR HEMOGLOBIN 29.9 pg (27.0-33.0); MEAN CORPUSCULAR HGB CONC 32.5 g/dl (32.0-36.5); MEAN CORPUSCULAR VOLUME 91.9 fl (80.0-96.0); PLATELET COUNT, AUTOMATED 169 10^3/uL (150-450); RED BLOOD COUNT 3.35 10^6/uL (4.00-5.40); WHITE BLOOD COUNT 8.3 10^3/uL (4.0-10.0)
[2017-12-03 07:23] LABS: ALBUMIN 2.2 GM/DL (3.2-5.2); ANION GAP 9 MEQ/L (8-16); BLOOD UREA NITROGEN 43 MG/DL (7-18); CALCIUM LEVEL 8.5 MG/DL (8.5-10.1); CARBON DIOXIDE LEVEL 25 MEQ/L (21-32); CHLORIDE LEVEL 104 MEQ/L (98-107); CREATININE FOR GFR 2.97 MG/DL (0.55-1.02); GLOMERULAR FILTRATION RATE 17.3 (>51); GLUCOSE, FASTING 267 MG/DL (70-105); PHOSPHORUS LEVEL 3.3 MG/DL (2.5-4.9); POTASSIUM SERUM 3.7 MEQ/L (3.5-5.1); SODIUM LEVEL 138 MEQ/L (136-145)
[2017-12-03] MEDS: (RENVELA) SEVELAMER **CARBONate** 800 MG TAB PO ×3 (08:00→18:04)
[2017-12-03] MEDS: HumaLOG INSULIN (NovoLOG) PER UNIT SC ×4 (08:00→21:00)
[2017-12-03] MEDS: ACETAMINOPHEN TAB 650MG DOSE (2X325MG) PO (09:19)
[2017-12-03] MEDS ORDERED: HEPARIN 1,000 UNITS/ML 10ML VIAL (FOR RADIOLOGY& DIALYSIS ONLY) IV (11:15)
[2017-12-03] MEDS: HEPARIN 1,000 UNITS/ML 10ML VIAL (FOR RADIOLOGY& DIALYSIS ONLY) IV (11:15)
[2017-12-03 11:37] LABS: BEDSIDE GLUCOSE 269 MG/DL (70-105)
[2017-12-03 12:14] LABS: BEDSIDE GLUCOSE 150 MG/DL (70-105)
[2017-12-03] MEDS: FERROUS GLUCONATE 324 MG TAB PO (13:04)
[2017-12-03] MEDS: OMEGA-3 1050MG CAPSULE PO ×2 (13:05→21:25)
[2017-12-03] MEDS: METOPROLOL SUCC (TopROL XL) 50MG **XL** TAB PO (13:05)
[2017-12-03] MEDS: APIXABAN 5 MG TAB (ELIQUIS) PO ×2 (13:05→21:25)
[2017-12-03] MEDS: NIACIN SR (NIASPAN) 500 MG TAB PO (13:05)
[2017-12-03] MEDS: PANTOPRAZOLE 40MG TAB (PROTONIX) PO (13:05)
[2017-12-03] MEDS: ATORVASTATIN 20 MG TAB PO (13:05)
[2017-12-03 16:55] LABS: BEDSIDE GLUCOSE 156 MG/DL (70-105)
[2017-12-03 21:14] LABS: BEDSIDE GLUCOSE 224 MG/DL (70-105)
[2017-12-03] MEDS: LEVEMIR (INSULIN DETEMIR) 1 UNITS/0.01ML SC (21:26)
[2017-12-04 06:16] LABS: BEDSIDE GLUCOSE 322 MG/DL (70-105)
[2017-12-04 06:45] LABS: HEMATOCRIT 31.7 % (36.0-47.0); HEMOGLOBIN 9.9 g/dl (12.0-16.0); MEAN CORPUSCULAR HEMOGLOBIN 29.3 pg (27.0-33.0); MEAN CORPUSCULAR HGB CONC 31.2 g/dl (32.0-36.5); MEAN CORPUSCULAR VOLUME 93.8 fl (80.0-96.0); PLATELET COUNT, AUTOMATED 157 10^3/uL (150-450); RED BLOOD COUNT 3.38 10^6/uL (4.00-5.40); RED CELL DISTRIBUTION WIDTH 15.9 % (11.5-14.5); WHITE BLOOD COUNT 6.6 10^3/uL (4.0-10.0)
[2017-12-04 06:59] LABS: ALBUMIN 2.2 GM/DL (3.2-5.2); ANION GAP 10 MEQ/L (8-16); BLOOD UREA NITROGEN 32 MG/DL (7-18); CALCIUM LEVEL 8.4 MG/DL (8.5-10.1); CARBON DIOXIDE LEVEL 24 MEQ/L (21-32); CHLORIDE LEVEL 106 MEQ/L (98-107); CREATININE FOR GFR 2.73 MG/DL (0.55-1.02); GLUCOSE, FASTING 302 MG/DL (70-105); PHOSPHORUS LEVEL 3.5 MG/DL (2.5-4.9); POTASSIUM SERUM 4.3 MEQ/L (3.5-5.1); SODIUM LEVEL 140 MEQ/L (136-145)
[2017-12-04] MEDS: NIACIN SR (NIASPAN) 500 MG TAB PO (07:52)
[2017-12-04] MEDS: DIGOXIN 0.125 MG TAB PO (07:53)
[2017-12-04] MEDS: (RENVELA) SEVELAMER **CARBONate** 800 MG TAB PO ×2 (07:53→12:19)
[2017-12-04] MEDS: ATORVASTATIN 20 MG TAB PO (07:53)
[2017-12-04] MEDS: HumaLOG INSULIN (NovoLOG) PER UNIT SC ×2 (07:53→12:20)
[2017-12-04] MEDS: PANTOPRAZOLE 40MG TAB (PROTONIX) PO (07:54)
[2017-12-04] MEDS: OMEGA-3 1050MG CAPSULE PO (07:54)
[2017-12-04] MEDS: TORSEMIDE 20 MG TAB PO (07:54)
[2017-12-04] MEDS: APIXABAN 5 MG TAB (ELIQUIS) PO (07:54)
[2017-12-04] MEDS: METOPROLOL SUCC (TopROL XL) 50MG **XL** TAB PO (07:54)
[2017-12-04] MEDS: FERROUS GLUCONATE 324 MG TAB PO (07:54)
[2017-12-04 12:07] LABS: BEDSIDE GLUCOSE 291 MG/DL (70-105)
[2017-12-04] MEDS: LEVEMIR (INSULIN DETEMIR) 1 UNITS/0.01ML SC (12:20)
[2017-12-04] MEDS ORDERED: EUCERIN 120GM CREAM TOP (21:00)
== END 2017-12-04 16:35 | disposition home health service (06) | DRG 425 ==
LOC: M MS5PR 11-29 17:10 → M PCU 11-28 18:21 → M ED 16:21 → M ED INP 18:22 → M PCU 19:47
PROC: 30253N1 (ICD-10-PCS; 2017-11-23)
PROC: 02HV33Z Insertion of Infusion Device into Superior Vena Cava, Percutaneous Approach (ICD-10-PCS; 2017-11-28)
PROC: 5A1D70Z Performance of Urinary Filtration, Intermittent, Less than 6 Hours Per Day (ICD-10-PCS; principal; 2017-11-29)
DX: E87.70 Fluid overload, unspecified (principal); I13.2 Hypertensive heart and chronic kidney disease with heart failure and with stage 5 chronic kidney disease, or end stage renal disease; N17.9 Acute kidney failure, unspecified; C91.10 Chronic lymphocytic leukemia of B-cell type not having achieved remission; N18.6 End stage renal disease; E87.2 Acidosis; I48.2 Chronic atrial fibrillation; N25.81 Secondary hyperparathyroidism of renal origin; I50.9 Heart failure, unspecified; E11.22 Type 2 diabetes mellitus with diabetic chronic kidney disease; E11.21 Type 2 diabetes mellitus with diabetic nephropathy; E83.39 Other disorders of phosphorus metabolism; D47.2 Monoclonal gammopathy; E87.6 Hypokalemia; K44.9 Diaphragmatic hernia without obstruction or gangrene; K21.9 Gastro-esophageal reflux disease without esophagitis; D63.1 Anemia in chronic kidney disease; H54.8 Legal blindness, as defined in USA; D63.0 Anemia in neoplastic disease; Z79.4 Long term (current) use of insulin; Z79.899 Other long term (current) drug therapy; Z88.1 Allergy status to other antibiotic agents; Z88.8 Allergy status to other drugs, medicaments and biological substances; Z88.5 Allergy status to narcotic agent

== ENCOUNTER 2017-12-09 01:11 | Emergency (ER) | payer OTHER ==
[2017-12-09 02:25] LABS: BASO # 0.1 10^3/uL (0.0-0.2); BASO % 0.3 % (0.0-1.0); EOS # 0.2 10^3/uL (0.0-0.50); HEMATOCRIT 36.6 % (36.0-47.0); HEMOGLOBIN 11.9 g/dl (12.0-16.0); IMMATURE GRANULOCYTE # 0.1 10^3/uL (0-0); IMMATURE GRANULOCYTE % 0.6 % (0-0); LYMPH # 0.5 10^3/uL (1.5-4.5); LYMPH % 2.8 % (24.0-44.0); MEAN CORPUSCULAR HEMOGLOBIN 29.7 pg (27.0-33.0); MEAN CORPUSCULAR HGB CONC 32.5 g/dl (32.0-36.5); MEAN CORPUSCULAR VOLUME 91.3 fl (80.0-96.0); MONO # 1.1 10^3/uL (0.0-0.8); MONO % 6.1 % (0.0-5.0); NEUTROPHILS # 15.5 10^3/uL (1.8-7.7); NEUTROPHILS % 89.2 % (36.0-66.0); PLATELET COUNT, AUTOMATED 226 10^3/uL (150-450); RED BLOOD COUNT 4.01 10^6/uL (4.00-5.40); RED CELL DISTRIBUTION WIDTH 15.7 % (11.5-14.5); WHITE BLOOD COUNT 17.4 10^3/uL (4.0-10.0)
[2017-12-09] MEDS ORDERED: ONDANSETRON 4MG/2ML VIAL (J2405) As Ordered ×2 (02:27)
[2017-12-09] MEDS: ONDANSETRON 4MG/2ML VIAL (J2405) IV ×2 (02:30)
[2017-12-09] MEDS: METOCLOPRAMIDE INJ 10MG/2ML VIAL (J2765) IV ×2 (02:30)
[2017-12-09 03:19] LABS: INR 1.21; PARTIAL THROMBOPLASTIN TIME 29.8 SECONDS (26.8-37.9); PROTHROMBIN TIME 15.5 SECONDS (12.4-14.5)
[2017-12-09 03:21] LABS: LACTIC ACID SEPSIS PROTOCOL 2.1 MMOL/L (0.4-2.0)
[2017-12-09] MEDS: ACETAMINOPHEN TAB 650MG DOSE (2X325MG) PO ×2 (03:30)
[2017-12-09 03:35] LABS: ALBUMIN 2.5 GM/DL (3.2-5.2); ALBUMIN/GLOBULIN RATIO 0.61 (1.00-1.93); ALKALINE PHOSPHATASE 76 U/L (45-117); ALT/SGPT 22 U/L (12-78); ANION GAP 8 MEQ/L (8-16); AST/SGOT 15 U/L (7-37); BILIRUBIN,DIRECT 0.1 MG/DL (0.0-0.2); BILIRUBIN,TOTAL 0.5 MG/DL (0.2-1.0); BLOOD UREA NITROGEN 54 MG/DL (7-18); CARBON DIOXIDE LEVEL 26 MEQ/L (21-32); CHLORIDE LEVEL 102 MEQ/L (98-107); CREATININE FOR GFR 3.28 MG/DL (0.55-1.02); GLOMERULAR FILTRATION RATE 15.4 (>51); GLUCOSE, FASTING 288 MG/DL (70-105); LIPASE 232 U/L (73-393); POTASSIUM SERUM 4.2 MEQ/L (3.5-5.1); SODIUM LEVEL 136 MEQ/L (136-145); TOTAL PROTEIN 6.6 GM/DL (6.4-8.2)
== END 2017-12-09 09:29 | disposition home or self-care (01) ==
LOC: M ED 01:11
DX: R11.2 Nausea with vomiting, unspecified (principal); N18.9 Chronic kidney disease, unspecified; Z79.899 Other long term (current) drug therapy; Z79.4 Long term (current) use of insulin; Z88.5 Allergy status to narcotic agent; Z88.1 Allergy status to other antibiotic agents; Z88.8 Allergy status to other drugs, medicaments and biological substances; Z87.891 Personal history of nicotine dependence
CPT/HCPCS: J2405

== ENCOUNTER → 2017-12-27 | Outpatient (CLI) | payer OTHER ==
[~2017-12-27] MED LIST changes: -AMLO5TAB2 PO; -BASA100I SC; -CALC1CAP31 PO; -DIGO0.12 PO; -ELIQ5TAB PO; -FENO145T PO; -FENO160T10 PO; -FERR32TA PO; -FISH1000 PO; -FISH100049 PO; -HUMA100I3 SC; -HYDR25TAB PO; -IMOD2TAB16 PO; -INSUDET SC; -INSUHUMDS SC; -INSULANT SC; -LASI20TA PO; +LIDOCAINE 1% MDV 20ML VIAL As Ordered; +LIDOCAINE 2% MDV 20 ML VIAL As Ordered; -LIPI80TA PO; -LISI2.5T3 PO; -METO-398 PO; -METO100T5 PO; -METO1TAB33 PO; +MIDAZOLAM INJ 2 MG/2 ML VIAL (J2250) As Ordered; -NIAC1TAB5 PO; -PANT40TA2 PO; -PEPC10TA6 PO; -POLY150C4 PO; -SODI325T9 PO; -SUCR1TA PO; -TORS20TA2 PO; -TRAD5TAB PO; -TYLE500T78 PO; -VITA1CAP40 PO; -XARE15TA PO; -[UNRECOGNIZED DRUG - CODE] XX; -[UNRECOGNIZED DRUG - OTHER] PO
== END | disposition home or self-care (01) ==
LOC: M IRPRO 09:49
DX: T82.9XXA Unspecified complication of cardiac and vascular prosthetic device, implant and graft, initial encounter (principal); I12.9 Hypertensive chronic kidney disease with stage 1 through stage 4 chronic kidney disease, or unspecified chronic kidney disease; N18.6 End stage renal disease; I25.10 Atherosclerotic heart disease of native coronary artery without angina pectoris
CPT/HCPCS: 36901

== ENCOUNTER → 2018-03-14 | Outpatient (CLI) | payer MEDICARE, SELFPAY ==
[~2018-03-14] MED LIST changes: +ISOVUE-300 61% 50ML VIAL (Q9967) As Ordered; -LIDOCAINE 1% MDV 20ML VIAL As Ordered; -LIDOCAINE 2% MDV 20 ML VIAL As Ordered; +METOPROLOL SUCC (TopROL XL) 50MG **XL** TAB PO
== END | disposition home or self-care (01) ==
LOC: M IRPRO 10:35
DX: T82.858A Stenosis of other vascular prosthetic devices, implants and grafts, initial encounter (principal); E11.22 Type 2 diabetes mellitus with diabetic chronic kidney disease; I12.0 Hypertensive chronic kidney disease with stage 5 chronic kidney disease or end stage renal disease; N18.6 End stage renal disease; I48.91 Unspecified atrial fibrillation; E78.00 Pure hypercholesterolemia, unspecified
CPT/HCPCS: 36902

== ENCOUNTER → 2018-05-01 | Outpatient (REF) | payer MEDICARE ==
[2018-05-01 18:28] LABS: TOTAL PROTEIN 6.9 GM/DL (6.4-8.2)
[2018-05-03 08:06] LABS: ERYTHROPOIETIN 588.8 mIU/mL (2.6-18.5)
[2018-05-06 10:05] LABS: ALBUMIN 4.09 GM/DL (3.29-5.55); ALBUMIN % 59.3 % (55.8-66.1); ALPHA-1-GLOBULIN % 5.7 % (2.9-4.9); ALPHA-1-GLOBULINS 0.39 GM/DL (0.17-0.41); ALPHA-2-GLOBULINS 0.86 GM/DL (0.42-0.99); ALPHA-2-GLOBULINS % 12.5 % (7.1-11.8); BETA-1-GLOBULINS 0.47 GM/DL (0.28-0.60)
[2018-05-06 10:06] LABS: BETA-1-GLOBULINS % 6.8 % (4.7-7.2); BETA-2-GLOBULINS 0.41 GM/DL (0.19-0.55); GAMMA GLOBULIN % 9.7 % (11.1-18.8); GAMMA GLOBULINS 0.67 GM/DL (0.65-1.58)
== END ==
LOC: M LAB REF 17:07
DX: N18.6 End stage renal disease (principal)
CPT/HCPCS: 84165

== ENCOUNTER → 2018-06-23 | Outpatient (CLI) | payer MEDICARE ==
[~2018-06-23] MED LIST changes: -ISOVUE-300 61% 50ML VIAL (Q9967) As Ordered; +LIDOCAINE 2% MDV 20 ML VIAL As Ordered; -METOPROLOL SUCC (TopROL XL) 50MG **XL** TAB PO; -MIDAZOLAM INJ 2 MG/2 ML VIAL (J2250) As Ordered
== END | disposition home or self-care (01) ==
LOC: M IRPRO 09:07
DX: Z45.2 Encounter for adjustment and management of vascular access device (principal); N18.6 End stage renal disease
CPT/HCPCS: 36589

== ENCOUNTER → 2018-07-30 | Outpatient (CLI) | payer MEDICARE ==
[~2018-07-30] MED LIST changes: +ISOVUE-300 61% 50ML VIAL (Q9967) As Ordered
== END ==
LOC: M IRPRO 07:11
DX: Z53.8 Procedure and treatment not carried out for other reasons (principal)

== ENCOUNTER 2018-08-14 11:04 | Inpatient (IN) | payer MEDICARE ==
[2018-08-14 11:57] LABS: BASO % 0.3 % (0.0-1.0); EOS % 0.1 % (0.0-3.0); HEMATOCRIT 38.5 % (36.0-47.0); HEMOGLOBIN 12.1 g/dl (12.0-15.5); IMMATURE GRANULOCYTE % 1.2 % (0-3.0); LYMPH # 0.4 10^3/uL (1.5-4.5); LYMPH % 3.1 % (24.0-44.0); MEAN CORPUSCULAR HEMOGLOBIN 29.2 pg (27.0-33.0); MEAN CORPUSCULAR HGB CONC 31.4 g/dl (32.0-36.5); MEAN CORPUSCULAR VOLUME 92.8 fl (80.0-96.0); MONO # 0.3 10^3/uL (0.0-0.8); MONO % 2.6 % (0.0-5.0); NEUTROPHILS # 10.8 10^3/uL (1.8-7.7); NEUTROPHILS % 92.7 % (36.0-66.0); PLATELET COUNT, AUTOMATED 282 10^3/uL (150-450); RED BLOOD COUNT 4.15 10^6/uL (4.00-5.40); RED CELL DISTRIBUTION WIDTH 16.4 % (11.5-14.5); VENOUS BASE EXCESS -2.7 (-2.0-2.0); VENOUS HCO3 24.7 MEQ/L (23.0-27.0); VENOUS O2 SATURATION 77.1 % (60.0-80.0); VENOUS PARTIAL PRESSURE CO2 54.2 mmHg (38.0-50.0); VENOUS PARTIAL PRESSURE O2 46.3 mmHg (30.0-50.0); VENOUS PH 7.277 UNITS (7.330-7.430); VENOUS STANDARD HCO3 21.8 MEQ/L; VENOUS TOTAL CO2 26.4 MEQ/L (24.0-28.0); WHITE BLOOD COUNT 11.6 10^3/uL (4.0-10.0)
[2018-08-14] MEDS ORDERED: INSULIN IV RATE CHANGE DOCUMENTATION ML/HR XX (12:15)
[2018-08-14] MEDS: ONDANSETRON 4MG/2ML VIAL (J2405) IV ×2 (12:33→14:34)
[2018-08-14] MEDS: LABETALOL HCL 100 MG/20 ML VIAL IV ×2 (12:33→14:23)
[2018-08-14] MEDS: INSULIN HUMAN REGULAR 100 UNITS in NS 99 ML IV ×2 (12:38→22:22)
[2018-08-14 13:21] LABS: BLOOD UREA NITROGEN 57 MG/DL (7-18); GLOMERULAR FILTRATION RATE 13.8 (>51); GLUCOSE, FASTING 780 MG/DL (70-100)
[2018-08-14 13:22] LABS: CALCIUM LEVEL 9.4 MG/DL (8.5-10.1); CARBON DIOXIDE LEVEL 23 MEQ/L (21-32); CHLORIDE LEVEL 86 MEQ/L (98-107); POTASSIUM SERUM 5.1 MEQ/L (3.5-5.1); SODIUM LEVEL 125 MEQ/L (136-145)
[2018-08-14 13:24] LABS: ANION GAP 16 MEQ/L (8-16)
[2018-08-14 14:20] LABS: ALBUMIN 3.3 GM/DL (3.2-5.2); ALBUMIN/GLOBULIN RATIO 0.85 (1.00-1.93); ALKALINE PHOSPHATASE 189 U/L (45-117); ALT/SGPT 35 U/L (12-78); AST/SGOT 16 U/L (7-37); BILIRUBIN,DIRECT 0.5 MG/DL (0.0-0.2); BILIRUBIN,TOTAL 0.9 MG/DL (0.2-1.0); DIGOXIN LEVEL 0.7 NG/ML (0.5-2.0); LIPASE 259 U/L (73-393); TOTAL PROTEIN 7.2 GM/DL (6.4-8.2)
[2018-08-14] MEDS: FUROSEMIDE 100 MG/10 ML VIAL (J1940) IV (14:24)
[2018-08-14 15:31] LABS: ESTIMATED AVERAGE GLUCOSE 375 MG/DL (60-110); HEMOGLOBIN A1c 14.7 %
[2018-08-14 16:32] LABS: VENOUS BASE EXCESS -4.3 (-2.0-2.0); VENOUS HCO3 20.1 MEQ/L (23.0-27.0); VENOUS O2 SATURATION 99.6 % (60.0-80.0); VENOUS PARTIAL PRESSURE CO2 34.2 mmHg (38.0-50.0); VENOUS PH 7.386 UNITS (7.330-7.430); VENOUS TOTAL CO2 21.1 MEQ/L (24.0-28.0)
[2018-08-14 17:03] LABS: LACTIC ACID SEPSIS PROTOCOL 5.9 MMOL/L (0.4-2.0)
[2018-08-14 17:05] LABS: BEDSIDE GLUCOSE CONFIRMATION 654 MG/DL (LESS THAN 200)
[2018-08-14] MEDS ORDERED: VANCOMYCIN HCL 750 MG, VIAL MATE ADAPTER 1 EACH in D5W 250 ML IV (17:45)
[2018-08-14 18:28] LABS: BEDSIDE GLUCOSE 600 MG/DL (70-105)
[2018-08-14 18:54] LABS: BEDSIDE GLUCOSE 582 MG/DL (70-105)
[2018-08-14 19:42] LABS: CPK CREATINE PHOSPHOKINASE 37 U/L (26-192); MB/CK RELATIVE INDEX 10.27 (< OR =4); TROPONIN I 0.03 NG/ML (< 0.10)
[2018-08-14 19:51] LABS: ALBUMIN 2.9 GM/DL (3.2-5.2); ALBUMIN/GLOBULIN RATIO 0.85 (1.00-1.93); ALKALINE PHOSPHATASE 161 U/L (45-117); ALT/SGPT 29 U/L (12-78); ANION GAP 17 MEQ/L (8-16); AST/SGOT 11 U/L (7-37); BILIRUBIN,TOTAL 0.6 MG/DL (0.2-1.0); BLOOD UREA NITROGEN 63 MG/DL (7-18); CALCIUM LEVEL 9.3 MG/DL (8.5-10.1); CARBON DIOXIDE LEVEL 24 MEQ/L (21-32); CHLORIDE LEVEL 89 MEQ/L (98-107); CREATININE FOR GFR 3.74 MG/DL (0.55-1.30); GLOMERULAR FILTRATION RATE 13.2 (>51); GLUCOSE, FASTING 538 MG/DL (70-100); POTASSIUM SERUM 4.1 MEQ/L (3.5-5.1); SODIUM LEVEL 130 MEQ/L (136-145); TOTAL PROTEIN 6.3 GM/DL (6.4-8.2)
[2018-08-14 20:14] LABS: BEDSIDE GLUCOSE 511 MG/DL (70-105)
[2018-08-14] MEDS: PIPERACILLIN/TAZOBACTAM SOD 2.25 GM in D5W MINI-BAG PLUS 50 ML IV (20:15)
[2018-08-14 21:04] LABS: BEDSIDE GLUCOSE 464 MG/DL (70-105)
[2018-08-14] MEDS: INSULIN IV RATE CHANGE DOCUMENTATION ML/HR XX ×2 (21:10→22:29)
[2018-08-14] MEDS: APIXABAN 2.5 MG TAB (ELIQUIS) PO ×2 (21:34→21:39)
[2018-08-14] MEDS: DOXYCYCLINE HYCLATE 100 MG in D5W MINI-BAG PLUS 100 ML IV ×2 (21:34→21:40)
[2018-08-14 22:18] LABS: BEDSIDE GLUCOSE 388 MG/DL (70-105)
[2018-08-14] MEDS: VANCOMYCIN HCL 1,000 MG, VIAL MATE ADAPTER 1 EACH in D5W 250 ML IV (22:54)
[2018-08-14 23:16] LABS: BEDSIDE GLUCOSE 382 MG/DL (70-105)
[2018-08-15] MEDS: VANCOMYCIN HCL 500 MG in D5W MINI-BAG PLUS 100 ML IV (00:07)
[2018-08-15 00:40] LABS: ANION GAP 14 MEQ/L (8-16); BLOOD UREA NITROGEN 59 MG/DL (7-18); CALCIUM LEVEL 8.9 MG/DL (8.5-10.1); CARBON DIOXIDE LEVEL 25 MEQ/L (21-32); CHLORIDE LEVEL 89 MEQ/L (98-107); CREATININE FOR GFR 3.64 MG/DL (0.55-1.30); GLOMERULAR FILTRATION RATE 13.7 (>51); GLUCOSE, FASTING 379 MG/DL (70-100); POTASSIUM SERUM 3.9 MEQ/L (3.5-5.1); SODIUM LEVEL 128 MEQ/L (136-145)
[2018-08-15] MEDS: NS 250 ML IV (01:00)
[2018-08-15] MEDS: INSULIN IV RATE CHANGE DOCUMENTATION ML/HR XX ×2 (01:05→04:00)
[2018-08-15] MEDS ORDERED: NYSTATIN 100,000 UNITS/GM TOPICAL PWD 15 GM TOP (01:30)
[2018-08-15 01:58] LABS: BEDSIDE GLUCOSE 331 MG/DL (70-105)
[2018-08-15 02:38] LABS: ALBUMIN 2.5 GM/DL (3.2-5.2); ALBUMIN/GLOBULIN RATIO 0.68 (1.00-1.93); ALKALINE PHOSPHATASE 135 U/L (45-117); ALT/SGPT 24 U/L (12-78); ANION GAP 12 MEQ/L (8-16); AST/SGOT 12 U/L (7-37); BILIRUBIN,TOTAL 0.5 MG/DL (0.2-1.0); BLOOD UREA NITROGEN 58 MG/DL (7-18); C REACTIVE PROTEIN QUANTITATIV 3.94 MG/DL (0.00-0.30); CALCIUM LEVEL 8.7 MG/DL (8.5-10.1); CARBON DIOXIDE LEVEL 27 MEQ/L (21-32); CHLORIDE LEVEL 90 MEQ/L (98-107); CPK CREATINE PHOSPHOKINASE 25 U/L (26-192); GLOMERULAR FILTRATION RATE 13.8 (>51); GLUCOSE, FASTING 292 MG/DL (70-100); SODIUM LEVEL 129 MEQ/L (136-145); TOTAL PROTEIN 6.2 GM/DL (6.4-8.2); TROPONIN I 0.04 NG/ML (< 0.10)
[2018-08-15 02:41] LABS: LACTIC ACID SEPSIS PROTOCOL 2.9 MMOL/L (0.4-2.0)
[2018-08-15 02:47] LABS: HEMOGLOBIN 10.5 g/dl (12.0-15.5); MEAN CORPUSCULAR HEMOGLOBIN 28.8 pg (27.0-33.0); MEAN CORPUSCULAR HGB CONC 31.8 g/dl (32.0-36.5); MEAN CORPUSCULAR VOLUME 90.4 fl (80.0-96.0); PLATELET COUNT, AUTOMATED 225 10^3/uL (150-450); RED BLOOD COUNT 3.65 10^6/uL (4.00-5.40); WHITE BLOOD COUNT 16.5 10^3/uL (4.0-10.0)
[2018-08-15 04:00] LABS: BEDSIDE GLUCOSE 265 MG/DL (70-105)
[2018-08-15] MEDS: ONDANSETRON 4MG/2ML VIAL (J2405) IV (04:28)
[2018-08-15] MEDS: PIPERACILLIN/TAZOBACTAM SOD 2.25 GM in D5W MINI-BAG PLUS 50 ML IV ×2 (05:09→17:52)
[2018-08-15 05:28] LABS: BEDSIDE GLUCOSE 226 MG/DL (70-105)
[2018-08-15] MEDS ORDERED: METOCLOPRAMIDE INJ 10MG/2ML VIAL (J2765) IV (06:00)
[2018-08-15 06:23] LABS: BASO % 0.1 % (0.0-1.0); EOS % 0.2 % (0.0-3.0); HEMATOCRIT 33.2 % (36.0-47.0); HEMOGLOBIN 10.7 g/dl (12.0-15.5); IMMATURE GRANULOCYTE % 0.5 % (0-3.0); LYMPH # 0.7 10^3/uL (1.5-4.5); LYMPH % 3.9 % (24.0-44.0); MEAN CORPUSCULAR HEMOGLOBIN 28.5 pg (27.0-33.0); MEAN CORPUSCULAR HGB CONC 32.2 g/dl (32.0-36.5); MEAN CORPUSCULAR VOLUME 88.5 fl (80.0-96.0); MONO # 0.7 10^3/uL (0.0-0.8); MONO % 4.4 % (0.0-5.0); NEUTROPHILS # 15.1 10^3/uL (1.8-7.7); NEUTROPHILS % 90.9 % (36.0-66.0); PLATELET COUNT, AUTOMATED 225 10^3/uL (150-450); RED BLOOD COUNT 3.75 10^6/uL (4.00-5.40); RED CELL DISTRIBUTION WIDTH 15.8 % (11.5-14.5); WHITE BLOOD COUNT 16.7 10^3/uL (4.0-10.0)
[2018-08-15 06:23] LABS: BEDSIDE GLUCOSE 222 MG/DL (70-105)
[2018-08-15] MEDS: PROMETHAZINE 25 MG TAB PO ×2 (06:29→21:44)
[2018-08-15 06:30] LABS: ALBUMIN 2.4 GM/DL (3.2-5.2); ALBUMIN/GLOBULIN RATIO 0.62 (1.00-1.93); ALKALINE PHOSPHATASE 131 U/L (45-117); ALT/SGPT 20 U/L (12-78); ANION GAP 12 MEQ/L (8-16); AST/SGOT 19 U/L (7-37); BILIRUBIN,TOTAL 0.6 MG/DL (0.2-1.0); BLOOD UREA NITROGEN 59 MG/DL (7-18); CALCIUM LEVEL 8.8 MG/DL (8.5-10.1); CARBON DIOXIDE LEVEL 25 MEQ/L (21-32); CHLORIDE LEVEL 91 MEQ/L (98-107); CREATININE FOR GFR 3.56 MG/DL (0.55-1.30); GLUCOSE, FASTING 224 MG/DL (70-100); MAGNESIUM LEVEL 2.2 MG/DL (1.8-2.4); POTASSIUM SERUM 4.1 MEQ/L (3.5-5.1); SODIUM LEVEL 128 MEQ/L (136-145); TOTAL PROTEIN 6.3 GM/DL (6.4-8.2)
[2018-08-15 08:15] LABS: BEDSIDE GLUCOSE 230 MG/DL (70-105)
[2018-08-15] MEDS ORDERED: GLUCOSE 4 GM CHEW TABLET PO (08:30)
[2018-08-15] MEDS ORDERED: DEXTROSE 50% 50 ML SYRINGE IV (08:30)
[2018-08-15] MEDS ORDERED: GLUCAGON FOR INJ 1 MG VIAL (J1610) SC (08:30)
[2018-08-15] MEDS: APIXABAN 2.5 MG TAB (ELIQUIS) PO ×3 (09:00→20:13)
[2018-08-15 09:18] LABS: BEDSIDE GLUCOSE 228 MG/DL (70-105)
[2018-08-15] MEDS: ATORVASTATIN 20 MG TAB PO (09:19)
[2018-08-15] MEDS: METOPROLOL SUCC (TopROL XL) 50MG **XL** TAB PO ×2 (09:19→22:54)
[2018-08-15] MEDS: DIGOXIN 0.125 MG TAB PO (09:21)
[2018-08-15] MEDS: HumaLOG INSULIN (NovoLOG) PER UNIT SC ×4 (09:24→20:17)
[2018-08-15 10:17] LABS: BEDSIDE GLUCOSE > 600 MG/DL (70-105)
[2018-08-15 10:17] LABS: BEDSIDE GLUCOSE > 600 MG/DL (70-105)
[2018-08-15 10:17] LABS: BEDSIDE GLUCOSE > 600 MG/DL (70-105)
[2018-08-15 10:17] LABS: BEDSIDE GLUCOSE > 600 MG/DL (70-105)
[2018-08-15 10:17] LABS: BEDSIDE GLUCOSE > 600 MG/DL (70-105)
[2018-08-15 11:02] LABS: CPK CREATINE PHOSPHOKINASE 25 U/L (26-192); TROPONIN I 0.04 NG/ML (< 0.10)
[2018-08-15 11:46] LABS: OSMOLALITY SERUM 298 MOSM/KG (275-295)
[2018-08-15 12:16] LABS: BEDSIDE GLUCOSE 210 MG/DL (70-105)
[2018-08-15] MEDS: HEPARIN 1,000 UNITS/ML 10ML VIAL (FOR RADIOLOGY& DIALYSIS ONLY) IV (13:45)
[2018-08-15 15:17] LABS: LACTIC ACID SEPSIS PROTOCOL 1.7 MMOL/L (0.4-2.0)
[2018-08-15] MEDS: **VANCO AFTER HD** MISC XX (16:00)
[2018-08-15] MEDS: VANCOMYCIN HCL 1,000 MG, VIAL MATE ADAPTER 1 EACH in D5W 250 ML IV (17:53)
[2018-08-15 20:01] LABS: BEDSIDE GLUCOSE 186 MG/DL (70-105)
[2018-08-16 00:10] LABS: BEDSIDE GLUCOSE 196 MG/DL (70-105)
[2018-08-16] MEDS: HumaLOG INSULIN (NovoLOG) PER UNIT SC ×5 (00:14→20:21)
[2018-08-16] MEDS: METOPROLOL SUCC (TopROL XL) 50MG **XL** TAB PO ×2 (01:12→09:09)
[2018-08-16] MEDS: cloNIDine 0.1 MG TAB PO ×2 (02:05→03:44)
[2018-08-16] MEDS: PROMETHAZINE 25 MG TAB PO ×3 (03:44→16:46)
[2018-08-16 04:29] LABS: BASO % 0.1 % (0.0-1.0); EOS % 0.1 % (0.0-3.0); HEMATOCRIT 37.3 % (36.0-47.0); HEMOGLOBIN 11.5 g/dl (12.0-15.5); IMMATURE GRANULOCYTE % 0.8 % (0-3.0); LYMPH # 0.5 10^3/uL (1.5-4.5); LYMPH % 3.5 % (24.0-44.0); MEAN CORPUSCULAR HEMOGLOBIN 28.3 pg (27.0-33.0); MEAN CORPUSCULAR HGB CONC 30.8 g/dl (32.0-36.5); MEAN CORPUSCULAR VOLUME 91.6 fl (80.0-96.0); MONO # 0.9 10^3/uL (0.0-0.8); MONO % 5.9 % (0.0-5.0); NEUTROPHILS # 13.1 10^3/uL (1.8-7.7); NEUTROPHILS % 89.6 % (36.0-66.0); PLATELET COUNT, AUTOMATED 237 10^3/uL (150-450); RED BLOOD COUNT 4.07 10^6/uL (4.00-5.40); RED CELL DISTRIBUTION WIDTH 16.8 % (11.5-14.5); WHITE BLOOD COUNT 14.7 10^3/uL (4.0-10.0)
[2018-08-16] MEDS: PIPERACILLIN/TAZOBACTAM SOD 2.25 GM in D5W MINI-BAG PLUS 50 ML IV ×2 (05:09→17:35)
[2018-08-16 05:11] LABS: ALBUMIN 2.5 GM/DL (3.2-5.2); ALBUMIN/GLOBULIN RATIO 0.64 (1.00-1.93); ALKALINE PHOSPHATASE 134 U/L (45-117); ALT/SGPT 20 U/L (12-78); ANION GAP 11 MEQ/L (8-16); AST/SGOT 15 U/L (7-37); BILIRUBIN,TOTAL 0.7 MG/DL (0.2-1.0); BLOOD UREA NITROGEN 29 MG/DL (7-18); CALCIUM LEVEL 8.8 MG/DL (8.5-10.1); CARBON DIOXIDE LEVEL 27 MEQ/L (21-32); CHLORIDE LEVEL 96 MEQ/L (98-107); CREATININE FOR GFR 2.47 MG/DL (0.55-1.30); GLOMERULAR FILTRATION RATE 21.4 (>51); GLUCOSE, FASTING 186 MG/DL (70-100); MAGNESIUM LEVEL 2.2 MG/DL (1.8-2.4); POTASSIUM SERUM 3.8 MEQ/L (3.5-5.1); SODIUM LEVEL 134 MEQ/L (136-145); TOTAL PROTEIN 6.4 GM/DL (6.4-8.2)
[2018-08-16 05:14] LABS: BEDSIDE GLUCOSE 211 MG/DL (70-105)
[2018-08-16] MEDS: ATORVASTATIN 20 MG TAB PO (09:08)
[2018-08-16] MEDS: APIXABAN 2.5 MG TAB (ELIQUIS) PO ×2 (09:09→20:21)
[2018-08-16] MEDS: ACETAMINOPHEN TAB 650MG DOSE (2X325MG) PO (09:09)
[2018-08-16 10:34] LABS: VANCOMYCIN RANDOM 23.6 UG/ML
[2018-08-16 12:02] LABS: BEDSIDE GLUCOSE 197 MG/DL (70-105)
[2018-08-16] MEDS: **VANCO AFTER HD** MISC XX (16:00)
[2018-08-16] MEDS: TORSEMIDE 20 MG TAB PO (16:29)
[2018-08-16 16:50] LABS: BEDSIDE GLUCOSE 160 MG/DL (70-105)
[2018-08-16 20:15] LABS: BEDSIDE GLUCOSE 144 MG/DL (70-105)
[2018-08-16] MEDS: ONDANSETRON 4MG/2ML VIAL (J2405) IV (20:21)
[2018-08-17] MEDS: ONDANSETRON 4MG/2ML VIAL (J2405) IV ×3 (02:53→11:17)
[2018-08-17 04:38] LABS: BASO % 0.1 % (0.0-1.0); EOS # 0.1 10^3/uL (0.0-0.50); HEMATOCRIT 35.4 % (36.0-47.0); HEMOGLOBIN 10.7 g/dl (12.0-15.5); IMMATURE GRANULOCYTE % 0.6 % (0-3.0); LYMPH # 0.6 10^3/uL (1.5-4.5); LYMPH % 6.3 % (24.0-44.0); MEAN CORPUSCULAR HEMOGLOBIN 28.8 pg (27.0-33.0); MEAN CORPUSCULAR HGB CONC 30.2 g/dl (32.0-36.5); MEAN CORPUSCULAR VOLUME 95.2 fl (80.0-96.0); MONO # 0.6 10^3/uL (0.0-0.8); MONO % 6.5 % (0.0-5.0); NEUTROPHILS # 8.2 10^3/uL (1.8-7.7); NEUTROPHILS % 85.5 % (36.0-66.0); PLATELET COUNT, AUTOMATED 196 10^3/uL (150-450); RED BLOOD COUNT 3.72 10^6/uL (4.00-5.40); RED CELL DISTRIBUTION WIDTH 16.5 % (11.5-14.5); WHITE BLOOD COUNT 9.5 10^3/uL (4.0-10.0)
[2018-08-17] MEDS: PIPERACILLIN/TAZOBACTAM SOD 2.25 GM in D5W MINI-BAG PLUS 50 ML IV ×2 (05:15→17:12)
[2018-08-17 05:17] LABS: ALBUMIN 2.3 GM/DL (3.2-5.2); ALBUMIN/GLOBULIN RATIO 0.61 (1.00-1.93); ALKALINE PHOSPHATASE 108 U/L (45-117); ALT/SGPT 20 U/L (12-78); ANION GAP 13 MEQ/L (8-16); AST/SGOT 44 U/L (7-37); BILIRUBIN,TOTAL 0.8 MG/DL (0.2-1.0); BLOOD UREA NITROGEN 38 MG/DL (7-18); CALCIUM LEVEL 8.1 MG/DL (8.5-10.1); CARBON DIOXIDE LEVEL 20 MEQ/L (21-32); CHLORIDE LEVEL 97 MEQ/L (98-107); GLOMERULAR FILTRATION RATE 17.7 (>51); GLUCOSE, FASTING 132 MG/DL (70-100); MAGNESIUM LEVEL 2.2 MG/DL (1.8-2.4); SODIUM LEVEL 130 MEQ/L (136-145); TOTAL PROTEIN 6.1 GM/DL (6.4-8.2)
[2018-08-17] MEDS: HumaLOG INSULIN (NovoLOG) PER UNIT SC ×4 (07:30→21:00)
[2018-08-17] MEDS: APIXABAN 2.5 MG TAB (ELIQUIS) PO ×2 (08:31→21:42)
[2018-08-17] MEDS: TORSEMIDE 20 MG TAB PO (08:31)
[2018-08-17] MEDS: ATORVASTATIN 20 MG TAB PO (08:31)
[2018-08-17] MEDS: DIGOXIN 0.125 MG TAB PO (08:32)
[2018-08-17] MEDS: METOPROLOL SUCC (TopROL XL) 50MG **XL** TAB PO (08:32)
[2018-08-17] MEDS: PROMETHAZINE 25 MG TAB PO ×2 (08:45→17:12)
[2018-08-17 12:05] LABS: BEDSIDE GLUCOSE 149 MG/DL (70-105)
[2018-08-17] MEDS: **VANCO AFTER HD** MISC XX (16:00)
[2018-08-17 16:50] LABS: BEDSIDE GLUCOSE 176 MG/DL (70-105)
[2018-08-17] MEDS: MAALOX 30 ML SUSP *UDC PO (18:06)
[2018-08-17 21:37] LABS: BEDSIDE GLUCOSE 235 MG/DL (70-105)
[2018-08-18] MEDS ORDERED: SLF 3 ML SYR IV (00:15)
[2018-08-18 04:53] LABS: BASO % 0.1 % (0.0-1.0); EOS # 0.2 10^3/uL (0.0-0.50); EOS % 2.8 % (0.0-3.0); HEMATOCRIT 35.9 % (36.0-47.0); HEMOGLOBIN 11.3 g/dl (12.0-15.5); IMMATURE GRANULOCYTE % 0.8 % (0-3.0); LYMPH # 0.6 10^3/uL (1.5-4.5); LYMPH % 6.9 % (24.0-44.0); MEAN CORPUSCULAR HEMOGLOBIN 28.5 pg (27.0-33.0); MEAN CORPUSCULAR HGB CONC 31.5 g/dl (32.0-36.5); MEAN CORPUSCULAR VOLUME 90.4 fl (80.0-96.0); MONO # 0.6 10^3/uL (0.0-0.8); MONO % 6.7 % (0.0-5.0); NEUTROPHILS % 82.7 % (36.0-66.0); PLATELET COUNT, AUTOMATED 184 10^3/uL (150-450); RED BLOOD COUNT 3.97 10^6/uL (4.00-5.40); WHITE BLOOD COUNT 8.5 10^3/uL (4.0-10.0)
[2018-08-18 05:38] LABS: ALBUMIN 2.3 GM/DL (3.2-5.2); ALKALINE PHOSPHATASE 92 U/L (45-117); ALT/SGPT 14 U/L (12-78); ANION GAP 12 MEQ/L (8-16); AST/SGOT 14 U/L (7-37); BILIRUBIN,TOTAL 0.6 MG/DL (0.2-1.0); BLOOD UREA NITROGEN 41 MG/DL (7-18); CALCIUM LEVEL 7.9 MG/DL (8.5-10.1); CARBON DIOXIDE LEVEL 25 MEQ/L (21-32); CHLORIDE LEVEL 98 MEQ/L (98-107); CREATININE FOR GFR 3.28 MG/DL (0.55-1.30); GLOMERULAR FILTRATION RATE 15.4 (>51); GLUCOSE, FASTING 177 MG/DL (70-100); MAGNESIUM LEVEL 2.1 MG/DL (1.8-2.4); POTASSIUM SERUM 3.2 MEQ/L (3.5-5.1); SODIUM LEVEL 135 MEQ/L (136-145); TOTAL PROTEIN 5.6 GM/DL (6.4-8.2)
[2018-08-18] MEDS: PIPERACILLIN/TAZOBACTAM SOD 2.25 GM in D5W MINI-BAG PLUS 50 ML IV ×2 (06:02→17:31)
[2018-08-18] MEDS: SLF 3 ML SYR IV ×3 (06:02→22:15)
[2018-08-18] MEDS: HumaLOG INSULIN (NovoLOG) PER UNIT SC ×4 (07:52→21:00)
[2018-08-18] MEDS: METOPROLOL SUCC (TopROL XL) 50MG **XL** TAB PO (07:53)
[2018-08-18] MEDS: APIXABAN 2.5 MG TAB (ELIQUIS) PO ×2 (07:53→22:15)
[2018-08-18] MEDS: TORSEMIDE 20 MG TAB PO (07:53)
[2018-08-18] MEDS: ATORVASTATIN 20 MG TAB PO (07:54)
[2018-08-18] MEDS ORDERED: POTASSIUM CHLORIDE 10 MEQ SR TABLET PO (09:45)
[2018-08-18] MEDS: HEPARIN 1,000 UNITS/ML 10ML VIAL (FOR RADIOLOGY& DIALYSIS ONLY) IV (10:00)
[2018-08-18 13:13] LABS: BEDSIDE GLUCOSE 116 MG/DL (70-105)
[2018-08-18 17:12] LABS: BEDSIDE GLUCOSE 181 MG/DL (70-105)
[2018-08-18 22:19] LABS: BEDSIDE GLUCOSE 189 MG/DL (70-105)
[2018-08-19 06:05] LABS: BASO % 0.2 % (0.0-1.0); EOS # 0.4 10^3/uL (0.0-0.50); EOS % 4.9 % (0.0-3.0); HEMATOCRIT 36.8 % (36.0-47.0); HEMOGLOBIN 11.4 g/dl (12.0-15.5); IMMATURE GRANULOCYTE % 0.7 % (0-3.0); LYMPH # 0.6 10^3/uL (1.5-4.5); LYMPH % 6.7 % (24.0-44.0); MEAN CORPUSCULAR HEMOGLOBIN 28.6 pg (27.0-33.0); MEAN CORPUSCULAR VOLUME 92.2 fl (80.0-96.0); MONO # 0.7 10^3/uL (0.0-0.8); MONO % 7.8 % (0.0-5.0); NEUTROPHILS # 6.7 10^3/uL (1.8-7.7); NEUTROPHILS % 79.7 % (36.0-66.0); PLATELET COUNT, AUTOMATED 173 10^3/uL (150-450); RED BLOOD COUNT 3.99 10^6/uL (4.00-5.40); RED CELL DISTRIBUTION WIDTH 15.9 % (11.5-14.5); WHITE BLOOD COUNT 8.4 10^3/uL (4.0-10.0)
[2018-08-19 06:24] LABS: ALBUMIN 2.3 GM/DL (3.2-5.2); ALBUMIN/GLOBULIN RATIO 0.72 (1.00-1.93); ALKALINE PHOSPHATASE 92 U/L (45-117); ALT/SGPT 15 U/L (12-78); ANION GAP 12 MEQ/L (8-16); AST/SGOT 17 U/L (7-37); BILIRUBIN,TOTAL 0.7 MG/DL (0.2-1.0); BLOOD UREA NITROGEN 22 MG/DL (7-18); CALCIUM LEVEL 8.3 MG/DL (8.5-10.1); CARBON DIOXIDE LEVEL 26 MEQ/L (21-32); CHLORIDE LEVEL 99 MEQ/L (98-107); CREATININE FOR GFR 2.41 MG/DL (0.55-1.30); GLUCOSE, FASTING 161 MG/DL (70-100); POTASSIUM SERUM 3.3 MEQ/L (3.5-5.1); SODIUM LEVEL 137 MEQ/L (136-145); TOTAL PROTEIN 5.5 GM/DL (6.4-8.2)
[2018-08-19] MEDS: SLF 3 ML SYR IV ×3 (06:57→22:55)
[2018-08-19] MEDS: PIPERACILLIN/TAZOBACTAM SOD 2.25 GM in D5W MINI-BAG PLUS 50 ML IV ×2 (06:57→18:13)
[2018-08-19] MEDS: HumaLOG INSULIN (NovoLOG) PER UNIT SC ×4 (08:41→20:19)
[2018-08-19 08:52] LABS: BEDSIDE GLUCOSE 130 MG/DL (70-105)
[2018-08-19] MEDS ORDERED: MAALOX 30 ML SUSP *UDC PO (09:30)
[2018-08-19] MEDS: POTASSIUM CHLORIDE 10 MEQ SR TABLET PO (14:02)
[2018-08-19] MEDS: ATORVASTATIN 20 MG TAB PO (14:03)
[2018-08-19] MEDS: DIGOXIN 0.125 MG TAB PO (14:04)
[2018-08-19] MEDS: METOPROLOL SUCC (TopROL XL) 50MG **XL** TAB PO (14:04)
[2018-08-19] MEDS: TORSEMIDE 20 MG TAB PO (14:04)
[2018-08-19] MEDS: APIXABAN 2.5 MG TAB (ELIQUIS) PO ×2 (14:05→20:18)
[2018-08-19 14:12] LABS: BEDSIDE GLUCOSE 136 MG/DL (70-105)
[2018-08-19] MEDS: HEPARIN 1,000 UNITS/ML 10ML VIAL (FOR RADIOLOGY& DIALYSIS ONLY) IV (14:19)
[2018-08-19 17:16] LABS: BEDSIDE GLUCOSE 238 MG/DL (70-105)
[2018-08-19 20:07] LABS: BEDSIDE GLUCOSE 253 MG/DL (70-105)
[2018-08-19] MEDS: ACETAMINOPHEN TAB 650MG DOSE (2X325MG) PO (20:18)
[2018-08-20] MEDS: PIPERACILLIN/TAZOBACTAM SOD 2.25 GM in D5W MINI-BAG PLUS 50 ML IV ×2 (05:21→16:58)
[2018-08-20] MEDS: SLF 3 ML SYR IV ×3 (05:22→20:10)
[2018-08-20 06:13] LABS: BASO % 0.3 % (0.0-1.0); EOS # 0.4 10^3/uL (0.0-0.50); EOS % 4.1 % (0.0-3.0); IMMATURE GRANULOCYTE % 0.9 % (0-3.0); LYMPH # 0.8 10^3/uL (1.5-4.5); LYMPH % 8.4 % (24.0-44.0); MEAN CORPUSCULAR HEMOGLOBIN 28.6 pg (27.0-33.0); MEAN CORPUSCULAR HGB CONC 30.6 g/dl (32.0-36.5); MEAN CORPUSCULAR VOLUME 93.8 fl (80.0-96.0); MONO # 0.8 10^3/uL (0.0-0.8); MONO % 9.1 % (0.0-5.0); NEUTROPHILS # 6.9 10^3/uL (1.8-7.7); NEUTROPHILS % 77.2 % (36.0-66.0); PLATELET COUNT, AUTOMATED 157 10^3/uL (150-450); RED BLOOD COUNT 3.84 10^6/uL (4.00-5.40); RED CELL DISTRIBUTION WIDTH 15.8 % (11.5-14.5); WHITE BLOOD COUNT 8.9 10^3/uL (4.0-10.0)
[2018-08-20 06:39] LABS: ALBUMIN 2.1 GM/DL (3.2-5.2); ALBUMIN/GLOBULIN RATIO 0.68 (1.00-1.93); ALKALINE PHOSPHATASE 96 U/L (45-117); ALT/SGPT 17 U/L (12-78); ANION GAP 9 MEQ/L (8-16); AST/SGOT 26 U/L (7-37); BILIRUBIN,TOTAL 0.5 MG/DL (0.2-1.0); BLOOD UREA NITROGEN 20 MG/DL (7-18); CARBON DIOXIDE LEVEL 24 MEQ/L (21-32); CHLORIDE LEVEL 99 MEQ/L (98-107); CREATININE FOR GFR 2.29 MG/DL (0.55-1.30); GLOMERULAR FILTRATION RATE 23.3 (>51); GLUCOSE, FASTING 264 MG/DL (70-100); MAGNESIUM LEVEL 1.8 MG/DL (1.8-2.4); POTASSIUM SERUM 4.3 MEQ/L (3.5-5.1); SODIUM LEVEL 132 MEQ/L (136-145); TOTAL PROTEIN 5.2 GM/DL (6.4-8.2)
[2018-08-20] MEDS: ATORVASTATIN 20 MG TAB PO (09:59)
[2018-08-20] MEDS: HumaLOG INSULIN (NovoLOG) PER UNIT SC ×4 (09:59→20:09)
[2018-08-20] MEDS: APIXABAN 2.5 MG TAB (ELIQUIS) PO ×2 (09:59→20:09)
[2018-08-20] MEDS: TORSEMIDE 20 MG TAB PO (10:00)
[2018-08-20] MEDS: METOPROLOL SUCC (TopROL XL) 50MG **XL** TAB PO (10:00)
[2018-08-20 11:50] LABS: BEDSIDE GLUCOSE 297 MG/DL (70-105)
[2018-08-20 16:52] LABS: BEDSIDE GLUCOSE 222 MG/DL (70-105)
[2018-08-20 20:10] LABS: BEDSIDE GLUCOSE 238 MG/DL (70-105)
[2018-08-21] MEDS: ATORVASTATIN 20 MG TAB PO (05:47)
[2018-08-21] MEDS: TORSEMIDE 20 MG TAB PO (05:47)
[2018-08-21] MEDS: DIGOXIN 0.125 MG TAB PO (05:52)
[2018-08-21] MEDS: APIXABAN 2.5 MG TAB (ELIQUIS) PO ×2 (05:52→21:05)
[2018-08-21] MEDS: METOPROLOL SUCC (TopROL XL) 50MG **XL** TAB PO (05:52)
[2018-08-21] MEDS: SLF 3 ML SYR IV ×3 (05:53→22:00)
[2018-08-21 06:14] LABS: BASO % 0.4 % (0.0-1.0); EOS # 0.4 10^3/uL (0.0-0.50); EOS % 4.4 % (0.0-3.0); HEMATOCRIT 36.1 % (36.0-47.0); HEMOGLOBIN 11.3 g/dl (12.0-15.5); IMMATURE GRANULOCYTE % 0.7 % (0-3.0); LYMPH # 0.7 10^3/uL (1.5-4.5); LYMPH % 6.5 % (24.0-44.0); MEAN CORPUSCULAR HEMOGLOBIN 28.6 pg (27.0-33.0); MEAN CORPUSCULAR HGB CONC 31.3 g/dl (32.0-36.5); MEAN CORPUSCULAR VOLUME 91.4 fl (80.0-96.0); MONO # 0.6 10^3/uL (0.0-0.8); MONO % 6.2 % (0.0-5.0); NEUTROPHILS # 8.2 10^3/uL (1.8-7.7); NEUTROPHILS % 81.8 % (36.0-66.0); PLATELET COUNT, AUTOMATED 168 10^3/uL (150-450); RED BLOOD COUNT 3.95 10^6/uL (4.00-5.40); RED CELL DISTRIBUTION WIDTH 15.5 % (11.5-14.5); WHITE BLOOD COUNT 10.1 10^3/uL (4.0-10.0)
[2018-08-21 06:31] LABS: ALBUMIN 2.4 GM/DL (3.2-5.2); ALBUMIN/GLOBULIN RATIO 0.75 (1.00-1.93); ALKALINE PHOSPHATASE 86 U/L (45-117); ALT/SGPT 16 U/L (12-78); ANION GAP 10 MEQ/L (8-16); AST/SGOT 13 U/L (7-37); BILIRUBIN,TOTAL 0.6 MG/DL (0.2-1.0); BLOOD UREA NITROGEN 29 MG/DL (7-18); CALCIUM LEVEL 7.8 MG/DL (8.5-10.1); CARBON DIOXIDE LEVEL 24 MEQ/L (21-32); CHLORIDE LEVEL 99 MEQ/L (98-107); GLOMERULAR FILTRATION RATE 15.8 (>51); GLUCOSE, FASTING 286 MG/DL (70-100); POTASSIUM SERUM 4.2 MEQ/L (3.5-5.1); SODIUM LEVEL 133 MEQ/L (136-145); TOTAL PROTEIN 5.6 GM/DL (6.4-8.2)
[2018-08-21] MEDS: HumaLOG INSULIN (NovoLOG) PER UNIT SC ×4 (07:56→21:05)
[2018-08-21] MEDS: HEPARIN 1,000 UNITS/ML 10ML VIAL (FOR RADIOLOGY& DIALYSIS ONLY) IV (10:45)
[2018-08-21 13:24] LABS: BEDSIDE GLUCOSE 128 MG/DL (70-105)
[2018-08-21] MEDS: LEVEMIR (INSULIN DETEMIR) 1 UNITS/0.01ML SC (14:11)
[2018-08-21 16:37] LABS: BEDSIDE GLUCOSE 266 MG/DL (70-105)
[2018-08-21 20:59] LABS: BEDSIDE GLUCOSE 343 MG/DL (70-105)
[2018-08-22] MEDS: SLF 3 ML SYR IV ×2 (05:40→13:17)
[2018-08-22 05:48] LABS: BASO % 0.4 % (0.0-1.0); EOS # 0.4 10^3/uL (0.0-0.50); EOS % 4.2 % (0.0-3.0); HEMATOCRIT 36.5 % (36.0-47.0); HEMOGLOBIN 11.2 g/dl (12.0-15.5); IMMATURE GRANULOCYTE % 0.9 % (0-3.0); LYMPH # 0.9 10^3/uL (1.5-4.5); LYMPH % 10.1 % (24.0-44.0); MEAN CORPUSCULAR HEMOGLOBIN 27.9 pg (27.0-33.0); MEAN CORPUSCULAR HGB CONC 30.7 g/dl (32.0-36.5); MEAN CORPUSCULAR VOLUME 90.8 fl (80.0-96.0); MONO # 0.6 10^3/uL (0.0-0.8); MONO % 6.8 % (0.0-5.0); NEUTROPHILS # 7.1 10^3/uL (1.8-7.7); NEUTROPHILS % 77.6 % (36.0-66.0); PLATELET COUNT, AUTOMATED 171 10^3/uL (150-450); RED BLOOD COUNT 4.02 10^6/uL (4.00-5.40); RED CELL DISTRIBUTION WIDTH 15.4 % (11.5-14.5); WHITE BLOOD COUNT 9.2 10^3/uL (4.0-10.0)
[2018-08-22 06:16] LABS: ANION GAP 9 MEQ/L (8-16); BLOOD UREA NITROGEN 20 MG/DL (7-18); CALCIUM LEVEL 8.3 MG/DL (8.5-10.1); CARBON DIOXIDE LEVEL 25 MEQ/L (21-32); CHLORIDE LEVEL 100 MEQ/L (98-107); CREATININE FOR GFR 2.71 MG/DL (0.55-1.30); GLOMERULAR FILTRATION RATE 19.2 (>51); GLUCOSE, FASTING 243 MG/DL (70-100); POTASSIUM SERUM 4.2 MEQ/L (3.5-5.1); SODIUM LEVEL 134 MEQ/L (136-145)
[2018-08-22] MEDS: METOPROLOL SUCC (TopROL XL) 50MG **XL** TAB PO (08:44)
[2018-08-22] MEDS: ATORVASTATIN 20 MG TAB PO (08:45)
[2018-08-22] MEDS: APIXABAN 2.5 MG TAB (ELIQUIS) PO (08:45)
[2018-08-22] MEDS: HumaLOG INSULIN (NovoLOG) PER UNIT SC ×3 (08:45→18:02)
[2018-08-22] MEDS: LEVEMIR (INSULIN DETEMIR) 1 UNITS/0.01ML SC (08:45)
[2018-08-22] MEDS: TORSEMIDE 20 MG TAB PO (08:45)
[2018-08-22 12:51] LABS: BEDSIDE GLUCOSE 280 MG/DL (70-105)
[2018-08-22 17:00] LABS: BEDSIDE GLUCOSE 438 MG/DL (70-105)
== END 2018-08-22 18:26 | disposition home or self-care (01) | DRG 637 ==
LOC: M PCU 08-17 02:54 → M ED 11:04 → M ED INP 15:24 → M ICU 17:41
PROVIDERS: Internal Medicine
PROC: 5A1D70Z Performance of Urinary Filtration, Intermittent, Less than 6 Hours Per Day (ICD-10-PCS; principal; 2018-08-15)
DX: E11.10 Type 2 diabetes mellitus with ketoacidosis without coma (principal); N18.6 End stage renal disease; J18.9 Pneumonia, unspecified organism; C91.90 Lymphoid leukemia, unspecified not having achieved remission; E87.2 Acidosis; I13.2 Hypertensive heart and chronic kidney disease with heart failure and with stage 5 chronic kidney disease, or end stage renal disease; L03.115 Cellulitis of right lower limb; R11.2 Nausea with vomiting, unspecified; R19.7 Diarrhea, unspecified; R26.81 Unsteadiness on feet; E11.22 Type 2 diabetes mellitus with diabetic chronic kidney disease; I48.2 Chronic atrial fibrillation; E11.42 Type 2 diabetes mellitus with diabetic polyneuropathy; E11.319 Type 2 diabetes mellitus with unspecified diabetic retinopathy without macular edema; H54.8 Legal blindness, as defined in USA; E66.9 Obesity, unspecified; Z68.39 Body mass index [BMI] 39.0-39.9, adult; E78.5 Hyperlipidemia, unspecified; I25.10 Atherosclerotic heart disease of native coronary artery without angina pectoris; G47.33 Obstructive sleep apnea (adult) (pediatric); F41.9 Anxiety disorder, unspecified; F32.9 Major depressive disorder, single episode, unspecified; L40.9 Psoriasis, unspecified; I50.9 Heart failure, unspecified; E11.65 Type 2 diabetes mellitus with hyperglycemia; D63.1 Anemia in chronic kidney disease; T38.3X6A Underdosing of insulin and oral hypoglycemic [antidiabetic] drugs, initial encounter; I16.0 Hypertensive urgency; S80.861A Insect bite (nonvenomous), right lower leg, initial encounter; W57.XXXA Bitten or stung by nonvenomous insect and other nonvenomous arthropods, initial encounter; Y92.009 Unspecified place in unspecified non-institutional (private) residence as the place of occurrence of the external cause; B95.61 Methicillin susceptible Staphylococcus aureus infection as the cause of diseases classified elsewhere; Z90.49 Acquired absence of other specified parts of digestive tract; Z79.01 Long term (current) use of anticoagulants; Z88.1 Allergy status to other antibiotic agents; Z79.4 Long term (current) use of insulin; Z88.5 Allergy status to narcotic agent; Z88.8 Allergy status to other drugs, medicaments and biological substances; Z91.14 Patient's other noncompliance with medication regimen; Z99.2 Dependence on renal dialysis; Z91.041 Radiographic dye allergy status; Z91.11 Patient's noncompliance with dietary regimen; Z91.120 Patient's intentional underdosing of medication regimen due to financial hardship; Z79.899 Other long term (current) drug therapy

== ENCOUNTER → 2018-09-26 | Outpatient (CLI) | payer MEDICARE ==
[~2018-09-26] MED LIST changes: +MIDAZOLAM INJ 2 MG/2 ML VIAL (J2250) As Ordered; +fentaNYL 100 MCG/2 ML INJECTION (J3010) As Ordered
== END | disposition home or self-care (01) ==
LOC: M IRPRO 08:00
DX: T82.858A Stenosis of other vascular prosthetic devices, implants and grafts, initial encounter (principal); N18.6 End stage renal disease; Z99.2 Dependence on renal dialysis
CPT/HCPCS: 36902

== ENCOUNTER → 2019-01-07 | Outpatient (REF) | payer MEDICARE ==
[~2019-01-07] MED LIST changes: +ACET1TAB55 PO; +AMLO5TAB6 PO; +AUGM500T34 PO; +BASA100I SC; +CALC1CAP31 PO; +COUM1TAB17 PO; +COUM1TAB19 PO; +DEMA20TA6 PO; +DIGO0.12 PO; +ELIQ2.5T PO; +ELIQ5TAB PO; +EPOG2000 IV; +FENO145T13 PO; +FENO160T10 PO; +FERR325T16 PO; +FERR32TA PO; +FISH1000 PO; +FISH100049 PO; +GLIM4TAB PO; +HUMA100I3 SC; +HYDR-643 PO; +HYDR25TAB PO; +IMOD2TAB16 PO; +INSUDET SC; +INSUHUMDS SC; +INSULANT SC; +IRON100V IV; -ISOVUE-300 61% 50ML VIAL (Q9967) As Ordered; +LANTINJ4 SC; +LASI20TA3 PO; -LIDOCAINE 2% MDV 20 ML VIAL As Ordered; +LIPI80TA PO; +LISI-1046 PO; +MEGA1CAP3 PO; +METO100T5 PO; +METO1TAB33 PO; +METO1TAB7 PO; +METO200T28 PO; -MIDAZOLAM INJ 2 MG/2 ML VIAL (J2250) As Ordered; +NIAC1TAB5 PO; +NORC1TAB7 PO; +ONDA4TAB6 PO; +PANT40TA3 PO; +PEPC10TA6 PO; +PERCOCET PO; +PHOS667C5 PO; +POLY150C4 PO; +RENV2TAB PO; +SANT250O8 TOP; +SODI325T9 PO; +SUCR1TA PO; +TORS20TA2 PO; +TRAD5TAB PO; +TYLE500T78 PO; +VENL37.598 PO; +VITA50005 PO; +WARF4TAB51 PO; +XARE15TA PO; +ZOFR4TAB14 PO; +[UNRECOGNIZED DRUG - CODE] XX; +[UNRECOGNIZED DRUG - OTHER] PO; -fentaNYL 100 MCG/2 ML INJECTION (J3010) As Ordered
== END ==
LOC: M LAB REF 17:19
PROVIDERS: ATTEND Surgery
DX: L85.8 Other specified epidermal thickening (principal); L89.613 Pressure ulcer of right heel, stage 3

== ENCOUNTER 2019-01-21 14:59 | Emergency (ER) | payer MEDICARE ==
[~2019-01-21] VITALS: Ht 157.5 cm; Wt 95.0 kg
[~2019-01-21 14:59] MED LIST changes: -AUGM500T34 PO; -COUM1TAB17 PO; -COUM1TAB19 PO; -HYDR-643 PO; -IRON100V IV; +IRON10VL IV; -LANTINJ4 SC; -LISI-1046 PO; +LISI2.5T5 PO; -NORC1TAB7 PO; -ONDA4TAB6 PO; -PERCOCET PO; -SANT250O8 TOP; -VENL37.598 PO; -WARF4TAB51 PO
[2019-01-21] MEDS ORDERED: NS 1,000 ML IV SCH (15:09)
[2019-01-21] MEDS ORDERED: IPRATROPIUM 0.5MG/ALBUTEROL 2.5MG INH SOL UD 3ML (DUONEB)(J7620) NEB ONE (15:15)
--- NOTE | 2019-01-21 15:32 | REP ---
Clinical: Cough and dyspnea. Technique: Portable upright view. Comparison: 08/14/2018. Findings: Cardiomegaly and findings to suggest mild pulmonary vascular congestion/interstitial edema cannot be excluded. No focal consolidation. No obvious effusion. No pneumothorax. Skeletal structures are intact. Impression: Cardiomegaly and findings to suggest pulmonary vascular congestion/interstitial edema. Correlation recommended. Electronically Signed by Guille Robins MD 01/21/2019 03:24 P
[2019-01-21 15:40] LABS: BASO % 0.2 % (0.0-1.0); EOS % 0.2 % (0.0-3.0); LYMPH # 0.4 10^3/uL (1.5-4.5); MEAN CORPUSCULAR HEMOGLOBIN 28.1 pg (27.0-33.0); MEAN CORPUSCULAR HGB CONC 30.3 g/dl (32.0-36.5); MEAN CORPUSCULAR VOLUME 92.7 fl (80.0-96.0); MONO # 0.5 10^3/uL (0.0-0.8); NEUTROPHILS # 7.6 10^3/uL (1.8-7.7); NEUTROPHILS % 87.8 % (36.0-66.0); PLATELET COUNT, AUTOMATED 190 10^3/uL (150-450); RED BLOOD COUNT 3.56 10^6/uL (4.00-5.40); WHITE BLOOD COUNT 8.6 10^3/uL (4.0-10.0)
[2019-01-21 15:50] LABS: INR 3.63
[2019-01-21 16:03] LABS: CALCIUM LEVEL 8.1 MG/DL (8.5-10.1); CREATININE FOR GFR 3.39 MG/DL (0.55-1.30); GLOMERULAR FILTRATION RATE 14.8 (>51)
[2019-01-21 16:21] LABS: INFLUENZA A AMPLIFICATION NEGATIVE (NEGATIVE); INFLUENZA B AMPLIFICATION NEGATIVE (NEGATIVE)
[2019-01-21] MEDS ORDERED: TORSEMIDE 20 MG TAB PO STA (16:49)
[2019-01-21] MEDS ORDERED: ACETAMINOPHEN TAB 650MG DOSE (2X325MG) PO ONE (17:00)
[2019-01-21 17:04] VITALS: BP 188/89
== END 2019-01-21 17:20 | disposition home or self-care (01) ==
LOC: EDBD 14:59 → M ED 14:59
DX: I50.9 Heart failure, unspecified (principal); B34.9 Viral infection, unspecified; R06.02 Shortness of breath; E11.9 Type 2 diabetes mellitus without complications; I11.0 Hypertensive heart disease with heart failure; J98.8 Other specified respiratory disorders; C91.10 Chronic lymphocytic leukemia of B-cell type not having achieved remission; Z79.899 Other long term (current) drug therapy; Z79.4 Long term (current) use of insulin; Z79.01 Long term (current) use of anticoagulants; Z88.1 Allergy status to other antibiotic agents; Z88.8 Allergy status to other drugs, medicaments and biological substances; Z91.041 Radiographic dye allergy status; Z87.891 Personal history of nicotine dependence

== ENCOUNTER → 2019-01-23 | Outpatient (REF) | payer MEDICARE ==
[~2019-01-23] MED LIST changes: +AUGM500T34 PO; +COUM1TAB17 PO; +COUM1TAB19 PO; +HYDR-643 PO; +LANTINJ4 SC; +NORC1TAB4 PO; +ONDA4TAB6 PO; +PERCOCET PO; +SANT250O8 TOP; +VENL37.598 PO; +WARF4TAB51 PO
== END ==
LOC: M LAB REF 15:52
PROVIDERS: ATTEND Surgery
DX: M86.171 Other acute osteomyelitis, right ankle and foot (principal); M86.172 Other acute osteomyelitis, left ankle and foot

== ENCOUNTER → 2019-01-23 | Outpatient (REF) ==
[~2019-01-23] MED LIST changes: -AUGM500T34 PO; -COUM1TAB17 PO; -COUM1TAB19 PO; -HYDR-643 PO; -LANTINJ4 SC; -NORC1TAB4 PO; -ONDA4TAB6 PO; -PERCOCET PO; -SANT250O8 TOP; -VENL37.598 PO; -WARF4TAB51 PO
[2019-01-23 15:28] LABS: HEP C VIRUS AB INDEX SOURCE PT < 0.0 INDEX (0.0-0.8); HEPATITIS B SURFACE ANTIGEN NEGATIVE (NEGATIVE)
== END ==
LOC: M LAB REF 14:03
PROVIDERS: ATTEND Surgery
DX: Z77.21 Contact with and (suspected) exposure to potentially hazardous body fluids (principal)

== ENCOUNTER 2019-01-30 16:33 | Inpatient (IN) | payer MEDICARE ==
[~2019-01-30] VITALS: Ht 157.5 cm; Wt 91.2 kg
[2019-01-30] MEDS: HumaLOG INSULIN (NovoLOG) PER UNIT SC SCH (01:00)
[~2019-01-30 16:33] MED LIST changes: +IRON100V IV; -IRON10VL IV; +LISI-1046 PO; -LISI2.5T5 PO
[2019-01-30] MEDS ORDERED: LANTINJ4 SC (17:03)
[2019-01-30] MEDS ORDERED: COUM1TAB19 PO (17:03)
[2019-01-30] MEDS ORDERED: HYDR-643 PO (17:05)
[2019-01-30 18:28] LABS: BASO % 0.2 % (0.0-1.0); EOS # 0.1 10^3/uL (0.0-0.50); EOS % 0.5 % (0.0-3.0); HEMATOCRIT 33.3 % (36.0-47.0); HEMOGLOBIN 9.9 g/dl (12.0-15.5); LYMPH # 0.4 10^3/uL (1.5-4.5); LYMPH % 2.3 % (24.0-44.0); MEAN CORPUSCULAR HEMOGLOBIN 27.7 pg (27.0-33.0); MEAN CORPUSCULAR HGB CONC 29.7 g/dl (32.0-36.5); MONO # 0.8 10^3/uL (0.0-0.8); MONO % 4.5 % (0.0-5.0); NEUTROPHILS # 16.9 10^3/uL (1.8-7.7); NEUTROPHILS % 91.1 % (36.0-66.0); PLATELET COUNT, AUTOMATED 215 10^3/uL (150-450); RED BLOOD COUNT 3.58 10^6/uL (4.00-5.40); WHITE BLOOD COUNT 18.6 10^3/uL (4.0-10.0)
[2019-01-30 19:08] LABS: CREATININE FOR GFR 3.41 MG/DL (0.55-1.30); GLOMERULAR FILTRATION RATE 14.7 (>51)
[2019-01-30] MEDS ORDERED: BASA100I SC (19:59)
[2019-01-30] MEDS ORDERED: WARF4TAB51 PO (19:59)
[2019-01-30] MEDS ORDERED: ONDA4TAB6 PO (19:59)
[2019-01-30] MEDS ORDERED: TORS20TA2 PO (19:59)
[2019-01-30] MEDS ORDERED: BISACODYL 5 MG TAB PO PRN (20:30)
[2019-01-30] MEDS: ATORVASTATIN 20 MG TAB PO SCH (21:00)
--- NOTE | 2019-01-31 01:29 | HPEPDOC ---
[facility] Medical History & Physical Date of Admission Jan 30, 2019 Primary Care Physician: Joanna Swan PA-C, LAC Attending Physician: CHRISTOPHER LACEY MD History and Physical CHIEF COMPLAINT: Chronic Bilateral Nonhealing Heel Ulcers HISTORY OF PRESENT ILLNESS: Patient is a 58 year old female with a past medical history significant for DMII, CLL following with Dr. Maynard, ESRD on hemodialysis Saturday, , Saturday, CHF, and chronic nonhealing wounds who presented to the [facility] Emergency Department by direction of her wound care physician Dr. Kaplan. Patient was at Dr. Buckner office earlier today for wound care. It was noted that her wounds were not healing properly. They had been debrided resulting in bleeding. The wounds were cauterized and bandaged. Patient was then sent to the ER for admission and further workup with Dr. Mansfield for arterial studies of her lower extremities. In the ER the patient did have an elevated WBC however, she has remained afebrile. She currently denies any fevers although states that she had an episode of chills the other day. She denies increased erythema in her legs or around her chronic wounds. Patient states that she has pain chronically in her heels. She denies any nausea or vomiting. She denies vomiting or diarrhea. PAST MEDICAL HISTORY: 1. Insulin-dependent diabetes, poorly controlled due to noncompliance with insulin. 2. Chronic atrial fibrillation. 3. Congestive heart failure. 4. End-stage renal disease requiring maintenance hemodialysis. 5. History of chronic lymphatic leukemia. 6. History of peripheral neuropathy. 7. History of diabetic retinopathy, legally blind. 8. Hyperlipidemia. 9. History of atherosclerotic coronary heart disease. 10. Obstructive sleep apnea, noncompliant with C-PAP. 11. Anxiety and depression. PAST SURGICAL HISTORY: 1. Hysterectomy w/ hx of uterine cancer 2. Cholecystectomy 3. I/D perirectal abscess 4. Lymph node biopsy SOCIAL HISTORY: Patient is and lives at home with her and son. She is a nonsmoker. She denies alcohol or drug use. FAMILY HISTORY: Non-contributory ALLERGIES: Please see below. REVIEW OF SYSTEMS: CONSTITUTIONAL: Denies fevers, chills, night sweats, unintentional weight loss or weight gain. HEENT: Denies cough, congestion, or dysphagia CARDIOVASCULAR: Denies chest pain, palpitations or feelings of the heart racing RESPIRATORY: Denies shortness of breath different from her baseline GASTROINTESTINAL: Denies abdominal pain. Denies nausea, vomiting, diarrhea, or constipation GENITOURINARY: Denies dysuria, increased frequency, or urgency SKIN: Admits to multiple skin ulcerations on extremities bilaterally, arms, and abdomen MUSCULOSKELETAL: Denies muscle weakness NEUROLOGICAL: Denies changes in gait or speech PSYCHIATRIC: Mood and affect appear appropriate ENDOCRINE: Denies heat or cold intolerance HEMATOLOGIC/LYMPHATIC: Admits to easy bruising and bleeding HOME MEDICATIONS: Please see below. PHYSICAL EXAMINATION: VITAL SIGNS: Temperature 97.3, pulse 90, respiratory rate 18, blood pressure 153/74, pulse oximetry 98% on room air. GENERAL APPEARANCE: Patient is awake alert and oriented. She is lying in bed. She does not appear to be in acute distress. HEENT: Atraumatic, normocephalic. Trachea is midline. Dentition is poor CARDIOVASCULAR: Irregularly irregular rhythm. Normal rate. No clicks rubs or murmurs LUNGS: Clear vesicular lung sounds to auscultation bilaterally. Slightly decreased breath sounds in the bases bilaterally. No wheezes, rhonci, or rales ABDOMEN: Obese, soft, non-distended. Nontender to palpation in all 4 quadrants. Positive bowel sounds through out. Abdominal wound bandaged on right lateral to umbilicus EXTREMITIES: 2mm pitting edema present in lower extremities bilaterally. No erythema noted. Feet are bandaged. Bandages were not removed per instructions by Dr. Kaplan. Multiple excoriations on bilateral upper extremities NEUROLOGICAL: Speech is normal. Muscle strength normal in upper and lower extremities PSYCHIATRIC: Mood and affect appear appropriate LABORATORY DATA: See below. MICROBIOLOGY: Please see below. ASSESSMENT and PLAN 1. Chronic Non-healing Heel Ulcers -Patient was sent to ER by Dr. Kaplan -Patient is to receive an arterial study of her lower extremities to assess perfusion -Wound care consult with Dr. Kaplan -Patient is currently afebrile. She has a slightly elevated white count but has no other complaints. At this time empiric antibiotics were not started given the presence of chronic wounds 2. ESRD on Hemodialysis -Patient currently on HD Saturday, , and Saturday. She will be due for dialysis tomorrow. -Consider Nephro consultation in the AM for dialysis 3. Chronic Atrial Fibrillation -Continue home Metoprolol, digoxin and Coumadin -Currently stable 4. CHF -Currently stable. Patient receives demadex. Will continue 5. DMII -Continue home basal coverage. -Sliding scale coverage AC/QHS 6. DVT prophylaxis -Patient is chronically anticoagulated on Coumadin Vital Signs Vital Signs Date Time Temp Pulse Resp B/P (MAP) Pulse Ox O2 Delivery O2 Flow Rate FiO2 01/30/19 22:06 97.5 89 18 153/74 (100) 98 01/30/19 16:34 Room Air Laboratory Data Labs 24H Laboratory Tests 2 01/30/19 18:16: Anion Gap 9, Glomerular Filtration Rate 14.7L, Blood Urea Nitrogen 41H, Creatinine 3.41H, Sodium Level 135L, Potassium Level 4.0, Chloride Level 94L, Carbon Dioxide Level 32, Calcium Level 8.0L 01/30/19 18:17: Immature Granulocyte % (Auto) 1.4, White Blood Count 18.6H, Red Blood Count 3.58L, Hemoglobin 9.9L, Hematocrit 33.3L, Mean Corpuscular Volume 93.0, Mean Corpuscular Hemoglobin 27.7, Mean Corpuscular Hemoglobin Concent 29.7L, Red Cell Distribution Width 18.7H, Platelet Count 215, Neutrophils (%) (Auto) 91.1H, Lymphocytes (%) (Auto) 2.3L, Monocytes (%) (Auto) 4.5, Eosinophils (%) (Auto) 0.5, Basophils (%) (Auto) 0.2, Neutrophils # (Auto) 16.9H, Lymphocytes # (Auto) 0.4L, Monocytes # (Auto) 0.8, Eosinophils # (Auto) 0.1, Basophils # (Auto) 0.0, Nucleated Red Blood Cells % (auto) 0.0 CBC/BMP Laboratory Tests 01/30/19 18:16 Calcium Level 8.0 L 01/30/19 18:17 Red Blood Count 3.58 L, Mean Corpuscular Volume 93.0, Mean Corpuscular Hemoglobin 27.7, Mean Corpuscular Hemoglobin Concent 29.7 L, Red Cell Distribution Width 18.7 H, Neutrophils (%) (Auto) 91.1 H, Lymphocytes (%) (Auto) 2.3 L, Monocytes (%) (Auto) 4.5, Eosinophils (%) (Auto) 0.5, Basophils (%) (Auto) 0.2, Neutrophils # (Auto) 16.9 H, Lymphocytes # (Auto) 0.4 L, Monocytes # (Auto) 0.8, Eosinophils # (Auto) 0.1, Basophils # (Auto) 0.0 Home Medications Scheduled (Digoxin) 125 Mcg Tab, 125 MCG PO Q2D (Megared [place]-3 Krill Oil 500 mg) 1 Cap Cap, 1 CAP PO BID (Basaglar Kwikpen) 100 Unit/Ml Inj, 20 UNIT SC BID Atorvastatin Calcium (Lipitor) 80 Mg Tab, 80 MG PO DAILY Calcium Acetate (Phoslo) 667 Mg Cap, 1,334 MG PO WM Epoetin Rudy (Epogen) Unknown Strength Inj, Unknown Dose IV ASDIRECTED GIVEN AT DIALYSIS ON SATURDAY, SATURDAY AND SATURDAY Glimepiride (Glimepiride) 4 Mg Tab, 4 MG PO BID HAS NOT TAKEN IN SEVERAL DAYS, WAITING FOR NEW RX FROM DOCTOR Insulin Glargine (Lantus Solostar) 100 Unit/Ml Inj, 20 UNIT SC BID Insulin Human Lispro (Humalog) 100 Unit/Ml Inj, 8 UNITS SC QHS Iron Dextran (Infed) Unknown Strength Soln, Unknown Dose IV ASDIRECTED GIVEN AT DIALYSIS ON SATURDAY, SATURDAY AND SATURDAY Metoprolol Succinate (Metoprolol Succinate ER) 50 Mg Tab, 50 MG PO DAILY Warfarin Sod (Warfarin Sodium) 2 Mg Tab, 2 MG PO DAILY RECENTLY CHANGED TO 3MG DAILY, PATIENT STILL TAKING 2MG 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 Scheduled PRN Acetaminophen (Acetaminophen) 325 Mg Tab, 650 MG PO Q4H PRN for PAIN Hydroxyzine HCl (Hydroxyzine HCl) 10 Mg Tab, 10 MG PO BID PRN for ITCHING Loperamide Hcl (Imodium A-D) 2 Mg Tab, 2 MG PO PRN PRN for DIARRHEA Ondansetron (Ondansetron Odt) 4 Mg Tab, 4 MG PO Q4H PRN for NAUSEA Torsemide (Torsemide) 20 Mg Tab, 40 MG PO DAILY PRN for SWELLING IN LEGS Allergies Coded Allergies: Contrast Media (Verified Allergy, Severe, "I can't breathe", 01/21/19) Fentanyl (Verified Allergy, Severe, OPIATES - HIVES AND TROUBLE BREATHING, 01/21/19) Ciprofloxacin (Verified Allergy, Unknown, 12/09/17) Pentazocine (Verified Allergy, Unknown, 12/09/17) Citalopram (Verified Adverse Reaction, Intermediate, NAUSEA, VOMITING, DIARRHEA, 01/21/19) GME ATTESTATION GME ATTESTATION My faculty preceptor for this patient encounter was physically present during the encounter and was fully available. All aspects of the patient interview, exa mination, medical decision making process, and medical care plan development were reviewed and approved by the faculty preceptor. The faculty preceptor is aware and concurs with the plan as stated in the body of this note and will attest to such by his/her cosignature. GIOVANA NUNEZ DO Jan 30, 2019 23:39
[2019-01-31] MEDS ORDERED: DEXTROSE 50% 50 ML SYRINGE IV PRN (01:30)
[2019-01-31] MEDS ORDERED: TORSEMIDE 20 MG TAB PO PRN (01:30)
[2019-01-31] MEDS ORDERED: GLUCAGON FOR INJ 1 MG VIAL (J1610) SC PRN (01:30)
[2019-01-31] MEDS ORDERED: GLUCOSE 4 GM CHEW TABLET PO PRN (01:30)
[2019-01-31] MEDS: ACETAMINOPHEN TAB 650MG DOSE (2X325MG) PO PRN ×2 (02:40→18:12)
[2019-01-31 06:54] LABS: HEMATOCRIT 29.2 % (36.0-47.0); HEMOGLOBIN 8.6 g/dl (12.0-15.5); MEAN CORPUSCULAR HEMOGLOBIN 27.2 pg (27.0-33.0); MEAN CORPUSCULAR HGB CONC 29.5 g/dl (32.0-36.5); MEAN CORPUSCULAR VOLUME 92.4 fl (80.0-96.0); PLATELET COUNT, AUTOMATED 177 10^3/uL (150-450); RED BLOOD COUNT 3.16 10^6/uL (4.00-5.40); WHITE BLOOD COUNT 12.6 10^3/uL (4.0-10.0)
[2019-01-31 07:23] LABS: CREATININE FOR GFR 3.56 MG/DL (0.55-1.30)
[2019-01-31] MEDS: CALCIUM ACETATE 667 MG GELCAP PO SCH ×4 (08:00→18:11)
[2019-01-31 08:44] LABS: C REACTIVE PROTEIN QUANTITATIV 15.8 MG/DL (0.00-0.30)
[2019-01-31] MEDS ORDERED: GLIMEPIRIDE 2 MG TAB PO SCH (09:00)
[2019-01-31] MEDS: HumaLOG INSULIN (NovoLOG) PER UNIT SC SCH ×4 (09:08→22:30)
[2019-01-31 09:21] LABS: ERYTHROCYTE SEDIMENTATION RATE 79 mm/hr (0-30)
[2019-01-31 09:26] LABS: INR 3.56; PROTHROMBIN TIME 36.4 SECONDS (12.1-14.4)
[2019-01-31] MEDS ORDERED: HEPARIN 1,000 UNITS/ML 10ML VIAL (FOR RADIOLOGY& DIALYSIS ONLY) IV ONE (12:00)
[2019-01-31] MEDS ORDERED: LIDOCAINE 1% SDV 5 ML VIAL SQ ONE (12:00)
[2019-01-31] MEDS: LEVEMIR (INSULIN DETEMIR) 1 UNITS/0.01ML SC SCH ×2 (13:48→22:30)
[2019-01-31] MEDS: METOPROLOL SUCC (TopROL XL) 50MG **XL** TAB PO SCH (14:00)
--- NOTE | 2019-01-31 15:16 | REP ---
Right foot four views: There are no comparisons. There is diffuse demineralization. There is a large soft tissue defect posterior to the calcaneus compatible with a large soft tissue decubitus ulcer. There are no lytic, blastic or destructive skeletal changes to suggest osteomyelitis. There appears to be packing material within the ulcer. Left foot four views: There are no comparisons. There is a large soft tissue defect posterior to the calcaneus compatible with a large soft tissue decubitus ulcer. There are no lytic, blastic or destructive skeletal changes to suggest osteomyelitis. However, there are multiple tiny air or gas bubbles in the soft tissues laterally suggestive of soft tissue infection. Electronically Signed by Ant Dai MD 01/31/2019 03:08 P
[2019-01-31 16:50] VITALS: BP 106/51
[2019-01-31] MEDS: CEFTAROLINE FOSAMIL 200 MG in D5W 50 ML IV SCH (18:12)
--- NOTE | 2019-01-31 19:49 | IPN ---
DATE: 01/31/2019 The patient was seen and examined. Currently underlying dialysis. Denies any chest pain, pressure or discomfort. Reported bilateral ankle pain, right greater than left. No fevers or chills. VITAL SIGNS: Temperature 98.6, pulse 92, respirations 19, blood pressure 139/74, pulse oximetry 96% on room air. LABORATORY DATA: WBC 12.6, hemoglobin and hematocrit 8.6/29.2, platelets 177, ESR 79, C-reactive protein 15.8. Sodium 134, potassium 4.0, chloride 96, bicarbonate 30, BUN 43, creatinine 3.56. PHYSICAL EXAMINATION: GENERAL: Patient is alert, in no acute distress, undergoing dialysis. HEENT: Normocephalic, atraumatic. CARDIAC: Irregularly irregular. No tachycardia. PULMONARY: Bilaterally clear. ABDOMEN: Soft, obese, nontender. EXTREMITIES: 1+ edema in bilateral lower extremities. Dressing clean, dry and intact. Bilateral large heel ulcers that are very deep, not stagable. ASSESSMENT AND PLAN: This is a 58-year-old female patient with underlying medical history of diabetes type 2, CLL, follows with Dr. Maynard, end stage renal disease on dialysis Saturday, , Saturday, congestive heart failure (CHF), chronic nonhealing bilateral heel ulcers, sees Dr. Kaplan, presented with worsening bilateral non healing heel ulcers. 1. Chronic bilateral non healing heel ulcers. The patient is on Teflaro. MRI has been ordered. Dr. Moy has been consulted for wound care. Dr. Mansfield has been consulted for possible angioplasty. ESR, C-reactive protein have been elevated. X-ray appreciated showing evidence of osteomyelitis. Wound culture has been ordered. Blood culture has been ordered. 2. End stage renal disease. Continue dialysis. Nephrology has been consulted. 3. Chronic atrial fibrillation. Currently stable. Continue Coumadin, digoxin, and metoprolol. 4. Congestive heart failure (CHF). Currently euvolemic. Further dialysis as per nephrology. 5. Type 2 diabetes. Basal bolus coverage, adjust as needed. Holding oral medications. 6. Deep vein thrombosis (DVT) prophylaxis. The patient is on Coumadin. Followup INR. 7. Dyslipidemia. Continue statin. DISPOSITION: Pending podiatry and vascular consultations. Clinical improvement. The patient might need prolonged IV antibiotics, we will consider consulting infectious disease when culture is back.
[2019-01-31 22:00] VITALS: BP 107/56
[2019-01-31] MEDS: ATORVASTATIN 20 MG TAB PO SCH (22:30)
[2019-01-31] MEDS: hydrOXYzine 10 MG TAB PO PRN (23:40)
[2019-02-01] MEDS: CEFTAROLINE FOSAMIL 200 MG in D5W 50 ML IV SCH ×2 (05:17→18:15)
[2019-02-01 05:54] LABS: HEMOGLOBIN 8.8 g/dl (12.0-15.5); MEAN CORPUSCULAR HEMOGLOBIN 27.2 pg (27.0-33.0); MEAN CORPUSCULAR HGB CONC 29.3 g/dl (32.0-36.5); MEAN CORPUSCULAR VOLUME 92.6 fl (80.0-96.0); PLATELET COUNT, AUTOMATED 219 10^3/uL (150-450); RED BLOOD COUNT 3.24 10^6/uL (4.00-5.40); WHITE BLOOD COUNT 15.8 10^3/uL (4.0-10.0)
[2019-02-01 06:00] VITALS: BP 130/54
[2019-02-01 06:05] LABS: INR 2.9
[2019-02-01 06:09] LABS: C REACTIVE PROTEIN QUANTITATIV 13.8 MG/DL (0.00-0.30); CALCIUM LEVEL 8.1 MG/DL (8.5-10.1); CREATININE FOR GFR 3.04 MG/DL (0.55-1.30); GLOMERULAR FILTRATION RATE 16.7 (>51); MAGNESIUM LEVEL 1.9 MG/DL (1.8-2.4); POTASSIUM SERUM 4.3 MEQ/L (3.5-5.1)
[2019-02-01] MEDS: DIGOXIN 0.125 MG TAB PO SCH (08:31)
[2019-02-01] MEDS: METOPROLOL SUCC (TopROL XL) 50MG **XL** TAB PO SCH (08:31)
[2019-02-01] MEDS: CALCIUM ACETATE 667 MG GELCAP PO SCH ×3 (08:32→18:14)
[2019-02-01] MEDS: HumaLOG INSULIN (NovoLOG) PER UNIT SC SCH ×4 (08:32→21:00)
[2019-02-01] MEDS: LEVEMIR (INSULIN DETEMIR) 1 UNITS/0.01ML SC SCH ×2 (08:32→22:54)
[2019-02-01] MEDS: SANTYL OINT 30GM TOP SCH (12:37)
[2019-02-01] MEDS: hydrOXYzine 10 MG TAB PO PRN (12:59)
[2019-02-01] MEDS: ACETAMINOPHEN TAB 650MG DOSE (2X325MG) PO PRN (12:59)
[2019-02-01 14:00] VITALS: BP 129/60
[2019-02-01] MEDS ORDERED: DARBEPOETIN 100 MCG/0.5 ML *DIALYSIS* SYRINGE (J0882) IV SCH (16:30)
[2019-02-01] MEDS ORDERED: WARFARIN SOD 3 MG TAB PO SCH (17:00)
[2019-02-01] MEDS ORDERED: WARFARIN SOD 2 MG TAB PO SCH (17:00)
[2019-02-01 17:33] LABS: PERCENT SATURATION 12.6 % (13.2-45.0)
--- NOTE | 2019-02-01 18:21 | IPNPDOC ---
Text Note Date of Service The patient was seen on 02/01/19. NOTE The patient was seen and examined. Denies any chest pain, pressure or discomfort. Reported bilateral ankle pain. No fevers or chills. PHYSICAL EXAMINATION: GENERAL: Patient is alert, in no acute distress, undergoing dialysis. HEENT: Normocephalic, atraumatic. CARDIAC: Irregularly irregular. No tachycardia. PULMONARY: Bilaterally clear. ABDOMEN: Soft, obese, nontender. EXTREMITIES: 1+ edema in bilateral lower extremities. Dressing clean, dry and intact. Bilateral large heel ulcers that are very deep, unstagable. ASSESSMENT AND PLAN: This is a 58-year-old female patient with underlying medical history of diabetes type 2, CLL, follows with Dr. Maynard, end stage renal disease on dialysis Saturday, , Saturday, congestive heart failure (CHF), chronic nonhealing bilateral heel ulcers, sees Dr. Kaplan, presented with worsening bilateral non healing heel ulcers. 1. Chronic bilateral non healing heel ulcers. likely ostero, The patient is on Teflaro. MRI has been ordered. Dr. Moy has been consulted for wound care. Dr. Mansfield has been consulted for possible angioplasty. ESR, C-reactive protein have been elevated. X-ray appreciated showing evidence of osteomyelitis. Wound culture has been ordered. Blood culture has been ordered. 2. End stage renal disease. Continue dialysis. Nephrology has been consulted. 3. Chronic atrial fibrillation. Currently stable. Continue Coumadin, digoxin, and metoprolol. 4. Congestive heart failure (CHF). Currently euvolemic. Further dialysis as per nephrology. 5. Type 2 diabetes. Basal bolus coverage, adjust as needed. Holding oral medications. 6. Deep vein thrombosis (DVT) prophylaxis. The patient is on Coumadin. Followup INR. 7. Dyslipidemia. Continue statin. DISPOSITION: Pending podiatry and vascular consultations. Clinical improvement. The patient might need prolonged IV antibiotics, we will consider consulting infectious disease when culture is back. VS,Fishbone, I+O VS, Fishbone, I+O Laboratory Tests 02/01/19 05:27 Red Blood Count 3.24 L, Mean Corpuscular Volume 92.6, Mean Corpuscular Hemoglobin 27.2, Mean Corpuscular Hemoglobin Concent 29.3 L, Red Cell Distribution Width 18.6 H, Calcium Level 8.1 L Vital Signs Date Time Temp Pulse Resp B/P (MAP) Pulse Ox O2 Delivery O2 Flow Rate FiO2 02/01/19 14:00 99.0 90 20 129/60 (83) 93 01/31/19 16:19 Room Air I&O- Last 24 Hours up to 6 AM 02/01/19 06:00 Intake Total 0 ml Output Total 4000 ml Balance -4000 ml CHRISTOPHER LACEY MD Feb 01, 2019 18:21
[2019-02-01 22:00] VITALS: BP 123/53
[2019-02-01] MEDS: ATORVASTATIN 20 MG TAB PO SCH (22:00)
[2019-02-02] VITALS (8 sets, daily range): BP systolic 124–158; BP diastolic 54–75
[2019-02-02] MEDS: ACETAMINOPHEN TAB 650MG DOSE (2X325MG) PO PRN (05:32)
[2019-02-02] MEDS: CEFTAROLINE FOSAMIL 200 MG in D5W 50 ML IV SCH (05:33)
[2019-02-02 06:24] LABS: HEMOGLOBIN 8.7 g/dl (12.0-15.5); MEAN CORPUSCULAR HEMOGLOBIN 27.6 pg (27.0-33.0); MEAN CORPUSCULAR VOLUME 92.1 fl (80.0-96.0); PLATELET COUNT, AUTOMATED 213 10^3/uL (150-450); RED BLOOD COUNT 3.15 10^6/uL (4.00-5.40); WHITE BLOOD COUNT 17.2 10^3/uL (4.0-10.0)
[2019-02-02 06:37] LABS: INR 1.85; PROTHROMBIN TIME 21.7 SECONDS (12.1-14.4)
[2019-02-02 06:40] LABS: C REACTIVE PROTEIN QUANTITATIV 15.4 MG/DL (0.00-0.30); CALCIUM LEVEL 8.2 MG/DL (8.5-10.1); CREATININE FOR GFR 3.64 MG/DL (0.55-1.30); GLOMERULAR FILTRATION RATE 13.6 (>51); MAGNESIUM LEVEL 2.3 MG/DL (1.8-2.4)
[2019-02-02] MEDS: HumaLOG INSULIN (NovoLOG) PER UNIT SC SCH ×4 (07:30→20:11)
[2019-02-02] MEDS: CALCIUM ACETATE 667 MG GELCAP PO SCH ×3 (08:00→17:57)
[2019-02-02] MEDS: LEVEMIR (INSULIN DETEMIR) 1 UNITS/0.01ML SC SCH ×2 (08:59→20:17)
[2019-02-02] MEDS: SANTYL OINT 30GM TOP SCH (09:00)
[2019-02-02] MEDS ORDERED: VANCOMYCIN HCL 1,000 MG, VIAL MATE ADAPTER 1 EACH in D5W 250 ML IV ONE (09:00)
[2019-02-02] MEDS: METOPROLOL SUCC (TopROL XL) 50MG **XL** TAB PO SCH (09:00)
--- NOTE | 2019-02-02 09:05 | REP ---
MRI BILATERAL FEET WITHOUT CONTRAST: 02/01/2019. Clinical history. Evaluate for osteomyelitis. MRI left foot: Standard noncontrast technique utilized. The patient has a large ulceration over the posterior aspect of the calcaneus near the Achilles insertion. Findings: Marrow signal shows hypointensity peripherally and posteriorly in the calcaneus pattern abutting the posterior calcaneal region near the large soft tissue ulceration. There is also some increased signal on T2 and a same pattern in the same posterior peripheral location as well as lateral posterior calcaneus. The distal tibia and fibula were grossly intact with no marrow signal abnormality. Tarsal bones, metatarsals and visualized phalanges show no gross signal abnormality. There are no abnormal fluid collections. Extensive subcutaneous edema particularly over the distal forefoot but circumferentially about the foot and ankle noted. The tendons about the ankle medially and laterally and anteriorly were grossly unremarkable. There is some increased signal in the distal Achilles tendon above its insertion which may reflect some tendinopathy, tendonitis. I do not see a definite tear. Impression: 1. Findings suspicious for osteomyelitis of the posterior left calcaneus along its posterior margin near the large soft tissue ulceration noted on the posterior view. I do not see other bones with suspected osteomyelitis. There is extensive subcutaneous edema particularly in the distal forefoot that may reflect cellulitis. No other significant finding or drainable abscess/fluid collection. MRI right foot: Similar to the opposite side, there is a large soft tissue ulceration exposing the posterior calcaneus and inferior to the Achilles insertion. Hypointense T1 and hyperintense T2 marrow signal in the adjacent posterior calcaneus in a pattern that would be highly suspicious for adjacent osteomyelitis. I do not see an abnormal fluid collection that would suggest a drainable abscess in this region. Talus, distal tibia and fibula, tarsal bones, metatarsals and phalanges are without signal abnormality that would suggest osteomyelitis, fracture or destructive lesion in those bones. Diffuse subcutaneous edema is seen about the foot and ankle, particularly in the distal forefoot dorsally. The ankle joint has a small amount of effusion present. The medial lateral and anterior tendons about the ankle are unremarkable. The Achilles tendon shows some less hyperintense T2 signal in the distal fibers of the tendon above the insertion that would suggest less tendinopathy on the right than left. I do not see other significant finding. Impression: 1. Large soft tissue ulceration over the posterior calcaneus adjacent signal changes in the periphery posterior calcaneus highly suspicious for osteomyelitis. There is subcutaneous edema and ventricular swelling in the distal forefoot dorsally but circumferentially about the entire foot and ankle. This suggests some cellulitis and/or edema from other causes. No other significant finding. Electronically Signed by Abdoulaye Carson MD 02/02/2019 07:38 P
[2019-02-02] MEDS ORDERED: VANCOMYCIN HCL 500 MG in D5W MINI-BAG PLUS 100 ML IV ONE (10:00)
--- NOTE | 2019-02-02 11:40 | CR ---
DATE OF CONSULTATION: 01/31/2019 NEPHROLOGY CONSULTATION FOR: Dr. Sanchez REASON FOR CONSULTATION: Is to assist in the management of end-stage renal disease. HISTORY OF PRESENT ILLNESS: Mrs. Gibbons is a 58-year-old female with multiple chronic medical problems including a history of type 2 diabetes, history of chronic lymphocytic leukemia (CLL), history of end-stage renal disease requiring dialysis, history of congestive heart failure and diabetic retinopathy. She has history of longstanding noncompliance with medical care. She was brought to the emergency room with chronic bilateral nonhealing foot ulcers and got admitted last evening. She is due for dialysis today and a nephrology consultation was requested. Patient is seen this morning. Patient has history of multiple missed dialysis treatments as an outpatient. I am not sure what day it was she last dialyzed. PAST MEDICAL AND SURGICAL HISTORY: Significant for: 1. Insulin-requiring diabetes usually poorly controlled due to noncompliance. 2. Chronic atrial fibrillation. 3. Systolic congestive heart failure. 4. End-stage renal disease requiring maintenance dialysis. 5. Chronic CLL. 6. History of severe peripheral neuropathy. 7. History of diabetic retinopathy, legally blind. 8. Hyperlipidemia. 9. History of coronary artery disease. 10. History of obstructive sleep apnea, noncompliant with continuous positive airway pressure (CPAP). 11. History of anxiety and depression. Past surgical history is significant for hysterectomy, cholecystectomy, perirectal abscess incision and drainage, lymph node biopsy, Perma-Cath placement and removal and a left arm arteriovenous (AV) fistula creation. PERSONAL AND SOCIAL HISTORY: Patient is and lives with her . She is a nonsmoker and denies any alcohol or drug use. She has history of poor compliance. Family history is negative for end-stage renal disease and noncontributory for this admission. HOME MEDICATIONS: Her home medications include: - Basaglar insulin 20 units twice a day - digoxin 125 mcg twice a week - atorvastatin 80 mg daily - calcium acetate 2 capsules three times a day with meals - Epogen with each dialysis - glimepiride 4 mg twice a day - metoprolol ER 50 mg daily - Coumadin 2 mg daily - Tylenol as needed for pain - torsemide 20 mg 2 tablets twice a day - Zofran 4 mg as needed for nausea ALLERGIES: She has allergy to CIPRO, PANTOPRAZOLE, CITALOPRAM, FENTANYL and CONTRAST MEDIA. REVIEW OF SYSTEMS: There is no history of fever or chills. She has chronic lower extremity edema and nonhealing ulcers on both feet. She has diabetic retinopathy and has been legally blind. Ears, nose and throat are unremarkable. Cardiovascular system negative for chest pain or dyspnea, but she does have chronic significant lower extremity edema. Respiratory system is negative for cough or hemoptysis. Gastrointestinal (GI) system is significant for chronic nausea and denies any vomiting or diarrhea. Genitourinary () system is significant for end-stage renal disease. Musculoskeletal system significant for chronic leg edema and back pain. She has nonhealing ulcers on heels. Neurologically, she has no history of stroke or seizures. Psychosocial system significant for anxiety, depression and noncompliance. Hematological system significant for anemia of chronic kidney disease and anticoagulation for atrial fibrillation. PHYSICAL EXAMINATION: Temperature 98.6 degrees Fahrenheit, heart rate 92 per minute and respiratory rate 20 per minute. Blood pressure 112/58 mmHg and oxygen saturation 96% on room air. Head is atraumatic. Neck supple and jugular venous distention (JVD). is moderately elevated. There is no oral thrush or ulcers. 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 Heart sounds are irregular in rhythm. Lungs with diminished breath sounds. Abdomen obese, soft and nontender and bowel sounds are normal. Extremities have no cyanosis or clubbing. Left arm AV fistula is currently being used for dialysis. Both feet are wrapped in dressings and she has at least 3+ bilateral lower extremity edema. LABORATORY DATA: On admission, WBC count 18.6, hemoglobin 9.9 and hematocrit 33.3. Sodium 135, potassium 4.0, CO2 32, BUN 41 and creatinine 3.41. Glucose 393 and calcium 8.0. PROBLEMS: 1. End-stage renal disease. Patient is regularly dialyzed on Saturday, and Saturday schedule. We are dialyzing her this morning already and she will be scheduled for next dialysis on Saturday. 2. Congestive heart failure and chronic leg edema. This is mostly due to noncompliance with fluid restriction, dialysis and dietary restrictions. She also does not tolerate aggressive fluid removal due to hypotension and cramps. We will try to correct her volume status while she is here in the hospital. We are removing about 4 liters of fluid today as tolerated. 3. Anemia. She does have anemia of chronic kidney disease. At present, there is no emergent need for a transfusion. We will check her iron studies and then consider Aranesp if needed. 4. Infected foot ulcers. Patient has peripheral neuropathy. She also has nonhealing ulcers. She will need to see a surgeon for possible to debridement. At present, I would suggest to continue with broad-spectrum antibiotics and wound care. Improvement in her volume status and resolution of peripheral edema is likely to help immensely with wound healing. Unfortunately, she has been quite noncompliant with dialysis treatments and dietary restrictions and we have not been able to keep her volume status under control. In the hospital, we are going to try our best to get her edema completely resolved. We are removing 4 liters of fluid today and will continue with fluid removal aggressively through the next week. 5. Hypertension. Blood pressure seems to be well controlled on current antihypertensive meds. We will monitor and make adjustments as needed. Thank you for involving me in the care of Ms. Gibbons. I will follow her along with you.
--- NOTE | 2019-02-02 15:03 | CR ---
DATE OF CONSULTATION: 02/01/2019 REASON FOR CONSULTATION: Bilateral heel ulcerations. Gem Gibbons is a pleasant 58-year-old female who was admitted to the hospital on 01/30/2019 due to worsening heel ulcerations and infection. She is being seen by Dr. Kaplan for chronic heel ulcerations. She has had worsening of these wounds. She had debridement Saturday but had significant bleeding. At the time of her incision and drainage appeared supratherapeutic. She was noted to have necrotic tissue surrounding her wounds with some malodor. Imaging studies show signs suggestive of infection. MRIs have been ordered by are pending. PAST MEDICAL HISTORY: Significant for Diabetes, uncontrolled. Chronic atrial fibrillation. Congestive heart failure. End-stage renal disease on hemodialysis outpatient Saturday, , and Saturday. Chronic lymphatic leukemia. History of peripheral neuropathy. Diabetic retinopathy, she is legally blind. Hyperlipidemia. Atherosclerotic coronary heart disease. Sleep apnea. Anxiety. Depression. PAST SURGICAL HISTORY: Significant for Hysterectomy. Cholecystectomy. Incision and drainage of perirectal abscess. Lymph node biopsy. SOCIAL HISTORY: Nonsmoker. Denies alcohol or drug use. FAMILY HISTORY: Noncontributory. REVIEW OF SYSTEMS: Negative for nausea, vomiting, fever or chills. Vitals are reviewed. She has remained afebrile. Maximum temperature (T-max) is 99.1. Labs are review: White blood cell count on admission was 18.6; it is 15.8 today. ESR was 79. Hemoglobin 8.8, CRP 13.8. INR 2.9. Imaging studies are reviewed. X-rays show large soft tissue defects on both feet. No obvious signs of osteomyelitis. There are some air bubbles on the left view suggestive of infection. MRIs have been ordered but are pending. Blood cultures are pending. LOWER EXTREMITY EXAMINATION: There are ulcerations to both heels at the posterior plantar aspect. On both sides, there is necrotic tissue surrounding with some soft sponginess on the left foot on the lateral aspect. There is malodor. Pedal pulses are nonpalpable. ASSESSMENT: 58-year-old diabetic female with pressure ulcerations with necrotic tissue. PLAN: Patient will require operative debridement to remove nonviable tissue. She should have vascular followup with Dr. Mansfield to evaluate peripheral blood flow and any intervention as indicated. Her Coumadin level should be lowered to a least 2 for surgery tomorrow. With current empiric antibiotics, will attempted operative wound cultures tomorrow. Heels should be off-loaded for the time being. Will use Vashe and Santyl dressings.
--- NOTE | 2019-02-02 15:15 | IPN ---
DATE OF VISIT: 02/01/2019 Mrs. Gibbons is seen this morning on her bedside. She just returned from MRI after getting her bilateral foot MRI done. She complains of pain in her feet and left arm. She was dialyzed yesterday and her left arm AV fistula was used. The patient has no fever or chills. She denies any nausea or vomiting. PHYSICAL EXAMINATION: Temperature is 99.1 degrees Fahrenheit, heart rate 82 per minute and respiratory rate 18 per minute. Blood pressure 130/54 mmHg and oxygen saturation 93%. Head is atraumatic. She is blind from both eyes. She has no cervical lymph nodes. She has a small ulcer on her left cheek which is scabbed. Her heart sounds are irregular in rhythm and lungs with slightly diminished breath sounds. Abdomen obese, soft and nontender. Extremities have no cyanosis or clubbing. Her left arm AV fistula is patent. Both feet are wrapped in dressings and there is foul smell from her feet. Skin has multiple scabbed ulcer on her extremities and head and neck area. Neurologically she is at her baseline mentation. Today's labs show WBC count 15.8, hemoglobin 8.8 and hematocrit 30. Platelets 219. Sodium 134, potassium 4.3, CO2 99, BUN 32 and creatinine 3.04. Glucose 213 and calcium 8.1. His C-reactive protein is 13.8. PROBLEMS: 1. End-stage renal disease. The patient was dialyzed yesterday and we will plan to dialyze her again on Saturday. At present there is no emergent need for dialysis today. 2. Congestive heart failure. Her volume status is still somewhat decompensated due to chronic noncompliance with dialysis treatments and dietary restrictions. We removed 4 liters of fluid yesterday and we will try to remove at least another 4 liters with her next dialysis. She should continue with oral fluid restriction of 1500 mL per day. 3. Sepsis with bilateral foot ulcers. She has chronic ulcers on her heels. She just had an MRI due to possibility of osteomyelitis in her heels. She is being evaluated by podiatry. She remains on antibiotics and is most likely to require surgical debridement. 4. Anemia. Her anemia is chronic and has been transfused in the past. At present there is no emergent need for transfusion. We will continue to manage her anemia with dialysis. I am going to start her on Aranesp 200 mcg once a week. We will also check her iron studies and consider giving her intravenous iron if needed. 5. Hypertension. Blood pressure is reasonably well-controlled on current medications and no changes are being made today.
--- NOTE | 2019-02-02 15:20 | PHACANCOPD ---
PHARMACY VANCOMYCIN DOSING Pt Demographics Demographics Patient Age:58 , Weight:94.800 , Gender: female Adjusted Body Weight Date: 02/02/19, Adjusted Body Weight: Kg Events Past 24 Hours Events Past 24 Hours: YES: Elevation in WBC; NO: Dialysis, Diuretic Therapy, Change in CrCl, Fever, Pending Diagnostics, Pending Procedures, Other Vancomycin Vancomycin indication: Osteo Vancomycin Target Ranges: 15-20 mcg/ml Vancomycin Load Y/N: Yes Load Dose Date Time Vancomycin Load Dose: 1500mg Date: 02/02 Time: Vancomycin Dose Date: 02/02/19. Current Vancomycin Dose: [1gm after HD] Intermittent Dosing?: No Labs Labs Item Value Date Time White Blood Count 12.6 10^3/uL H 01/31/19 0637 White Blood Count 15.8 10^3/uL H 02/01/19 0527 White Blood Count 17.2 10^3/uL H 02/02/19 0555 Erythrocyte Sedimentation Rate 79 mm/hr H 01/31/19 0637 C-Reactive Protein, Quantitative 15.80 MG/DL H 01/31/19 0637 C-Reactive Protein, Quantitative 13.80 MG/DL H 02/01/19 0527 C-Reactive Protein, Quantitative 15.40 MG/DL H 02/02/19 0555 Vital Signs Label Value Date Time Patient Temperature 97.3 degrees F 02/02/19 1400 Temperature Source Temporal 02/02/19 1400 Micro Microbiology 01/31/19 Blood Culture - Preliminary, Resulted No growth after 24 hours . All specim... 01/31/19 Blood Culture - Preliminary, Resulted No growth after 24 hours . All specim... 02/01/19 Gram Stain - Final, Resulted 02/01/19 Wound Culture, Resulted Pending 02/01/19 Gram Stain - Final, Resulted 02/01/19 Wound Culture, Resulted Pending Creatinine Clearance Date:02/02/19. Creatinine Clearance: . Assessment and Plan Maintaining Current Dose?: Yes Reason for dose change: No Dose Change Pharmacist Note Pharmacist Note Date: 02/02/19. Pharmacist note: Patient has bilateral non-healing heel ulcers who has been treated with ceftaroline. WBC has been trending up, CRP has been elevated at 15.4, and a elevated ESR. She is afebrile. Her antibiotics were changed today to Cefepime and Vancomycin. Patient has undergone debridement with Dr. Moy and cultures are pending. MRI is suggestive of osteomyelitis. She has no history of MRSA at [facility] but has been on Vancomycin. She was lo aded with 1500mg of Vancomycin then continued on Vancomycin 1gm after HD. WE will continue to monitor and make adjustments as necessary. [facility] Feb 02, 2019 15:20
[2019-02-02] MEDS ORDERED: LIDOCAINE 1% MDV 20ML VIAL As Ordered ONE (16:28)
[2019-02-02] MEDS ORDERED: BUPIVACAINE HCL 0.5% 30 ML VIAL As Ordered ONE (16:29)
[2019-02-02] MEDS ORDERED: LR 1,000 ML IV SCH ×2 (18:15→19:30)
[2019-02-02] MEDS ORDERED: PERCOCET 5MG/325MG TAB PO PRN ×3 (18:15→19:30)
[2019-02-02] MEDS ORDERED: MORPHINE 4 MG/ML 1ML VIAL/SYRINGE (J2270) IV PRN (18:15)
[2019-02-02] MEDS ORDERED: ONDANSETRON 4MG/2ML VIAL (J2405) IV PRN ×2 (18:15→19:30)
--- NOTE | 2019-02-02 18:54 | IPNPDOC ---
Text Note Date of Service The patient was seen on 02/02/19. NOTE The patient was seen and examined. Denies any chest pain, pressure or discomfort. No fevers or chills. PHYSICAL EXAMINATION: GENERAL: Patient is alert, in no acute distress, undergoing dialysis. HEENT: Normocephalic, atraumatic. CARDIAC: Irregularly irregular. No tachycardia. PULMONARY: Bilaterally clear. ABDOMEN: Soft, obese, nontender. EXTREMITIES: 1+ edema in bilateral lower extremities. Dressing clean, dry and intact. Bilateral large heel ulcers that are very deep, stage 4 ASSESSMENT AND PLAN: This is a 58-year-old female patient with underlying medical history of diabetes type 2, CLL, follows with Dr. Maynard, end stage renal disease on dialysis Saturday, , Saturday, congestive heart failure (CHF), chronic nonhealing bilateral heel ulcers, sees Dr. Kaplan, presented with worsening bilateral non healing heel ulcers. 1. Chronic bilateral non healing diabetic heel ulcers. Osteomyelitis, cefepime vanco. MRI apreciated Dr. Moy has been consulted for wound care-OR for debridement. Dr. Mansfield has been consulted for possible angioplasty. ESR, C-reactive protein have been elevated. X-ray appreciated showing evidence of osteomyelitis. Wound culture has been ordered. Blood culture has been ordered. 2. End stage renal disease. Continue dialysis. Nephrology has been consulted. 3. Chronic atrial fibrillation. Currently stable. Continue Coumadin, digoxin, and metoprolol. 4. Congestive heart failure (CHF). Currently euvolemic. Further dialysis as per nephrology. 5. Type 2 diabetes. Basal bolus coverage, adjust as needed. Holding oral medications. 6. Dyslipidemia. Continue statin. 7. Deep vein thrombosis (DVT) prophylaxis. The patient is on Coumadin. Followup INR. DISPOSITION: Pending podiatry and vascular consultations. Clinical improvement. The patient might need prolonged IV antibiotics, we will consider consulting infectious disease when culture is back. VS,Ramirobone, I+O VS, Fishbone, I+O Laboratory Tests 02/02/19 05:55 Red Blood Count 3.15 L, Mean Corpuscular Volume 92.1, Mean Corpuscular Hemoglobin 27.6, Mean Corpuscular Hemoglobin Concent 30.0 L, Red Cell Distribution Width 18.6 H, Calcium Level 8.2 L Vital Signs Date Time Temp Pulse Resp B/P (MAP) Pulse Ox O2 Delivery O2 Flow Rate FiO2 02/02/19 18:42 99.2 74 20 130/71 (90) 100 3 01/31/19 16:19 Room Air I&O- Last 24 Hours up to 6 AM 02/02/19 06:00 Intake Total 1160 ml Output Total 100 ml Balance 1060 ml CHRISTOPHER LACEY MD Feb 02, 2019 18:54
[2019-02-02] MEDS: ATORVASTATIN 20 MG TAB PO SCH (20:03)
[2019-02-02] MEDS: CEFEPIME HCL 0.5 GM in D5W MINI-BAG PLUS 50 ML IV SCH (21:34)
[2019-02-02] MEDS: ONDANSETRON 4MG/2ML VIAL (J2405) IV PRN (21:34)
[2019-02-03] VITALS: BP 126/56
[2019-02-03 02:00] VITALS: BP 120/83
[2019-02-03] MEDS: ACETAMINOPHEN TAB 650MG DOSE (2X325MG) PO PRN ×2 (03:00→20:47)
[2019-02-03 06:00] VITALS: BP 121/72
[2019-02-03] MEDS: DIGOXIN 0.125 MG TAB PO SCH (06:11)
[2019-02-03] MEDS: METOPROLOL SUCC (TopROL XL) 50MG **XL** TAB PO SCH (06:12)
[2019-02-03 06:32] LABS: HEMOGLOBIN 7.5 g/dl (12.0-15.5); MEAN CORPUSCULAR HEMOGLOBIN 27.6 pg (27.0-33.0); MEAN CORPUSCULAR VOLUME 91.9 fl (80.0-96.0); PLATELET COUNT, AUTOMATED 200 10^3/uL (150-450); RED BLOOD COUNT 2.72 10^6/uL (4.00-5.40); WHITE BLOOD COUNT 14.6 10^3/uL (4.0-10.0)
[2019-02-03 06:44] LABS: INR 2.05; PROTHROMBIN TIME 23.5 SECONDS (12.1-14.4)
[2019-02-03 07:02] LABS: C REACTIVE PROTEIN QUANTITATIV 16.3 MG/DL (0.00-0.30); CALCIUM LEVEL 7.8 MG/DL (8.5-10.1); CREATININE FOR GFR 3.99 MG/DL (0.55-1.30); GLOMERULAR FILTRATION RATE 12.2 (>51); MAGNESIUM LEVEL 2.4 MG/DL (1.8-2.4); POTASSIUM SERUM 5.5 MEQ/L (3.5-5.1)
[2019-02-03] MEDS: SANTYL OINT 30GM TOP SCH (07:19)
[2019-02-03] MEDS: HumaLOG INSULIN (NovoLOG) PER UNIT SC SCH ×4 (07:30→20:10)
--- NOTE | 2019-02-03 07:54 | IPN ---
DATE: 02/02/2019 Mrs. Gibbons is seen this morning on her bedside. She is complaining of pain in her feet and left arm. She denies any dyspnea or chest pain. She is currently nothing by mouth ( n.p.o.) for the bright meant of her foot ulcers later this afternoon. She had an MRI done yesterday which did show osteomyelitis and she has been on IV antibiotics. On physical exam temperature 99.8 degrees Fahrenheit, heart rate 90 per minute and respiratory rate 18 per minute. Blood pressure 152/70 mmHg and oxygen saturation 94% on room air. Her neck veins are difficult to be assessed. Head is atraumatic. She has no oral thrush or ulcers. Heart sounds are irregular and tachycardiac. Lungs with slightly diminished breath sounds at bases. Abdomen obese, soft and nontender and bowel sounds are normal. Extremities have no cyanosis or clubbing. She has a very foul odor from her feet. Left arm AV fistula is patent. Neurologically, she is at her baseline mentation. Today's labs show WBC count up to 17.2, hemoglobin 8.7 and hematocrit 29.0, platelets 213. Sodium 135, potassium 5.0, CO2 29, BUN 41 and creatinine 3.64. Glucose 134 and calcium 8.2. C-reactive protein is up to 15.4. Foot MRI showed bilateral osteomyelitis of calcaneus bone. She also has significant edema and soft tissue cellulitis. PROBLEMS: 1. End-stage renal disease: The patient was last dialyzed on Saturday and her dialysis will be scheduled for tomorrow. At present there is no emergent need for dialysis today. 2. Bilateral diabetic foot ulcers with osteomyelitis of calcaneus bones. The patient remains on IV antibiotics and is scheduled for debridement later this afternoon. Her long-term prognosis remains guarded due to poor compliance and inability to follow instructions. 3. Anemia: Her anemia is essentially unchanged and likely to get worse due to ongoing infection and procedures. We are starting Aranesp with hemodialysis and continue to monitor her CBC. At this point there is no emergent indication for a transfusion. 4. Hypertension: Blood pressure is well-controlled on current antihypertensive meds. 5. Atrial fibrillation: Her ventricular rate is reasonably well-controlled and she remains on digoxin and beta radhika. Her Coumadin has been stopped because of need for debridement of her foot wounds.
[2019-02-03] MEDS: CALCIUM ACETATE 667 MG GELCAP PO SCH ×3 (08:00→17:55)
[2019-02-03] MEDS: LEVEMIR (INSULIN DETEMIR) 1 UNITS/0.01ML SC SCH ×2 (08:53→20:48)
[2019-02-03] MEDS ORDERED: HEPARIN 1,000 UNITS/ML 10ML VIAL (FOR RADIOLOGY& DIALYSIS ONLY) IV ONE (10:15)
--- NOTE | 2019-02-03 10:25 | CR ---
DATE OF CONSULTATION: 02/02/2019 This is via telemedicine and consult was requested by Dr. Sanchez. The patient has bilateral stage 4 pressure injuries involving her heels. 58-year-old dialysis patient, morbidly obese, minimally ambulatory has been seen at our clinic on two separate occasions for advanced wounds involving both right and left heels. Our treatment at that time was extensive wound debridement with absorptive foams and was requested to get heel float boots which the patient or the patient's family would have to purchase. They would not do this and therefore the wounds have not improved and it came to the point where it was felt that she would be better off in the hospital to improve supportive care. This would also allow for a vascular evaluation which would be a distal aorta bilateral runoff to see whether or not angioplasty is indicated. This cannot be done as an outpatient as the patient has significant allergies to IVP dye would require preoperative medication and should be observed. She is also scheduled for revision of a dialysis fistula. The patient was admitted 3 days ago for treatment to be started. When seen today heel float boots have been ordered but are not on the patient has been off-loaded with pillows and although this is not ideal heel float boots will be applied. There is a consult for Dr. Moy podiatry to do a wound debridement of right and left heels which is indicated as there is necrotic tissue still present. An MRI has been obtained but was not indicated as this patient has bilateral osteomyelitis involving the heels and an MRI would give a skewed reading as bone debridement has been performed bilaterally. In any event the ideal treatment is wound debridement and offloading with heel float boots. This is a long drawn out process and dialysis patients do not fair well in terms of complete healing. It is critical to evaluate for peripheral vascular disease and a vascular consult has been in place. After debridement these wounds can be treated with Vashe wound cleanser for 10 minutes utilizing a moistened 4x4 gauze, then irrigating with saline and applying a nickel thick layer of Santyl and enzymatic debrider. Treatment then would include alginate and/or Hydrofera blue with an OptiLock covering dressing to be changed on a daily basis. [facility]PITALNafisa
[2019-02-03 14:00] VITALS: BP 138/67
--- NOTE | 2019-02-03 15:17 | RO ---
DATE OF PROCEDURE: 02/02/2019 PREPROCEDURE DIAGNOSIS: Bilateral heel necrotic wounds and infection. POSTPROCEDURE DIAGNOSIS: Bilateral heel necrotic wounds and infection. OPERATIVE PROCEDURE: Bilateral heel wound debridement, incision and drainage. SURGEON: Henok Moy DPM [employer] INST[employer]ER: ANESTHESIA: Monitored anesthesia care with preoperative injection of 20 mL of 1:1 mixture of 1% lidocaine plain and 0.50% Marcaine plain. ESTIMATED BLOOD LOSS: 50 mL SPECIMENS: Left heel necrotic tissue. COMPLICATIONS: None. CONDITION: Stable. INJECTIONS: Included an additional 20 mL of 1:1 mixture of 1% lidocaine plain and 0.50% Marcaine plain. Gem Gibbons is a pleasant but unfortunate 58-year-old female who is admitted to the hospital due to worsening infection to bilateral heel wounds. She has been following up with Dr. Kaplan in the wound care office who sent her to the emergency room for evaluation due to worsening nature of her wounds. Imaging studies including x-ray and MRI were done which showed presence of large ulcerations with some findings consistent with osteomyelitis to the posterior heel. Decision was made to bring her to the operating room for debridement. The patient's side and site were identified and marked in preoperative area. Consent was reviewed and obtained. All risks, complications and alternatives to the procedure were explained to the patient in detail and all questions were answered. DESCRIPTION OF OPERATION: The patient was brought to the operating room and placed on the operating room table in prone position. Monitored anesthesia care was provided by the anesthesia team. Preoperative injection of 20 mL of 1:1 mixture of 1% lidocaine plain and 0.50% Marcaine plain were injected into both feet. The feet were prepped and draped in normal sterile fashion. Tourniquets were applied to the ankles, but were not inflated during the procedure. Attention was first made to the left heel. There was significant necrotic tissue noted at the posterior aspect of the heel with exposed tendon and bone both of which were necrotic. There was large tracking of necrotic tissue laterally with complete necrotic and foul black tissue underneath the lateral heel. The necrotic tissue was debrided with #10 blade progressively removing necrotic skin and subcutaneous tissue until clean margins were obtained. Further debridement was performed with a rongeur. Debrided tissue included necrotic tissue, bone, tendon and fat. These were sent for pathology. Cultures swabs were taken, aerobic and anaerobic. There was purulent drainage within the tissue. Once a majority of the necrotic tissue was debrided, site was irrigated with 1500 mL of saline through pulse lavage. Some further debridement was performed. Attention was then paid to the right heel. A similar appearance was noted with again necrotic bone, Achilles tendon and subcutaneous fat tissue were noted. These again were debrided using #10 blade, removing necrotic black tissue until reasonably clean margins were obtained. Site was again irrigated with pulse lavage. Bovie was used to cauterize small bleeding vessels. Wounds were dressed using Xeroform gauze, Kerlix and ABD. Patient was brought to the PACU, vital signs stable and neurovascular status intact. She will be re-admitted to the floor for continuing antibiotics, dressing changes and monitoring. Patient unfortunately has low healing potential for these wound due to significant other comorbidities and significant degree of necrotic tissue including the heel. Will follow.
--- NOTE | 2019-02-03 15:27 | IPN ---
DATE: 02/03/2019 Mrs. Gibbons is seen this morning during hemodialysis. She underwent debridement of her bilateral diabetic foot ulcers, which had significant necrotic tissue with foul smell and osteomyelitis. She has chronic lower extremity edema and poor overall health due to inability to follow instructions and noncompliance. She also has history of longstanding poorly controlled diabetes and volume status. As outpatient, she has missed multiple dialysis treatments; however, now in the hospital, she has been receiving her dialysis treatment regularly. She is being dialyzed today and we are using her atrioventricular (AV) fistula, which is working. The patient is weak and denies any fever or chills at present. She has no nausea or vomiting. PHYSICAL EXAMINATION: Temperature 98.4 degrees Fahrenheit, heart rate 68 per minute and respiratory rate 12 per minute. Blood pressure 120/72 mmHg and oxygen saturation 100%. She is legally blind. There is no oral thrush or ulcers. Neck veins are mildly distended. Heart sounds are irregular in rhythm. Lungs with diminished breath sounds at bases. Abdomen: Soft, obese and nontender and bowel sounds are present. Extremities have no cyanosis or clubbing. Left arm AV fistula is being used for dialysis. Bilateral feet are in the foam boots. Today's labs show WBC count 14.6, hemoglobin 7.5 and hematocrit 25.0. Sodium 134, potassium 5.5, CO2 28, BUN 49 and creatinine 3.99. PROBLEMS: 1. End-stage renal disease. Patient is being dialyzed today and she will complete her 3-1/2-hour dialysis treatment. 2. Hyperkalemia. This is mild and related to surgical debridement and end-stage renal disease. This will be corrected with dialysis today and no other intervention is indicated. 3. Anemia. Her anemia did get worse following surgery and we are going to transfuse her 2 units of packed red blood cells. The patient consented for transfusion. 4. Bilateral heel osteomyelitis and infected wounds. Patient remains on intravenous antibiotics including cefepime and vancomycin. She just had surgical debridement done yesterday. All other issues are being addressed by the hospitalist service.
[2019-02-03] MEDS ORDERED: VANCOMYCIN HCL 1,000 MG, VIAL MATE ADAPTER 1 EACH in D5W 250 ML IV SCH (16:00)
[2019-02-03] MEDS: **VANCO AFTER HD** MISC XX SCH (16:00)
[2019-02-03] MEDS: WARFARIN SOD 3 MG TAB PO SCH (16:56)
[2019-02-03 18:00] VITALS: BP 169/80
[2019-02-03] MEDS: ATORVASTATIN 20 MG TAB PO SCH (20:47)
[2019-02-03] MEDS: CEFEPIME HCL 0.5 GM in D5W MINI-BAG PLUS 50 ML IV SCH (20:48)
--- NOTE | 2019-02-03 21:07 | IPNPDOC ---
Text Note Date of Service The patient was seen on 02/03/19. NOTE The patient was seen and examined. Denies any chest pain, pressure or discomfort. No fevers or chills. PHYSICAL EXAMINATION: GENERAL: Patient is alert, in no acute distress, undergoing dialysis. HEENT: Normocephalic, atraumatic. CARDIAC: Irregularly irregular. No tachycardia. PULMONARY: Bilaterally clear. ABDOMEN: Soft, obese, nontender. EXTREMITIES: 2+ edema in bilateral lower extremities. Dressing clean, dry and intact. Bilateral large heel ulcers that are very deep, stage 4 ASSESSMENT AND PLAN: This is a 58-year-old female patient with underlying medical history of diabetes type 2, CLL, follows with Dr. Maynard, end stage renal disease on dialysis Saturday, , Saturday, congestive heart failure (CHF), chronic nonhealing bilateral heel ulcers, sees Dr. Kaplan, presented with worsening bilateral non healing heel ulcers. 1. Chronic bilateral non healing diabetic heel ulcers. Osteomyelitis, cefepime vanco. MRI apreciated Dr. Moy has been consulted for wound care-s/p debridement. Dr. Mansfield has been consulted for possible angioplasty. ESR, C-reactive protein have been elevated. X-ray appreciated showing evidence of osteomyelitis. Wound culture has been ordered. Blood culture has been ordered. 2. End stage renal disease. Continue dialysis. Nephrology has been consulted. 3. Chronic atrial fibrillation. Currently stable. Continue Coumadin, digoxin, and metoprolol. 4. Congestive heart failure (CHF). Currently euvolemic. Further dialysis as per nephrology. 5. Type 2 diabetes. Basal bolus coverage, adjust as needed. Holding oral medications. 6. Dyslipidemia. Continue statin. 7. anemia, anemia of chronic disease vs acute blood loss due to surgery in the setting of anticoagulation, transfused 2 U PRBC during HD. f/u CBC. 8. Deep vein thrombosis (DVT) prophylaxis. The patient is on Coumadin. Followup INR. DISPOSITION: Pending podiatry and vascular consultations. Clinical improveme nt. The patient might need prolonged IV antibiotics, we will consider consulting infectious disease when culture is back. VS,Fishbone, I+O VS, Fishbone, I+O Laboratory Tests 02/03/19 06:01 Red Blood Count 2.72 L, Mean Corpuscular Volume 91.9, Mean Corpuscular Hemoglobin 27.6, Mean Corpuscular Hemoglobin Concent 30.0 L, Red Cell Distribution Width 18.4 H, Calcium Level 7.8 L Vital Signs Date Time Temp Pulse Resp B/P (MAP) Pulse Ox O2 Delivery O2 Flow Rate FiO2 02/03/19 18:00 98.5 88 18 169/80 (109) 97 2.0 01/31/19 16:19 Room Air I&O- Last 24 Hours up to 6 AM 02/03/19 06:00 Intake Total 250 ml Output Total 50 ml Balance 200 ml CHRISTOPHER LACEY MD Feb 03, 2019 21:07
[2019-02-03 22:00] VITALS: BP 147/74
[2019-02-04 02:00] VITALS: BP 136/72
[2019-02-04 06:00] VITALS: BP 140/66
[2019-02-04 06:23] LABS: HEMATOCRIT 30.5 % (36.0-47.0); HEMOGLOBIN 9.3 g/dl (12.0-15.5); MEAN CORPUSCULAR HGB CONC 30.5 g/dl (32.0-36.5); MEAN CORPUSCULAR VOLUME 91.9 fl (80.0-96.0); PLATELET COUNT, AUTOMATED 226 10^3/uL (150-450); RED BLOOD COUNT 3.32 10^6/uL (4.00-5.40); WHITE BLOOD COUNT 12.9 10^3/uL (4.0-10.0)
[2019-02-04 06:43] LABS: INR 1.83; PROTHROMBIN TIME 21.5 SECONDS (12.1-14.4)
[2019-02-04 06:47] LABS: C REACTIVE PROTEIN QUANTITATIV 14.4 MG/DL (0.00-0.30); CREATININE FOR GFR 3.43 MG/DL (0.55-1.30); GLOMERULAR FILTRATION RATE 14.6 (>51); MAGNESIUM LEVEL 2.3 MG/DL (1.8-2.4); POTASSIUM SERUM 4.8 MEQ/L (3.5-5.1)
[2019-02-04] MEDS: LEVEMIR (INSULIN DETEMIR) 1 UNITS/0.01ML SC SCH ×2 (09:00→22:58)
[2019-02-04] MEDS: SANTYL OINT 30GM TOP SCH (09:00)
[2019-02-04] MEDS: CALCIUM ACETATE 667 MG GELCAP PO SCH ×3 (09:40→18:15)
[2019-02-04] MEDS: HumaLOG INSULIN (NovoLOG) PER UNIT SC SCH ×4 (09:40→21:00)
[2019-02-04] MEDS: METOPROLOL SUCC (TopROL XL) 50MG **XL** TAB PO SCH (09:42)
[2019-02-04 10:00] VITALS: BP 143/70
[2019-02-04] MEDS: ACETAMINOPHEN TAB 650MG DOSE (2X325MG) PO PRN (12:10)
[2019-02-04 13:02] LABS: ALBUMIN 1.8 GM/DL (3.2-5.2); BILIRUBIN,DIRECT 0.3 MG/DL (0.0-0.2); BILIRUBIN,TOTAL 0.6 MG/DL (0.2-1.0)
[2019-02-04 14:00] VITALS: BP 155/70
--- NOTE | 2019-02-04 15:10 | IPN ---
DATE OF VISIT: 02/04/2019 Mrs. Gibbons is seen this morning on her bedside. She underwent hemodialysis yesterday and tolerated well. We removed 4 liters of fluid. She is feeling better and denies any nausea, vomiting, dyspnea, or chest pain. She has chronic generalized edema due to noncompliance with fluid restriction and dialysis treatments. At present, she is oxygenating well 98-99% on 2 liters oxygen. On physical exam, temperature 97.8 degrees Fahrenheit, heart rate 70 per minute and respiratory rate 14 per minute. Blood pressure 143/70 mmHg, and oxygen saturation 98% on 2 liters oxygen. Head is atraumatic. She is blind from both eyes. Neck is supple, and jugular venous distention (JVD) is difficult to be assessed. Heart sounds are regular, and lungs with diminished breath sounds at dependent parts. Abdomen: Obese, soft and nontender. Extremities: Without cyanosis or clubbing. Both feet are in dressing and foam boots. Neurologically, she is at her baseline mentation. Wound cultures showed multiple organisms including Enterococcus, streptococcus, and Corynebacterium. Her other labs from this morning showed a WBC count 12.9, hemoglobin 9.3, and hematocrit 30.5. Sodium 135, potassium 4.8, BUN 41, and creatinine 3.43. Calcium 8.0, and magnesium 2.3. PROBLEMS: 1. End-stage renal disease. Patient was dialyzed yesterday and next dialysis will be scheduled for tomorrow. 2. Generalized edema. Mostly, this is related to chronic noncompliance with dietary restrictions and hemodialysis treatments. She probably also has chronic malnutrition with low serum albumin. At this point, we are trying to remove at least 4 liters of fluid every day with dialysis treatments, and gradually her volume status is improving. 3. Anemia. Her anemia has improved following transfusion. We will continue to manage it with Aranesp during dialysis. No other intervention is indicated at this point. 4. Bilateral diabetic foot ulcers with osteomyelitis of calcaneus. Patient had debridement done and remains on appropriate antibiotics. Her wound culture did grow multiple organisms. She is currently afebrile.
[2019-02-04] MEDS: **VANCO AFTER HD** MISC XX SCH (16:00)
[2019-02-04] MEDS: WARFARIN SOD 3 MG TAB PO SCH (16:45)
[2019-02-04 18:00] VITALS: BP 170/80
--- NOTE | 2019-02-04 20:00 | IPN ---
DATE OF ADMISSION: 01/30/2019 Patient seen and examined at bedside. States her pain is controlled. Not having too much pain in her feet. LABS: Are reviewed. WBC 12.9, hemoglobin 9.3. CRP is 14.4. Culture results reviewed, growing Streptococcus mitis, Enterococcus and corynebacterium. Also sensitive to penicillin. Lower extremity examination: Proven necrotic tissue and odor both heel wounds. There remain some patchy necrosis on the periphery of the wounds. The wound appearance of significantly improved. ASSESSMENT: 58-year-old diabetic female with bilateral heel ulcerations, osteomyelitis. PLAN: Continue empiric antibiotics. Plan for arteriogram per Dr. Mansfield. Daily dressing changes, Vashe, Santyl as ordered by Dr. Kaplan. Strict off loading of heels. While in bed, use heel boots. Will follow.
--- NOTE | 2019-02-04 20:08 | IPNPDOC ---
Text Note Date of Service The patient was seen on 02/04/19. NOTE The patient was seen and examined. Denies any chest pain, pressure or discomfort. No fevers or chills. reported b/l LE pain PHYSICAL EXAMINATION: GENERAL: Patient is alert, in no acute distress, undergoing dialysis. HEENT: Normocephalic, atraumatic. CARDIAC: Irregularly irregular. No tachycardia. PULMONARY: Bilaterally clear. ABDOMEN: Soft, obese, nontender. EXTREMITIES: 2+ edema in bilateral lower extremities. Dressing clean, dry and intact. Bilateral large heel ulcers that are very deep, stage 4. float boots b/l ASSESSMENT AND PLAN: This is a 58-year-old female patient with underlying medical history of diabetes type 2, CLL, follows with Dr. Maynard, end stage renal disease on dialysis Saturday, , Saturday, congestive heart failure (CHF), chronic nonhealing bilateral heel ulcers, sees Dr. Kaplan, presented with worsening bilateral non healing heel ulcers. 1. Chronic bilateral non healing diabetic heel ulcers. Osteomyelitis, cefepime vanco. MRI apreciated Dr. Moy has been consulted for wound care-s/p debridement. Dr. Mansfield has been consulted for possible angioplasty. ESR, C-reactive protein have been elevated. X-ray appreciated showing evidence of osteomyelitis. Wound culture has been ordered. Blood culture has been ordered. ID consult tomorrow, 2. End stage renal disease. Continue dialysis. Nephrology has been consulted. 3. Chronic atrial fibrillation. Currently stable. Continue Coumadin, digoxin, and metoprolol. 4. Congestive heart failure (CHF). Currently euvolemic. Further dialysis as per nephrology. 5. Type 2 diabetes. Basal bolus coverage, adjust as needed. Holding oral medications. 6. Dyslipidemia. Continue statin. 7. PVD vascular consulted , on coumadin, 7. anemia, anemia of chronic disease vs acute blood loss due to surgery in the setting of anticoagulation, transfused 2 U PRBC during HD. f/u CBC. 8. Deep vein thrombosis (DVT) prophylaxis. The patient is on Coumadin. Followup INR. DISPOSITION: Pending podiatry and vascular consultations. Clinical improv ement. The patient might need prolonged IV antibiotics, we will consider consulting infectious disease VS,Viola, I+O VS, Viola, I+O Laboratory Tests 02/04/19 05:56 Red Blood Count 3.32 L, Mean Corpuscular Volume 91.9, Mean Corpuscular Hemoglobin 28.0, Mean Corpuscular Hemoglobin Concent 30.5 L, Red Cell Distribution Width 17.6 H Vital Signs Date Time Temp Pulse Resp B/P (MAP) Pulse Ox O2 Delivery O2 Flow Rate FiO2 02/04/19 18:00 98.3 82 16 170/80 (110) 99 2.0 01/31/19 16:19 Room Air I&O- Last 24 Hours up to 6 AM 02/04/19 06:00 Intake Total 1190 ml Output Total 4001 ml Balance -2811 ml CHRISTOPHER LACEY MD Feb 04, 2019 20:08
[2019-02-04] MEDS: CEFEPIME HCL 0.5 GM in D5W MINI-BAG PLUS 50 ML IV SCH (20:36)
[2019-02-04] MEDS: ATORVASTATIN 20 MG TAB PO SCH (20:36)
[2019-02-04 22:00] VITALS: BP 171/83
[2019-02-05 02:00] VITALS: BP 177/87
[2019-02-05] MEDS: ONDANSETRON 4MG/2ML VIAL (J2405) IV PRN (04:23)
[2019-02-05 06:00] VITALS: BP 186/86
[2019-02-05] MEDS ORDERED: fentaNYL 100 MCG/2 ML INJECTION (J3010) As Ordered ONE (06:08)
[2019-02-05] MEDS ORDERED: MIDAZOLAM INJ 2 MG/2 ML VIAL (J2250) As Ordered ONE (06:08)
[2019-02-05] MEDS ORDERED: LIDOCAINE 2% MDV 20 ML VIAL As Ordered ONE (06:08)
[2019-02-05] MEDS ORDERED: HEPARIN 1,000 UNITS/ML 10ML VIAL (FOR RADIOLOGY& DIALYSIS ONLY) As Ordered ONE (06:08)
[2019-02-05] MEDS ORDERED: ISOVUE-300 61% 50ML VIAL (Q9967) As Ordered ONE (06:09)
[2019-02-05 06:23] LABS: HEMOGLOBIN 9.6 g/dl (12.0-15.5); MEAN CORPUSCULAR HEMOGLOBIN 28.7 pg (27.0-33.0); MEAN CORPUSCULAR VOLUME 92.5 fl (80.0-96.0); PLATELET COUNT, AUTOMATED 254 10^3/uL (150-450); RED BLOOD COUNT 3.35 10^6/uL (4.00-5.40); WHITE BLOOD COUNT 12.6 10^3/uL (4.0-10.0)
[2019-02-05 06:50] LABS: INR 1.6; PROTHROMBIN TIME 19.3 SECONDS (12.1-14.4)
[2019-02-05 06:56] LABS: C REACTIVE PROTEIN QUANTITATIV 10.2 MG/DL (0.00-0.30); CALCIUM LEVEL 8.2 MG/DL (8.5-10.1); CREATININE FOR GFR 3.96 MG/DL (0.55-1.30); GLOMERULAR FILTRATION RATE 12.3 (>51); MAGNESIUM LEVEL 2.4 MG/DL (1.8-2.4); POTASSIUM SERUM 5.7 MEQ/L (3.5-5.1); VANCOMYCIN RANDOM 30.7 UG/ML
[2019-02-05] MEDS: DIGOXIN 0.125 MG TAB PO SCH (07:34)
[2019-02-05] MEDS: METOPROLOL SUCC (TopROL XL) 50MG **XL** TAB PO SCH (07:35)
[2019-02-05] MEDS: CALCIUM ACETATE 667 MG GELCAP PO SCH ×3 (07:35→17:38)
[2019-02-05] MEDS: LEVEMIR (INSULIN DETEMIR) 1 UNITS/0.01ML SC SCH ×2 (07:36→21:19)
[2019-02-05] MEDS: HumaLOG INSULIN (NovoLOG) PER UNIT SC SCH ×4 (07:36→21:00)
[2019-02-05] MEDS: SANTYL OINT 30GM TOP SCH (08:25)
[2019-02-05] MEDS ORDERED: HEPARIN 1,000 UNITS/ML 10ML VIAL (FOR RADIOLOGY& DIALYSIS ONLY) IV ONE (12:00)
--- NOTE | 2019-02-05 12:22 | IPN ---
DATE OF VISIT: 02/05/2019 Mrs. Gibbons is seen this morning on her bedside. She was initially scheduled for angiogram of her lower extremities this morning. However, it was postponed until tomorrow due to busy schedule and patient has already had breakfast now. She denies any nausea, vomiting, dyspnea or chest pain. She has no fever or chills, and remains on antibiotics for bilateral infected foot wound with osteomyelitis of her heels. On physical exam, temperature 98 degrees Fahrenheit, heart rate 79 per minute and respiratory rate 16 per minute. Blood pressure 170/87 mmHg and oxygen saturation 99%. Head is atraumatic. 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 Heart sounds are regular and lungs with slightly diminished breath sounds at bases. Abdomen obese, soft and nontender, and bowel sounds are normal. Extremities have no cyanosis or clubbing. Both her feet are in the dressing and foam boot. Neurologically, she is at her baseline mentation. Today's labs show WBC count 12.6, hemoglobin 9.6 and hematocrit 31. Sodium 133, potassium 5.7, BUN 53 and creatinine 3.96. C-reactive protein is down to 10.20. PROBLEMS: 1. End-stage renal disease. Patient is going to be dialyzed this morning and she is already in dialysis room now. We will complete her 3-1/2-hour dialysis treatment today. 2. Hyperkalemia. This is related to ischemic tissue and end-stage renal disease. We will use 2.0 mEq potassium bath, which is likely to correct her kalemia. No other intervention will be needed. Electrolytes will be checked again tomorrow morning. 3. Infected diabetic ulcer with bilateral osteomyelitis of disease. Patient remains on antibiotics following debridement. She is currently afebrile. 4. Anemia. She was transfused 2 units of packed red blood cells (RBCs) with last dialysis treatment and anemia is now stable. She will get once a week Aranesp. 5. Hypertension. Blood pressure is reasonable on current antihypertensive meds and no changes are being made. 6. Congestive heart failure and generalized edema. Her volume status has been chronically decompensated and we are going to try to remove about 4 liters of fluid today as tolerated. MTDD
--- NOTE | 2019-02-05 15:22 | PHACANCOPD ---
PHARMACY VANCOMYCIN DOSING Pt Demographics Demographics Patient Age:58 , Weight:94.700 , Gender: female Adjusted Body Weight Date: 02/02/19, Adjusted Body Weight: Kg Vancomycin Vancomycin indication: Osteo Vancomycin Target Ranges: 15-20 mcg/ml Vancomycin Load Y/N: Yes Load Dose Date Time Vancomycin Load Dose: 1500mg Date: 02/02 Time: Vancomycin Dose Date: 02/02/19. Current Vancomycin Dose: [1gm after HD] Intermittent Dosing?: No Labs Micro Microbiology 01/31/19 Blood Culture - Preliminary, Resulted No Growth after 72 hours. All specime... 01/31/19 Blood Culture - Preliminary, Resulted No Growth after 72 hours. All specime... 02/02/19 Wound Culture - Final, Resulted Streptococcus Mitis Enterococcus Faecalis 02/02/19 Anaerobic Culture, Resulted Pending 02/01/19 Gram Stain - Final, Complete 02/01/19 Wound Culture - Final, Complete Streptococcus Mitis Enterococcus Faecalis Corynebacterium Species 02/01/19 Gram Stain - Final, Complete 02/01/19 Wound Culture - Final, Complete Streptococcus Mitis Enterococcus Faecalis Corynebacterium Species Creatinine Clearance Date:02/02/19. Creatinine Clearance: . Assessment and Plan Maintaining Current Dose?: No Reason for dose change: Trough too high Pharmacist Note Pharmacist Note Date: 02/05/19. Pharmacist note: PT vancomycin level came back this morning at 30.7mcg/ml. The pt is currently receiving vancomycin 1g iv after HD on ,, Sat. Saturday an extra 1g dose was received. 1g after hd will be held today. Another level will be drawn Saturday am. We will continue to monitor and adjust the dose as needed. Date: 02/02/19. Pharmacist note: Patient has bilateral non-healing heel ulcers who has been treated with ceftaroline. WBC has been trending up, CRP has been elevated at 15.4, and a elevated ESR. She is afebrile. Her antibiotics were changed today to Cefepime and Vancomycin. Patient has undergone debridement with Dr. Moy and cultures are pending. MRI is suggestive of osteomyelitis. She has no history of MRSA at [facility] but has been on Vancomycin. She was loaded with 1500mg of Vancomycin then continued on Vancomycin 1gm after HD. WE will continue to monitor and make adjustments as necessary. [facility] Feb 05, 2019 15:22
[2019-02-05 15:30] VITALS: BP 154/70
[2019-02-05] MEDS ORDERED: HYDROMORPHONE HCL 0.5 MG/ 0.5 ML SYRINGE (J1170 PER 1) IV PRN (17:00)
[2019-02-05] MEDS: WARFARIN SOD 2 MG TAB PO SCH (17:00)
[2019-02-05] MEDS: HYDROMORPHONE HCL 0.5 MG/ 0.5 ML SYRINGE (J1170 PER 1) IV PRN (17:39)
[2019-02-05 18:00] VITALS: BP 150/74
--- NOTE | 2019-02-05 19:57 | IPNPDOC ---
Text Note Date of Service The patient was seen on 02/05/19. NOTE The patient was seen and examined. Denies any chest pain, pressure or discomfort. No fevers or chills. reported b/l LE pain PHYSICAL EXAMINATION: GENERAL: Patient is alert, in no acute distress, undergoing dialysis. HEENT: Normocephalic, atraumatic. CARDIAC: Irregularly irregular. No tachycardia. PULMONARY: Bilaterally clear. ABDOMEN: Soft, obese, nontender. EXTREMITIES: 2+ edema in bilateral lower extremities. Dressing clean, dry and intact. Bilateral large heel ulcers that are very deep, stage 4. float boots b/l ASSESSMENT AND PLAN: This is a 58-year-old female patient with underlying medical history of diabetes type 2, CLL, follows with Dr. Maynard, end stage renal disease on dialysis Saturday, , Saturday, congestive heart failure (CHF), chronic nonhealing bilateral heel ulcers, sees Dr. Kaplan, presented with worsening bilateral non healing heel ulcers. 1. Chronic bilateral non healing diabetic heel ulcers. Osteomyelitis, zosyn, vanco. MRI apreciated Dr. Moy has been consulted for wound care-s/p debridement. Dr. Mansfield has been consulted for possible angioplasty. pretreat with steroid, Benadryl. ESR, C-reactive protein have been elevated. X-ray appreciated showing evidence of osteomyelitis. Wound culture appreciated. Blood culture has been ordered. ID consulted 2. End stage renal disease. Continue dialysis. Nephrology has been consulted. 3. Chronic atrial fibrillation. Currently stable. Continue Coumadin, digoxin, and metoprolol. 4. Congestive heart failure (CHF). Currently euvolemic. Further dialysis as per nephrology. 5. Type 2 diabetes. Basal bolus coverage, adjust as needed. Holding oral medications. 6. Dyslipidemia. Continue statin. 7. PVD vascular consulted , on coumadin, 7. anemia, anemia of chronic disease vs acute blood loss due to surgery in the setting of anticoagulation, transfused 2 U PRBC during HD. f/u CBC. 8. Deep vein thrombosis (DVT) prophylaxis. The patient is on Coumadin. Followup INR. DISPOSITION: Pending podiatry and vascular consultations. Clinical improvement. The patient might need prolonged IV antibiotics, we will consider consulting infectious disease VS,Viola, I+O VS, Viola, I+O Laboratory Tests 02/05/19 05:48 Red Blood Count 3.35 L, Mean Corpuscular Volume 92.5, Mean Corpuscular Hemoglobin 28.7, Mean Corpuscular Hemoglobin Concent 31.0 L, Red Cell Distribution Width 17.6 H, Calcium Level 8.2 L Vital Signs Date Time Temp Pulse Resp B/P (MAP) Pulse Ox O2 Delivery O2 Flow Rate FiO2 02/05/19 18:00 150/74 (99) 02/05/19 18:00 97.2 93 17 99 02/05/19 15:30 2.0 01/31/19 16:19 Room Air I&O- Last 24 Hours up to 6 AM 02/05/19 06:00 Intake Total 970 ml Balance 970 ml CHRISTOPHER LACEY MD Feb 05, 2019 19:57
[2019-02-05] MEDS ORDERED: diphenhydrAMINE 50 MG CAP PO ONE (21:00)
[2019-02-05] MEDS ORDERED: predniSONE 50 MG TAB PO ONE (21:00)
[2019-02-05] MEDS: ATORVASTATIN 20 MG TAB PO SCH (21:19)
[2019-02-05] MEDS: PIPERACILLIN/TAZOBACTAM SOD 2.25 GM in D5W MINI-BAG PLUS 50 ML IV SCH (21:26)
[2019-02-05 22:00] VITALS: BP 139/67
[2019-02-06 02:00] VITALS: BP 158/83
[2019-02-06] MEDS ORDERED: diphenhydrAMINE 50 MG CAP PO ONE ×2 (03:00→09:00)
[2019-02-06] MEDS ORDERED: predniSONE 50 MG TAB PO ONE ×2 (03:00→09:00)
[2019-02-06] MEDS ORDERED: diphenhydrAMINE 25 MG CAP PO ONE (05:00)
[2019-02-06 06:00] VITALS: BP 164/76
[2019-02-06 06:17] LABS: HEMATOCRIT 32.7 % (36.0-47.0); MEAN CORPUSCULAR HGB CONC 30.6 g/dl (32.0-36.5); MEAN CORPUSCULAR VOLUME 91.6 fl (80.0-96.0); PLATELET COUNT, AUTOMATED 287 10^3/uL (150-450); RED BLOOD COUNT 3.57 10^6/uL (4.00-5.40); WHITE BLOOD COUNT 14.5 10^3/uL (4.0-10.0)
[2019-02-06 06:31] LABS: INR 1.62; PROTHROMBIN TIME 19.5 SECONDS (12.1-14.4)
[2019-02-06 06:39] LABS: C REACTIVE PROTEIN QUANTITATIV 9.22 MG/DL (0.00-0.30); CALCIUM LEVEL 8.6 MG/DL (8.5-10.1); CREATININE FOR GFR 3.17 MG/DL (0.55-1.30); ERYTHROCYTE SEDIMENTATION RATE 111 mm/hr (0-30); MAGNESIUM LEVEL 2.3 MG/DL (1.8-2.4); POTASSIUM SERUM 5.7 MEQ/L (3.5-5.1)
[2019-02-06] MEDS: HumaLOG INSULIN (NovoLOG) PER UNIT SC SCH ×4 (07:30→21:25)
--- NOTE | 2019-02-06 07:48 | CR ---
DATE OF CONSULTATION: 02/05/2019 I was asked to consult by the hospitalist for evaluation of bilateral decubitus ulcers on both heels with calcaneus osteomyelitis. HISTORY OF PRESENT ILLNESS: Mrs. Gibbons is a 58-year-old female with a history of end-stage renal disease on hemodialysis, insulin-dependent diabetes and chronic lymphocytic leukemia (CLL) who has not been able to walk for about 1 year. The patient developed chronic nonhealing wounds of both heels from decubitus ulcers. She had been followed up by Dr. Kaplan every Saturday. She was seen in his office the Saturday of admission. He did not like the look of her wounds and therefore recommended she get hospitalized. They were infected and necrotic. She was started on IV vancomycin and cefepime on admission. She was seen in consultation by Dr. Moy who did debridement of both heels. There was necrotic tissue and pus tracking up towards the leg. She denied any fever. She had some chills but no nausea, vomiting or diarrhea. No abdominal pain. She states she has chronic psoriasis and multiple skin lesions that do not heal. She does not use any medication but uses a moisturizer. Her primary care provider is Joanna Swan, but she has not been able to see her because of dialysis days. She is legally blind. PAST MEDICAL HISTORY: Insulin-dependent diabetes, poorly controlled. Chronic atrial fibrillation. Congestive heart failure. End stage renal disease on hemodialysis. History of CLL and plasma cell dyscrasia with 17p deletion. Follows up with Dr. Maynard. History of peripheral neuropathy. Diabetic retinopathy. She is legally blind. Hyperlipidemia. Atherosclerotic heart disease. Obstructive sleep apnea, noncompliant with CPAP. Anxiety and depression. PAST SURGICAL HISTORY: Hysterectomy for uterine cancer. Cholecystectomy. Incision and drainage of perirectal abscess and biopsy. SOCIAL HISTORY: She is . She lives at home with her and son. She is a nonsmoker. Denies alcohol or drug use. 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 ALLERGIES: 1. CONTRAST MEDIA. 2. FENTANYL. 3. CIPROFLOXACIN. 4. PENTAZOCINE. 5. CITALOPRAM. MEDICATIONS: - prednisone 50 mg before contrast - Benadryl 50 mg before contrast - hydromorphone as needed for pain - Vancomycin after hemodialysis, the patient received a dose today - cefepime 0.5 mg IV every 24 hours, she received a total of three doses, discontinued today - morphine as needed - Percocet as needed - Aranesp 400 mcg IV after hemodialysis - digoxin 0.125 mg by mouth every two days - collagenase applied to heels - Levemir 20 units subcu twice a day - metoprolol 50 mg by mouth daily - calcium acetate 1334 mg with meals - insulin sliding scale - hydroxyzine as needed for itching LABORATORY DATA: White count on admission was up to 17.2 today 12.6, hemoglobin 9.6, hematocrit 31, platelets 254. ESR 79. Sodium 133, potassium 5.7, chloride 99, bicarb 27, BUN 53, creatinine 3.96, glucose 133, calcium 8.2, magnesium 2.4, CRP 10.2 down from 16.3. Vancomycin random level today was 30.7. Wound cultures had Streptococcus Mitis, E. Faecalis, Corynebacterium species and anaerobic cultures are pending. These were from the heels. Blood cultures two sets were negative. X-ray of the foot showed gas bubble on the left side consistent with infection. On February 01 she had MRI of both feet which showed bilateral calcaneus osteomyelitis. PHYSICAL EXAMINATION: On physical exam, she is sick looking female who looks much older than stated age. Afebrile, temperature is 97.2. She has been afebrile throughout the admission, pulse 93, respirations 17, blood pressure 150/74, O2 sat 99% on 2 liters nasal cannula. Heart: Regular, normal S1-S2, diminished but no murmurs appreciated. Abdomen: Soft, obese, nontender with two lesions on the lower right quadrant covered by Optifoam. They are mostly scabbed over but there is a central area of ulceration, slightly erythematous. No evidence of infection. Extremities: +2 pitting edema of the upper thighs. There are bilateral decubitus ulcers over the heels measuring about 8 x 5 cm with serosanguineous discharge, foul smelling. Head/ENT: Head atraumatic. Patient is legally blind. Oropharynx is clear with no thrush. No lesions. Neurologic exam: The patient is alert and oriented times three. She is a good historian. She is not is able to elevate her thighs or bend her knees. She is very weak in the lower legs and states that she has not been able to walk for about a year. IMPRESSION: This is a 58-year-old female with a history of insulin-dependent diabetes, end stage renal disease, diabetic neuropathy and inability to walk for a year who has developed bilateral decubitus ulcers of her heels with secondary a calcaneus osteomyelitis. Cultures are positive for Streptococcus Mitis, E. Faecalis, Corynebacterium and possibly some anaerobes. There was significant gas bubbling and necrotic tissue would suggest also of anaerobic infection. The patient is slightly better but will need prolonged IV antibiotics. She has received vancomycin and cefepime which have no anaerobic coverage. PLAN: Discontinue IV vancomycin. For the time being I would switch her to Zosyn 2.25 grams IV every 12 hours to get some anaerobic coverage. Once I have the results of the final cultures then I will optimize her antibiotic regimen. I would not recommend placing an Infusaport or permanent central line currently as she has still an active infection that increases her risk of infecting her port. I would use either her peripheral IV or hemodialysis catheter for the time being. She does not seem to be a good candidate for home, but she probably would benefit from rehabilitation assisted placement for the time being, possibly would benefit from bilateral wound VAC. The patient will need 6 weeks of IV antibiotic choice of that will depend on final results of culture and anaerobic carlos. Further antibiotic decisions will be made when the patient is ready for discharge. DAYNA
[2019-02-06] MEDS: PIPERACILLIN/TAZOBACTAM SOD 2.25 GM in D5W MINI-BAG PLUS 50 ML IV SCH ×2 (08:00→20:29)
[2019-02-06] MEDS: CALCIUM ACETATE 667 MG GELCAP PO SCH ×3 (08:00→18:07)
[2019-02-06] MEDS: METOPROLOL SUCC (TopROL XL) 50MG **XL** TAB PO SCH (08:09)
[2019-02-06] MEDS: SANTYL OINT 30GM TOP SCH (08:11)
[2019-02-06] MEDS: LEVEMIR (INSULIN DETEMIR) 1 UNITS/0.01ML SC SCH ×2 (08:11→21:25)
[2019-02-06] MEDS ORDERED: FAMOTIDINE 20 MG TAB PO ONE (09:00)
[2019-02-06] MEDS ORDERED: PATIROMER SORBITEX CALCIUM 8.4 GM POWDER PACKET (VELTASSA) PO ONE ×2 (10:00→17:00)
--- NOTE | 2019-02-06 12:37 | IPN ---
DATE OF VISIT: 02/06/2019 Mrs. Gibbons is seen this morning on her bedside. She is still working with physical therapy this morning. She is scheduled for angiogram of her lower extremities. She has bilateral diabetic foot ulcers and osteomyelitis for which she already had a debridement done. She is on hemodialysis due to end-stage renal disease and was dialyzed yesterday. On physical exam, temperature 97.8 degrees Fahrenheit, heart rate 92 per minute and respiratory rate 16 per minute. Blood pressure 164/76 mmHg and oxygen saturation 97%. She is blind from both eyes. Head is atraumatic. Heart sounds are regular and lungs clear to auscultation. Abdomen soft and nontender and bowel sounds are present. Extremities have no cyanosis or clubbing. Both feet are in dressing. The left arm arteriovenous (AV) fistula is patent. Today's labs show WBC count 14.5, hemoglobin 10.0 and hematocrit 32.7. Sodium 135, potassium 5.7, CO2 29, BUN 42 and creatinine 3.17. His C-reactive protein is 9.22. PROBLEMS: 1. End-stage renal disease. Patient was dialyzed yesterday and we will most likely dialyze her again tomorrow. Her volume status has improved significantly. 2. Hyperkalemia. She has recurrent hyperkalemia most likely related to tissue necrosis in her feet. Her potassium was 5.7 and she was dialyzed with low potassium bath. I am surprised to see her potassium of 5.7 again today and there could be some hemolysis as the patient reports some difficulty with blood draw this morning. We will give her one dose of with Veltassa 16.8 grams and recheck her chemistry at 4 p.m.. Depending upon that we will decide our next step. I do not feel that emergent dialysis is indicated right now. Depending upon her repeat potassium level, we can make a decision. 3. Anemia. She did require transfusion and anemia has improved and stable. 4. Bilateral heel osteomyelitis and infected foot wounds. She remains on antibiotics and is currently afebrile. She is scheduled for angiogram of her lower extremities today.
[2019-02-06 14:00] VITALS: BP 139/59
[2019-02-06] MEDS: HYDROMORPHONE HCL 0.5 MG/ 0.5 ML SYRINGE (J1170 PER 1) IV PRN (15:09)
--- NOTE | 2019-02-06 16:09 | IPN ---
DATE: 02/06/2019 Gem has no complaints today, but she admits on being depressed. She states that in the past, she was on Effexor, which helped, and she is willing to try that again. She was excited. She got up out of bed twice with physical therapy. She had an angiogram today by Dr. Mansfield. PHYSICAL EXAMINATION: Temperature 97.8, pulse 92, respiratory rate 16, blood pressure 160/76, oxygen saturation 97%. She is blind, oriented times three. HEART: Normal S1, S2. No murmurs appreciated. LUNGS: Clear anteriorly. ABDOMEN: Morbidly obese. Soft, nontender, with two open ulcerations that are not infected, covered by Optifoam, with dry surrounding skin. EXTREMITIES: No clubbing or cyanosis. She has pitting edema of the upper thighs and hips, +2. She has bilateral decubitus ulcers with ulcers that are about 10 cm x [address] to bone that is exposed. There is some necrotic tissue with serosanguineous discharge. LABORATORY DATA: White count 14.5, hemoglobin 10, hematocrit 32.7, platelets 287. Erythrocyte sedimentation rate 111. Sodium 135, potassium 5.7, chloride 100, bicarbonate 29, BUN 42, creatinine 3.17, glucose 242, calcium 8.6, magnesium 2.3. CRP 9.22, down from 16.3. Wound cultures have Streptococcus mitis, Enterococcus faecalis, rojas bacterium species and two anaerobes that will be identified over this weekend. Imaging studies showed bilateral osteomyelitis on foot MRIs. IMPRESSION: 1. Bilateral calcaneus osteomyelitis with abscess status post debridement, on intravenous (IV) Zosyn CX strep/Efecalis Vancomycin was discontinued. Patient is afebrile. CRP is trending down. Patient was scheduled for angiogram by Dr. Mansfield today. 2. End-stage renal disease. On dialysis. 3. Major depression. Patient agrees on starting Effexor. Will start with low dose at 37.5 mg daily. If tolerated, please increase in one week to 75 mg daily. 4. Lower extremity weakness. Patient does not know why she is unable to walk. Range of motion of both hips and knees are normal and there is no redness or swelling of the joints. PLAN: IV Zosyn for six weeks at 2.25 grams every 12 hours. That should cover Streptococcus, Enterococcus (E) faecalis and anaerobes. Will need access, if possible, to continue antibiotics at the [facility]. Continue dressing changes, per Dr. Kaplan. Eucerin cream for skin lesions. Patient states she has psoriasis, but I wonder whether she has some degree of calciphylaxis as well. DAYNA
[2019-02-06 16:53] LABS: CALCIUM LEVEL 8.7 MG/DL (8.5-10.1); CREATININE FOR GFR 3.61 MG/DL (0.55-1.30); GLOMERULAR FILTRATION RATE 13.7 (>51); POTASSIUM SERUM 6.4 MEQ/L (3.5-5.1)
--- NOTE | 2019-02-06 16:57 | HPE ---
DATE OF ADMISSION: 02/06/2019 Patient seen and examined at bedside. States her pain is improving. She has most pain during dressing changes. She was premedicated with Dilaudid today, which she states did help. Denies other complaints. She had her angiogram earlier today. Laboratories are reviewed. White blood cell count is 14.5, ESR is 111. CRP most recently was 9.22. Culture results thus far are growth Streptococcus mitis, Enterococcus faecalis, Corynebacterium. Anaerobic cultures are pending from the left foot. Lower extremity: Dressings are clean, dry, and intact. Due to patient's pain during dressing changes, will not examine today, as they had been changed earlier. ASSESSMENT: A 58-year-old female with bilateral lower extremity heel pressure ulcerations with osteomyelitis. PLAN: Continue current dressing changes. Antibiotics per infectious disease recommendations. Continue strict offloading while in bed. Must have heel boots on. Okay to be up with therapy. Will follow.
[2019-02-06] MEDS: WARFARIN SOD 2 MG TAB PO SCH (18:07)
--- NOTE | 2019-02-06 18:27 | IPN ---
DATE: 02/06/2019 Patient seen and examined, status post angiogram by vascular surgery, currently comfortable. Reported depression. Denies any chest pain, pressure, or discomfort. Denies any suicidal ideation. VITAL SIGNS: Temperature 97.4, pulse 83, respirations 15, blood pressure 139/59, pulse oximetry 100% on three liters nasal cannula. LABORATORY DATA: WBC 14.5, hemoglobin and hematocrit 10/32.7, platelets 287. Chemistry: Sodium 134, potassium 6.4, chloride 100, bicarbonate 26, BUN 46, creatinine 3.6. PHYSICAL EXAMINATION: GENERAL: Patient alert, flat affect, in no acute distress. HEENT: Normocephalic, atraumatic. CARDIAC: Irregularly irregular, non-tachycardia. PULMONARY: Bilaterally clear. ABDOMEN: Soft, nontender. EXTREMITIES: 1+ bilateral lower extremity edema. Foul smelling bilateral deep stage IV heel ulcer, on float boots. Dressing clean, dry, intact. ASSESSMENT AND PLAN: This is a 58-year-old female patient with underlying medical history of type 2 diabetes, CLL, follows with Dr. Maynard, end-stage renal disease - on dialysis Saturday, , Saturday, congestive heart failure (CHF), chronic nonhealing bilateral heel ulcers - sees Dr. Kaplan, presented with worsening bilateral nonhealing heel ulcers. PROBLEMS: 1. 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 Patient will need 6 weeks of vancomycin and Zosyn, according to infectious disease. Culture has been appreciated. MRI appreciated. Podiatry consult appreciated, status post debridement. Vascular study done showing distal lesion that is not amenable to treatment. Will need tunneled central line for long-term antibiotics. Culture is appreciated. 2. End-stage renal disease. Status post fistulogram by vascular surgery. Nephrology consulted. Continue current medication. Will need dialysis tomorrow. 3. Hyperkalemia. In the setting of end-stage renal disease. Veltassa has been provided. Will get dialysis early in the morning. Case discussed with nephrology. 4. Chronic atrial fibrillation. Currently stable. Continue Coumadin, digoxin and metoprolol. Followup INR. 5. Congestive heart failure (CHF). Currently euvolemic. Continue dialysis. 6. Type 2 diabetes. Basal bolus insulin. Holding oral medication. Follow fingersticks. 7. Dyslipidemia. Continue statin. 8. Peripheral vascular disease. Status post angiogram. No intervention possible at this time given distal disease. Vascular on consult. Continue Coumadin 9. Anemia of chronic disease. Status post transfusion two units of packed red blood cells. Followup hemoglobin and hematocrit. 10. Deep vein thrombosis (DVT) prophylaxis. Patient on Coumadin. Followup INR. DISPOSITION: Pending tunneled central line. Will likely need short-term rehab. Infectious disease consulted, nephrology consulted, and vascular surgery and podiatry all consulted.
[2019-02-06] MEDS: ATORVASTATIN 20 MG TAB PO SCH (20:29)
[2019-02-06 22:00] VITALS: BP 145/68
[2019-02-07 06:00] VITALS: BP 165/71
[2019-02-07] MEDS: DIGOXIN 0.125 MG TAB PO SCH (06:24)
[2019-02-07] MEDS: METOPROLOL SUCC (TopROL XL) 50MG **XL** TAB PO SCH (06:25)
[2019-02-07 06:55] LABS: HEMATOCRIT 31.5 % (36.0-47.0); HEMOGLOBIN 9.6 g/dl (12.0-15.5); MEAN CORPUSCULAR HGB CONC 30.5 g/dl (32.0-36.5); MEAN CORPUSCULAR VOLUME 91.8 fl (80.0-96.0); PLATELET COUNT, AUTOMATED 345 10^3/uL (150-450); RED BLOOD COUNT 3.43 10^6/uL (4.00-5.40); WHITE BLOOD COUNT 11.2 10^3/uL (4.0-10.0)
[2019-02-07 07:04] LABS: INR 1.79; PROTHROMBIN TIME 21.1 SECONDS (12.1-14.4)
[2019-02-07 07:33] LABS: ALBUMIN 2.3 GM/DL (3.2-5.2); C REACTIVE PROTEIN QUANTITATIV 5.91 MG/DL (0.00-0.30); CALCIUM LEVEL 8.5 MG/DL (8.5-10.1); CREATININE FOR GFR 3.92 MG/DL (0.55-1.30); GLOMERULAR FILTRATION RATE 12.5 (>51); PHOSPHORUS LEVEL 4.5 MG/DL (2.5-4.9); POTASSIUM SERUM 6.1 MEQ/L (3.5-5.1); VANCOMYCIN RANDOM 17.9 UG/ML
[2019-02-07] MEDS: HumaLOG INSULIN (NovoLOG) PER UNIT SC SCH ×4 (08:09→20:17)
[2019-02-07] MEDS: VENLAFAXINE **XR** 37.5 MG CAPSULE PO SCH (08:10)
[2019-02-07] MEDS: LEVEMIR (INSULIN DETEMIR) 1 UNITS/0.01ML SC SCH ×2 (08:10→20:17)
[2019-02-07] MEDS: PIPERACILLIN/TAZOBACTAM SOD 2.25 GM in D5W MINI-BAG PLUS 50 ML IV SCH ×2 (08:10→20:17)
[2019-02-07] MEDS: CALCIUM ACETATE 667 MG GELCAP PO SCH ×3 (08:10→17:20)
[2019-02-07] MEDS ORDERED: HEPARIN 1,000 UNITS/ML 10ML VIAL (FOR RADIOLOGY& DIALYSIS ONLY) IV ONE (11:30)
[2019-02-07 14:00] VITALS: BP 157/79
[2019-02-07] MEDS: HYDROMORPHONE HCL 0.5 MG/ 0.5 ML SYRINGE (J1170 PER 1) IV PRN (15:17)
[2019-02-07] MEDS: SANTYL OINT 30GM TOP SCH (15:18)
[2019-02-07] MEDS: EUCERIN 120GM CREAM EXT SCH (15:20)
[2019-02-07] MEDS: **VANCO AFTER HD** MISC XX SCH (15:26)
[2019-02-07] MEDS ORDERED: VANCOMYCIN HCL 750 MG, VIAL MATE ADAPTER 1 EACH in D5W 250 ML IV SCH (16:00)
[2019-02-07] MEDS: WARFARIN SOD 2 MG TAB PO SCH (17:20)
--- NOTE | 2019-02-07 17:58 | IPNPDOC ---
Text Note Date of Service The patient was seen on 02/07/19. NOTE Patient seen and examined, currently comfortable. Reported depression. Denies any chest pain, pressure, or discomfort. Denies any suicidal ideation. PHYSICAL EXAMINATION: GENERAL: Patient alert, flat affect, in no acute distress. HEENT: Normocephalic, atraumatic. CARDIAC: Irregularly irregular, non-tachycardia. PULMONARY: Bilaterally clear. ABDOMEN: Soft, nontender. EXTREMITIES: 1+ bilateral lower extremity edema. Foul smelling bilateral deep stage IV heel ulcer, on float boots. Dressing clean, dry, intact. ASSESSMENT AND PLAN: This is a 58-year-old female patient with underlying medical history of type 2 diabetes, CLL, follows with Dr. Maynard, end-stage renal disease - on dialysis Saturday, , Saturday, congestive heart failure (CHF), chronic nonhealing bilateral heel ulcers - sees Dr. Kaplan, presented with worsening bilateral nonhealing heel ulcers. PROBLEMS: 1. 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 Patient will need 6 weeks of Zosyn, according to infectious disease. Culture has been appreciated. MRI appreciated. Podiatry consult appreciated, status post debridement. Vascular study done showing distal lesion that is not amenable to treatment. Will need tunneled central line for long-term antibiotics. Culture is appreciated. 2. End-stage renal disease. Status post fistulogram by vascular surgery. Nephrology consulted. Continue current medication. hd 3. Hyperkalemia. In the setting of end-stage renal disease. Veltassa has been provided. HD as per nephrology. 4. Chronic atrial fibrillation. Currently stable. Continue Coumadin, digoxin and metoprolol. Followup INR. 5. Congestive heart failure (CHF). Currently euvolemic. Continue dialysis. 6. Type 2 diabetes. Basal bolus insulin. Holding oral medication. Follow fingersticks.insulin adjusted for hyperglycemia 7. Dyslipidemia. Continue statin. 8. Peripheral vascular disease. Status post angiogram. No intervention possible at this time given distal disease. Vascular on consult. Continue Coumadin 9. Anemia of chronic disease. Status post transfusion two units of packed red blood cells. Followup hemoglobin and hematocrit. 10. Deep vein thrombosis (DVT) prophylaxis. Patient on Coumadin. Followup INR. DISPOSITION: Pending tunneled central line. Will likely need short-term rehab. Infectious disease consulted, nephrology consulted, and vascular surgery and podiatry all consulted. VS,Fishbone, I+O VS, Fishbone, I+O Laboratory Tests 02/07/19 06:31 Red Blood Count 3.43 L, Mean Corpuscular Volume 91.8, Mean Corpuscular Hemoglobin 28.0, Mean Corpuscular Hemoglobin Concent 30.5 L, Red Cell Distribution Width 17.6 H, Anion Gap 10 Vital Signs Date Time Temp Pulse Resp B/P (MAP) Pulse Ox O2 Delivery O2 Flow Rate FiO2 02/07/19 17:21 9 02/07/19 14:00 97.3 80 157/79 (105) 92 3.0 I&O- Last 24 Hours up to 6 AM 02/07/19 06:00 Intake Total 1620 ml Balance 1620 ml CHRISTOPHER LACEY MD Feb 07, 2019 17:58
[2019-02-07] MEDS: ATORVASTATIN 20 MG TAB PO SCH (20:16)
[2019-02-07 22:00] VITALS: BP 143/76
[2019-02-08 06:00] VITALS: BP 158/72
[2019-02-08 06:02] LABS: HEMATOCRIT 31.9 % (36.0-47.0); HEMOGLOBIN 9.4 g/dl (12.0-15.5); MEAN CORPUSCULAR HEMOGLOBIN 27.6 pg (27.0-33.0); MEAN CORPUSCULAR HGB CONC 29.5 g/dl (32.0-36.5); MEAN CORPUSCULAR VOLUME 93.5 fl (80.0-96.0); PLATELET COUNT, AUTOMATED 362 10^3/uL (150-450); RED BLOOD COUNT 3.41 10^6/uL (4.00-5.40); WHITE BLOOD COUNT 12.6 10^3/uL (4.0-10.0)
[2019-02-08 06:15] LABS: INR 1.68; PROTHROMBIN TIME 20.1 SECONDS (12.1-14.4)
[2019-02-08] MEDS ORDERED: MOM 30ML SUSPENSION UDC PO PRN (06:15)
[2019-02-08 06:22] LABS: ALBUMIN 2.1 GM/DL (3.2-5.2); CREATININE FOR GFR 3.03 MG/DL (0.55-1.30); GLOMERULAR FILTRATION RATE 16.8 (>51); PHOSPHORUS LEVEL 2.9 MG/DL (2.5-4.9); POTASSIUM SERUM 4.1 MEQ/L (3.5-5.1)
[2019-02-08] MEDS: HumaLOG INSULIN (NovoLOG) PER UNIT SC SCH ×4 (09:47→20:05)
[2019-02-08] MEDS: PIPERACILLIN/TAZOBACTAM SOD 2.25 GM in D5W MINI-BAG PLUS 50 ML IV SCH ×2 (09:47→19:58)
[2019-02-08] MEDS: VENLAFAXINE **XR** 37.5 MG CAPSULE PO SCH (09:48)
[2019-02-08] MEDS: CALCIUM ACETATE 667 MG GELCAP PO SCH ×3 (09:48→17:39)
[2019-02-08] MEDS: LEVEMIR (INSULIN DETEMIR) 1 UNITS/0.01ML SC SCH ×2 (10:22→20:25)
--- NOTE | 2019-02-08 12:58 | IPN ---
DATE OF SERVICE: 02/07/2019 SUBJECTIVE: The patient was seen and examined at the bedside today morning during hemodialysis procedure. She is tolerating the hemodialysis procedure well. She denies any active complaints at this point. OBJECTIVE: Vital signs: Temperature is 96.8 degrees Fahrenheit, blood pressure 165/71, pulse is 86, respiratory rate of 15, saturating 100% on nasal cannula at 3 liters. Intake and output: There is no urine output recorded. Weight in the bed scale is 96.4 kg. PHYSICAL EXAMINATION: General: The patient is awake, alert, oriented times two, lying in bed, in no apparent distress. Head and neck examination: The patient is legally blind. Mucous membranes are moist. Neck is supple. There is no jugular venous distention (JVD). Cardiovascular: S1, S2. 3+ edema of the bilateral lower extremities. Respiratory: Mildly decreased breath sounds at the bases. Otherwise, no active rales or rhonchi. Abdomen: Is soft, obese, positive bowel sounds, nontender, no organomegaly. Musculoskeletal: Both feet are covered in dressing, and she is wearing waffle boots. Central nervous system (TUNNEL MINER): The patient is legally blind. Otherwise, moves upper extremities. Arteriovenous (AV) access: She has a left upper arm AV fistula which is being used for dialysis. LABORATORY REVIEW: Complete blood count (CBC) showed a WBC of 11.2, hemoglobin 9.6, platelets are 345. Basic metabolic profile (BMP) showed sodium 131, potassium 6.1, chloride 97, bicarbonate 24, BUN 61, creatinine is 3.9, phosphorus 4.5. MICROBIOLOGY: Left foot culture is growing Streptococcus mitis, Enterococcus faecalis, and Bacteroides distasonis. Right foot culture is growing Streptococcus mitis, Enterococcus faecalis, and Corynebacterium species. CURRENT INPATIENT MEDICATIONS: The patient's medications were all reviewed by me. She is currently on Zosyn 2.25 grams every 12 hours. No other change in the medications today as compared with yesterday. ASSESSMENT AND PLAN: 1. End-stage renal disease, on hemodialysis. The patient is being dialyzed today. She is tolerating the hemodialysis procedure well. I will try to remove at least 4 liters of fluid during hemodialysis. 2. Hyperkalemia. The patient was given Kayexalate yesterday. However, potassium is still high. She is being dialyzed with a 1 K bath today. 3. Lower extremity edema. The patient still has 3+ edema. Volume status is being optimized with dialysis. If needed, the patient will get an extra session of ultrafiltration next week. 4. Bilateral heel osteomyelitis and infected foot ulcers. The patient is getting intravenous (IV) antibiotics as per infectious disease (ID) recommendations. Wound cultures are showing polymicrobial infections. 5. Anemia in end-stage renal disease. Hemoglobin is 9.6, which is slightly suboptimal. She is currently getting Aranesp with hemodialysis. [facility]
[2019-02-08] MEDS: METOPROLOL SUCC (TopROL XL) 50MG **XL** TAB PO SCH (13:15)
[2019-02-08 14:00] VITALS: BP 160/91
--- NOTE | 2019-02-08 14:19 | IPNPDOC ---
Text Note Date of Service The patient was seen on 02/08/19. NOTE Patient seen and examined, currently comfortable. Reported depression. Denies any chest pain, pressure, or discomfort. Denies any suicidal ideation. afebrile PHYSICAL EXAMINATION: GENERAL: Patient alert, flat affect, in no acute distress. HEENT: Normocephalic, atraumatic. CARDIAC: Irregularly irregular, non-tachycardia. PULMONARY: Bilaterally clear. ABDOMEN: Soft, nontender. EXTREMITIES: 1+ bilateral lower extremity edema. Foul smelling bilateral deep stage IV heel ulcer, on float boots. Dressing clean, dry, intact. ASSESSMENT AND PLAN: This is a 58-year-old female patient with underlying medical history of type 2 diabetes, CLL, follows with Dr. Maynard, end-stage renal disease - on dialysis Saturday, , Saturday, congestive heart failure (CHF), chronic nonhealing bilateral heel ulcers - sees Dr. Kaplan, presented with worsening bilateral nonhealing heel ulcers. PROBLEMS: 1. 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 Patient will need 6 weeks of Zosyn, according to infectious disease. Culture has been appreciated. MRI appreciated. Podiatry consult appreciated, status post debridement. Vascular study done showing distal lesion that is not amenable to treatment. Will need tunneled central line for long-term antibiotics. Culture is appreciated. 2. End-stage renal disease. Status post fistulogram by vascular surgery. Nephrology consulted. Continue current medication. hd 3. Hyperkalemia. In the setting of end-stage renal disease. Veltassa has been provided. HD as per nephrology. resolved 4. Chronic atrial fibrillation. Currently stable. Continue Coumadin, digoxin and metoprolol. Followup INR. 5. Congestive heart failure (CHF). Currently euvolemic. Continue dialysis. 6. Type 2 diabetes. Basal bolus insulin. Holding oral medication. Follow fingersticks.insulin adjusted for hyperglycemia 7. Dyslipidemia. Continue statin. 8. Peripheral vascular disease. Status post angiogram. No intervention possible at this time given distal disease. Vascular on consult. Continue Coumadin 9. Anemia of chronic disease. Status post transfusion two units of packed red blood cells. Followup hemoglobin and hematocrit. 10. Deep vein thrombosis (DVT) prophylaxis. Patient on Coumadin. Followup INR. DISPOSITION: Pending tunneled central line. Will likely need short-term rehab. Infectious disease consulted, nephrology consulted, and vascular surgery and podiatry all consulted. VS,Fishbone, I+O VS, Fishbone, I+O Laboratory Tests 02/08/19 05:41 Red Blood Count 3.41 L, Mean Corpuscular Volume 93.5, Mean Corpuscular Hemoglobin 27.6, Mean Corpuscular Hemoglobin Concent 29.5 L, Red Cell Distribution Width 17.9 H, Anion Gap 7 L Vital Signs Date Time Temp Pulse Resp B/P (MAP) Pulse Ox O2 Delivery O2 Flow Rate FiO2 02/08/19 13:15 84 132/58 02/08/19 10:27 2.0 02/08/19 06:00 97.7 13 99 I&O- Last 24 Hours up to 6 AM 02/08/19 06:00 Intake Total 1085 ml Output Total 4000 ml Balance -2915 ml CHRISTOPHER LACEY MD Feb 08, 2019 14:19
[2019-02-08] MEDS: HYDROMORPHONE HCL 0.5 MG/ 0.5 ML SYRINGE (J1170 PER 1) IV PRN (15:40)
[2019-02-08] MEDS: EUCERIN 120GM CREAM EXT SCH (15:42)
[2019-02-08] MEDS: SANTYL OINT 30GM TOP SCH (15:43)
[2019-02-08] MEDS ORDERED: WARFARIN SOD 3 MG TAB PO SCH (17:00)
[2019-02-08] MEDS: ATORVASTATIN 20 MG TAB PO SCH (20:26)
[2019-02-08 22:00] VITALS: BP 152/78
[2019-02-09 06:00] VITALS: BP 162/79
[2019-02-09 06:58] LABS: HEMATOCRIT 35.6 % (36.0-47.0); HEMOGLOBIN 10.8 g/dl (12.0-15.5); MEAN CORPUSCULAR HEMOGLOBIN 27.8 pg (27.0-33.0); MEAN CORPUSCULAR HGB CONC 30.3 g/dl (32.0-36.5); MEAN CORPUSCULAR VOLUME 91.5 fl (80.0-96.0); PLATELET COUNT, AUTOMATED 494 10^3/uL (150-450); RED BLOOD COUNT 3.89 10^6/uL (4.00-5.40); WHITE BLOOD COUNT 16.7 10^3/uL (4.0-10.0)
[2019-02-09 07:10] LABS: INR 1.51; PROTHROMBIN TIME 18.4 SECONDS (12.1-14.4)
[2019-02-09] MEDS: HumaLOG INSULIN (NovoLOG) PER UNIT SC SCH ×4 (07:30→21:44)
[2019-02-09] MEDS: CALCIUM ACETATE 667 MG GELCAP PO SCH ×3 (08:00→18:00)
[2019-02-09] MEDS: PIPERACILLIN/TAZOBACTAM SOD 2.25 GM in D5W MINI-BAG PLUS 50 ML IV SCH ×2 (08:00→21:43)
[2019-02-09 08:22] LABS: ALBUMIN 2.3 GM/DL (3.2-5.2); C REACTIVE PROTEIN QUANTITATIV 2.56 MG/DL (0.00-0.30); CALCIUM LEVEL 8.4 MG/DL (8.5-10.1); CREATININE FOR GFR 3.69 MG/DL (0.55-1.30); GLOMERULAR FILTRATION RATE 13.4 (>51); PHOSPHORUS LEVEL 3.6 MG/DL (2.5-4.9); POTASSIUM SERUM 4.5 MEQ/L (3.5-5.1)
[2019-02-09] MEDS: DIGOXIN 0.125 MG TAB PO SCH (09:00)
[2019-02-09] MEDS: LEVEMIR (INSULIN DETEMIR) 1 UNITS/0.01ML SC SCH ×2 (09:00→21:45)
[2019-02-09] MEDS: SANTYL OINT 30GM TOP SCH (09:00)
[2019-02-09] MEDS: EUCERIN 120GM CREAM EXT SCH (09:00)
[2019-02-09] MEDS: VENLAFAXINE **XR** 37.5 MG CAPSULE PO SCH (09:00)
[2019-02-09] MEDS: METOPROLOL SUCC (TopROL XL) 50MG **XL** TAB PO SCH (09:00)
[2019-02-09 09:15] VITALS: BP 128/76
--- NOTE | 2019-02-09 12:32 | IPN ---
DATE OF SERVICE: 02/09/2019 The patient seen and examined at bedside. Denies overnight complaints. LABORATORIES: Are reviewed. White blood cell count is 16.7, CRP is 2.56. LOWER EXTREMITY EXAMINATION: Wound bases are improved. There is some granulated tissue over the central wound. There remains some small necrotic tissue to the wound periphery. No malodor. No purulence is noted. ASSESSMENT: This is a 58-year-old female with stage IV pressure ulcers both heels with osteomyelitis. PLAN: Antibiotics per Dr. Bryan. Continue current wound care dressings. She must be strictly offloaded while in bed using heel pillows. Ultimately, she will require followup with Dr. Kaplan for further wound care.
--- NOTE | 2019-02-09 12:59 | IPN ---
DATE OF SERVICE: 02/09/2019 SUBJECTIVE: The patient was seen and examined at the bedside today morning. She denies any active complaints. She was lying in the bed, hemodynamically stable. OBJECTIVE: VITAL SIGNS: Temperature 96.8 degrees Fahrenheit, blood pressure 128/76, pulse 70, respiratory rate 14, saturating 100% on nasal cannula at 2 liters. INTAKE AND OUTPUT: There is no urine output recorded. Weight in the bed scale is not available. PHYSICAL EXAMINATION: GENERAL: The patient is awake, alert, oriented times two, lying in bed, no apparent distress. HEAD AND NECK EXAMINATION: The patient is legally blind. Mucous membranes are moist. Neck is supple. CARDIOVASCULAR: S1, S2, regular rate. 2+ edema of the bilateral lower extremities. RESPIRATORY: Chest is clear to auscultation bilaterally. Bilateral equal air entry. No rales or rhonchi. ABDOMEN: Soft, obese, positive bowel sounds, nontender. No organomegaly. MUSCULOSKELETAL: Both feet are covered with dressings. She is wearing waffle boots. CENTRAL NERVOUS SYSTEM (PRODUCTION PROOFREADER): She is legally blind. Otherwise, moves her extremities. ARTERIOVENOUS (AV) ACCESS: She has a left upper arm AV fistula with positive thrill and bruit. LABORATORY REVIEW: Complete blood count (CBC) showed a WBC 16.7, hemoglobin 10.8, platelets are 494. Basic metabolic profile (BMP) showed sodium 136, potassium 4.5, chloride 101, bicarbonate 28, BUN 48, creatinine 3.6, phosphorus 3.6, C-reactive protein is 2.56 now. CURRENT INPATIENT MEDICATIONS: The patient's medications were all reviewed by me. There is no change in the medications today as compared with yesterday apart from change in her Levemir dose, which has been decreased to 20 units subcutaneous twice a day. Warfarin dose has been increased to 5 mg by mouth daily. ASSESSMENT AND PLAN: 1. End-stage renal disease, on hemodialysis. The patient's regular dialysis days are Saturday, , Saturday. She will be dialyzed tomorrow according to her regular schedule. 2. Lower extremity edema. Continue the fluid restriction. Continue aggressive fluid removal during hemodialysis. 3. Bilateral heel osteomyelitis and infected foot ulcers. Continue Zosyn as recommended by infectious disease. 4. Chronic atrial fibrillation (AFib). Heart rate is controlled with digoxin and metoprolol. International normalized ratio (INR) is subtherapeutic. Coumadin dose has already been increased by primary team. 5. Diabetes mellitus type 2, insulin dependent. The patient was hypoglycemic this morning. Levemir dose has been decreased by the medical team.
[2019-02-09 14:00] VITALS: BP 143/94
[2019-02-09] MEDS ORDERED: LIDOCAINE 2% MDV 20 ML VIAL As Ordered ONE (15:41)
[2019-02-09] MEDS: WARFARIN SOD 5 MG TAB PO SCH (17:00)
[2019-02-09] MEDS ORDERED: SODIUM CHLORIDE 0.9% INJ 10 ML SYR IV PRN ×2 (18:00→18:30)
--- NOTE | 2019-02-09 18:21 | IPNPDOC ---
Text Note Date of Service The patient was seen on 02/09/19. NOTE Patient seen and examined, currently comfortable. Denies any chest pain, pressure, or discomfort. Denies any suicidal ideation. afebrile PHYSICAL EXAMINATION: GENERAL: Patient alert, flat affect, in no acute distress. HEENT: Normocephalic, atraumatic. CARDIAC: Irregularly irregular, non-tachycardia. PULMONARY: Bilaterally clear. ABDOMEN: Soft, nontender. EXTREMITIES: 1+ bilateral lower extremity edema. Foul smelling bilateral deep stage IV heel ulcer, on float boots. Dressing clean, dry, intact. ASSESSMENT AND PLAN: This is a 58-year-old female patient with underlying medical history of type 2 diabetes, CLL, follows with Dr. Maynard, end-stage renal disease - on dialysis Saturday, , Saturday, congestive heart failure (CHF), chronic nonhealing bilateral heel ulcers - sees Dr. Kaplan, presented with worsening bilateral nonhealing heel ulcers. PROBLEMS: 1. 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 Patient will need 6 weeks of Zosyn end day 03/19, according to infectious disease. Culture has been appreciated. MRI appreciated. Podiatry consult appreciated, status post debridement. Vascular study done showing distal lesion that is not amenable to treatment. Will need tunneled central line for long-term antibiotics. Culture is appreciated. 2. End-stage renal disease. Status post fistulogram by vascular surgery. Nephrology consulted. Continue current medication. hd 3. Hyperkalemia. In the setting of end-stage renal disease. Veltassa has been provided. HD as per nephrology. resolved 4. Chronic atrial fibrillation. Currently stable. Continue Coumadin, digoxin and metoprolol. Followup INR. 5. Congestive heart failure (CHF). Currently euvolemic. Continue dialysis. 6. Type 2 diabetes. Basal bolus insulin. Holding oral medication. Follow fingersticks.insulin adjusted for hyperglycemia 7. Dyslipidemia. Continue statin. 8. Peripheral vascular disease. Status post angiogram. No intervention possible at this time given distal disease. Vascular on consult. Continue Coumadin 9. Anemia of chronic disease. Status post transfusion two units of packed red blood cells. Followup hemoglobin and hematocrit. 10. Deep vein thrombosis (DVT) prophylaxis. Patient on Coumadin. Followup INR. DISPOSITION: Pending tunneled central line. Will likely need short-term rehab. Infectious disease consulted, nephrology consulted, and vascular surgery and podiatry all consulted. VS,Fishbone, I+O VS, Fishbone, I+O Laboratory Tests 02/09/19 06:06 Red Blood Count 3.89 L, Mean Corpuscular Volume 91.5, Mean Corpuscular Hemoglobin 27.8, Mean Corpuscular Hemoglobin Concent 30.3 L, Red Cell Distribution Width 18.2 H, Anion Gap 7 L Vital Signs Date Time Temp Pulse Resp B/P (MAP) Pulse Ox O2 Delivery O2 Flow Rate FiO2 02/09/19 14:00 97.0 81 15 143/94 (110) 100 2.0 I&O- Last 24 Hours up to 6 AM 02/09/19 06:00 Intake Total 830 ml Output Total 0 ml Balance 830 ml CHRISTOPHER LACEY MD Feb 09, 2019 18:21
[2019-02-09] MEDS: ATORVASTATIN 20 MG TAB PO SCH (21:44)
[2019-02-09 22:00] VITALS: BP 140/70
[2019-02-10] MEDS: LOPERAMIDE 2 MG CAP PO PRN ×2 (03:14→21:19)
[2019-02-10] MEDS: ACETAMINOPHEN TAB 650MG DOSE (2X325MG) PO PRN ×2 (03:15→18:29)
[2019-02-10 06:00] VITALS: BP 151/72
[2019-02-10] MEDS: VENLAFAXINE **XR** 37.5 MG CAPSULE PO SCH (06:14)
[2019-02-10] MEDS: METOPROLOL SUCC (TopROL XL) 50MG **XL** TAB PO SCH (06:14)
[2019-02-10] MEDS: PIPERACILLIN/TAZOBACTAM SOD 2.25 GM in D5W MINI-BAG PLUS 50 ML IV SCH ×2 (06:14→20:00)
[2019-02-10 06:27] LABS: HEMATOCRIT 31.8 % (36.0-47.0); HEMOGLOBIN 9.4 g/dl (12.0-15.5); MEAN CORPUSCULAR HEMOGLOBIN 27.4 pg (27.0-33.0); MEAN CORPUSCULAR HGB CONC 29.6 g/dl (32.0-36.5); MEAN CORPUSCULAR VOLUME 92.7 fl (80.0-96.0); RED BLOOD COUNT 3.43 10^6/uL (4.00-5.40); WHITE BLOOD COUNT 10.7 10^3/uL (4.0-10.0)
[2019-02-10 06:37] LABS: PLATELET COUNT, AUTOMATED 324 10^3/uL (150-450)
[2019-02-10 06:38] LABS: INR 1.82; PROTHROMBIN TIME 21.4 SECONDS (12.1-14.4)
[2019-02-10 06:47] LABS: ALBUMIN 2.1 GM/DL (3.2-5.2); CALCIUM LEVEL 7.9 MG/DL (8.5-10.1); CREATININE FOR GFR 4.29 MG/DL (0.55-1.30); GLOMERULAR FILTRATION RATE 11.3 (>51); PHOSPHORUS LEVEL 4.3 MG/DL (2.5-4.9); POTASSIUM SERUM 5.2 MEQ/L (3.5-5.1)
[2019-02-10] MEDS: HumaLOG INSULIN (NovoLOG) PER UNIT SC SCH ×4 (07:30→21:00)
[2019-02-10] MEDS: CALCIUM ACETATE 667 MG GELCAP PO SCH ×3 (08:00→18:26)
[2019-02-10 08:45] VITALS: BP 178/79
[2019-02-10] MEDS: EUCERIN 120GM CREAM EXT SCH (09:00)
[2019-02-10] MEDS: SANTYL OINT 30GM TOP SCH (09:00)
[2019-02-10] MEDS: LEVEMIR (INSULIN DETEMIR) 1 UNITS/0.01ML SC SCH ×2 (09:00→21:00)
[2019-02-10] MEDS ORDERED: SODIUM CHLORIDE 0.9% INJ 10 ML SYR IV SCH (09:00)
[2019-02-10] MEDS: HYDROMORPHONE HCL 0.5 MG/ 0.5 ML SYRINGE (J1170 PER 1) IV PRN (09:14)
[2019-02-10] MEDS ORDERED: HEPARIN 1,000 UNITS/ML 10ML VIAL (FOR RADIOLOGY& DIALYSIS ONLY) IV ONE (11:45)
--- NOTE | 2019-02-10 12:54 | IPN ---
DATE OF SERVICE: 02/10/2019 SUBJECTIVE: The patient was seen and examined at the bedside today morning. She was getting her heel dressings done when I saw her. Today is the patient's regular day of dialysis. She denies any active complaints at this point. OBJECTIVE: VITAL SIGNS: Temperature 97.9 degrees Fahrenheit, blood pressure 178/79, pulse is 55, respiratory rate 12, saturating 92% on nasal cannula at 2 liters. INTAKE AND OUTPUT: Urine output recorded is 300 mL. Weight in the bed scale is not available. PHYSICAL EXAMINATION: GENERAL: The patient is awake, alert, oriented times two, lying in bed, no apparent distress. HEAD AND NECK EXAMINATION: The patient is legally blind. Mucous membranes are moist. Neck is supple. There is no jugular venous distention (JVD). CARDIOVASCULAR: S1, S2, regular rate. 2+ edema of the bilateral lower extremities. RESPIRATORY: Chest is clear to auscultation bilaterally. Bilateral equal air entry. No rales or rhonchi. ABDOMEN: Soft, obese, positive bowel sounds, nontender. No organomegaly. MUSCULOSKELETAL: Both feet, heel, have osteomyelitis. Dressings are being done. CENTRAL NERVOUS SYSTEM (CAR HIKER): She is legally blind. Otherwise, follows commands and moves her extremities. ARTERIOVENOUS (AV) ACCESS: She has a left upper arm AV fistula with positive thrill and bruit. LABORATORY REVIEW: Complete blood count (CBC) showed a WBC 10.7, hemoglobin 9.4, platelets are 324. Basic metabolic profile (BMP) showed sodium 136, potassium 5.2, chloride 101, bicarbonate 28, BUN 61, creatinine is 4.2. CURRENT INPATIENT MEDICATIONS: The patient's medications were all reviewed by me. There is no change in medications today as compared with yesterday. ASSESSMENT AND PLAN: 1. End-stage renal disease, on hemodialysis. Today is the patient's regular day of dialysis according to Saturday, , Saturday schedule. I would try to remove at least 4 liters of fluid during dialysis today. 2. Bilateral heel osteomyelitis and infected foot ulcers. Continue current dose of Zosyn as recommended by infectious disease. White cell count is improving. 3. Lower extremity edema. The patient is currently on fluid restriction. She is getting 4 liters of fluid removed with each hemodialysis session. 4. Diabetes mellitus type 2, insulin dependent. The patient is currently on insulin sliding scale and insulin Levemir 20 units subcutaneous twice a day. Glucose levels are well controlled. 5. Anemia in end-stage renal disease. The patient is currently on Aranesp 200 mcg intravenous (IV) with hemodialysis. Hemoglobin level is optimal.
[2019-02-10] MEDS: WARFARIN SOD 5 MG TAB PO SCH (18:27)
--- NOTE | 2019-02-10 18:51 | IPNPDOC ---
Text Note Date of Service The patient was seen on 02/10/19. NOTE Patient seen and examined, currently comfortable. Denies any chest pain, pressure, or discomfort. afebrile PHYSICAL EXAMINATION: GENERAL: Patient alert, flat affect, in no acute distress. HEENT: Normocephalic, atraumatic. CARDIAC: Irregularly irregular, non-tachycardia. PULMONARY: Bilaterally clear. ABDOMEN: Soft, nontender. EXTREMITIES: 1+ bilateral lower extremity edema. Foul smelling bilateral deep stage IV heel ulcer, on float boots. Dressing clean, dry, intact. ASSESSMENT AND PLAN: This is a 58-year-old female patient with underlying medical history of type 2 diabetes, CLL, follows with Dr. Maynard, end-stage renal disease - on dialysis Saturday, , Saturday, congestive heart failure (CHF), chronic nonhealing bilateral heel ulcers - sees Dr. Kaplan, presented with worsening bilateral nonhealing heel ulcers. PROBLEMS: 1. Chronic bilateral nonhealing heel pressure ulcers with osteomyelitis. Patient will need 6 weeks of Zosyn end day 03/19, according to infectious disease. Culture has been appreciated. MRI appreciated. Podiatry consult appreciated, status post debridement. Vascular study done showing distal lesion that is not amenable to treatment. Will need tunneled central line for long-term antibiotics. Culture is appreciated. 2. End-stage renal disease. Status post fistulogram by vascular surgery. Nephrology consulted. Continue current medication. hd 3. Hyperkalemia. In the setting of end-stage renal disease. Veltassa has been provided. HD as per nephrology. resolved 4. Chronic atrial fibrillation. Currently stable. Continue Coumadin, digoxin and metoprolol. Followup INR. 5. Congestive heart failure (CHF). Currently euvolemic. Continue dialysis. 6. Type 2 diabetes. Basal bolus insulin. Holding oral medication. Follow fingersticks.insulin adjusted for hyperglycemia 7. Dyslipidemia. Continue statin. 8. Peripheral vascular disease. Status post angiogram. No intervention possible at this time given distal disease. Vascular on consult. Continue Coumadin 9. Anemia of chronic disease. Status post transfusion two units of packed red blood cells. Followup hemoglobin and hematocrit. 10. Deep vein thrombosis (DVT) prophylaxis. Patient on Coumadin. Followup INR. DISPOSITION: tunneled central line. Will likely need short-term rehab. Infectious disease consulted, nephrology consulted, and vascular surgery and podiatry all consulted. PFS VS,Fishbone, I+O VS, Fishbone, I+O Laboratory Tests 02/10/19 06:05 Red Blood Count 3.43 L, Mean Corpuscular Volume 92.7, Mean Corpuscular Hemoglobin 27.4, Mean Corpuscular Hemoglobin Concent 29.6 L, Red Cell Distribution Width 18.0 H, Anion Gap 7 L Vital Signs Date Time Temp Pulse Resp B/P (MAP) Pulse Ox O2 Delivery O2 Flow Rate FiO2 02/10/19 09:24 12 02/10/19 09:00 2.0 02/10/19 08:45 97.9 85 178/79 (112) 92 I&O- Last 24 Hours up to 6 AM 02/10/19 06:00 Intake Total 1226 ml Output Total 300 ml Balance 926 ml CHRISTOPHER LACEY MD Feb 10, 2019 18:51
[2019-02-10] MEDS: ATORVASTATIN 20 MG TAB PO SCH (21:00)
[2019-02-10 22:00] VITALS: BP 128/60
[2019-02-11] MEDS ORDERED: SODIUM CHLORIDE 0.9% INJ 10 ML SYR IV PRN (03:30)
[2019-02-11 06:00] VITALS: BP 140/67
[2019-02-11 06:09] LABS: HEMATOCRIT 30.3 % (36.0-47.0); HEMOGLOBIN 9.1 g/dl (12.0-15.5); MEAN CORPUSCULAR HEMOGLOBIN 28.1 pg (27.0-33.0); MEAN CORPUSCULAR VOLUME 93.5 fl (80.0-96.0); PLATELET COUNT, AUTOMATED 327 10^3/uL (150-450); RED BLOOD COUNT 3.24 10^6/uL (4.00-5.40); WHITE BLOOD COUNT 9.9 10^3/uL (4.0-10.0)
[2019-02-11 06:27] LABS: INR 1.8; PROTHROMBIN TIME 21.2 SECONDS (12.1-14.4)
[2019-02-11 06:55] LABS: ALBUMIN 2.1 GM/DL (3.2-5.2); C REACTIVE PROTEIN QUANTITATIV 1.92 MG/DL (0.00-0.30); CALCIUM LEVEL 7.7 MG/DL (8.5-10.1); CREATININE FOR GFR 2.9 MG/DL (0.55-1.30); GLOMERULAR FILTRATION RATE 17.7 (>51); PHOSPHORUS LEVEL 3.2 MG/DL (2.5-4.9); POTASSIUM SERUM 4.2 MEQ/L (3.5-5.1)
[2019-02-11] MEDS: HumaLOG INSULIN (NovoLOG) PER UNIT SC SCH ×4 (08:03→20:50)
[2019-02-11 08:35] VITALS: BP 134/68
[2019-02-11] MEDS: PIPERACILLIN/TAZOBACTAM SOD 2.25 GM in D5W MINI-BAG PLUS 50 ML IV SCH ×2 (09:44→20:00)
[2019-02-11] MEDS: LEVEMIR (INSULIN DETEMIR) 1 UNITS/0.01ML SC SCH ×2 (09:45→20:49)
[2019-02-11] MEDS: CALCIUM ACETATE 667 MG GELCAP PO SCH ×3 (09:45→17:47)
[2019-02-11] MEDS: METOPROLOL SUCC (TopROL XL) 50MG **XL** TAB PO SCH (09:46)
[2019-02-11] MEDS: DIGOXIN 0.125 MG TAB PO SCH (09:47)
[2019-02-11] MEDS: EUCERIN 120GM CREAM EXT SCH (09:48)
[2019-02-11] MEDS: SODIUM CHLORIDE 0.9% INJ 10 ML SYR IV SCH (09:48)
[2019-02-11] MEDS: SANTYL OINT 30GM TOP SCH (09:49)
[2019-02-11] MEDS: VENLAFAXINE **XR** 37.5 MG CAPSULE PO SCH (10:02)
[2019-02-11] MEDS ORDERED: SANT250O8 TOP (10:20)
[2019-02-11] MEDS ORDERED: VENL37.598 PO (10:20)
[2019-02-11] MEDS ORDERED: COUM1TAB17 PO (10:20)
[2019-02-11] MEDS: HYDROMORPHONE HCL 0.5 MG/ 0.5 ML SYRINGE (J1170 PER 1) IV PRN (12:27)
[2019-02-11] MEDS ORDERED: PERCOCET PO (12:49)
[2019-02-11] MEDS ORDERED: NORC1TAB7 PO (13:25)
[2019-02-11 14:00] VITALS: BP 120/65
--- NOTE | 2019-02-11 15:45 | IPN ---
DATE: 02/11/2019 SUBJECTIVE: The patient was seen and examined at the bedside today morning. She is afebrile, hemodynamically stable. She was dialyzed yesterday. 4 liters of fluid was removed. I was told by the primary team patient [facility]. She continued to be on IV antibiotics for bilateral heel ulcers and infections. OBJECTIVE: VITAL SIGNS: Temperature 98.4 degrees Fahrenheit, blood pressure 134/68, pulse is 85, respiratory rate 16, saturating 95% on room air. INTAKE AND OUTPUT: Urine output recorded as 300 mL. Fluid removal with dialysis was 4 liter. Weight in the bed scale is not available. PHYSICAL EXAMINATION: GENERAL: The patient is awake, alert, oriented times two, laying in bed, no apparent distress. HEAD AND NECK EXAMINATION: She is legally blind. Mucous membranes are moist. Neck is supple. There is no jugular venous distention (JVD). CARDIOVASCULAR: S1, S2, regular rate. 1+ edema of the bilateral lower extremities. RESPIRATORY: Chest is clear to auscultation bilaterally. Bilateral equal air entry. No rales or rhonchi. ABDOMEN: Soft, obese, positive bowel sounds, nontender. No organomegaly. MUSCULOSKELETAL: Both heels are covered with dressing because of osteomyelitis. CENTRAL NERVOUS SYSTEM (LABEL TACKER): She is legally blind. Otherwise, follows commands and moves upper extremities. ARTERIOVENOUS (AV) ACCESS: She has a left upper arm AV fistula with positive thrill and bruit. LABORATORY REVIEW: Complete blood count (CBC) showed a WBC 9.9, hemoglobin 9.1, platelets are 327. Basic metabolic profile (BMP) showed sodium 138, potassium 4.2, BUN 30, creatinine is 2.9, phosphorous is 3.2. CURRENT INPATIENT MEDICATIONS: The patient's medications were all reviewed by me. There is no change in the medications today, Warfarin dose has been increased to 6 mg daily. ASSESSMENT AND PLAN: 1. End-stage renal disease, on hemodialysis. Patient's regular dialysis days are Saturday, , Saturday. She will be dialyzed tomorrow as per her regular schedule. Volume status is improving. 2. Bilateral heel osteomyelitis and infected foot ulcers. Continue current dose of Zosyn. WBC count is improving. Duration of antibiotics is as per ID recommendations. 3. Diabetes mellitus type 2. Insulin dependent. She is currently on insulin sliding scale and Levemir. Glucose levels are very well controlled at this point. Patient is non compliant with insulin at home. 4. Anemia secondary to end stage renal disease. Hemoglobin is 9.1 which is optimal. She is currently on Aranesp with hemodialysis. Rest of the anemia management will be done as outpatient.
[2019-02-11] MEDS: WARFARIN SOD 3 MG TAB PO SCH (17:47)
[2019-02-11] MEDS: ATORVASTATIN 20 MG TAB PO SCH (20:49)
--- NOTE | 2019-02-11 21:21 | DSES ---
DATE OF ADMISSION: 01/30/2018 DATE OF DISCHARGE: Date of discharge delayed due to detention placement. Patient was originally intended to be discharged on 02/11/2019, but detention requires additional clarification regarding giving antibiotics through a tunneled central line. Subsequently, discharge has been delayed. PRIMARY CARE PROVIDER: Tanika Urbina VASCULAR SURGERY: Dr. Jovanny Mansfield BONE CHAR KILN TENDER: Dr. Ghada Reid INFECTIOUS DISEASE: Dr. Floresita Hall CYLINDER PRESS OPERATOR: Dr. 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 2. End-stage renal disease. 3. Hyperkalemia. 4. Chronic atrial fibrillation. 5. Congestive heart failure. 6. Type 2 diabetes. 7. Dyslipidemia. 8. Peripheral vascular disease. 9. Anemia of chronic disease. HISTORY OF PRESENT ILLNESS: This is a 58-year-old female patient with underlying medical history of type 2 diabetes, chronic lymphocytic leukemia (CLL), follows Dr. Maynard, end-stage renal disease, on dialysis Saturday, , Saturday, congestive heart failure (CHF), and chronic nonhealing wound who presented to [facility] Emergency Department sent in by Dr. Kaplan from wound care. Patient was at Dr. Kaplan's office for wound care. It was noted that her wound has not been healing properly, with debris, and also bone that is exposed and bleeding. The wound was cauterized and bandaged, and patient was sent to the emergency department (ED) for admission and workup with peripheral vascular disease by Dr. Mansfield with arterial studies. In the ED, patient did have elevated white blood cells (WBC) and remained afebrile. Denies any fevers but does report subjective chills. Denies increasing erythema of her leg. Patient chronically in pain. Denies any nausea or vomiting. Denies any diarrhea. HOSPITAL COURSE: Patient admitted to the hospital. Started on intravenous (IV) antibiotics. Podiatry has been consulted for wound care. Nephrology has been consulted for the continuation of hemodialysis. Advanced wound care, Dr. Kaplan, was also consulted. Status post debridement by Dr. Moy in the operating room (OR) of bilateral heels. Evidence from pathology and from videologic image shows bilateral osteomyelitis. Subsequently infectious disease, Dr. Bryan, was on consult. Culture has been appreciated. Antibiotic was adjusted by Dr. Bryan, who recommended long-term 6 weeks of antibiotics. Subsequently, tunneled central line was ordered for continuation of IV antibiotics. Arrangements are made for patient to be transferred to care home facility for physical therapy and IV antibiotics. Unfortunately, transfer was delayed due to concerns of giving antibiotics through a tunneled central line. Warble Saw Operator has been working on the issue. Discharge has been on delay. VITAL SIGNS: Temperature 97.3, pulse 85, respirations 16, blood pressure 120/65, pulse oximetry 98% on room air. LABORATORY DATA: WBC 9.9, hemoglobin and hematocrit 9.1/30.3, platelets 327. Chemistry: Sodium 138, potassium 4.2, chloride 102, bicarbonate 31, BUN 30, creatinine 2.9, INR 1.8. GENERAL: Patient frail. Flat affect. In no acute distress. HEENT: Normocephalic, atraumatic. CARDIAC: Irregularly irregular, non-tachycardia. PULMONARY: Bilaterally clear. ABDOMEN: Soft, nontender. EXTREMITIES: Trace edema, lower extremities. Foul-smelling bilateral deep, stage IV, heel ulcers. FlowBoot. Dressing clean, dry, and intact. ASSESSMENT AND PLAN: This is a 58-year-old female patient with underlying medical history of type 2 diabetes, chronic lymphocytic leukemia (CLL). Follows with Dr. Maynard. End-stage renal disease, on dialysis Saturday, , Saturday, congestive heart failure, chronic nonhealing bilateral heel ulcer. Sees Dr. Kaplan. With worsening bilateral nonhealing heel ulcers. 1. Chronic bilateral nonhealing heel pressure ulcers with osteomyelitis. Patient needs 6 weeks of Zosyn, end day March 19, as per infectious disease. Cultures appreciated. MRI appreciated. Podiatry consult appreciated. Pathology appreciated. Vascular study shows distal lesion not amenable for treatment. Tunneled central line placed for long-term IV antibiotics. 2. End-stage renal disease. A fistulogram was done by vascular. Continue dialysis as per nephrology. Continue current medication. 3. Hyperkalemia in the setting of end-stage renal disease, resolved. Further management as per nephrology. 4. Chronic atrial fibrillation. Currently stable. Continue Coumadin. Followup INR. Continue digoxin, metoprolol. 5. Congestive heart failure. Currently euvolemic. Further fluid management as per nephrology. 6. Type 2 diabetes. Basal bolus insulin. Adjust as needed. 7. Dyslipidemia. Continue statin. 8. Peripheral vascular disease, status post angiogram. No intervention possible as per vascular surgery. Mostly distal disease. 9. Anemia of chronic disease, status post transfusion of 2 units packed red blood cells (PRBC). Followup hemoglobin and hematocrit. 10. Deep vein thrombosis (DVT) prophylaxis. Patient on Coumadin. Followup INR. DISPOSITION: Pending arrangements for detention placement for long-term antibiotics. Concerns of the use of tunneled central line. Pending further information from nursing administration. Infectious disease, nephrology, vascular, and podiatry consults appreciated. Patient and family services (PFS) has been on consult. DISCHARGE MEDICATIONS: - Zosyn 2.25 mg IV, end day March 19, for a total of 6-week course - [place] 5/325 one tablet by mouth three times a day as needed - collagenase topical daily - venlafaxine 75 mg by mouth every morning - Coumadin 5 mg by mouth daily. Check INR in 1-2 days. Dose accordingly. - acetaminophen 650 mg by mouth every 4 hours as needed - Lipitor 80 mg by mouth at bedtime - Phos-Lo 1334 by mouth with meals - digoxin 125 mcg by mouth every other day - Epogen IV as directed - hydroxyzine 10 mg by mouth IV as needed - Lantus SoloStar 20 units subcutaneous twice a day - Humalog 8 units subcutaneous at bedtime - iron dextran IV as directed - loperamide 2 mg by mouth as needed diarrhea - omga-3 fatty acid 500 mg by mouth twice a day - metoprolol 50 mg by mouth daily - Zofran 4 mg by mouth every 4 hours as needed DISCHARGE INSTRUCTIONS: Please see primary care provider in 7 days. Please see care mgr during dialysis. Please see Dr. Moy, Dr. Kaplan in 10-14 days for wound care. Please see Dr. Bryan in 14 days for further antibiotic instructions. Continue Zosyn 2.25 mg IV twice a day until March 19. All further instructions as per Dr. Bryan. Check C-reactive protein (CRP) weekly. Further antibiotics as per Dr. Bryan. Continue Coumadin. Followup INR. Dose accordingly. Return to the hospital if symptoms worsen. Discharge delayed due to arrangements for care home facility and concerns for the use of tunneled central line for IV antibiotics at care home facility.
[2019-02-11 22:00] VITALS: BP 135/70
[2019-02-11] MEDS: LOPERAMIDE 2 MG CAP PO PRN (22:42)
[2019-02-12 06:00] VITALS: BP 129/65
[2019-02-12 06:24] LABS: HEMATOCRIT 32.9 % (36.0-47.0); HEMOGLOBIN 9.7 g/dl (12.0-15.5); MEAN CORPUSCULAR HEMOGLOBIN 27.7 pg (27.0-33.0); MEAN CORPUSCULAR HGB CONC 29.5 g/dl (32.0-36.5); PLATELET COUNT, AUTOMATED 316 10^3/uL (150-450); WHITE BLOOD COUNT 11.7 10^3/uL (4.0-10.0)
[2019-02-12] MEDS: CALCIUM ACETATE 667 MG GELCAP PO SCH ×3 (06:25→17:48)
[2019-02-12] MEDS: PIPERACILLIN/TAZOBACTAM SOD 2.25 GM in D5W MINI-BAG PLUS 50 ML IV SCH ×2 (06:25→20:27)
[2019-02-12] MEDS: SODIUM CHLORIDE 0.9% INJ 10 ML SYR IV SCH (06:26)
[2019-02-12] MEDS: METOPROLOL SUCC (TopROL XL) 50MG **XL** TAB PO SCH (06:26)
[2019-02-12] MEDS: EUCERIN 120GM CREAM EXT SCH (06:34)
[2019-02-12 06:40] LABS: INR 2.17; PROTHROMBIN TIME 24.6 SECONDS (12.1-14.4)
[2019-02-12 06:49] LABS: ALBUMIN 2.1 GM/DL (3.2-5.2); CALCIUM LEVEL 8.4 MG/DL (8.5-10.1); CREATININE FOR GFR 3.64 MG/DL (0.55-1.30); GLOMERULAR FILTRATION RATE 13.6 (>51); MAGNESIUM LEVEL 2.4 MG/DL (1.8-2.4); PHOSPHORUS LEVEL 3.6 MG/DL (2.5-4.9); POTASSIUM SERUM 4.7 MEQ/L (3.5-5.1)
[2019-02-12] MEDS: HumaLOG INSULIN (NovoLOG) PER UNIT SC SCH ×4 (07:30→21:00)
[2019-02-12] MEDS: VENLAFAXINE **XR** 75MG CAPSULE PO SCH (08:44)
[2019-02-12] MEDS: LEVEMIR (INSULIN DETEMIR) 1 UNITS/0.01ML SC SCH ×2 (08:45→21:40)
[2019-02-12] MEDS: SANTYL OINT 30GM TOP SCH (08:58)
[2019-02-12] MEDS ORDERED: HEPARIN 1,000 UNITS/ML 10ML VIAL (FOR RADIOLOGY& DIALYSIS ONLY) IV ONE (09:45)
--- NOTE | 2019-02-12 12:41 | IPNPDOC ---
Text Note Date of Service The patient was seen on 02/12/19. NOTE Patient seen and examined, currently comfortable. Denies any chest pain, pre ssure, or discomfort. afebrile PHYSICAL EXAMINATION: VITALS: As below GENERAL: Patient alert, flat affect, in no acute distress. HEENT: Normocephalic, atraumatic. CARDIAC: Irregularly irregular, non-tachycardia. PULMONARY: Bilaterally clear. ABDOMEN: Soft, nontender. EXTREMITIES: 1+ bilateral lower extremity edema. Foul smelling bilateral deep stage IV heel ulcer, on float boots. Dressing clean, dry, intact. ASSESSMENT AND PLAN: This is a 58-year-old female patient with underlying medical history of type 2 diabetes, CLL, follows with Dr. Maynard, end-stage renal disease - on dialysis Saturday, , Saturday, congestive heart failure (CHF), chronic nonhealing bilateral heel ulcers - sees Dr. Kaplan, presented with worsening bilateral nonhealing heel ulcers. PROBLEMS: 1. Chronic bilateral nonhealing heel pressure ulcers with osteomyelitis. Patient will need 6 weeks of Zosyn end day 03/19, according to infectious disease. Culture has been appreciated. MRI appreciated. Podiatry consult appreciated, status post debridement. Vascular study done showing distal lesion that is not amenable to treatment. Culture is appreciated. If NH cannot tke tunneled central line then will get a PICC line for her. 2. End-stage renal disease. Status post fistulogram by vascular surgery. Nephrology consulted. Continue current medication. hd 3. Hyperkalemia. In the setting of end-stage renal disease. Veltassa has been provided. HD as per nephrology. resolved 4. Chronic atrial fibrillation. Currently stable. Continue Coumadin, digoxin and metoprolol. Followup INR. 5. Congestive heart failure (CHF). Currently euvolemic. Continue dialysis. 6. Type 2 diabetes. Basal bolus insulin. Holding oral medication. Follow fingersticks.insulin adjusted for hyperglycemia 7. Dyslipidemia. Continue statin. 8. Peripheral vascular disease. Status post angiogram. No intervention possible at this time given distal disease. Vascular on consult. Continue Coumadin 9. Anemia of chronic disease. Status post transfusion two units of packed red blood cells. Followup hemoglobin and hematocrit. 10. Deep vein thrombosis (DVT) prophylaxis. Patient on Coumadin. Followup INR. DISPOSITION: Discharge in Next 24 hours. Viola ZELAYA, I+O VS, Fishbone, I+O Laboratory Tests 02/12/19 05:55 Red Blood Count 3.50 L, Mean Corpuscular Volume 94.0, Mean Corpuscular Hemoglobin 27.7, Mean Corpuscular Hemoglobin Concent 29.5 L, Red Cell Distribution Width 18.4 H, Anion Gap 8 Vital Signs Date Time Temp Pulse Resp B/P (MAP) Pulse Ox O2 Delivery O2 Flow Rate FiO2 02/12/19 06:26 78 129/65 02/12/19 06:00 98.1 18 94 02/10/19 09:00 2.0 I&O- Last 24 Hours up to 6 AM 02/12/19 06:00 Intake Total 1188 ml Output Total 0 ml Balance 1188 ml JAZ AMAYA MD Feb 12, 2019 12:41
[2019-02-12] MEDS: NORCO, ANEXSIA 5/325MG TABLET (HYDROcodone/ACETAMINOPHEN) PO PRN (12:46)
[2019-02-12 14:00] VITALS: BP 151/67
--- NOTE | 2019-02-12 14:28 | IPN ---
DATE OF SERVICE: 02/12/2019 SUBJECTIVE: The patient was seen and examined at the bedside today morning during hemodialysis procedure. She is tolerating the hemodialysis procedure well. She denies any active complaints. She denies any fevers and chills. OBJECTIVE: VITAL SIGNS: Temperature 98.1 degrees Fahrenheit, blood pressure 129/65, pulse is 78, respiratory rate 18, saturating 94% on room air. INTAKE AND OUTPUT: There is no urine output recorded. Weight in the bed scale is not available. PHYSICAL EXAMINATION: GENERAL: The patient is awake, alert, oriented times two, laying in bed, getting hemodialysis done, in no apparent distress. HEAD AND NECK EXAMINATION: She is legally blind. Mucous membranes are moist. Neck is supple. There is no jugular venous distention (JVD). CARDIOVASCULAR: S1, S2, regular rate. 1+ edema of the bilateral lower extremities. RESPIRATORY: Chest is clear to auscultation bilaterally. Bilateral equal air entry. No rales or rhonchi. ABDOMEN: Soft, obese, positive bowel sounds, nontender. No organomegaly. MUSCULOSKELETAL: Both heels are covered with dressings. CENTRAL NERVOUS SYSTEM (CHOIR SINGER): She is legally blind. Otherwise able to communicate and moves upper extremities. ARTERIOVENOUS (AV) ACCESS: Left upper arm AV fistula with thrill and bruit. It is being used for dialysis. The patient also has a tunneled central venous catheter for labs and administration of IV antibiotics. LABORATORY REVIEW: Complete blood count (CBC) showed a WBC 11.7, hemoglobin 9.7, platelets are 316. Basic metabolic profile (BMP) showed sodium 135, potassium 4.7, chloride 99, bicarbonate 28, BUN 42, creatinine is 3.6. CURRENT INPATIENT MEDICATIONS: The patient's medications were all reviewed by me. There is no change in the medications today as compared with yesterday, except her opioid pain medications. ASSESSMENT AND PLAN: 1. End-stage renal disease, on hemodialysis. Today is patient's regular day of dialysis. She is being dialyzed according to her regular regimen and 4 liters of fluid will be removed. 2. Bilateral heel osteomyelitis and infected foot ulcers. She continues to be on IV Zosyn. She will have to continue that by the end of February. 3. Anemia secondary to end stage renal disease. Continue current dose of Aranesp at this point.
[2019-02-12] MEDS: hydrOXYzine 10 MG TAB PO PRN (14:31)
[2019-02-12] MEDS: LOPERAMIDE 2 MG CAP PO PRN (14:31)
[2019-02-12] MEDS: WARFARIN SOD 3 MG TAB PO SCH (17:00)
--- NOTE | 2019-02-12 20:05 | IPN ---
DATE: 02/12/2019 Gem has no complaints today. She has no nausea, vomiting or diarrhea. No abdominal pain. The patient had dialysis today. She is being evaluated for correction placement, but there was some issue with a Arredondo catheter and IV antibiotics. The patient has been on IV antibiotics for the past 2 weeks with improvement in her inflammatory markers. LABORATORY DATA: White count is 11.7, hemoglobin 9.7, hematocrit 32.9, platelets 316. Sodium 135, potassium 4.7, chloride 99, bicarbonate 28, BUN 42, creatinine 3.64, glucose 102, calcium 8.4, phosphorus 3.6, magnesium 2.4, CRP is 1.92 down from 15.8. Wound cultures were positive for Streptococcus mitis, Enterococcus (E) faecalis, Anaerobic, Bacteroides. On physical exam, temperature is 97.4, pulse 72, respirations 18, blood pressure 151/67, oxygen saturation 96% on room air. Heart: Normal S1, S2. No murmurs. Lungs: Diminished breath sounds at the bases. Abdomen: Obese, soft, nontender. She has two ulcers on her right lower quadrant covered by Optifoam. They are dry. No evidence of infection. Both heels have granulation tissue, but there is still exposed bone, but there is no purulence or drainage. Left arm arteriovenous (AV) fistula with good thrill and bruit. IMPRESSION: 1. Bilateral decubitus ulcer with secondary calcaneus osteomyelitis. The patient has been on IV antibiotics for 2 weeks. 2. End-stage renal disease, on hemodialysis. 3. Depression. The patient's dose of venlafaxine was increased to 75 mg daily. PLAN At this point, if there are issues with placement and IV antibiotics, she could be switched to oral Augmentin to be renally dosed. I do not see a need for a peripherally inserted central catheter (PICC) line. If a Arredondo catheter is an issue, then I would remove the Arredondo catheter and allow her to be treated with oral antibiotics. DAYNA
[2019-02-12] MEDS: ATORVASTATIN 20 MG TAB PO SCH (21:40)
[2019-02-12 22:00] VITALS: BP 154/69
[2019-02-13 06:00] VITALS: BP 139/67
[2019-02-13 06:12] LABS: HEMATOCRIT 30.7 % (36.0-47.0); HEMOGLOBIN 9.2 g/dl (12.0-15.5); MEAN CORPUSCULAR VOLUME 93.3 fl (80.0-96.0); PLATELET COUNT, AUTOMATED 300 10^3/uL (150-450); RED BLOOD COUNT 3.29 10^6/uL (4.00-5.40); WHITE BLOOD COUNT 11.2 10^3/uL (4.0-10.0)
[2019-02-13 06:23] LABS: INR 2.57; PROTHROMBIN TIME 28.1 SECONDS (12.1-14.4)
[2019-02-13 06:29] LABS: ALBUMIN 2.1 GM/DL (3.2-5.2); C REACTIVE PROTEIN QUANTITATIV 3.02 MG/DL (0.00-0.30); CALCIUM LEVEL 8.5 MG/DL (8.5-10.1); CREATININE FOR GFR 2.78 MG/DL (0.55-1.30); GLOMERULAR FILTRATION RATE 18.6 (>51); MAGNESIUM LEVEL 2.2 MG/DL (1.8-2.4); PHOSPHORUS LEVEL 3.2 MG/DL (2.5-4.9); POTASSIUM SERUM 4.4 MEQ/L (3.5-5.1)
[2019-02-13] MEDS: HumaLOG INSULIN (NovoLOG) PER UNIT SC SCH ×4 (07:30→21:00)
[2019-02-13] MEDS: EUCERIN 120GM CREAM EXT SCH (09:00)
[2019-02-13] MEDS: SODIUM CHLORIDE 0.9% INJ 10 ML SYR IV SCH (09:00)
[2019-02-13] MEDS: LEVEMIR (INSULIN DETEMIR) 1 UNITS/0.01ML SC SCH ×2 (09:00→21:00)
[2019-02-13] MEDS: SANTYL OINT 30GM TOP SCH (09:00)
[2019-02-13] MEDS: PIPERACILLIN/TAZOBACTAM SOD 2.25 GM in D5W MINI-BAG PLUS 50 ML IV SCH ×2 (09:37→20:00)
[2019-02-13] MEDS: METOPROLOL SUCC (TopROL XL) 50MG **XL** TAB PO SCH (09:38)
[2019-02-13] MEDS: VENLAFAXINE **XR** 75MG CAPSULE PO SCH (09:38)
[2019-02-13] MEDS: DIGOXIN 0.125 MG TAB PO SCH (09:39)
[2019-02-13] MEDS: CALCIUM ACETATE 667 MG GELCAP PO SCH ×3 (09:39→18:00)
--- NOTE | 2019-02-13 13:40 | IPNPDOC ---
Text Note Date of Service The patient was seen on 02/13/19. NOTE SUBJECTIVE: Patient seen and examined, currently comfortable. Denies any chest pain, pressure, or discomfort. afebrile. Pateint is blind for 5 years. PHYSICAL EXAMINATION: VITALS: As below GENERAL: Patient alert, flat affect, in no acute distress. HEENT: Normocephalic, atraumatic. CARDIAC: Irregularly irregular, non-tachycardia. PULMONARY: Bilaterally clear. ABDOMEN: Soft, nontender. EXTREMITIES: 1+ bilateral lower extremity edema. Foul smelling bilateral deep stage IV heel ulcer, on float boots. Dressing clean, dry, intact. ASSESSMENT AND PLAN: This is a 58-year-old female patient with underlying medical history of type 2 diabetes, CLL, follows with miguel Barriga for 5 years, end-stage renal disease - on dialysis Saturday, , Saturday, congestive heart failure (CHF), chronic nonhealing bilateral heel ulcers - sees Dr. Kaplan, presented with worsening bilateral nonhealing heel ulcers. PROBLEMS: 1. Chronic bilateral nonhealing heel pressure ulcers with osteomyelitis. Patient will need 6 weeks of antibiotics end day 03/19. Currently on Zosyn however can be changed to po Augmentin on discharge according to infectious disease. Culture has been appreciated. MRI appreciated. Podiatry consult appreciated, status post debridement. Vascular study done showing distal lesion that is not amenable to treatment. Culture is appreciated. Will removed tunnled cental line on discharge. 2. End-stage renal disease. Status post fistulogram by vascular surgery. Nephrology consulted. Continue current medication. hd 3. Hyperkalemia. In the setting of end-stage renal disease. Veltassa has been provided. HD as per nephrology. resolved 4. Chronic atrial fibrillation. Currently stable. Continue Coumadin, digoxin and metoprolol. Followup INR. 5. Congestive heart failure (CHF). Currently euvolemic. Continue dialysis. 6. Type 2 diabetes. Basal bolus insulin. Holding oral medication. Follow fingersticks.insulin adjusted for hyperglycemia 7. Dyslipidemia. Continue statin. 8. Peripheral vascular disease. Status post angiogram. No intervention possible at this time given distal disease. Vascular on consult. Continue Coumadin 9. Anemia of chronic disease. Status post transfusion two units of packed red blood cells. Followup hemoglobin and hematocrit. 10. Deep vein thrombosis (DVT) prophylaxis. Patient on Coumadin. Followup INR. DISPOSITION: Discharge to [facility] when bed available Most probably to [facility] on saturday VS,Viola, I+O VS, Viola, I+O Laboratory Tests 02/13/19 05:39 Red Blood Count 3.29 L, Mean Corpuscular Volume 93.3, Mean Corpuscular Hemoglobin 28.0, Mean Corpuscular Hemoglobin Concent 30.0 L, Red Cell Distribution Width 18.6 H, Anion Gap 9 Vital Signs Date Time Temp Pulse Resp B/P (MAP) Pulse Ox O2 Delivery O2 Flow Rate FiO2 02/13/19 09:39 70 02/13/19 09:38 132/70 02/13/19 06:00 97.2 18 95 02/10/19 09:00 2.0 I&O- Last 24 Hours up to 6 AM 02/13/19 06:00 Intake Total 1300 ml Output Total 4000 ml Balance -2700 ml JAZ AMAYA MD Feb 13, 2019 13:40
--- NOTE | 2019-02-13 13:56 | IPN ---
DATE OF SERVICE: 02/13/2019 SUBJECTIVE: Patient was seen and examined at the bedside today, morning. She is afebrile, hemodynamically stable. She was dialyzed yesterday; 4 liters of fluid was removed. She denies any active complaints at this point. OBJECTIVE: VITAL SIGNS: Temperature is 97.2 degrees Fahrenheit, blood pressure 132/70, pulse is 70, respiratory rate of 18, saturating 95% on room air. INTAKE AND OUTPUT: There is no urine output recorded. Ultrafiltration with hemodialysis was 4 liters. Weight in the bed scale is 91.2 kg. PHYSICAL EXAMINATION: GENERAL: Patient is awake, alert, oriented times two, laying in bed, in no apparent distress. HEAD AND NECK EXAM: She is legally blind. Mucous membranes are moist. Neck is supple. There is no jugular venous distention (JVD). She has a tunneled right-sided central venous line. CARDIOVASCULAR: S1, S2, regular rate. 1+ edema on the bilateral lower extremities. RESPIRATORY: Chest is clear to auscultation bilaterally. Bilateral equal air entry. No rales or rhonchi. ABDOMEN: Soft, obese, positive bowel sounds, nontender. MUSCULOSKELETAL: Both feet are covered with dressing and she is wearing Waffle boots. CENTRAL NERVOUS SYSTEM (BRICKLAYER SEWER): She is legally blind. Otherwise, she able to communicate and moves upper extremities. ARTERIOVENOUS (AV) ACCESS: She has a left upper arm AV fistula with thrill and bruit. LAB REVIEW: CBC showed WBC 11.2, hemoglobin 9.2, platelets are 300. BMP showed sodium 139, potassium 4.4, chloride 102, bicarbonate 28, BUN 26, creatinine is 2.7. C-reactive protein is still high at 3. CURRENT INPATIENT MEDICATIONS: Patient's medications were all reviewed by me. She continues to be on intravenous (IV) Zosyn. ASSESSMENT AND PLAN: 1. End-stage renal disease with hemodialysis. Yesterday was patient's regular day of dialysis. Next hemodialysis session will be done tomorrow. Volume status is optimized. 2. Bilateral heel osteomyelitis and infected foot ulcers. She continues to be on IV Zosyn. Duration of antibiotic is as per Infectious Disease (ID) recommendations. 3. Anemia in end-stage renal disease. Hemoglobin is 9.2, which is suboptimal. Some of that is because of chronic inflammation. Continue current dose of Aranesp 200 mcg with hemodialysis once a week.
[2019-02-13 15:00] VITALS: BP 142/70
[2019-02-13] MEDS: WARFARIN SOD 3 MG TAB PO SCH (17:00)
[2019-02-13] MEDS: ATORVASTATIN 20 MG TAB PO SCH (21:00)
[2019-02-13 22:00] VITALS: BP 165/73
--- NOTE | 2019-02-14 00:18 | IPN ---
DATE: 02/13/2019 Gem is doing fairly well. She has no complaints today. No nausea, vomiting or diarrhea. No abdominal pain. She is still a placement issue. She seems less depressed. She still has difficulty with moving her lower extremities. LABORATORY DATA: White count is 11.2, hemoglobin 9.2, hematocrit 30.7, platelets 300. Sodium 139, potassium 4.4, chloride 102, bicarbonate 28, BUN 26, creatinine 2.78, glucose 98, calcium 8.5, phosphorus 3.2, magnesium 2.2, CRP 3, which has gone up from the past couple of days. Wound cultures were positive for Streptococcus mitis, Enterococcus faecalis, Anaerobic cocci, Bacteroides. She is currently day #9 of IV Zosyn. PHYSICAL EXAMINATION: Heart: Normal S1, S2, systolic ejection murmur unchanged. Lungs are clear. No wheezes, rales or rhonchi. Abdomen: Soft, nontender, obese with two ulcerations of right lower quadrant with scabs, not infected. Extremities: +2 pitting thigh edema. Bilateral heel decubitus ulcers with exposed bone, nontender to touch with some granulation tissue and some necrotic tissue. IMPRESSION: Bilateral decubitus ulcers with secondary osteomyelitis of calcaneus with polymicrobial carlos, on IV Zosyn. The patient is clinically stable. She does not need to be continued on IV antibiotics. She can finish 6 weeks of oral antibiotics with oral Augmentin, especially that placement has been an issue. PLAN: Switch to oral Augmentin when ready for transfer to the [facility]. Discontinue Arredondo catheter. I would not recommend pursuing a peripherally inserted central catheter (PICC) line easier. longterm placement with oral antibiotics for a total of 6 weeks. Dose for end-stage renal disease will be Augmentin 500 mg daily after dialysis, suggest giving at bedtime.
[2019-02-14] MEDS: VENLAFAXINE **XR** 75MG CAPSULE PO SCH (05:37)
[2019-02-14] MEDS: CALCIUM ACETATE 667 MG GELCAP PO SCH ×3 (05:38→17:40)
[2019-02-14] MEDS: SODIUM CHLORIDE 0.9% INJ 10 ML SYR IV SCH (05:39)
[2019-02-14] MEDS: METOPROLOL SUCC (TopROL XL) 50MG **XL** TAB PO SCH (05:39)
[2019-02-14] MEDS: PIPERACILLIN/TAZOBACTAM SOD 2.25 GM in D5W MINI-BAG PLUS 50 ML IV SCH ×3 (05:39→20:18)
[2019-02-14] MEDS: EUCERIN 120GM CREAM EXT SCH (05:45)
[2019-02-14 06:00] VITALS: BP 136/64
[2019-02-14] MEDS: LEVEMIR (INSULIN DETEMIR) 1 UNITS/0.01ML SC SCH ×2 (07:29→20:18)
[2019-02-14] MEDS: HumaLOG INSULIN (NovoLOG) PER UNIT SC SCH ×4 (07:30→20:18)
[2019-02-14 08:02] LABS: MAGNESIUM LEVEL 2.2 MG/DL (1.8-2.4)
[2019-02-14 09:25] LABS: CALCIUM LEVEL 8.5 MG/DL (8.5-10.1); CREATININE FOR GFR 2.16 MG/DL (0.55-1.30); GLOMERULAR FILTRATION RATE 24.8 (>51); POTASSIUM SERUM 3.5 MEQ/L (3.5-5.1)
[2019-02-14 09:42] LABS: HEMATOCRIT 30.6 % (36.0-47.0); HEMOGLOBIN 9.1 g/dl (12.0-15.5); MEAN CORPUSCULAR HEMOGLOBIN 28.1 pg (27.0-33.0); MEAN CORPUSCULAR HGB CONC 29.7 g/dl (32.0-36.5); MEAN CORPUSCULAR VOLUME 94.4 fl (80.0-96.0); PLATELET COUNT, AUTOMATED 286 10^3/uL (150-450); RED BLOOD COUNT 3.24 10^6/uL (4.00-5.40); WHITE BLOOD COUNT 10.8 10^3/uL (4.0-10.0)
[2019-02-14] MEDS: SANTYL OINT 30GM TOP SCH (12:24)
[2019-02-14] MEDS ORDERED: HEPARIN 1,000 UNITS/ML 10ML VIAL (FOR RADIOLOGY& DIALYSIS ONLY) IV ONE (12:45)
[2019-02-14 12:50] LABS: INR 2.9
[2019-02-14 14:00] VITALS: BP 136/65
[2019-02-14] MEDS: NORCO, ANEXSIA 5/325MG TABLET (HYDROcodone/ACETAMINOPHEN) PO PRN (15:41)
--- NOTE | 2019-02-14 16:54 | IPN ---
DATE: 02/14/2019 THe patient is seen and examined. No acute events overnight. Denies any chest pain, pressure or discomfort. Denies any shortness of breath. Currently comfortable. VITAL SIGNS: Temperature 96.3, pulse 58, respirations 18, blood pressure 136/65, pulse oximetry 92% on room air. LABORATORY: WBC 10.8, hemoglobin and hematocrit 9.1/30.6, platelets 286. Chemistry: Sodium 138, potassium 3.5, chloride 102, bicarbonate 28, BUN 21, creatinine 2.16. PHYSICAL EXAMINATION: GENERAL: Currently alert and in no acute distress. Flat affect. HEENT: Normocephalic, atraumatic. CARDIAC: Irregularly irregular. No tachycardia. PULMONARY: Bilaterally clear. ABDOMEN: Soft, nontender. EXTREMITIES: Trace bilateral lower extremity edema. Bilateral deep stage IV heel ulcers, off loading boots, dressing clean, dry and intact. ASSESSMENT AND PLAN: This is a 58-year-old female patient with underlying medical history of type 2 diabetes, CLL, follows with Dr. Maynard, end stage renal disease on dialysis Saturday, and Saturday, congestive heart failure (CHF), chronic nonhealing bilateral heel ulcers and sees Dr. Kaplan, presented with worsening bilateral nonhealing heel ulcers. 1. Chronic bilateral nonhealing heel pressure ulcers with osteomyelitis. The patient will need 6 weeks of antibiotics, currently on Zosyn. End date for antibiotic is 03/19/2019. Infectious disease consulted. Okay to switch to Augmentin to complete course once the patient is ready to be transferred to assisted facility. Culture appreciated. MRI appreciated. Podiatry consult appreciated. Status post debridement. Vascular study done showing distal lesion not amenable for treatment. Likely placement in the next week. 2. End stage renal disease, status post fistulogram by vascular. Nephrology consulted. Continue dialysis. Continue current medications. 3. Hyperkalemia, resolved. Continue dialysis. Further recommendations as per nephrology. 4. Chronic atrial fibrillation. Currently stable. Continue Coumadin and followup INR. Continue digoxin, metoprolol. 5. Congestive heart failure (CHF). Current euvolemic. Continue dialysis. 6. Type 2 diabetes. Basal bolus insulin. Followup fingersticks and adjust as needed. Holding oral medications. 7. Dyslipidemia. Continue statin. 8. Peripheral vascular disease. Status post angiogram. No intervention possible given distal disease. Vascular consulted. Continue Coumadin. 9. Anemia of chronic disease. The patient was transfused 2 units of packed red blood cells. Followup hemoglobin and hematocrit. 10. Deep vein thrombosis (DVT) prophylaxis. The patient is on Coumadin. Followup INR. DISPOSITION: Likely discharge to assisted facility in the next few days.
[2019-02-14] MEDS ORDERED: WARFARIN SOD 5 MG TAB PO SCH (17:00)
[2019-02-14] MEDS: ATORVASTATIN 20 MG TAB PO SCH (20:19)
[2019-02-14 22:00] VITALS: BP 156/71
[2019-02-15 06:00] VITALS: BP 165/78
[2019-02-15 06:13] LABS: HEMATOCRIT 31.8 % (36.0-47.0); HEMOGLOBIN 9.4 g/dl (12.0-15.5); MEAN CORPUSCULAR HGB CONC 29.6 g/dl (32.0-36.5); MEAN CORPUSCULAR VOLUME 94.6 fl (80.0-96.0); PLATELET COUNT, AUTOMATED 274 10^3/uL (150-450); RED BLOOD COUNT 3.36 10^6/uL (4.00-5.40); WHITE BLOOD COUNT 10.3 10^3/uL (4.0-10.0)
[2019-02-15 06:22] LABS: INR 3.43; PROTHROMBIN TIME 35.4 SECONDS (12.1-14.4)
[2019-02-15 06:46] LABS: C REACTIVE PROTEIN QUANTITATIV 2.3 MG/DL (0.00-0.30); CALCIUM LEVEL 8.6 MG/DL (8.5-10.1); CREATININE FOR GFR 2.37 MG/DL (0.55-1.30); GLOMERULAR FILTRATION RATE 22.3 (>51); MAGNESIUM LEVEL 2.3 MG/DL (1.8-2.4); POTASSIUM SERUM 4.5 MEQ/L (3.5-5.1)
[2019-02-15] MEDS: PIPERACILLIN/TAZOBACTAM SOD 2.25 GM in D5W MINI-BAG PLUS 50 ML IV SCH ×2 (08:54→20:14)
[2019-02-15] MEDS: CALCIUM ACETATE 667 MG GELCAP PO SCH ×3 (08:54→18:14)
[2019-02-15] MEDS: METOPROLOL SUCC (TopROL XL) 50MG **XL** TAB PO SCH (08:55)
[2019-02-15] MEDS: HumaLOG INSULIN (NovoLOG) PER UNIT SC SCH ×4 (08:55→21:00)
[2019-02-15] MEDS: DIGOXIN 0.125 MG TAB PO SCH (08:56)
[2019-02-15] MEDS: VENLAFAXINE **XR** 75MG CAPSULE PO SCH (08:56)
[2019-02-15] MEDS: LEVEMIR (INSULIN DETEMIR) 1 UNITS/0.01ML SC SCH ×2 (08:56→20:20)
[2019-02-15] MEDS: EUCERIN 120GM CREAM EXT SCH (08:57)
[2019-02-15] MEDS: SODIUM CHLORIDE 0.9% INJ 10 ML SYR IV SCH (08:57)
[2019-02-15] MEDS: SANTYL OINT 30GM TOP SCH (08:58)
[2019-02-15 14:00] VITALS: BP 143/75
--- NOTE | 2019-02-15 15:01 | IPNPDOC ---
Text Note Date of Service The patient was seen on 02/15/19. NOTE The patient is seen and examined. No acute events overnight. Denies any chest pain, pressure or discomfort. Denies any shortness of breath. Currently comfortable. PHYSICAL EXAMINATION: GENERAL: Currently alert and in no acute distress. Flat affect. HEENT: Normocephalic, atraumatic. CARDIAC: Irregularly irregular. No tachycardia. PULMONARY: Bilaterally clear. ABDOMEN: Soft, nontender. EXTREMITIES: Trace bilateral lower extremity edema. Bilateral deep stage IV heel ulcers, off loading boots, dressing clean, dry and intact. ASSESSMENT AND PLAN: This is a 58-year-old female patient with underlying medical history of type 2 diabetes, CLL, follows with Dr. Maynard, end stage renal disease on dialysis Saturday, and Saturday, congestive heart failure (CHF), chronic nonhealing bilateral heel ulcers and sees Dr. Kaplan, presented with worsening bilateral nonhealing heel ulcers. 1. Chronic bilateral nonhealing heel pressure ulcers with osteomyelitis. The patient will need 6 weeks of antibiotics, currently on Zosyn. End date for antibiotic is 03/19/2019. Infectious disease consulted. Okay to switch to Augmentin to complete course once the patient is ready to be transferred to group home facility. Culture appreciated. MRI appreciated. Podiatry consult appreciated. Status post debridement. Vascular study done showing distal lesion not amenable for treatment. Likely placement in the next week. 2. End stage renal disease, status post fistulogram by vascular. Nephrology consulted. Continue dialysis. Continue current medications. 3. Hyperkalemia, resolved. Continue dialysis. Further recommendations as per nephrology. 4. Chronic atrial fibrillation. Currently stable. Continue Coumadin and followup INR. Continue digoxin, metoprolol. 5. Congestive heart failure (CHF) with diastolic dysfunction. Current e uvolemic. Continue dialysis. 6. Type 2 diabetes. Basal bolus insulin. Followup fingersticks and adjust as needed. Holding oral medications. 7. Dyslipidemia. Continue statin. 8. Peripheral vascular disease. Status post angiogram. No intervention possible given distal disease. Vascular consulted. Continue Coumadin. 9. Anemia of chronic disease. The patient was transfused 2 units of packed red blood cells. Followup hemoglobin and hematocrit. 10. Deep vein thrombosis (DVT) prophylaxis. The patient is on Coumadin. Followup INR. DISPOSITION: Likely discharge to group home facility in the next few days. VS,Fishbone, I+O VS, Fishbone, I+O Laboratory Tests 02/15/19 05:47 Red Blood Count 3.36 L, Mean Corpuscular Volume 94.6, Mean Corpuscular Hemoglobin 28.0, Mean Corpuscular Hemoglobin Concent 29.6 L, Red Cell Distribu tion Width 19.2 H, Calcium Level 8.6 Vital Signs Date Time Temp Pulse Resp B/P (MAP) Pulse Ox O2 Delivery O2 Flow Rate FiO2 02/15/19 14:00 96.7 77 18 143/75 (97) 97 02/10/19 09:00 2.0 I&O- Last 24 Hours up to 6 AM 02/15/19 06:00 Intake Total 810 ml Output Total 4000 ml Balance -3190 ml CHRISTOPHER LACEY MD Feb 15, 2019 15:01
--- NOTE | 2019-02-15 15:11 | IPN ---
DATE: 02/14/2019 SUBJECTIVE: Patient was seen and examined at the bedside today morning during hemodialysis procedure. She is tolerating the hemodialysis procedure well. She denies any active complaints. OBJECTIVE: Vital signs; temperature is 96.3 degrees Fahrenheit, blood pressure 136/65, pulse is 58, respiratory rate of 18, saturating 92% on room air. Intake and output: Urine output is not recorded. Weight in the bed scale was 91.2 kg yesterday. PHYSICAL EXAMINATION: GENERAL: Patient is awake, alert, oriented times two, lying in bed getting hemodialysis done. No apparent distress. HEAD AND NECK: Patient is legally blind. Mucous membranes are moist. Neck is supple. No jugular venous distention (JVD). CARDIOVASCULAR: S1, S2, regular rate. Edema 1+ of the bilateral lower extremities. RESPIRATORY: Chest is clear to auscultation bilaterally. Bilateral equal air entry. No rales or rhonchi. ABDOMEN: Soft, obese. Positive bowel sounds. Nontender. MUSCULOSKELETAL: Patient has dressings on both heels. CENTRAL NERVOUS SYSTEM: Legally blind. Otherwise she moves extremities and follows commands. AV ACCESS: Left upper arm arteriovenous (AV) fistula being used for dialysis. LABORATORY REVIEW: CBC showed a WBC 10.8, hemoglobin 9.1, platelets are 286. BMP showed sodium 138, potassium 3.5, chloride 102, bicarbonate 28, BUN 21, creatinine is 2.1. CURRENT INPATIENT MEDICATIONS: Patient's medications were all reviewed by me. There is no other change in the medications today as compared with yesterday. Warfarin dose has been decreased to 5 mg daily. ASSESSMENT AND PLAN: 1. End-stage renal disease, on hemodialysis. Patient is being dialyzed today according to her regular schedule. Ultrafiltration goal is about 4 liters as tolerated by her blood pressure. 2. Anemia secondary to end-stage renal disease. Hemoglobin is slightly suboptimal; however, she has chronic inflammation and infection. Continue current dose of Aranesp 200 mcg intravenous (IV) with hemodialysis. 3. Bilateral heel osteomyelitis and foot ulcers. She continues to be on IV Zosyn.
[2019-02-15] MEDS: NORCO, ANEXSIA 5/325MG TABLET (HYDROcodone/ACETAMINOPHEN) PO PRN (17:01)
[2019-02-15] MEDS ORDERED: IRON SUCROSE 100MG 5ML VIAL (J1756 PER 1MG) IV SCH (20:00)
[2019-02-15] MEDS: ATORVASTATIN 20 MG TAB PO SCH (20:18)
[2019-02-15 22:00] VITALS: BP 145/79
[2019-02-16 06:00] VITALS: BP 140/82
[2019-02-16 06:07] LABS: HEMATOCRIT 31.3 % (36.0-47.0); HEMOGLOBIN 9.3 g/dl (12.0-15.5); MEAN CORPUSCULAR HEMOGLOBIN 27.8 pg (27.0-33.0); MEAN CORPUSCULAR HGB CONC 29.7 g/dl (32.0-36.5); MEAN CORPUSCULAR VOLUME 93.4 fl (80.0-96.0); PLATELET COUNT, AUTOMATED 259 10^3/uL (150-450); RED BLOOD COUNT 3.35 10^6/uL (4.00-5.40); WHITE BLOOD COUNT 9.7 10^3/uL (4.0-10.0)
[2019-02-16 06:32] LABS: INR 2.88; PROTHROMBIN TIME 30.8 SECONDS (12.1-14.4)
[2019-02-16 06:34] LABS: CALCIUM LEVEL 8.8 MG/DL (8.5-10.1); CREATININE FOR GFR 3.26 MG/DL (0.55-1.30); GLOMERULAR FILTRATION RATE 15.4 (>51); MAGNESIUM LEVEL 2.4 MG/DL (1.8-2.4); POTASSIUM SERUM 4.7 MEQ/L (3.5-5.1)
[2019-02-16] MEDS: HumaLOG INSULIN (NovoLOG) PER UNIT SC SCH ×4 (08:38→20:49)
[2019-02-16] MEDS: PIPERACILLIN/TAZOBACTAM SOD 2.25 GM in D5W MINI-BAG PLUS 50 ML IV SCH ×2 (08:39→19:54)
[2019-02-16] MEDS: LEVEMIR (INSULIN DETEMIR) 1 UNITS/0.01ML SC SCH ×2 (08:39→20:55)
[2019-02-16] MEDS: CALCIUM ACETATE 667 MG GELCAP PO SCH ×3 (08:40→18:05)
[2019-02-16] MEDS: METOPROLOL SUCC (TopROL XL) 50MG **XL** TAB PO SCH (08:40)
[2019-02-16] MEDS: VENLAFAXINE **XR** 75MG CAPSULE PO SCH (08:40)
[2019-02-16] MEDS: EUCERIN 120GM CREAM EXT SCH (08:41)
[2019-02-16] MEDS: SANTYL OINT 30GM TOP SCH (08:41)
[2019-02-16] MEDS: SODIUM CHLORIDE 0.9% INJ 10 ML SYR IV SCH (08:51)
--- NOTE | 2019-02-16 10:50 | IPN ---
DATE OF SERVICE: 02/15/2019 SUBJECTIVE: The patient seen and examined at the bedside. She denies any active complaints. She was dialyzed yesterday with four liters of fluid removed which she tolerated without issues. VITAL SIGNS: Temperature 96.7, pulse 77, respiratory rate 18, blood pressure 143/75, saturating 97% on room air. Intake yesterday was 1 liter. Dialysis yesterday removed 4 liters. Net negative 3 liters. Weight on the bed scale today is not recorded. GENERAL: The patient is seen lying in bed, drowsy, but easily arousable in no distress. She is legally blind. Mucous membranes are moist. Neck is supple. Jugular veins are not elevated. CARDIAC: S1, S2. Regular rate. There is 1+ edema in the bilateral lower extremities. RESPIRATORY: Lungs are clear to auscultation bilaterally. Equal air entry. No rales or rhonchi. ABDOMEN: Soft. Obese. There are bowel sounds. MUSCULOSKELETAL: She has dressings on both of her feet. The left upper extremity fistula has thrill and bruit and some ecchymosis and I note that there is a port in the right chest wall. NEUROLOGIC: She is legally blind. Otherwise she is cooperative with physical exam and conversational and appropriate. Oriented to person, place and situation. LABS: White count 10.3, hemoglobin 9.4 and platelets 274. Sodium 138, potassium 4.5, magnesium 2.3. INPATIENT MEDICATIONS: Reviewed by myself and noted her Coumadin was adjusted per the primary team. Remainder of medications are unchanged from prior. PROBLEMS: 1. End stage renal disease on hemodialysis on a Saturday, , Saturday schedule. The patient's fistula is in good use. Her electrolytes are acceptable. She is hypervolemic and goal fluid removal with each treatment is 4 liters. Next treatment will be on Saturday as per her schedule. 2. Anemia related to end stage renal disease and chronic inflammation and inflammatory state. Hemoglobin is stable but suboptimal at 9.4. She continues on Aranesp. Her iron stores were also borderline and she will receive iron with hemodialysis. 3. Bilateral heel osteomyelitis and foot ulcers. The patient is pending rehabilitation placement. She continues on Zosyn. Infectious disease's recommendations are noted. 4. Diastolic congestive heart failure. Mild hypervolemia with peripheral edema. Her volume status has improved over the course of this admission. Continue with oral fluid restriction and she is tolerating 4 liter removal with each hemodialysis treatment. Her weights have down trended nicely over the course of this admission. 5. Atrial fibrillation. INR is supratherapeutic. Coumadin was already adjusted per the primary team. She continues on renally dosed digoxin and is on beta radhika for rate control.
[2019-02-16] MEDS: NORCO, ANEXSIA 5/325MG TABLET (HYDROcodone/ACETAMINOPHEN) PO PRN (11:09)
--- NOTE | 2019-02-16 13:55 | IPN ---
DATE OF SERVICE: 02/16/2019 The patient seen and examined during dressing change. No new issues are noted. Vitals are reviewed. She has been afebrile. White blood cell count is 9.7. Most recent CRP is 2.3. Wounds are inspected. Significant improvement in appearance. There is much more granulation tissue with only patchy necrosis at the periphery of the wounds. No mal odor is noted. ASSESSMENT: 58-year-old female with calcaneal osteomyelitis and ulcerations. PLAN: Continue current wound care. The patient to be discharged to nursing facility. She will have followup with Dr. Kaplan.
[2019-02-16 14:00] VITALS: BP 140/72
--- NOTE | 2019-02-16 16:59 | IPN ---
DATE: 02/16/2019 Gem is sitting in the chair by the window. She has no complaints. She states that she is still not able to move her legs. She was able to stand with physical therapy but was not able to do any steps forward. She denies any cough or shortness of breath. No nausea, vomiting or diarrhea. On physical exam, temperature is 96.7, pulse 76, respirations 16, blood pressure 140/72, oxygen saturation (O2 sat) 94% on room air. Heart: Normal S1, S2. No murmurs. Lungs: Clear. No wheezes, rales, or rhonchi. Abdomen: Obese, soft, nontender. There are two ulcerations with dry scabs underneath the Optifoam dressings. They are not infected. Extremities: +2 pitting edema of both thighs, much worse than her lower extremity edema which is only +1. She has bilateral calcaneus osteomyelitis with exposed bone, but no purulence and granulation tissue has improved. LABORATORY DATA: White count 9.7, hemoglobin 9.3, hematocrit 31.3, platelets 259. Sodium 137, potassium 4.7, chloride 101, bicarbonate 29, BUN 30, creatinine 3.26, glucose 124, calcium 8.8, magnesium 2.4, CRP 2.3 down from a peak of 16.3. IMPRESSION: 1. Bilateral decubitus ulcer with calcaneus osteomyelitis, on IV Zosyn. The patient is doing much better. She could be switched to oral Augmentin 500 mg daily at bedtime starting tomorrow. 2. End-stage renal disease with fluid overload. The patient has significant thigh edema, which may be contributing for her inability to walk. 3. Generalized weakness with difficulty with walking for the past year. May need further neurologic workup. PLAN Discontinue Arredondo catheter tomorrow, switch to oral Augmentin 500 mg at bedtime for a total of 4 weeks. Monitor CBC, CRP weekly.
[2019-02-16] MEDS: WARFARIN SOD 4 MG TAB PO SCH (18:05)
--- NOTE | 2019-02-16 18:31 | IPNPDOC ---
Text Note Date of Service The patient was seen on 02/16/19. NOTE The patient is seen and examined. No acute events overnight. Denies any chest pain, pressure or discomfort. Denies any shortness of breath. Currently comfortable. PHYSICAL EXAMINATION: GENERAL: Currently alert and in no acute distress. Flat affect. HEENT: Normocephalic, atraumatic. CARDIAC: Irregularly irregular. No tachycardia. PULMONARY: Bilaterally clear. ABDOMEN: Soft, nontender. EXTREMITIES: bilateral lower extremity edema. Bilateral deep stage IV heel ulcers, off loading boots, dressing clean, dry and intact. ASSESSMENT AND PLAN: This is a 58-year-old female patient with underlying medical history of type 2 diabetes, CLL, follows with Dr. Maynard, end stage renal disease on dialysis Saturday, and Saturday, congestive heart failure (CHF), chronic nonhealing bilateral heel ulcers and sees Dr. Kaplan, presented with worsening bilateral nonhealing heel ulcers. 1. Chronic bilateral nonhealing heel pressure ulcers with osteomyelitis. The patient will need 6 weeks of antibiotics, currently on Zosyn. switch to augmentin as per ID when patient ready for DC. End date for antibiotic is 03/19/2019. Infectious disease consulted. Culture appreciated. MRI appreciated. Podiatry consult appreciated. Status post debridement. Vascular study done showing distal lesion not amenable for treatment. Likely placement in the next week. 2. End stage renal disease, status post fistulogram by vascular. Nephrology consulted. Continue dialysis. Continue current medications. 3. Hyperkalemia, resolved. Continue dialysis. Further recommendations as per nephrology. 4. Chronic atrial fibrillation. Currently stable. Continue Coumadin and followup INR. Continue digoxin, metoprolol. 5. Congestive heart failure (CHF) with diastolic dysfunction. Current euvolemic. Continue dialysis. 6. Type 2 diabetes. Basal bolus insulin. Followup fingersticks and adjust as needed. Holding oral medications. 7. Dyslipidemia. Continue statin. 8. Peripheral vascular disease. Status post angiogram. No intervention possible given distal disease. Vascular consulted. Continue Coumadin. 9. Anemia of chronic disease. The patient was transfused 2 units of packed red blood cells. Followup hemoglobin and hematocrit. 10. Deep vein thrombosis (DVT) prophylaxis. The patient is on Coumadin. Followup INR. DISPOSITION: Likely discharge to detention facility Saturday VS,Viola, I+O VS, Viola, I+O Laboratory Tests 02/16/19 05:45 Red Blood Count 3.35 L, Mean Corpuscular Volume 93.4, Mean Corpuscular Hemoglobin 27.8, Mean Corpuscular Hemoglobin Concent 29.7 L, Red Cell Distribution Width 18.8 H, Calcium Level 8.8 Vital Signs Date Time Temp Pulse Resp B/P (MAP) Pulse Ox O2 Delivery O2 Flow Rate FiO2 02/16/19 14:00 96.7 76 16 140/72 (94) 94 02/10/19 09:00 2.0 I&O- Last 24 Hours up to 6 AM 02/16/19 06:00 Intake Total 1124 ml Output Total 0 ml Balance 1124 ml CHRISTOPHER LACEY MD Feb 16, 2019 18:31
[2019-02-16] MEDS: ATORVASTATIN 20 MG TAB PO SCH (20:54)
[2019-02-16 22:00] VITALS: BP 142/67
[2019-02-17 06:00] VITALS: BP 144/66
--- NOTE | 2019-02-17 06:25 | IPN ---
DATE OF VISIT: 02/16/2019 The patient is seen and examined this morning at the bedside. She denies any overnight events or issues. She denies any shortness of breath, tolerating diet without problem. PHYSICAL EXAMINATION: VITAL SIGNS: Temperature 96.7, pulse 76, respiratory rate 16, blood pressure 140/72, saturating 94% on room air. Intake yesterday was 1120, weight in the bed scale today is not recorded. GENERAL: The patient is seen lying in bed. Obese female in no distress. Family is present at the bedside, legally blind. HEENT: Tongue is moist. NECK: Supple. There is a catheter present in the right chest wall. CARDIAC: S1, S2, irregularly, irregular. No murmurs. LUNGS: Clear to auscultation bilaterally, no crackles, rales or wheeze. ABDOMEN: Soft and obese, nontender. EXTREMITIES: Fistula in the left upper extremity with thrill, bruit and dressing. The lower extremities have 1+ edema. There is dressings on the feet. NEUROLOGIC: She is oriented times two and interactive and cooperative. LABORATORY DATA: White count 9.7, hemoglobin 9.3, platelets 259. Sodium 137, potassium 4.7, magnesium 2.4. INPATIENT MEDICATIONS: Reviewed by myself and no change from prior. PROBLEMS: 1. End-stage renal disease on hemodialysis on a Saturday, , Saturday schedule. The patient will be dialyzed tomorrow with the goal fluid removal of 4 liters. She had a recent fistulogram. Her electrolytes are acceptable. There is hypervolemia on exam and we will continue with aggressive fluid removal, ultrafiltration and oral fluid restriction. 2. Anemia related to end-stage renal disease and chronic inflammation and inflammatory state. Hemoglobin is stable but suboptimal at 9.3. She continues on iron and Aranesp. 3. Diastolic congestive heart failure. Chronically volume overloaded. Her volume status has improved over the course of this admission. Her weights have downtrended. Continue with 4 liter removal with each dialysis treatment.
[2019-02-17 06:31] LABS: HEMATOCRIT 31.5 % (36.0-47.0); HEMOGLOBIN 9.2 g/dl (12.0-15.5); MEAN CORPUSCULAR HEMOGLOBIN 28.4 pg (27.0-33.0); MEAN CORPUSCULAR HGB CONC 29.2 g/dl (32.0-36.5); MEAN CORPUSCULAR VOLUME 97.2 fl (80.0-96.0); PLATELET COUNT, AUTOMATED 265 10^3/uL (150-450); RED BLOOD COUNT 3.24 10^6/uL (4.00-5.40); WHITE BLOOD COUNT 10.9 10^3/uL (4.0-10.0)
[2019-02-17 06:41] LABS: INR 2.62; PROTHROMBIN TIME 28.6 SECONDS (12.1-14.4)
[2019-02-17] MEDS: VENLAFAXINE **XR** 75MG CAPSULE PO SCH (06:48)
[2019-02-17] MEDS: CALCIUM ACETATE 667 MG GELCAP PO SCH ×3 (06:48→18:23)
[2019-02-17] MEDS: DIGOXIN 0.125 MG TAB PO SCH (06:49)
[2019-02-17] MEDS: METOPROLOL SUCC (TopROL XL) 50MG **XL** TAB PO SCH (06:50)
[2019-02-17 07:08] LABS: C REACTIVE PROTEIN QUANTITATIV 2.84 MG/DL (0.00-0.30); CALCIUM LEVEL 8.3 MG/DL (8.5-10.1); CREATININE FOR GFR 3.82 MG/DL (0.55-1.30); GLOMERULAR FILTRATION RATE 12.9 (>51); MAGNESIUM LEVEL 2.4 MG/DL (1.8-2.4); POTASSIUM SERUM 5.6 MEQ/L (3.5-5.1)
[2019-02-17] MEDS: HumaLOG INSULIN (NovoLOG) PER UNIT SC SCH ×4 (07:30→21:00)
[2019-02-17] MEDS: PIPERACILLIN/TAZOBACTAM SOD 2.25 GM in D5W MINI-BAG PLUS 50 ML IV SCH (08:00)
[2019-02-17] MEDS: LEVEMIR (INSULIN DETEMIR) 1 UNITS/0.01ML SC SCH ×2 (09:00→21:49)
[2019-02-17] MEDS: SODIUM CHLORIDE 0.9% INJ 10 ML SYR IV SCH (09:00)
[2019-02-17] MEDS ORDERED: IRON SUCROSE 100MG 5ML VIAL (J1756 PER 1MG) IV ONE (09:00)
[2019-02-17] MEDS ORDERED: HEPARIN 1,000 UNITS/ML 10ML VIAL (FOR RADIOLOGY& DIALYSIS ONLY) IV ONE (12:45)
[2019-02-17 14:00] VITALS: BP 155/83
--- NOTE | 2019-02-17 16:01 | IPN ---
DATE: 02/17/2019 The patient is seen and examined this morning in the hemodialysis unit, receiving her maintenance treatment. She denies any overnight complaints. She has discharge pending tomorrow. PHYSICAL EXAMINATION: VITAL SIGNS: Temperature 97.0, pulse 79, respiratory rate 18, blood pressure 144/66, saturating 97% on room air. Intake yesterday was 700 mL, fluid removal on dialysis today is 4 liters. GENERAL: The patient is seen lying in hemodialysis unit and receiving her maintenance treatment. Obese female in no distress. Legally blind. HEENT: Tongue is moist. NECK: Supple. There is a catheter present in the right chest wall. CARDIAC: S1, S2, irregularly, irregular. 1+ pitting edema in the lower extremities. LUNGS: Clear to auscultation bilaterally, no crackles, rales or wheeze. ABDOMEN: Soft and obese, nontender. There are bowel sounds. EXTREMITIES: Left upper extremity fistula is presently in use. The lower extremities both are in dressings and in waffle boots and there is 1+ edema present up to the thigh. NEUROLOGIC: She is oriented to person, place, situation, and at baseline mentation. LABORATORY DATA: White count 10.9, hemoglobin 9.2, platelets 265. Sodium 135, potassium 5.6. INPATIENT MEDICATIONS: Reviewed by myself and no change from prior. PROBLEMS: 1. End-stage renal disease on hemodialysis on a Saturday, , Saturday schedule. The patient is tolerating her treatments well. Goal fluid removal today is 4 liters. Her fistula is in good use. Her hyperkalemia will improve with dialysis today. There is hypervolemia on examination but overall her volume status has improved over the course of this admission and she is tolerating ultrafiltration and fluid removal well and continues on oral fluid restriction. 2. Anemia related to end-stage renal disease and chronic inflammatory state. Hemoglobin is stable but suboptimal at 9.2. She continues on iron and Aranesp with hemodialysis. 3. Diastolic congestive heart failure. Chronically volume overloaded. Her volume status has improved over the course of this admission. Continue with 4 liter removal with each dialysis treatment as tolerated by her hemodynamics. 4. Chronic bilateral nonhealing heel ulcers with osteomyelitis. Antimicrobials as per infectious disease recommendations. Status post debridement and pending skilling nursing facility placement. Followed by podiatry. 5. Hyperkalemia due to renal failure. Being dialyzed today with a 2.0 mEq potassium bath. Continue renal diet. 6. Atrial fibrillation with therapeutic INR on Coumadin. Continues with rate control on beta radhika and digoxin.
[2019-02-17] MEDS: NORCO, ANEXSIA 5/325MG TABLET (HYDROcodone/ACETAMINOPHEN) PO PRN (16:28)
[2019-02-17] MEDS: WARFARIN SOD 4 MG TAB PO SCH (16:28)
[2019-02-17] MEDS: SANTYL OINT 30GM TOP SCH (16:29)
[2019-02-17] MEDS: EUCERIN 120GM CREAM EXT SCH (16:29)
[2019-02-17] MEDS ORDERED: AUGM500T34 PO (20:09)
--- NOTE | 2019-02-17 21:12 | IPN ---
DATE: 02/08/2019 NOTE: This is a late dictation. Patient was seen on 02/08/2019 and dictation is missing in the system. SUBJECTIVE: Patient was seen and examined at the bedside in the morning. She was afebrile, hemodynamically stable. She was dialyzed a day earlier, 4 liters of fluid was removed, she tolerated the hemodialysis procedure well. OBJECTIVE: VITAL SIGNS: Temperature 97.7 degrees Fahrenheit, blood pressure 160/91, pulse is 75, respiratory rate of 14, saturating 100% on 2 liters via nasal cannula. Intake and output: There is no urine output recorded. Ultrafiltration with hemodialysis was 4 liters. Weight in the bed scale is not available. PHYSICAL EXAMINATION: GENERAL: Patient is awake, alert, oriented times two, laying in bed, no apparent distress. HEAD and NECK EXAM: Patient is legally blind. Mucous membranes are moist. Neck is supple. There is no jugular venous distention (JVD). CARDIOVASCULAR: S1, S2, regular rate. 1+ edema of the bilateral lower extremities. RESPIRATORY: Chest is clear to auscultation bilaterally. Bilateral equal air entry. No rales or rhonchi. ABDOMEN: Soft, obese, positive bowel sounds, nontender. No organomegaly. MUSCULOSKELETAL: She has dressings on both heels because of osteomyelitis. CENTRAL NERVOUS SYSTEM (FINANCIAL COST ANALYST): She is legally blind. Otherwise, moves extremities, able to communicate. ARTERIOVENOUS (AV) ACCESS: Left upper arm AV fistula with positive thrill and bruit. LABORATORY REVIEW: CBC showed WBC 12.6, hemoglobin 9.4, platelets are 362. BMP showed sodium 137, potassium 4.1, chloride 101, bicarbonate 29, BUN 39, creatinine is 3.03. CURRENT INPATIENT MEDICATIONS: Patient's medications were all reviewed by me. There is no change in the medications today as compared with yesterday. ASSESSMENT AND PLAN: 1. End-stage renal disease on hemodialysis. Patient's regular dialysis days are Saturday, , Saturday. She will be dialyzed on 02/10/2019. Volume status is optimal. 2. Bilateral heel osteomyelitis and infected foot ulcers. Continue IV Zosyn as recommended by infectious disease. 3. Anemia secondary to end-stage renal disease. Continue current dose of Aranesp. Hemoglobin level is optimal. 4. Chronic kidney disease-mineral bone disease. Continue current dose of PhosLo 1334 mg by mouth three times a day with meals.
[2019-02-17] MEDS: AUGMENTIN 500 MG TAB PO SCH (21:48)
[2019-02-17] MEDS: ATORVASTATIN 20 MG TAB PO SCH (21:49)
[2019-02-17 22:00] VITALS: BP 165/70
--- NOTE | 2019-02-17 22:15 | IPNPDOC ---
Text Note Date of Service The patient was seen on 02/17/19. NOTE The patient is seen and examined. No acute events overnight. Denies any chest pain, pressure or discomfort. Denies any shortness of breath. Currently comfortable. PHYSICAL EXAMINATION: GENERAL: Currently alert and in no acute distress. Flat affect. HEENT: Normocephalic, atraumatic. CARDIAC: Irregularly irregular. No tachycardia. PULMONARY: Bilaterally clear. ABDOMEN: Soft, nontender. EXTREMITIES: bilateral lower extremity edema. Bilateral deep stage IV heel ulcers, off loading boots, dressing clean, dry and intact. ASSESSMENT AND PLAN: This is a 58-year-old female patient with underlying medical history of type 2 diabetes, CLL, follows with Dr. Maynard, end stage renal disease on dialysis Saturday, and Saturday, congestive heart failure (CHF), chronic nonhealing bilateral heel ulcers and sees Dr. Kaplan, presented with worsening bilateral nonhealing heel ulcers. 1. Chronic bilateral nonhealing heel pressure ulcers with osteomyelitis. The patient will need 6 weeks of antibiotics, currently on Zosyn. switch to augmentin as per ID when patient ready for DC. End date for antibiotic is 03/19/2019. Infectious disease consulted. Culture appreciated. MRI appreciated. Podiatry consult appreciated. Status post debridement. Vascular study done showing distal lesion not amenable for treatment. Likely placement tomorrow 2. End stage renal disease, status post fistulogram by vascular. Nephrology consulted. Continue dialysis. Continue current medications. 3. Hyperkalemia, resolved. Continue dialysis. Further recommendations as per nephrology. 4. Chronic atrial fibrillation. Currently stable. Continue Coumadin and followup INR. Continue digoxin, metoprolol. 5. Congestive heart failure (CHF) with diastolic dysfunction. Current euvolemic. Continue dialysis. 6. Type 2 diabetes. hypoglycemia, basal insulin reduced. Basal bolus insulin. Followup fingersticks and adjust as needed. Holding oral medications. 7. Dyslipidemia. Continue statin. 8. Peripheral vascular disease. Status post angiogram. No intervention possible given distal disease. Vascular consulted. Continue Coumadin. 9. Anemia of chronic disease. The patient was transfused 2 units of packed red blood cells. Followup hemoglobin and hematocrit. 10. Deep vein thrombosis (DVT) prophylaxis. The patient is on Coumadin. Followup INR. DISPOSITION: Likely discharge to residential facility Saturday VS,Viola, I+O VS, Viola, I+O Laboratory Tests 02/17/19 05:57 Red Blood Count 3.24 L, Mean Corpuscular Volume 97.2 H, Mean Corpuscular Hemoglobin 28.4, Mean Corpuscular Hemoglobin Concent 29.2 L, Red Cell Distribution Width 18.9 H, Calcium Level 8.3 L Vital Signs Date Time Temp Pulse Resp B/P (MAP) Pulse Ox O2 Delivery O2 Flow Rate FiO2 02/17/19 17:07 17 02/17/19 14:00 97.3 79 155/83 (107) 96 I&O- Last 24 Hours up to 6 AM 02/17/19 06:00 Intake Total 700 ml Output Total 0 ml Balance 700 ml CHRISTOPHER LACEY MD Feb 17, 2019 22:14
[2019-02-18 06:00] VITALS: BP 130/59
[2019-02-18 06:38] LABS: HEMATOCRIT 30.7 % (36.0-47.0); MEAN CORPUSCULAR HEMOGLOBIN 27.4 pg (27.0-33.0); MEAN CORPUSCULAR HGB CONC 29.3 g/dl (32.0-36.5); MEAN CORPUSCULAR VOLUME 93.3 fl (80.0-96.0); PLATELET COUNT, AUTOMATED 235 10^3/uL (150-450); RED BLOOD COUNT 3.29 10^6/uL (4.00-5.40); WHITE BLOOD COUNT 8.6 10^3/uL (4.0-10.0)
[2019-02-18 06:44] LABS: INR 2.68; PROTHROMBIN TIME 29.1 SECONDS (12.1-14.4)
[2019-02-18 06:54] LABS: CALCIUM LEVEL 8.7 MG/DL (8.5-10.1); CREATININE FOR GFR 2.57 MG/DL (0.55-1.30); GLOMERULAR FILTRATION RATE 20.3 (>51); MAGNESIUM LEVEL 2.3 MG/DL (1.8-2.4); POTASSIUM SERUM 4.3 MEQ/L (3.5-5.1)
[2019-02-18] MEDS: HumaLOG INSULIN (NovoLOG) PER UNIT SC SCH ×4 (07:30→21:00)
--- NOTE | 2019-02-18 08:43 | IPN ---
DATE: 02/17/2019 Gem seems to be doing fairly well. She has no new complaints. I have discussed the case with Dr. Reid who has been trying to diurese her. During her dialysis another goal of fluid removal was 4 liters today. She denies any pain. No nausea, vomiting or diarrhea. Her Arredondo catheter was for removed today and the plan would be for her to go to the shelter tomorrow, hopefully. Temperature is 97.3, pulse 79 and regular, respirations 16, blood pressure 155/83, O2 sat 96% on room air. Both lower extremities +2 edema bilaterally. Bilaterally exposed calcaneus with improving granulation tissue. No necrotic tissue. No purulent discharge. No tenderness. LABS: White count is 10.9, hemoglobin 9.2, hematocrit 31.5, platelets 265. Sodium 135, potassium 5.6, chloride 102, bicarb 127, BUN 38, creatinine 3.82, glucose 43, calcium 8.3, CRP 2.81. Wound cultures were positive for strep mitis, E. Faecalis, anaerobic cocci and bacteroides. The patient will be switched to Augmentin 500 mg p.o. q.h.s., which is a renal dose. The patient will need 4 weeks of p.o. antibiotic for chronic osteomyelitis. Would encourage yogurt intake and would recommend probiotics 1 tablet p.o. b.i.d. hopefully to decrease the risk of C. Difficile. This will be added to her medication list. Monitor CBC, CRP weekly at the shelter. The patient is being transferred to shelter for wound care and hopefully physical therapy as she is completely non ambulatory.
[2019-02-18] MEDS: METOPROLOL SUCC (TopROL XL) 50MG **XL** TAB PO SCH (09:00)
[2019-02-18] MEDS: LACTOBACILLUS ACIDOPHILUS CAP (BACID) PO SCH ×2 (09:25→17:56)
[2019-02-18] MEDS: CALCIUM ACETATE 667 MG GELCAP PO SCH ×3 (09:25→17:56)
[2019-02-18] MEDS: VENLAFAXINE **XR** 75MG CAPSULE PO SCH (09:33)
[2019-02-18] MEDS: LEVEMIR (INSULIN DETEMIR) 1 UNITS/0.01ML SC SCH ×2 (09:33→21:25)
[2019-02-18] MEDS: EUCERIN 120GM CREAM EXT SCH (09:34)
[2019-02-18] MEDS: NORCO, ANEXSIA 5/325MG TABLET (HYDROcodone/ACETAMINOPHEN) PO PRN (15:11)
[2019-02-18] MEDS: SANTYL OINT 30GM TOP SCH (15:12)
[2019-02-18] MEDS: WARFARIN SOD 4 MG TAB PO SCH (17:55)
--- NOTE | 2019-02-18 21:00 | IPNPDOC ---
Text Note Date of Service The patient was seen on 02/18/19. NOTE The patient is seen and examined. No acute events overnight. Denies any chest pain, pressure or discomfort. Denies any shortness of breath. Currently comfortable. PHYSICAL EXAMINATION: GENERAL: Currently alert and in no acute distress. Flat affect. HEENT: Normocephalic, atraumatic. CARDIAC: Irregularly irregular. No tachycardia. PULMONARY: Bilaterally clear. ABDOMEN: Soft, nontender. EXTREMITIES: bilateral lower extremity edema. Bilateral deep stage IV heel ulcers, off loading boots, dressing clean, dry and intact. ASSESSMENT AND PLAN: This is a 58-year-old female patient with underlying medical history of type 2 diabetes, CLL, follows with Dr. Maynard, end stage renal disease on dialysis Saturday, and Saturday, congestive heart failure (CHF), chronic nonhealing bilateral heel ulcers and sees Dr. Kaplan, presented with worsening bilateral nonhealing heel ulcers. 1. Chronic bilateral nonhealing heel pressure ulcers with osteomyelitis. The patient will need 6 weeks of antibiotics, currently on Zosyn. switch to augmentin as per ID . End date for antibiotic is 03/19/2019. Infectious disease consulted. Culture appreciated. MRI appreciated. Podiatry consult appreciated. Status post debridement. Vascular study done showing dista l lesion not amenable for treatment. Pending placement 2. End stage renal disease, status post fistulogram by vascular. Nephrology consulted. Continue dialysis. Continue current medications. 3. Hyperkalemia, resolved. Continue dialysis. Further recommendations as per nephrology. 4. Chronic atrial fibrillation. Currently stable. Continue Coumadin and followup INR. Continue digoxin, metoprolol. 5. Congestive heart failure (CHF) with diastolic dysfunction. Current euvolemic. Continue dialysis. 6. Type 2 diabetes. hypoglycemia, basal insulin reduced. Basal bolus insulin. Followup fingersticks and adjust as needed. Holding oral medications. 7. Dyslipidemia. Continue statin. 8. Peripheral vascular disease. Status post angiogram. No intervention possible given distal disease. Vascular consulted. Continue Coumadin. 9. Anemia of chronic disease. The patient was transfused 2 units of packed red blood cells. Followup hemoglobin and hematocrit. 10. Deep vein thrombosis (DVT) prophylaxis. The patient is on Coumadin. Followup INR. DISPOSITION: DC delayed by placement VS,Viola, I+O VS, Viola, I+O Laboratory Tests 02/18/19 06:04 Red Blood Count 3.29 L, Mean Corpuscular Volume 93.3, Mean Corpuscular Hemoglobin 27.4, Mean Corpuscular Hemoglobin Concent 29.3 L, Red Cell Distribution Width 18.6 H, Calcium Level 8.7 Vital Signs Date Time Temp Pulse Resp B/P (MAP) Pulse Ox O2 Delivery O2 Flow Rate FiO2 02/18/19 16:00 16 02/18/19 09:00 108/54 02/18/19 06:00 98.9 79 93 I&O- Last 24 Hours up to 6 AM 02/18/19 06:00 Intake Total 1520 ml Output Total 4000 ml Balance -2480 ml CHRISTOPHER LACEY MD Feb 18, 2019 21:00
[2019-02-18] MEDS: AUGMENTIN 500 MG TAB PO SCH (21:24)
[2019-02-18] MEDS: ATORVASTATIN 20 MG TAB PO SCH (21:25)
[2019-02-18 22:00] VITALS: BP 142/69
[2019-02-19] MEDS: DIGOXIN 0.125 MG TAB PO SCH (05:48)
[2019-02-19] MEDS: LACTOBACILLUS ACIDOPHILUS CAP (BACID) PO SCH ×2 (05:48→17:31)
[2019-02-19] MEDS: VENLAFAXINE **XR** 75MG CAPSULE PO SCH (05:49)
[2019-02-19] MEDS: CALCIUM ACETATE 667 MG GELCAP PO SCH ×3 (05:49→17:31)
[2019-02-19] MEDS: METOPROLOL SUCC (TopROL XL) 50MG **XL** TAB PO SCH (05:50)
[2019-02-19] MEDS: EUCERIN 120GM CREAM EXT SCH (05:53)
[2019-02-19 06:00] VITALS: BP 133/60
[2019-02-19 06:17] LABS: HEMATOCRIT 31.8 % (36.0-47.0); HEMOGLOBIN 9.5 g/dl (12.0-15.5); MEAN CORPUSCULAR HEMOGLOBIN 27.9 pg (27.0-33.0); MEAN CORPUSCULAR HGB CONC 29.9 g/dl (32.0-36.5); MEAN CORPUSCULAR VOLUME 93.3 fl (80.0-96.0); PLATELET COUNT, AUTOMATED 233 10^3/uL (150-450); RED BLOOD COUNT 3.41 10^6/uL (4.00-5.40); WHITE BLOOD COUNT 8.7 10^3/uL (4.0-10.0)
[2019-02-19 06:33] LABS: INR 1.91; PROTHROMBIN TIME 22.2 SECONDS (12.1-14.4)
[2019-02-19 06:47] LABS: BLOOD UREA NITROGEN 31 MG/DL (7-18); C REACTIVE PROTEIN QUANTITATIV 2.64 MG/DL (0.00-0.30); CALCIUM LEVEL 8.6 MG/DL (8.5-10.1); CARBON DIOXIDE LEVEL 29 MEQ/L (21-32); CHLORIDE LEVEL 100 MEQ/L (98-107); GLOMERULAR FILTRATION RATE 14.2 (>51); GLUCOSE, FASTING 84 MG/DL (70-100); MAGNESIUM LEVEL 2.4 MG/DL (1.8-2.4); POTASSIUM SERUM 4.9 MEQ/L (3.5-5.1); SODIUM LEVEL 135 MEQ/L (136-145)
[2019-02-19] MEDS: HumaLOG INSULIN (NovoLOG) PER UNIT SC SCH ×4 (07:30→20:49)
[2019-02-19] MEDS: LEVEMIR (INSULIN DETEMIR) 1 UNITS/0.01ML SC SCH ×2 (07:38→20:49)
[2019-02-19] MEDS ORDERED: PILL CRUSHER/CUTTER 1 EACH XX PRN (08:45)
[2019-02-19] MEDS ORDERED: IRON SUCROSE 100MG 5ML VIAL (J1756 PER 1MG) IV ONE (09:00)
--- NOTE | 2019-02-19 10:51 | IPN ---
DATE OF SERVICE: 02/18/2019 SUBJECTIVE: Gem is seen and examined this morning at the bedside. Her discharge plans have changed. She will now stay in [facility] until Saturday of next week. She was dialyzed yesterday with 4 liters of fluid removed. There are no new complaints reported by the patient today. VITAL SIGNS: Temperature 98.9, pulse 79, respiratory rate 18, blood pressure 130/59, saturating 93% on room air. Intake yesterday was 1500 mL, dialysis yesterday removed 4 liters, net negative 2.5 liters. GENERAL: The patient is seen lying in bed. Middle aged female, appears older than stated age. Flat affect. Legally blind. Tongue is moist. NECK: Supple. CARDIAC: Irregularly, irregular. 1-2+ edema in the lower extremities. LUNGS: Clear to auscultation bilaterally, no crackles or rales. ABDOMEN: Soft and nontender. There are bowel sounds. EXTREMITIES: Show 1-2+ edema bilaterally. There is waffle boots on both feet and dressings on the feet as well. Her left upper extremity fistula has thrill and bruit. NEUROLOGIC: She is at her baseline mentation. PSYCHIATRIC: She appears depressed. LABORATORIES: White count 8.6, hemoglobin 9.0, platelets 235. Sodium 136, potassium 4.3, magnesium 2.3. INPATIENT MEDICATIONS: Reviewed by myself. She is now on Augmentin 500 mg by mouth at bedtime. Her insulin was adjusted per the primary team. Remainder of medications are unchanged from prior. PROBLEMS: 1. End-stage renal disease on hemodialysis on a Saturday, , Saturday schedule. The patient is going to be transferred to [place] next week and she will be on a Saturday, Saturday, Saturday maintenance schedule there. Hence, this weekend, we will shift her to the [facility] schedule. She is tolerating her treatments well. There is hypervolemia on exam. Continue 4 liters of fluid removed as tolerated by hemodynamics. Her electrolytes are otherwise acceptable. 2. Diastolic congestive heart failure. Chronically volume overloaded. Volume status has improved over the course of this admission. Continue with 4 liter removal with each dialysis treatment as tolerated by hemodynamics. Continue with oral fluid restriction. 3. Anemia related to end stage renal disease and chronic inflammatory state. She continue on iron and Aranesp with hemodialysis. Hemoglobin is suboptimal, but stable at 9.0. 4. Chronic osteomyelitis of the heels. She is on Augmentin as per infectious diseases. Status post debridement and status post vascular studies as well. She is pending skilling nursing facility placement, anticipated to be next week. 5. Chronic atrial fibrillation. The patient is rate controlled with digoxin and metoprolol. She is anticoagulated with Coumadin and has a therapeutic INR.
[2019-02-19] MEDS ORDERED: HEPARIN 1,000 UNITS/ML 10ML VIAL (FOR RADIOLOGY& DIALYSIS ONLY) IV ONE (12:00)
[2019-02-19] MEDS: WARFARIN SOD 3 MG TAB PO SCH (17:29)
[2019-02-19] MEDS: SANTYL OINT 30GM TOP SCH (17:31)
[2019-02-19] MEDS: NORCO, ANEXSIA 5/325MG TABLET (HYDROcodone/ACETAMINOPHEN) PO PRN (17:35)
--- NOTE | 2019-02-19 20:09 | IPNPDOC ---
Text Note Date of Service The patient was seen on 02/19/19. NOTE The patient is seen and examined. No acute events overnight. Denies any chest pain, pressure or discomfort. Denies any shortness of breath. Currently comfortable. PHYSICAL EXAMINATION: GENERAL: Currently alert and in no acute distress. Flat affect. HEENT: Normocephalic, atraumatic. CARDIAC: Irregularly irregular. No tachycardia. PULMONARY: Bilaterally clear. ABDOMEN: Soft, nontender. EXTREMITIES: bilateral lower extremity edema. Bilateral deep stage IV heel ulcers, off loading boots, dressing clean, dry and intact. ASSESSMENT AND PLAN: This is a 58-year-old female patient with underlying medical history of type 2 diabetes, CLL, follows with Dr. Maynard, end stage renal disease on dialysis Saturday, and Saturday, congestive heart failure (CHF), chronic nonhealing bilateral heel ulcers and sees Dr. Kaplan, presented with worsening bilateral nonhealing heel ulcers. 1. Chronic bilateral nonhealing heel pressure ulcers with osteomyelitis. The patient will need 6 weeks of antibiotics, currently on Zosyn. switch to augmentin as per ID . End date for antibiotic is 03/19/2019. Infectious disease consulted. Culture appreciated. MRI appreciated. Podiatry consult appreciated. Status post debridement. Vascular study done showing dista l lesion not amenable for treatment. Pending placement 2. End stage renal disease, status post fistulogram by vascular. Nephrology consulted. Continue dialysis. Continue current medications. 3. Hyperkalemia, resolved. Continue dialysis. Further recommendations as per nephrology. 4. Chronic atrial fibrillation. Currently stable. Continue Coumadin and followup INR. Continue digoxin, metoprolol. 5. Congestive heart failure (CHF) with diastolic dysfunction. Current euvolemic. Continue dialysis. 6. Type 2 diabetes. hypoglycemia, basal insulin reduced. Basal bolus insulin. Followup fingersticks and adjust as needed. Holding oral medications. 7. Dyslipidemia. Continue statin. 8. Peripheral vascular disease. Status post angiogram. No intervention possible given distal disease. Vascular consulted. Continue Coumadin. 9. Anemia of chronic disease. The patient was transfused 2 units of packed red blood cells. Followup hemoglobin and hematocrit. 10. Deep vein thrombosis (DVT) prophylaxis. The patient is on Coumadin. Followup INR. DISPOSITION: DC delayed by placement VS,Viola, I+O VS, Viola, I+O Laboratory Tests 02/19/19 05:43 Red Blood Count 3.41 L, Mean Corpuscular Volume 93.3, Mean Corpuscular Hemoglobin 27.9, Mean Corpuscular Hemoglobin Concent 29.9 L, Red Cell Distribution Width 18.8 H, Calcium Level 8.6 Vital Signs Date Time Temp Pulse Resp B/P (MAP) Pulse Ox O2 Delivery O2 Flow Rate FiO2 02/19/19 18:27 16 02/19/19 06:00 97.9 80 133/60 (84) 91 I&O- Last 24 Hours up to 6 AM 02/19/19 06:00 Intake Total 1040 ml Output Total 0 ml Balance 1040 ml CHRISTOPHER LACEY MD Feb 19, 2019 20:09
[2019-02-19] MEDS: AUGMENTIN 500 MG TAB PO SCH (20:49)
[2019-02-19] MEDS: ATORVASTATIN 20 MG TAB PO SCH (20:49)
[2019-02-19 22:00] VITALS: BP 147/64
[2019-02-20] MEDS: LOPERAMIDE 2 MG CAP PO PRN (03:00)
[2019-02-20 06:00] VITALS: BP 134/60
[2019-02-20] MEDS: VENLAFAXINE **XR** 75MG CAPSULE PO SCH (08:33)
[2019-02-20] MEDS: LACTOBACILLUS ACIDOPHILUS CAP (BACID) PO SCH ×2 (08:33→17:50)
[2019-02-20] MEDS: HumaLOG INSULIN (NovoLOG) PER UNIT SC SCH ×4 (08:34→21:00)
[2019-02-20] MEDS: LEVEMIR (INSULIN DETEMIR) 1 UNITS/0.01ML SC SCH ×2 (08:34→21:32)
[2019-02-20] MEDS: CALCIUM ACETATE 667 MG GELCAP PO SCH ×3 (08:34→17:50)
[2019-02-20] MEDS: EUCERIN 120GM CREAM EXT SCH (08:35)
[2019-02-20] MEDS: SANTYL OINT 30GM TOP SCH (08:35)
[2019-02-20] MEDS: METOPROLOL SUCC (TopROL XL) 50MG **XL** TAB PO SCH (08:35)
--- NOTE | 2019-02-20 09:04 | IPN ---
DATE OF SERVICE: 02/19/2019 SUBJECTIVE: Gem is seen and examined this morning in the hemodialysis unit receiving her maintenance treatment. She denies any new complaints. Denies shortness of breath. Reports stable appetite. She is discharged pending next week. VITAL SIGNS: Temperature 97.9, pulse 80, respiratory rate 17, blood pressure 133/60, saturating 91% on room air. Intake yesterday was 1 liter. Dialysis today removed 4 liters. Weight in the bed scale today is not recorded. GENERAL: The patient is lying in bed. Middle aged female, appears older than stated age, flat affect, legally blind. Tongue is moist. NECK: Supple. CARDIAC: Irregularly, irregular. 1+ edema in the lower extremities. LUNGS: Anterior auscultation only, clear bilaterally. No crackles or rales. ABDOMEN: Soft and nontender. There are bowel sounds. EXTREMITIES: Show 1+ edema bilaterally. There are waffle boots on both feet and dressings on the feet as well. Left upper extremity fistula in use. NEUROLOGIC: She is at her baseline mentation. PSYCHIATRIC: She appears depressed. LABORATORIES: White count 8.7, hemoglobin 9.5, platelets 233. Sodium 135, potassium 4.9, magnesium 2.4. INPATIENT MEDICATIONS: Reviewed by myself. Noted her Coumadin was adjusted per the primary team. Remainder of medications are unchanged from prior. PROBLEMS: 1. End-stage renal disease on hemodialysis on a Saturday, , Saturday schedule. She is going to be transferred to [place] next week and she will be on a Saturday, Saturday, Saturday maintenance schedule there. Hence, this weekend, we will shift her over to the [facility] schedule. She is tolerating her treatments well. There is hypervolemia on exam. Continue 4 liters of fluid removed as tolerated by hemodynamics with each treatment. Her electrolytes are otherwise acceptable. Her fistula is in good use. 2. Diastolic congestive heart failure. Chronically volume overloaded with exacerbation, but volume status has improved over the course of this admission. Continue oral fluid restriction. Continue 4 liter removal with each dialysis treatment as tolerated by hemodynamics. 3. Anemia related to end stage renal disease and chronic inflammatory state. She continues on iron and Aranesp with hemodialysis. Hemoglobin is slowly improving and up to 9.5 today. 4. Chronic osteomyelitis of the heels. She is status post debridement and status post vascular studies as well. She is pending residential facility placement, anticipated to be next week. She continues on Augmentin as per infectious diseases recommendations. 5. Chronic atrial fibrillation. Slightly subtherapeutic INR, on Coumadin, the dose of which has been adjusted by the primary team. She also continues on digoxin and metoprolol.
[2019-02-20 09:41] LABS: HEPATITIS B SURFACE ANTIGEN NEGATIVE (NEGATIVE)
[2019-02-20] MEDS: NORCO, ANEXSIA 5/325MG TABLET (HYDROcodone/ACETAMINOPHEN) PO PRN (13:33)
[2019-02-20 14:00] VITALS: BP 162/74
--- NOTE | 2019-02-20 16:34 | IPN ---
DATE: 02/20/2019 Gem seems to be in better spirits today. She is eating her lunch. She has no complaints. Temperature is 98.3, pulse 86, respirations 16, blood pressure 140/74, oxygen saturation 91% to 93% on room air. Heart: Normal S1, S2. No murmurs. Lungs: Diminished breath sounds at the bases but clear. Abdomen: Morbidly obese, soft, nontender. Extremities: Pitting edema +2 of the upper thighs, +1 on the lower legs. Bilateral decubitus ulcers of both heels have markedly improved. There is granulation tissue. There is still exposed bone but no purulence. There is only bloody discharge. No tenderness. No surrounding cellulitis. The ulcers are at least 7 x 5 cm in size. LABORATORY DATA: White count is 8.7, hemoglobin 9.5, hematocrit 31.8, platelets 233. Sodium 135, potassium 4.9, chloride 100, bicarbonate 29, BUN 31, creatinine 3.5, glucose 84, calcium 8.6, magnesium 2.4, CRP 2.64, down from 16.3. IMPRESSION: Bilateral decubitus ulcers of both heels with polymicrobial calcaneus osteomyelitis. Most pathogens are Streptococcus mitis, Enterococcus (E) faecalis, and anaerobes. The patient is currently on Augmentin after she finished 2 weeks of IV Zosyn. PLAN She will receive 4 weeks of oral Augmentin at bedtime for osteomyelitis. Continue with offloading, dressing changes. The patient will be going to the snf for rehabilitation in [place] on Saturday. DAYNA
[2019-02-20] MEDS: WARFARIN SOD 3 MG TAB PO SCH (17:51)
--- NOTE | 2019-02-20 20:20 | IPNPDOC ---
Text Note Date of Service The patient was seen on 02/20/19. NOTE The patient is seen and examined. No acute events overnight. reported b/l feet pain. Denies any chest pain, pressure or discomfort. Denies any shortness of breath. PHYSICAL EXAMINATION: GENERAL: Currently alert and in no acute distress. Flat affect. HEENT: Normocephalic, atraumatic. CARDIAC: Irregularly irregular. No tachycardia. PULMONARY: Bilaterally clear. ABDOMEN: Soft, nontender. EXTREMITIES: bilateral lower extremity edema. Bilateral deep stage IV heel ulcers, off loading boots, dressing clean, dry and intact. ASSESSMENT AND PLAN: This is a 58-year-old female patient with underlying medical history of type 2 diabetes, CLL, follows with Dr. Maynard, end stage renal disease on dialysis Saturday, and Saturday, congestive heart failure (CHF), chronic nonhealing bilateral heel ulcers and sees Dr. Kaplan, presented with worsening bilateral nonhealing heel ulcers. 1. Chronic bilateral nonhealing heel pressure ulcers with osteomyelitis. The patient will need 6 weeks of antibiotics, currently on Zosyn. switch to augmentin as per ID . End date for antibiotic is 03/19/2019. Infectious disease consulted. Culture appreciated. MRI appreciated. Podiatry consult appreciated. Status post debridement. Vascular study done showing distal lesion not amenable for treatment. Pending placement 2. End stage renal disease, status post fistulogram by vascular. Nephrology consulted. Continue dialysis. Continue current medications. 3. Hyperkalemia, resolved. Continue dialysis. Further recommendations as per nephrology. 4. Chronic atrial fibrillation. Currently stable. Continue Coumadin and followup INR. Continue digoxin, metoprolol. 5. Congestive heart failure (CHF) with diastolic dysfunction. Current euvolemic. Continue dialysis. 6. Type 2 diabetes. hypoglycemia, basal insulin reduced. Basal bolus insulin. Followup fingersticks and adjust as needed. Holding oral medications. 7. Dyslipidemia. Continue statin. 8. Peripheral vascular disease. Status post angiogram. No intervention possible given distal disease. Vascular consulted. Continue Coumadin. 9. Anemia of chronic disease. The patient was transfused 2 units of packed red blood cells. Followup hemoglobin and hematocrit. 10. Deep vein thrombosis (DVT) prophylaxis. The patient is on Coumadin. Followup INR. DISPOSITION: DC delayed by placement, SNF in [place] scheduled for Saturday VS,Fishbone, I+O VS, Fishbone, I+O Vital Signs Date Time Temp Pulse Resp B/P (MAP) Pulse Ox O2 Delivery O2 Flow Rate FiO2 02/20/19 14:03 16 02/20/19 14:00 98.3 86 162/74 (103) 91 I&O- Last 24 Hours up to 6 AM 02/20/19 06:00 Intake Total 920 ml Output Total 4000 ml Balance -3080 ml CHRISTOPHER LACEY MD Feb 20, 2019 20:20
[2019-02-20] MEDS: ATORVASTATIN 20 MG TAB PO SCH (21:31)
[2019-02-20] MEDS: AUGMENTIN 500 MG TAB PO SCH (21:31)
[2019-02-20 22:00] VITALS: BP 143/73
[2019-02-21] MEDS: LACTOBACILLUS ACIDOPHILUS CAP (BACID) PO SCH ×2 (05:55→19:32)
[2019-02-21] MEDS: LOPERAMIDE 2 MG CAP PO PRN (05:55)
[2019-02-21] MEDS: METOPROLOL SUCC (TopROL XL) 50MG **XL** TAB PO SCH (05:56)
[2019-02-21] MEDS: VENLAFAXINE **XR** 75MG CAPSULE PO SCH (05:56)
[2019-02-21] MEDS: DIGOXIN 0.125 MG TAB PO SCH (05:57)
[2019-02-21] MEDS: CALCIUM ACETATE 667 MG GELCAP PO SCH ×3 (05:57→19:32)
[2019-02-21 06:00] VITALS: BP 139/70
[2019-02-21 06:19] LABS: HEMATOCRIT 31.1 % (36.0-47.0); HEMOGLOBIN 9.3 g/dl (12.0-15.5); MEAN CORPUSCULAR HEMOGLOBIN 27.8 pg (27.0-33.0); MEAN CORPUSCULAR HGB CONC 29.9 g/dl (32.0-36.5); MEAN CORPUSCULAR VOLUME 93.1 fl (80.0-96.0); PLATELET COUNT, AUTOMATED 227 10^3/uL (150-450); RED BLOOD COUNT 3.34 10^6/uL (4.00-5.40); WHITE BLOOD COUNT 9.6 10^3/uL (4.0-10.0)
[2019-02-21 06:28] LABS: INR 2.08; PROTHROMBIN TIME 23.8 SECONDS (12.1-14.4)
[2019-02-21 06:43] LABS: C REACTIVE PROTEIN QUANTITATIV 2.03 MG/DL (0.00-0.30); CALCIUM LEVEL 8.9 MG/DL (8.5-10.1); CREATININE FOR GFR 3.45 MG/DL (0.55-1.30); GLOMERULAR FILTRATION RATE 14.5 (>51); MAGNESIUM LEVEL 2.4 MG/DL (1.8-2.4); POTASSIUM SERUM 4.4 MEQ/L (3.5-5.1)
[2019-02-21] MEDS: EUCERIN 120GM CREAM EXT SCH (08:17)
[2019-02-21] MEDS: SANTYL OINT 30GM TOP SCH (08:17)
[2019-02-21] MEDS: HumaLOG INSULIN (NovoLOG) PER UNIT SC SCH ×4 (08:17→21:00)
[2019-02-21] MEDS: LEVEMIR (INSULIN DETEMIR) 1 UNITS/0.01ML SC SCH ×2 (08:17→21:16)
[2019-02-21] MEDS ORDERED: IRON SUCROSE 100MG 5ML VIAL (J1756 PER 1MG) IV ONE (09:00)
[2019-02-21] MEDS: NORCO, ANEXSIA 5/325MG TABLET (HYDROcodone/ACETAMINOPHEN) PO PRN ×2 (10:57→23:05)
[2019-02-21] MEDS ORDERED: HEPARIN 1,000 UNITS/ML 10ML VIAL (FOR RADIOLOGY& DIALYSIS ONLY) IV ONE (11:00)
--- NOTE | 2019-02-21 12:55 | IPN ---
DATE OF VISIT: 02/21/2019 Mrs. Gibbons is seen this morning on her bedside. She is lying in her bed without any acute distress. She denies any nausea, vomiting, dyspnea, or chest pain. She is scheduled for discharge to [facility] on Saturday next week. She is being treated for bilateral diabetic foot ulcer and multiple other comorbid conditions. She has end-stage renal disease and has been dialysis dependent with a schedule of Saturday, , and Saturday. On physical exam, temperature 97.7 degrees Fahrenheit, heart rate 82 per minute, and respiratory rate 18 per minute. Blood pressure 139/70 mmHg, and oxygen saturation 93%. Head is atraumatic. She is blind from both eyes. She has multiple ulcers on her head and neck area. Neck is supple, and jugular venous distention (JVD) is not elevated. Heart: Sounds are regular and lungs clear to auscultation. Abdomen: Soft, nontender, and bowel sounds are normal. Extremities have no cyanosis or clubbing. Left arm arteriovenous (AV) fistula is patent. Both feet are in dressings. Neurologically, she is blind but without any other focal deficit. Today's labs show WBC count 9.6, hemoglobin 9.3, and hematocrit 31. Platelets 227. Sodium 137, potassium 4.4, CO2 28, BUN 33, and creatinine 3.45. PROBLEMS: 1. End-stage renal disease. Patient is due for dialysis today, and we will plan to dialyze her this afternoon. Her volume status is reasonable now and will try to remove about 4 liters of fluid as tolerated. 2. Anemia. Her anemia is stable at present, and she will continue to receive Aranesp once a week. 3. Chronic hypervolemia and peripheral edema. Volume status has improved significantly as her compliance has improved due to being in hospital. She has been chronically noncompliant with dialysis treatment, diet, and fluid restriction. Here in the hospital, she is forced to follow her dietary restrictions and also forced to have dialysis three times a week which has helped to correct her volume status. 4. Disposition. Patient is scheduled for discharge to [facility] on Saturday. We will plan to dialyze her on Saturday next week.
[2019-02-21 14:00] VITALS: BP 136/71
--- NOTE | 2019-02-21 17:18 | IPNPDOC ---
Text Note Date of Service The patient was seen on 02/21/19. NOTE The patient is seen and examined. No acute events overnight. Denies any chest pain, pressure or discomfort. Denies any shortness of breath. PHYSICAL EXAMINATION: GENERAL: Currently alert and in no acute distress. Flat affect. HEENT: Normocephalic, atraumatic. CARDIAC: Irregularly irregular. No tachycardia. PULMONARY: Bilaterally clear. ABDOMEN: Soft, nontender. EXTREMITIES: bilateral lower extremity edema. Bilateral deep stage IV heel ulcers, off loading boots, dressing clean, dry and intact. ASSESSMENT AND PLAN: This is a 58-year-old female patient with underlying medical history of type 2 diabetes, CLL, follows with Dr. Maynard, end stage renal disease on dialysis Saturday, and Saturday, congestive heart failure (CHF), chronic nonhealing bilateral heel ulcers and sees Dr. Kaplan, presented with worsening bilateral nonhealing heel ulcers. 1. Chronic bilateral nonhealing heel pressure ulcers with osteomyelitis. The patient will need 6 weeks of antibiotics, currently on Zosyn. switch to augmentin as per ID . End date for antibiotic is 03/19/2019. Infectious disease consulted. Culture appreciated. MRI appreciated. Podiatry consult appreciated. Status post debridement. Vascular study done, showing distal lesion not amenable for treatment. Pending placement 2. End stage renal disease, status post fistulogram by vascular. Nephrology consulted. Continue dialysis. Continue current medications. 3. Hyperkalemia, resolved. Continue dialysis. Further recommendations as per nephrology. 4. Chronic atrial fibrillation. Currently stable. Continue Coumadin and followup INR. Continue digoxin, metoprolol. 5. Congestive heart failure (CHF) with diastolic dysfunction. Current euvolemic. Continue dialysis. 6. Type 2 diabetes. hypoglycemia, basal insulin reduced. Basal bolus insulin. Followup fingersticks and adjust as needed. Holding oral medications. 7. Dyslipidemia. Continue statin. 8. Peripheral vascular disease. Status post angiogram. No intervention possible given distal disease. Vascular consulted. Continue Coumadin. 9. Anemia of chronic disease. The patient was transfused 2 units of packed red blood cells. Followup hemoglobin and hematocrit. 10. Deep vein thrombosis (DVT) prophylaxis. The patient is on Coumadin. Followup INR. DISPOSITION: DC delayed by placement, SNF in [place] scheduled for Saturday VS,Viola, I+O VS, Viola, I+O Laboratory Tests 02/21/19 06:08 Red Blood Count 3.34 L, Mean Corpuscular Volume 93.1, Mean Corpuscular Hemoglobin 27.8, Mean Corpuscular Hemoglobin Concent 29.9 L, Red Cell Distribut ion Width 19.2 H, Calcium Level 8.9 Vital Signs Date Time Temp Pulse Resp B/P (MAP) Pulse Ox O2 Delivery O2 Flow Rate FiO2 02/21/19 14:00 97.7 82 16 136/71 (92) 93 l I&O- Last 24 Hours up to 6 AM 02/21/19 06:00 Intake Total 1060 ml Output Total 0 ml Balance 1060 ml CHRISTOPHER LACEY MD Feb 21, 2019 17:18
[2019-02-21] MEDS: WARFARIN SOD 3 MG TAB PO SCH (19:31)
[2019-02-21] MEDS: ATORVASTATIN 20 MG TAB PO SCH (21:15)
[2019-02-21] MEDS: AUGMENTIN 500 MG TAB PO SCH (21:15)
[2019-02-21 22:00] VITALS: BP 132/70
[2019-02-21] MEDS: ONDANSETRON 4 MG ORAL DISINTEGRATING TAB (Q0162 PER 1MG) PO PRN (23:08)
[2019-02-22 06:00] VITALS: BP 125/59
[2019-02-22] MEDS: LEVEMIR (INSULIN DETEMIR) 1 UNITS/0.01ML SC SCH ×2 (08:06→22:13)
[2019-02-22] MEDS: HumaLOG INSULIN (NovoLOG) PER UNIT SC SCH ×4 (08:07→21:00)
[2019-02-22] MEDS: CALCIUM ACETATE 667 MG GELCAP PO SCH ×3 (08:07→17:14)
[2019-02-22] MEDS: VENLAFAXINE **XR** 75MG CAPSULE PO SCH (08:07)
[2019-02-22] MEDS: METOPROLOL SUCC (TopROL XL) 50MG **XL** TAB PO SCH (08:07)
[2019-02-22] MEDS: LACTOBACILLUS ACIDOPHILUS CAP (BACID) PO SCH ×2 (08:07→17:14)
[2019-02-22] MEDS: EUCERIN 120GM CREAM EXT SCH (08:08)
[2019-02-22] MEDS: SANTYL OINT 30GM TOP SCH (08:08)
--- NOTE | 2019-02-22 13:45 | IPN ---
DATE OF VISIT: 02/22/2019 Mrs. Gibbons is seen this afternoon on her bedside. She is laying in the bed without any acute distress but complains of pain in her left elbow area. She denies any nausea or vomiting. She reports that she did not eat very well this morning as she was not hungry. She did have dialysis yesterday which she tolerated very well. PHYSICAL EXAMINATION: Temperature 98.5 degrees Fahrenheit, heart rate 93 per minute and respiratory rate 16 per minute. Blood pressure 125/59 mmHg and oxygen saturation 95%. Head is atraumatic. Neck is supple and without JVD or thyroid enlargement. Heart sounds are irregular in rhythm. Lungs have good bilateral air entry. Abdomen soft and nontender and bowel sounds are normal. Extremities have no cyanosis or clubbing. Left arm AV fistula is patent. She does have an ecchymosis on her left elbow area which is probably from the infiltration of her AV fistula. A her feet are both in dressings and foam boots. Her fingerstick blood sugar this morning was 130 and now it is 153. There were no labs done today. PROBLEMS: 1. End-stage renal disease. The patient was dialyzed yesterday and we will dialyze her again tomorrow as she is likely to be discharged to [facility] on Saturday. Her outpatient dialysis schedule will be Saturday, Saturday and Saturday. 2. Hypertension. Blood pressure is very well controlled and no changes in antihypertensive meds are being made. 3. Anemia. Her anemia has been stable and she remains on Aranesp with dialysis once a week which will be continued. 4. Bilateral osteomyelitis of heels and infected foot wounds. She remains on antibiotics and wound care. She is a going to be placed in [facility] for care due to inability to get her care at home.
[2019-02-22 14:00] VITALS: BP 137/69
[2019-02-22] MEDS: NORCO, ANEXSIA 5/325MG TABLET (HYDROcodone/ACETAMINOPHEN) PO PRN (15:52)
--- NOTE | 2019-02-22 16:55 | IPNPDOC ---
Text Note Date of Service The patient was seen on 02/22/19. NOTE The patient is seen and examined. No acute events overnight. Denies any chest pain, pressure or discomfort. Denies any shortness of breath. PHYSICAL EXAMINATION: GENERAL: Currently alert and in no acute distress. Flat affect. HEENT: Normocephalic, atraumatic. CARDIAC: Irregularly irregular. No tachycardia. PULMONARY: Bilaterally clear. ABDOMEN: Soft, nontender. EXTREMITIES: bilateral lower extremity edema. Bilateral deep stage IV heel ulcers, off loading boots, dressing clean, dry and intact. ASSESSMENT AND PLAN: This is a 58-year-old female patient with underlying medical history of type 2 diabetes, CLL, follows with Dr. Maynard, end stage renal disease on dialysis Saturday, and Saturday, congestive heart failure (CHF), chronic nonhealing bilateral heel ulcers and sees Dr. Kaplan, presented with worsening bilateral nonhealing heel ulcers. 1. Chronic bilateral nonhealing heel pressure ulcers with osteomyelitis. The patient will need 6 weeks of antibiotics, off Zosyn. switch to augmentin as per ID . End date for antibiotic is 03/19/2019. Infectious disease consulted. Culture appreciated. MRI appreciated. Podiatry consult appreciated. Status post debridement. Vascular study done, showing distal lesion not amenable for treatment. Pending placement 2. End stage renal disease, status post fistulogram by vascular. Nephrology consulted. Continue dialysis. Continue current medications. 3. Hyperkalemia, resolved. Continue dialysis. Further recommendations as per nephrology. 4. Chronic atrial fibrillation. Currently stable. Continue Coumadin and followup INR. Continue digoxin, metoprolol. 5. Congestive heart failure (CHF) with diastolic dysfunction. Current euvolemic. Continue dialysis. 6. Type 2 diabetes. hypoglycemia, basal insulin reduced. Basal bolus insulin. Followup fingersticks and adjust as needed. Holding oral medications. 7. Dyslipidemia. Continue statin. 8. Peripheral vascular disease. Status post angiogram. No intervention possible given distal disease. Vascular consulted. Continue Coumadin. 9. Anemia of chronic disease. The patient was transfused 2 units of packed red blood cells. Followup hemoglobin and hematocrit. 10. Deep vein thrombosis (DVT) prophylaxis. The patient is on Coumadin. Followup INR. DISPOSITION: DC delayed by placement, SNF in [place] scheduled for Saturday VS,Fishbone, I+O VS, Fishbone, I+O Vital Signs Date Time Temp Pulse Resp B/P (MAP) Pulse Ox O2 Delivery O2 Flow Rate FiO2 02/22/19 16:22 18 02/22/19 14:00 98.5 96 137/69 (91) 88 I&O- Last 24 Hours up to 6 AM 02/22/19 05:59 Intake Total 890 ml Output Total 4000 ml Balance -3110 ml CHRISTOPHER LACEY MD Feb 22, 2019 16:55
[2019-02-22] MEDS: WARFARIN SOD 3 MG TAB PO SCH (17:14)
[2019-02-22] MEDS: ONDANSETRON 4 MG ORAL DISINTEGRATING TAB (Q0162 PER 1MG) PO PRN (20:51)
[2019-02-22] MEDS: AUGMENTIN 500 MG TAB PO SCH (21:26)
[2019-02-22] MEDS: ATORVASTATIN 20 MG TAB PO SCH (21:26)
[2019-02-22 22:00] VITALS: BP 115/57
[2019-02-23] MEDS: DIGOXIN 0.125 MG TAB PO SCH (05:48)
[2019-02-23] MEDS: LACTOBACILLUS ACIDOPHILUS CAP (BACID) PO SCH ×2 (05:48→17:32)
[2019-02-23] MEDS: VENLAFAXINE **XR** 75MG CAPSULE PO SCH (05:48)
[2019-02-23] MEDS: CALCIUM ACETATE 667 MG GELCAP PO SCH ×3 (05:48→17:32)
[2019-02-23] MEDS: METOPROLOL SUCC (TopROL XL) 50MG **XL** TAB PO SCH (05:49)
[2019-02-23] MEDS: LOPERAMIDE 2 MG CAP PO PRN (05:59)
[2019-02-23 06:00] VITALS: BP 134/66
[2019-02-23 06:37] LABS: HEMOGLOBIN 9.7 g/dl (12.0-15.5); MEAN CORPUSCULAR HGB CONC 29.4 g/dl (32.0-36.5); MEAN CORPUSCULAR VOLUME 95.4 fl (80.0-96.0); PLATELET COUNT, AUTOMATED 231 10^3/uL (150-450); RED BLOOD COUNT 3.46 10^6/uL (4.00-5.40); WHITE BLOOD COUNT 10.5 10^3/uL (4.0-10.0)
[2019-02-23 06:44] LABS: INR 2.36; PROTHROMBIN TIME 26.3 SECONDS (12.1-14.4)
[2019-02-23 06:48] LABS: C REACTIVE PROTEIN QUANTITATIV 3.27 MG/DL (0.00-0.30); CALCIUM LEVEL 8.8 MG/DL (8.5-10.1); CREATININE FOR GFR 3.35 MG/DL (0.55-1.30); MAGNESIUM LEVEL 2.4 MG/DL (1.8-2.4)
[2019-02-23] MEDS: LEVEMIR (INSULIN DETEMIR) 1 UNITS/0.01ML SC SCH ×2 (08:20→21:55)
[2019-02-23] MEDS: HumaLOG INSULIN (NovoLOG) PER UNIT SC SCH ×4 (08:20→21:00)
[2019-02-23] MEDS ORDERED: HEPARIN 1,000 UNITS/ML 10ML VIAL (FOR RADIOLOGY& DIALYSIS ONLY) IV ONE (11:30)
[2019-02-23] MEDS ORDERED: LANTINJ4 SC (11:44)
[2019-02-23 14:00] VITALS: BP 116/55
[2019-02-23] MEDS: EUCERIN 120GM CREAM EXT SCH (14:22)
--- NOTE | 2019-02-23 15:03 | DSES ---
DATE OF ADMISSION: 01/30/2019 DATE OF DISCHARGE: deandra 02/24/19 pending [facility] placement PRIMARY CARE PROVIDER: RAMÍREZ Steen. DIRECTOR BUILDING: Dr. Ghada Reid. INFECTIOUS DISEASE: DR. Floresita Bryan. IMPACT HAMMER OPERATOR: Dr. Henok Moy. BAR ROLLER: Dr. Kaplan. FINAL DIAGNOSES: Chronic bilateral nonhealing pressure ulcer of bilateral heels with osteomyelitis. End-stage renal disease with hyperkalemia. Chronic atrial fibrillation. Congestive heart failure with diastolic dysfunction. Type 2 diabetes. Dyslipidemia. Peripheral vascular disease. Anemia of chronic disease. HISTORY OF PRESENT ILLNESS: This is a 58-year-old female patient with underlying medical history of type 2 diabetes, chronic lymphocystic leukemia (CLL), who follows with Dr. Reno, end-stage renal disease initially in dialysis Saturday, , Saturday, congestive heart failure with diastolic dysfunction, chronic nonhealing wound on bilateral heels. Presented to [facility] sent by Dr. Kaplan, student career development specialist for worsening wound and possible osteomyelitis with significant l bleeding from debridement. The wound was cauterized and bandaged. Dr. Mansfield vascular surgery has been called for arterial study. Dr. Moy has been called in by the emergency department for further wound care. Patient was found to have leukocytosis, was afebrile. Does report episode of chills. Has increased erythema bilateral legs with foul-smelling wound, bilateral heels. Denies any other symptoms. Patient was admitted to the hospital, consulted healthcare technician, Dr. Moy. MRI of the foot was done status debridement by Dr. Moy and given antibiotics. Cultures were sent. Status post angiogram by Dr. Mansfield showing distal disease not amenable for treatment. Cultures were appreciated. Consulted infectious disease for antibiotics. Patient initially was on Zosyn and vancomycin, later switched to Zosyn only. C-reactive protein was followed. Wound care was done as per Dr. Moy and Dr. Kaplan's recommendation. Discharge tunneled central line was initially placed for prolonged antibiotics. Discharge was delayed secondary to [facility]itentiary placement. Later tunneled central line was discontinued. Patient was switched to oral antibiotics to finish a 6-week course as per infectious disease (ID) recommendation. Currently arrangements are made for patient to be discharged to longterm facility on 02/24/2019. Discharge delayed secondary to [facility]iary placement. Nephrology was consulted for fluid management. Patient was transfused one times during this hospital course. Patient currently tolerating oral, comfortable, frail but in no significant distress, ready to be discharged for further care as an outpatient. VITAL SIGNS: Temperature 97.3, pulse 85, respirations 16, blood pressure 134/66, pulse ox 92% in room air. LABORATORY: WBC 10.5, hemoglobin and hematocrit 9.7/33, platelets 231. Chemistry: Sodium 134, potassium 5, chloride 97, bicarbonate 30, BUN 35, creatinine 3.35, C-reactive protein 3.27. PHYSICAL EXAMINATION: GENERAL: Patient in no acute distress. Flat affect. HEENT: Normocephalic, atraumatic. PULMONARY: Bilateral clear to auscultation. CARDIAC: Irregularly irregular. Non-tachycardic. ABDOMEN: Soft, nontender. Positive bowel sounds. EXTREMITIES: Bilateral lower extremity trace edema. Stage IV heel ulcers bilaterally with mild bleeding, off-loading boots, dressings intact. DISCHARGE MEDICATIONS: - Wells 03/3256 mg three times a day as needed - Augmentin 500 and 125 mg by mouth nightly, end date 03/19/2019. - collagenase daily for wound care - lavage daily for wound care - Effexor 75 mg by mouth q a.m. - Coumadin 5 mg by mouth daily, check INR in 2-3 days - acetaminophen 650 mg by mouth every 4 hours as needed - Lipitor 80 mg by mouth daily - PhosLo 1334 by mouth with meal - Digoxin 125 mcg by mouth every other day - Neupogen as directed during dialysis - hydroxyzine 10 mg by mouth twice a day as needed - Humalog every morning 8 units - iron infusion as directed by linotypist - Imodium 2 mg by mouth as needed for diarrhea - [place] 3 fatty acid one capsule by mouth twice a day - metoprolol succinate 50 mg by mouth daily - Zofran 4 mg by mouth every 4 hours as needed - Lantus SoloSTAR 15 units subcutaneous twice a day DISCHARGE INSTRUCTIONS: Please see primary provider in 7 days. Please linotypist during dialysis, new schedule Saturday, Saturday, Saturday. Please see Dr. Moy or Dr. Kaplan in 10-14 days for wound care. Please see Dr. Bryan in 14 days. Augmentin until 03/19/2019. Please check CRP. Please check INR for Coumadin dosing. Further antibiotic adjustment as per Dr. Bryan. Please check CRP weekly. Return if symptoms worsen. Further care is a per provider [facility]. MICAELAD
[2019-02-23] MEDS: NORCO, ANEXSIA 5/325MG TABLET (HYDROcodone/ACETAMINOPHEN) PO PRN (15:14)
[2019-02-23] MEDS: SANTYL OINT 30GM TOP SCH (15:30)
[2019-02-23] MEDS: WARFARIN SOD 3 MG TAB PO SCH (17:32)
[2019-02-23] MEDS: AUGMENTIN 500 MG TAB PO SCH (21:54)
[2019-02-23] MEDS: ATORVASTATIN 20 MG TAB PO SCH (21:55)
[2019-02-23 22:00] VITALS: BP 124/58
[2019-02-24 06:00] VITALS: BP 143/68
[2019-02-24] MEDS: HumaLOG INSULIN (NovoLOG) PER UNIT SC SCH (07:30)
[2019-02-24 08:57] VITALS: BP 143/68
[2019-02-24] MEDS: VENLAFAXINE **XR** 75MG CAPSULE PO SCH (08:57)
[2019-02-24] MEDS: CALCIUM ACETATE 667 MG GELCAP PO SCH (08:57)
[2019-02-24] MEDS: METOPROLOL SUCC (TopROL XL) 50MG **XL** TAB PO SCH (08:57)
[2019-02-24] MEDS: LACTOBACILLUS ACIDOPHILUS CAP (BACID) PO SCH (08:57)
[2019-02-24] MEDS ORDERED: IRON SUCROSE 100MG 5ML VIAL (J1756 PER 1MG) IV ONE (09:00)
[2019-02-24] MEDS: NORCO, ANEXSIA 5/325MG TABLET (HYDROcodone/ACETAMINOPHEN) PO PRN (09:00)
--- NOTE | 2019-02-24 09:25 | IPN ---
DATE OF VISIT: 02/23/2019 Mrs. Gibbons is seen this morning during hemodialysis. She is feeling better and denies any nausea, vomiting, dyspnea, chest pain, fever or chills. Her left arm arteriovenous (AV) fistula is working well and she reports the pain in her left arm has improved. She is being dialyzed today as there is a plan for her to be discharged to [facility] tomorrow. On physical exam, temperature 97.3 degrees Fahrenheit, heart rate 85 per minute and respiratory rate 16 per minute. Blood pressure 134/66 mmHg and oxygen saturation 92% on room air. Her head is atraumatic. 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 Neck is supple and jugular venous distention (JVD) is not elevated. She has no oral thrush or ulcers. Heart sounds are regular and lungs clear to auscultation. Abdomen soft and nontender. Bowel sounds are normal. Extremities have no cyanosis or clubbing. Her left arm AV fistula is working very well. Both her feet are in dressing and foam boots. Neurologically, she is at her baseline mentation. Today's labs show WBC count 10.5, hemoglobin 9.7 and hematocrit 33.0. Platelets 231. Sodium 134, potassium 5.0, CO2 30, BUN 35 and creatinine 3.35. C-reactive protein is 3.27. PROBLEMS: 1. End-stage renal disease. Patient is being dialyzed today and she will be now on Saturday, Saturday and Saturday schedule. Her volume status is well-compensated and electrolytes are stable. We are removing about 2.5 liters fluid today. 2. Anemia. Her anemia is stable and she will continue to receive Aranesp once a week. 3. Hypertension. Blood pressure is very well controlled on chronic medications and no changes are being made today. 4. Bilateral osteomyelitis of heels with infected diabetic foot ulcers. Patient remains on Augmentin and wound care. There is a plan for her to be discharged to [facility] tomorrow.
--- NOTE | 2019-02-24 17:39 | DSES ---
DATE OF ADMISSION: 01/30/2019 DATE OF DISCHARGE: 02/24/2019 The remained in the hospital for an additional night awaiting transportation and was discharged 02/24/2019. No changes to the patient's clinical status or previously dictated discharge summary.
[2019-02-26] MEDS ORDERED: IRON SUCROSE 100MG 5ML VIAL (J1756 PER 1MG) IV ONE (09:00)
--- NOTE | 2019-04-01 11:25 | REPIR ---
DATE OF PROCEDURE: 02/06/2019 ATTENDING SURGEON: Dr. Peyton Mansfield CUSTOMER SERVICE TRAINER: None. PREOPERATIVE DIAGNOSIS: Bilateral lower extremity ischemia and ulceration. POSTOPERATIVE DIAGNOSIS: Bilateral lower extremity ischemia and ulceration. PROCEDURES: Aortogram. Iliofemoral angiogram. Bilateral lower extremity angiography. INDICATION: Patient is a 58-year-old female with bilateral lower extremity ulceration and pain in her legs who will undergo angiogram. Risks, benefits and alternative treatment options were discussed with the patient. ANESTHESIA: Local. ESTIMATED BLOOD LOSS: Minimal. IV FLUIDS: 100 mL. COMPLICATIONS: None. DRAINS: None. SPECIMENS: None. IMPLANTS: None. PROCEDURE: Patient was taken to the angiography suite, placed supine on the angiography room table, and then prepped and draped in a standard surgical fashion. The right common femoral artery was cannulated. A catheter placed in the aorta and an aortogram and iliofemoral angiogram was performed. Catheter was pulled down to the bifurcation iliac arteries and bilateral lower extremity angiography was performed. No intervention was required. The sheath and catheter were removed and a MYNX closure device was used close the arteriotomy in the right common femoral artery with an additional 10 minutes adjunctive pressure applied for hemostasis. Dressings were then applied. The patient tolerated the procedure well. All instrument, sponge and needle counts were correct at the end of the case. There were no complications. Dr. Mansfield was present for and directed the entire case. The patient was transferred to the holding area and subsequently to the floor in stable condition.
--- NOTE | 2019-04-02 14:03 | RO ---
DATE OF PROCEDURE: 02/17/2019 ATTENDING SURGEON: Dr. Peyton Mansfield CITRUS FRUIT COLORER: None. PREOPERATIVE DIAGNOSIS: Right internal jugular vein Arredondo catheter. POSTOPERATIVE DIAGNOSIS: Right internal jugular vein Arredondo catheter. PROCEDURE: Removal right internal jugular vein Arredondo catheter. INDICATION: Patient underwent placement of a Arredondo catheter but the nursing facility does not accept patient's with Arredodno catheters and the catheter must be removed. Risks, benefits and alternative treatment options were discussed with the patient. ANESTHESIA: None. ESTIMATED BLOOD LOSS: Minimal. IV FLUID: None. COMPLICATIONS: None. DRAINS: None. SPECIMENS: None. IMPLANTS: None. PROCEDURE: The patient was prepped and draped in a standard surgical fashion. The dressing was removed prior to prepping and draping. Manual traction was applied to the catheter which released the subcutaneous cuff. The catheter was removed and manual compression was applied for hemostasis. Dressings were then applied. The patient tolerated the procedure well. All instrument, sponge, and needle counts were correct at the end of the case. There were no complications. Dr. Mansfield was present for and directed the entire case. The patient was transferred to the holding area and subsequently to the floor in stable condition.
--- NOTE | 2019-04-02 14:22 | REPIR ---
DATE OF PROCEDURE: 02/09/2019 ATTENDING SURGEON: Peyton Mansfield MD PREOPERATIVE DIAGNOSIS: Poor intravenous (IV) access. POSTOPERATIVE DIAGNOSIS: Poor intravenous access. PROCEDURE: Ultrasound-guided right internal jugular vein 23-cm dual-lumen Arredondo catheter placement. INDICATION: The patient requires IV antibiotics as an outpatient will undergo placement of a tunneled central venous catheter for IV antibiotic therapy. Risks, benefits, and alternative treatment options were discussed with the patient. ANESTHESIA: Was local. ESTIMATED BLOOD LOSS: Minimal. IV FLUID: 100 mL. COMPLICATIONS: None. DRAINS: None. SPECIMENS: None. DESCRIPTION OF PROCEDURE: The patient was taken to the angiography suite, placed supine on the angiography room table, and then ultrasound was used to guide cannulation of the right internal jugular vein. A Arredondo catheter was tunneled through a puncture wound in the right chest and then advanced through the introducer sheath in the right internal jugular vein and placed with the tip in the superior vena cava right atrial junction. Both ports were aspirated and noted to aspirate easily and then flushed with heparinized saline. Dressings were then applied. The patient tolerated the procedure well. All instrument, sponge, and needle counts were correct at the end the case. There were no complications. Dr. Mansfield was present for and directed the entire case. The patient was transferred to the holding and subsequently to the floor in stable condition.
== END 2019-02-24 10:15 | DRG 579 ==
LOC: EDBD 16:33 → M ED 16:33 → EEVIPCON 20:18 → M ED INP 20:18 → M MSPAV 01-31 16:50
PROVIDERS: ADMIT Hospitalist; ATTEND Internal Medicine
PROC: 5A1D70Z Performance of Urinary Filtration, Intermittent, Less than 6 Hours Per Day (ICD-10-PCS; 2019-01-31)
PROC: 0JDQ0ZZ Extraction of Right Foot Subcutaneous Tissue and Fascia, Open Approach (ICD-10-PCS; 2019-02-02)
PROC: 0JDR0ZZ Extraction of Left Foot Subcutaneous Tissue and Fascia, Open Approach (ICD-10-PCS; principal; 2019-02-02 16:00)
PROC: 30233N1 Transfusion of Nonautologous Red Blood Cells into Peripheral Vein, Percutaneous Approach (ICD-10-PCS; 2019-02-03)
PROC: 02HV33Z Insertion of Infusion Device into Superior Vena Cava, Percutaneous Approach (ICD-10-PCS; 2019-02-09)
DX: L89.619 Pressure ulcer of right heel, unspecified stage (principal); N18.6 End stage renal disease; C91.90 Lymphoid leukemia, unspecified not having achieved remission; L97.414 Non-pressure chronic ulcer of right heel and midfoot with necrosis of bone; L97.424 Non-pressure chronic ulcer of left heel and midfoot with necrosis of bone; M86.671 Other chronic osteomyelitis, right ankle and foot; M86.672 Other chronic osteomyelitis, left ankle and foot; I50.32 Chronic diastolic (congestive) heart failure; E11.621 Type 2 diabetes mellitus with foot ulcer; E11.22 Type 2 diabetes mellitus with diabetic chronic kidney disease; I50.9 Heart failure, unspecified; I48.2 Chronic atrial fibrillation; G47.33 Obstructive sleep apnea (adult) (pediatric); Z99.2 Dependence on renal dialysis; L89.629 Pressure ulcer of left heel, unspecified stage; I25.10 Atherosclerotic heart disease of native coronary artery without angina pectoris; E11.42 Type 2 diabetes mellitus with diabetic polyneuropathy; E11.319 Type 2 diabetes mellitus with unspecified diabetic retinopathy without macular edema; E87.5 Hyperkalemia; E11.51 Type 2 diabetes mellitus with diabetic peripheral angiopathy without gangrene; H54.8 Legal blindness, as defined in USA; F41.9 Anxiety disorder, unspecified; F32.9 Major depressive disorder, single episode, unspecified; Z85.42 Personal history of malignant neoplasm of other parts of uterus; Z90.49 Acquired absence of other specified parts of digestive tract; Z79.4 Long term (current) use of insulin; Z79.01 Long term (current) use of anticoagulants; Z79.899 Other long term (current) drug therapy; Z88.5 Allergy status to narcotic agent; Z88.1 Allergy status to other antibiotic agents; Z88.8 Allergy status to other drugs, medicaments and biological substances; Z91.041 Radiographic dye allergy status; Z91.19 Patient's noncompliance with other medical treatment and regimen; Z91.15 Patient's noncompliance with renal dialysis; E11.65 Type 2 diabetes mellitus with hyperglycemia; E11.69 Type 2 diabetes mellitus with other specified complication; E66.01 Morbid (severe) obesity due to excess calories; Z68.38 Body mass index [BMI] 38.0-38.9, adult